=== PATIENT | female | born 1955 | race African-American/Black ===

== ENCOUNTER 2017-08-04 05:38 | Day surgery (SDC) | payer MEDICARE ==
[~2017-08-04 05:38] MED LIST: LASIX20 MG PO; NORMODYNE / TR300 MG PO; NORVASC5 MG PO; TUMS500 MG PO; ZOCOR20 MG PO
[2017-08-04 06:09] LABS: HEMATOCRIT 38.7 % (36.0-48.0); HEMOGLOBIN 12.7 g/dL (12-16); MCH 28.9 pg (26.0-34.0); MCHC 32.8 g/dL (31.0-37.0); MEAN PLATELET VOLUME 11.5 fL (7.4-10.4); RBC 4.4 10x6/uL (4.00-5.40); WBC 7.5 10x3/uL (4.8-10.8)
[2017-08-04] MEDS ORDERED: HYZAAR 100-25 T1 TAB PO (06:31)
[2017-08-04] MEDS ORDERED: FUROSEMIDE20 MG PO (06:32)
[2017-08-04] MEDS ORDERED: PRAVACHOL40 MG PO (06:32)
[2017-08-04] MEDS ORDERED: MACROBID100 MG PO (06:33)
[2017-08-04] MEDS ORDERED: K-TAB10 MEQ PO (06:34)
[2017-08-04] MEDS ORDERED: ACETIC ACID15 ML EACH EAR (06:35)
[2017-08-04 06:36] VITALS: BMI 61.5
[2017-08-04 06:47] LABS: ANION GAP 13.2 mmol/L (8-16); CALCIUM 9.2 mg/dL (8.5-10.1); CARBON DIOXIDE 27.6 mmol/L (21.0-32.0); CREATININE - SERUM 1.9 mg/dL (0.6-1.3); POTASSIUM - SERUM 3.8 mmol/L (3.5-5.1)
--- NOTE | 2017-08-04 09:06 | NUR ---
3CC RAMIN INK INJECTED TO COLON POLYP.
--- NOTE | 2017-08-04 09:30 | NUR ---
CALLED DR. SEGURA TO COME AND LOOK AT PATIENT WHEN AVAILABLE POLYPS NOTIFIED Xenia Ventura R.N. TO REPORT MESSAGE.
--- NOTE | 2017-08-04 10:20 | NUR ---
ENEMA NUMBER 1 GIVEN WITH SOME LEAKAGE NOTED
--- NOTE | 2017-08-04 10:25 | NUR ---
ENEMA NUMBER 2 GIVEN AND HELD. PT AARON WELL
--- NOTE | 2017-08-04 10:35 | NUR ---
ASSISTED PT UP TO BEDSIDE TOILET.
--- NOTE | 2017-08-04 11:00 | NUR ---
ASSISTED PT BACK TO BED AND TRAY PROVIDED.
--- NOTE | 2017-08-04 11:20 | NUR ---
DC TEACHING COMPLETE APPT MADE W/BREVING PER DR HARRIS'S REQUEST. PT ZENOBIA.
--- NOTE | 2017-08-04 11:30 | NUR ---
PT DC HOME WITH AUNT DRIVING VIA WC BY VOLUNTEER.
--- NOTE | 2017-08-10 10:26 | OP ---
PATIENT NAME: CATHERINE BANKS MEDICAL RECORD: [id number] :59 LOCATION:D.[facility]ER[facility] ADMISSION DATE: SURGEON: BIRDIE HARRIS MD DATE OF OPERATION: 08/04/2017 REFERRED BY: Dr. Justin Alvarado of [place]. PREOPERATIVE DIAGNOSIS: Screening colonoscopy. POSTOPERATIVE DIAGNOSIS: Large sessile polyp 4-5 cm in diameter of the right colon. OPERATION PERFORMED: Colonoscopy with electrocautery and snare, right colonic polypectomy. SURGEON: Birdie Harris MD ANESTHESIA: TIVA per SUPPORT SERVICES SPECIALIST. PREOPERATIVE NOTE: Ms. Banks is a 62-year-old morbidly obese -Ugand[place] female who has never had endoscopy and was referred to me by Dr. Alvarado for screening examination. She is a low risk individual other than being morbidly obese. She has no family history of colorectal cancer or other risk factors. She has completed a standard MiraLax prep. Under TIVA, with the patient in lateral decubitus position, a digital rectal exam was done. There was a large scar in the left buttock adjacent to the anus from what probably was incision and drainage of perirectal or ischiorectal abscess. I found no evidence of active sepsis or inflammation. The anal sphincter was somewhat lax and there were no lesions palpable within the anus or rectum. The patient did have a moderately large amount of brown thin liquid stool. The patient was, as I have said, morbidly obese and under TIVA, there was continued intermittent problems with airway maintenance and apparent sleep apnea type problems. She required very close monitoring and large doses of propofol. In future she will need general anesthesia with endotracheal intubation. The Olympus colonoscope was introduced and advanced through the rectum and sigmoid colon. The liquid stool was fairly easily suctioned away and the examination, I thought, was adequate although small lesions could have been missed. The scope was advanced to the cecum. The ileocecal valve was identified and photographed and the scope slowly withdrawn. The patient had a 4-5 cm polypoid sessile mass in the right colon on the medial wall. I injected saline submucosally to prepare for submucosal resection and then removed the polyp with snare and electrocautery in a piecemeal fashion and one large specimen was retrieved for histopathology and other portions of the resected polyp I could not retrieve. There was no bleeding from the polypectomy site. I did inject Yesenia ink into the submucosal tissues adjacent to the lesion to identify it during future examinations and surgery. The scope was slowly withdrawn. No other lesions were seen. I will plan for this patient to have a followup repeat colonoscopy with argon beam electrocautery and we will refer her to Dr. Augusto Segura for that procedure, which needs to be done in the operating room under general OPERATIVE REPORT [id number] CATHERINE BANKS JACE anesthesia. If the polypoid specimens contain malignancy obviously or dysplastic tissue, I would recommend that she have a right colon resection. At any rate, she will with after all that need a repeat colonoscopy in 1 year. TRANSINT:[id number] Voice Confirmation ID: [id number] DOCUMENT ID: [id number] BIRDIE HARRIS MD at 1026 CC: AUGUSTO SEGURA MD and JUSTIN ALVARADO MD [id number] DICTATION DATE: 08/04/17 0950 SALES AND CATERING COORDINATOR: 08/04/17 1252 [facility] 08/04/17 [facility] [address] [place] [address]
== END 2017-08-04 11:30 | disposition home or self-care (01) ==
LOC: D.OPS 05:38
PROVIDERS: Anesthesiology
DX: Z12.11 Encounter for screening for malignant neoplasm of colon (principal); D12.2 Benign neoplasm of ascending colon; I10 Essential (primary) hypertension; G47.30 Sleep apnea, unspecified; E66.01 Morbid (severe) obesity due to excess calories; Z68.44 Body mass index [BMI] 60.0-69.9, adult; Z01.812 Encounter for preprocedural laboratory examination

== ENCOUNTER → 2017-08-07 16:25 | Outpatient (CLI) | payer MEDICARE ==
[2017-08-04 06:36] VITALS: BMI 61.5
[~2017-08-07 16:25] MED LIST changes: +ACETAMINOPHEN325 MG PO; +ACETIC ACID15 ML EACH EAR; +BENADRYL INJ50 MG/ML IV; +CALMOSEPTINE OI71 GM TOPICAL; +FLAGYL500 MG PO; +FUROSEMIDE20 MG PO; +HYDROCODON-ACE1 EAC7 PO; +HYZAAR 100-25 T1 TAB PO; +K-TAB10 MEQ PO; +KEFLEX500 MG PO; +LOVENOX30 MG/0.3 SC; +MACROBID100 MG PO; +MERREM 500 MG/500 MG IV; +MUCINEX DM ER1 EAC1 PO; +NALOXONE HC0.4 MG/M2 IV; +ONDANSETRON4 MG/2 M3 IV; +PEPCID20 MG PO; +PHENERGAN25 MG/ML IM; +PHOSLO667 MG PO; +PRAVACHOL40 MG PO; +PROCRIT/EP10000 UNIT SC; +VENTOLIN HFA18 GM INH; +ZYLOPRIM100 MG PO
== END | disposition home or self-care (01) ==
LOC: D.US 16:00
DX: R60.0 Localized edema (principal); M79.602 Pain in left arm

== ENCOUNTER 2017-09-13 05:26 | Day surgery (SDC) | payer MEDICARE ==
[~2017-09-13 05:26] MED LIST changes: -ACETAMINOPHEN325 MG PO; -BENADRYL INJ50 MG/ML IV; -CALMOSEPTINE OI71 GM TOPICAL; -FLAGYL500 MG PO; -HYDROCODON-ACE1 EAC7 PO; -KEFLEX500 MG PO; -LOVENOX30 MG/0.3 SC; -MERREM 500 MG/500 MG IV; -MUCINEX DM ER1 EAC1 PO; -NALOXONE HC0.4 MG/M2 IV; -ONDANSETRON4 MG/2 M3 IV; -PEPCID20 MG PO; -PHENERGAN25 MG/ML IM; -PHOSLO667 MG PO; -PROCRIT/EP10000 UNIT SC; -VENTOLIN HFA18 GM INH; -ZYLOPRIM100 MG PO
[2017-09-13] MEDS ORDERED: ZYLOPRIM100 MG PO (06:46)
[2017-09-13] MEDS ORDERED: VENTOLIN HFA18 GM INH (06:48)
[2017-09-13 06:51] VITALS: BP 140/88; BMI 61.5
[2017-09-13 07:21] LABS: HEMOGLOBIN 10.9 g/dL (12-16); MCH 28.3 pg (26.0-34.0); MCHC 32.1 g/dL (31.0-37.0); MCV 88.3 fL (80.0-100.0); MEAN PLATELET VOLUME 11.1 fL (7.4-10.4); RBC 3.85 10x6/uL (4.00-5.40); RDW 14.8 % (11.5-14.5); WBC 8.9 10x3/uL (4.8-10.8)
[2017-09-13 07:42] LABS: ANION GAP 12.1 mmol/L (8-16); CALCIUM 9.6 mg/dL (8.5-10.1); CARBON DIOXIDE 27.3 mmol/L (21.0-32.0); CREATININE - SERUM 2.1 mg/dL (0.6-1.3); POTASSIUM - SERUM 3.4 mmol/L (3.5-5.1)
--- NOTE | 2017-09-19 09:40 | HP ---
PATIENT: CATHERINE MILLIGAN MEDICAL RECORD: [id number] ACCOUNT: [id number] LOCATION:D.OPS : 59 ADMISSION DATE: 09/13/17 HISTORY AND PHYSICAL EXAMINATION This is a history and physical addendum. CHIEF COMPLAINT: Colon polyp. I reviewed my office notes. Her history and physical examination is unchanged since I last saw the patient. We will plan for colonoscopy with polypectomy utilizing the argon plasma flow machine operator. The risks, possible complications, and alternatives to the procedure were explained to the patient. She elects to proceed. TRANSINT:[id number] Voice Confirmation ID: [id number] DOCUMENT ID: [id number] AUGUSTO SEGURA MD at 0940 CC: [id number] DICTATION DATE: 09/13/17 1033 BUSINESS LAWYER: 09/13/17 1052 [facility] 09/13/17 [id number] [place] [address]
--- NOTE | 2017-09-19 09:40 | OP ---
PATIENT NAME: CATHERINE MILLIGAN MEDICAL RECORD: [id number] :59 LOCATION:D.[facility] ADMISSION DATE: SURGEON: AUGUSTO SEGURA MD DATE OF OPERATION: 09/13/2017 PREOPERATIVE DIAGNOSIS: Right colon polypoid mass. POSTOPERATIVE DIAGNOSES: Right colon polypoid mass with probable underlying malignancy. PROCEDURES: 1. Total colonoscopy to cecum. 2. Endoscopic epinephrine injection with a sclerotherapy needle. 3. Snare piecemeal polypectomy. 4. Treatment of the polypoid base with the argon plasma biomass plant manager. 5. Deployment of endoscopic clips times 2 for additional hemostasis. SURGEON: Augusto Segura MD GAS ENGINEER: None. BLOOD LOSS: Minimal. ANESTHESIA: General. COMPLICATIONS: None. OPERATIVE FINDINGS: The base of the polyp contained an ulcerated area that was firm when I biopsied it and I am fearful that this likely represents invasive malignancy. OPERATIVE COURSE: The patient was conveyed to the operating room electively on 09/13/2017. General anesthesia was induced by anesthesia staff. The patient was placed in the Aparicio position. A digital rectal examination was performed. A colonoscope was inserted through the anus. It was easily advanced to the cecum. The prep was adequate. Upon withdrawal, I irrigated and aspirated extensively. I dragged the folds. The pullback was greater than a 25-minute pullback. In the ascending colon, at about the hepatic flexure, there was a tattooed area with a mass which was on a fold. This was a 4 cm mass. It was a bilobed mass and it appeared to have central ulceration. Cold endoscopic biopsies were obtained. As I did this, there was a little bit of bleeding and I wanted to control the bleeding with submucosal injection of epinephrine. I advanced the endoscopic sclerotherapy needle. I then injected epinephrine at 4 areas at the base of the polyp. The sclerotherapy needle was then withdrawn. I advanced an endoscopic snare. I performed a piecemeal snare polypectomy, removing about 90% of the polyp with the snare. I then obtained some more cold endoscopic biopsies. I then ablated the polypoid base with the argon plasma biomass plant manager. I had to go deep on this fold and there was some bleeding and I wanted to reinforce the area as well as control the bleeding and I did this with the deployment of 2 endoscopic clips. I then advanced an endoscopic retrieval net and was able to retrieve the portions of the polyp that I had removed with the snare. The endoscope was then withdrawn under direct vision. The patient was then extubated and conveyed to the post-anesthesia care unit where she was in stable condition. A chest x-ray was obtained. The radiologist OPERATIVE REPORT [id number] SRINICATHERINE JACE called me with the results revealing some interstitial edema, but no evidence of free air. I will see the patient in my office in a week or two. It is very likely that I will recommend a laparoscopic segmental colectomy of the right colon as I am fearful that this polypoid mass harbors an underlying malignancy. TRANSINT:[id number] Voice Confirmation ID: [id number] DOCUMENT ID: [id number] AUGUSTO SEGURA MD at 0940 CC: BIRDIE HARRIS MD [id number] DICTATION DATE: 09/13/17 1037 CORPORATE DIRECTOR OF PHARMACY: 09/13/17 1156 [facility] 09/13/[address] [facility] [address] [place] [address]
== END 2017-09-13 12:21 | disposition home or self-care (01) ==
LOC: D.OPS 05:26 → D.PAN 07:30 → D.OPS 10:30
PROVIDERS: Anesthesiology
DX: D12.2 Benign neoplasm of ascending colon (principal); Z01.812 Encounter for preprocedural laboratory examination

== ENCOUNTER 2017-10-02 13:00 | Inpatient (IN) | payer MEDICARE ==
[~2017-10-02] VITALS: Ht 170.2 cm; Wt 177.8 kg
[~2017-10-02 13:00] MED LIST changes: +VENTOLIN HFA18 GM INH; +ZYLOPRIM100 MG PO
[2017-10-03] MEDS ORDERED: FLAGYL500 MG PO (14:58)
[2017-10-03] MEDS ORDERED: KEFLEX500 MG PO (14:59)
[2017-10-04 08:11] VITALS: BP 172/100; BMI 63.3
[2017-10-04 08:44] LABS: HEMATOCRIT 32.9 % (36.0-48.0); HEMOGLOBIN 10.5 g/dL (12-16); MCH 28.4 pg (26.0-34.0); MCHC 31.9 g/dL (31.0-37.0); MCV 88.9 fL (80.0-100.0); MEAN PLATELET VOLUME 11.7 fL (7.4-10.4); RBC 3.7 10x6/uL (4.00-5.40); RDW 15.7 % (11.5-14.5); WBC 8.1 10x3/uL (4.8-10.8)
[2017-10-04 09:06] LABS: ANION GAP 13.3 mmol/L (8-16); CARBON DIOXIDE 25.2 mmol/L (21.0-32.0); CREATININE - SERUM 1.9 mg/dL (0.6-1.3); POTASSIUM - SERUM 3.5 mmol/L (3.5-5.1)
[2017-10-04 13:19] VITALS: BP 139/79
[2017-10-04 13:26] VITALS: BP 139/79; BMI 61.5
--- NOTE | 2017-10-04 14:10 | NUR ---
PT HAS SCD'S IN PLACE BILATERALLY
[2017-10-04 20:00] VITALS: BP 157/96
--- NOTE | 2017-10-04 23:57 | NUR ---
2000)REC'D REQUESTING PAIN MEDS STATES HAS BEEN TRYING TO GET SOMETHING FOR PAIN FOR TWO HOURS.RATING PAIN 6 ON 1-10 PAIN SCALE. DIRECTOR OF BANDS DILAUDUD 0.2MG EVERY 10 MIN. NO LOCKOUT CONNECTED AND EXPLAINED.WITH PHYSICAL DEMONSTRATION VOICES UNDERSTANDING USAGE.02 3L OH. MASON PATENT DRAINING DK. YELLOW COLORED URINE. WILL CONTINUE TO MONITOR FOR ANY CHGES. AND FOLLOW CURRENT PLAN OF CARE
[2017-10-05] VITALS: BP 143/82
--- NOTE | 2017-10-05 01:54 | NUR ---
PT RESTING WITH EYES CLOSED AT THIS TIME. RESPIRATIONS EQUAL, NO SIGNS OF DISTRESS NOTED. PARTS ROOM ASSOCIATE IN USE FOR PAIN CONTROL. CALL LIGHT IN REACH, SRX2. WILL CONTINUE WITH PLAN OF CARE.
[2017-10-05 04:00] VITALS: BP 136/78
--- NOTE | 2017-10-05 07:05 | NUR ---
REPORT RECEIVED, ASSUMED CARE OF PT. RESTING WITH EYES SHUT, EASILY AROUSED, NO NEEDS VOICED AT THIS TIME.
[2017-10-05 08:16] VITALS: BP 157/110
[2017-10-05 10:03] VITALS: Ht 170.2 cm; Wt 177.8 kg
[2017-10-05 12:14] VITALS: BP 149/73
[2017-10-05 15:38] VITALS: BP 178/98
[2017-10-05 20:00] VITALS: BP 143/73
[2017-10-06] VITALS (7 sets, daily range): BP systolic 126–163; BP diastolic 68–98
--- NOTE | 2017-10-06 07:19 | NUR ---
REPORT RECEIVED FROM VIOLIN TEACHER NURSE. CALL LIGHT IN REACH.
--- NOTE | 2017-10-06 08:30 | NUR ---
ASSESSMENT COMPLETED. NO NEEDS VOICED AT THIS TIME. REFUSES SCDs. CALL LIGHT IN REACH. WILL CONTINUE WITH PLAN OF CARE.
--- NOTE | 2017-10-06 10:15 | NUR ---
NO NEEDS VOICED AT THIS TIME. CALL LIGHT IN REACH.
--- NOTE | 2017-10-06 10:48 | NUR ---
Patient Name: CATHERINE MILLIGAN Admission Status: Elective Accout number: [id number] Admission Date: 10-04-2017 : 1955 Admission Diagnosis:POLYP OF COLON Attending: AUGUSTO SEGURA Current LOS: 2 Anticipated DC Date: Planned Disposition: Home Primary Insurance: MEDICARE A & B Discharge Planning Comments: CM met with patient to assess discharge planning needs. Patient lives independently at home with her 2 sons (Mel and Ata) who help her when needed. She stated that sometimes her sons have to help her with bathing. Patient has a cane at home and uses an inhaler. Patient denies any HH at this time, but not sure she will need any when she goes home. There are not any stairs at home. CM will continue to follow and assist with discharge planning needs. PCP: Laury Allen in [facility] Mel and Ata (son) Practice Support Specialist: Sharon Youssef * Is the patient Alert and Oriented? Yes 0 * How many steps to enter\exit or inside your home? 0 0 * PCP LAURY 0 * Pharmacy [facility] [address] * Preadmission Environment Home with Family 0 * ADLs Partial Dependent 0 * Partial ADLs (Assistance needed) Bathing 0 * Equipment Cane 0 * List name and contact numbers for known caregivers / representatives who currently or will assist patient after discharge: MEL (SON) ATA (SON) 0 * Community resources currently utilized None 0 * Additional services required to return to the preadmission environment? Yes 0 * Can the patient safely return to the preadmission environment? Yes 0 * Has this patient been hospitalized within the prior 30 days at any hospital? No 0 Grand Total: 0
--- NOTE | 2017-10-06 12:10 | NUR ---
DR. SEGURA IN ROOM TO SEE PATIENT.
--- NOTE | 2017-10-06 14:02 | NUR ---
PEPCID 40 MG SIVP PER ORDER. AMBULATED IN HALLWAY WITH PT ABOUT AN HOUR AGO. CALL LIGHT IN REACH.
--- NOTE | 2017-10-06 16:20 | NUR ---
DENIES NEEDS AT THIS TIME. CALL LIGHT IN REACH.
--- NOTE | 2017-10-06 18:53 | NUR ---
LOVENOX SUBQ TO RLQ. NO OTHER CHANGES IN INITIAL ASSESSMENT. STILL REFUSES SCDs. CALL LIGHT IN REACH. WILL CONTINUE WITH PLAN OF CARE.
--- NOTE | 2017-10-06 19:15 | NUR ---
RECEIVED CARE FROM DAY NURSE. PT LYING IN BED WATCHING TV. REPORTS HEADACHE. ORDER RECEIVED FOR TYLENOL PO. NO OTHER NEEDS VOICED AT THIS TIME. MASON TO GRAVITY. IV TO LEFT HAND PATENT AND INFUSING PER ORDER.
--- NOTE | 2017-10-06 23:30 | NUR ---
ANSWERED PATIENT'S CALL LIGHT. SHE REQUESTED FRESH ICE WATER. REMOVED PATIENT'S CUP OF WATER. BROUGHT HER BACK A LARGE CUP OF ICE WATER. NO SIGNS OF DISTRESS NOTED. RESPIRATIONS ARE EVEN AND UNLABORED ON ROOM AIR. BED IN LOWEST POSITION, CALL LIGHT IN REACH. BED RAILS UP X'S 2.
[2017-10-07] VITALS: BP 130/82
[2017-10-07 04:00] VITALS: BP 177/95
--- NOTE | 2017-10-07 07:16 | NUR ---
REPORT RECEIVED FROM FIELD ARTILLERY BASIC NURSE. CALL LIGHT IN REACH.
--- NOTE | 2017-10-07 08:48 | NUR ---
BP 217/102. TAKEN AGAIN AND IT WAS 203/110. SPOKE WITH DR. SEGURA. STATES IT IS OK TO RESTART HOME BP MEDS.
--- NOTE | 2017-10-07 09:00 | NUR ---
ASSESSMENT COMPLETED. AM MEDS ADMINISTERED. REFUSES SCDs. CALL LIGHT IN REACH. WILL CONTINUE WITH PLAN OF CARE.
[2017-10-07 09:13] VITALS: BP 203/110
--- NOTE | 2017-10-07 11:14 | NUR ---
SITTING UP IN CHAIR AT BEDSIDE. REPORTS SOME PAIN WITH BEING UP BUT FEELS BETTER OUT OF BED. MASON PATENT WITH CLEAR YELLOW URINE. DENIES NEEDS AT THIS TIME.
--- NOTE | 2017-10-07 11:44 | NUR ---
OTHER AM MEDS ADMINISTERED. CALL LIGHT IN REACH.
[2017-10-07 13:16] VITALS: BP 207/117
--- NOTE | 2017-10-07 13:47 | NUR ---
BACK IN BED. STATES A PAIN OF 7. STILL USING COMPRESSOR REPAIRER. WILL CONTINUE TO MONITOR.
--- NOTE | 2017-10-07 14:34 | NUR ---
SBP IS STILL OVER 200. SPOKE WITH DR. SEGURA. NEW ORDER FOR LOPRESSOR 5 MG IVP X1. ALSO CORRECTED DOSES OF HER HOME MEDS. LABETALOL SHOULD BE TID NOT BID AND LASIX SHOULD BE 40 MG NOT 20. WILL GO AHEAD AND GIVEN 2ND DOSE OF LABETALO AND 2ND DOSE OF LASIX 20 MG TO EQUAL HER TOTAL DAILY DOSE OF 40. WILL HAVE RN TO PUSH LOPRESSOR.
--- NOTE | 2017-10-07 15:25 | NUR ---
AFTERNOON MEDS ADMINISTERED. FAMILY IN ROOM. CALL LIGHT IN REACH.
[2017-10-07 15:53] VITALS: BP 157/88
--- NOTE | 2017-10-07 16:17 | NUR ---
BP NOW 157/88. WILL CONTINUE TO MONITOR.
--- NOTE | 2017-10-07 18:00 | NUR ---
MASON CATH DC'D WITH IP INTACT. FLUOROSCOPE OPERATOR DC'D PER ORDER. NORCO PO. NS DECREASED TO 50 CC/HR. NO OTHER CHANGES IN INITIAL ASSESSMENT. STILL REFUSES SCDs. CALL LIGHT IN REACH. WILL CONTINUE WITH PLAN OF CARE.
[2017-10-07 20:56] VITALS: BP 151/65
[2017-10-08 01:42] VITALS: BP 177/90
--- NOTE | 2017-10-08 04:53 | NUR ---
ASSESSED, PT IS ASLEEP WITH O2 AT 2 LITERS AND EASY RESPIRATIONS. THE BED IS LOW, RAILS UP X'S 2 WITH THE CALL LIGHT AT HAND.
--- NOTE | 2017-10-08 07:26 | NUR ---
REPORT RECEIVED FROM CNS NURSE. CALL LIGHT IN REACH.
[2017-10-08 09:03] VITALS: BP 178/102
--- NOTE | 2017-10-08 09:10 | NUR ---
ASSESSMENT COMPLETED. AM MEDS ADMINISTERED. REFUSES SCDs. CALL LIGHT IN REACH. WILL CONTINUE WITH PLAN OF CARE.
--- NOTE | 2017-10-08 11:20 | NUR ---
SITTING IN CHAIR PER PT. TOLERATING AT THIS TIME. CALL LIGHT IN REACH.
[2017-10-08 12:05] VITALS: BP 145/87
--- NOTE | 2017-10-08 13:50 | NUR ---
NO NEEDS VOICED AT THIS TIME. CALL LIGHT IN REACH.
--- NOTE | 2017-10-08 15:01 | NUR ---
LABETALOL AND NORCO PO. CALL LIGHT IN REACH.
[2017-10-08 16:15] VITALS: BP 163/79
--- NOTE | 2017-10-08 17:00 | NUR ---
DENIES NEEDS AT THIS TIME. VISITORS IN ROOM. CALL LIGHT IN REACH.
--- NOTE | 2017-10-08 18:32 | NUR ---
NO CHANGES IN INITIAL ASSESSMENT. STILL REFUSING SCDs. FAMILY IN ROOM. CALL LIGHT IN REACH. WILL CONTINUE WITH PLAN OF CARE.
--- NOTE | 2017-10-08 19:20 | NUR ---
PT IN BED WITH EYES OPEN. NO COMPLAINTS OR NEEDS MADE KNOWN. IV TO LEFT HAND WITH NS AT 50ML/HR. NO S/S OF DISTRESS. CALL LIGHT IN REACH. WILL CONTINUE TO OBSERVE.
[2017-10-08 21:07] VITALS: BP 142/72
--- NOTE | 2017-10-08 22:03 | NUR ---
PT IN BED WITH EYES CLOSED AND CHEST RISING. EASILY AROUSED UPON ENTRY TO ROOM. NO CONCERNS NOTED. CALL LIGHT IN REACH.
[2017-10-08 23:49] VITALS: BP 170/88
--- NOTE | 2017-10-09 00:31 | NUR ---
PT IN BED WITH EYES OPEN. REPORTED TO HAVE HAD BOWEL MOVEMENT BY STAFF. NO CONCERNS NOTED OR COMPLAINTS. CALL LIGHT IN REACH. WILL CONTINUE TO OBSERVE.
--- NOTE | 2017-10-09 02:49 | NUR ---
PT IN BED WITH EYES CLOSED AND CHEST RISING. NO S/S OF DISTRESS NOTED. CALL LIGHT IN REACH. WILL CONTINUE TO OBSERVE.
[2017-10-09 03:59] VITALS: BP 172/86
--- NOTE | 2017-10-09 07:19 | NUR ---
REPORT RECEIVED FROM HOSIERY LOOPER NURSE. CALL LIGHT IN REACH.
--- NOTE | 2017-10-09 07:21 | NUR ---
REPORT RECEIVED FROM NATURAL RESOURCE ECONOMIST NURSE. CALL LIGHT IN REACH.
[2017-10-09 08:52] VITALS: BP 178/91
--- NOTE | 2017-10-09 08:56 | NUR ---
ASSESSMENT COMPLETES. NORCO PO WITH AM MEDS ADMINISTERED. EXPLAINED TO PATIENT THAT SHE HAS TO GET UP AND WALK IF SHE WANTS TO GO HOME. STILL REFUSING SCDs. BED ALARM ON. CALL LIGHT IN REACH.
--- NOTE | 2017-10-09 10:49 | NUR ---
STATES PAIN IS STILL AT A 7. OVERNIGHT STOCKER IN ROOM TO ASSIST PATIENT WITH BATH. I EXPLAINED TO PATIENT THAT SHE HAS TO GET UP AND WALK IF SHE WANTS TO GO HOME. PATIENT STARTS SAYING THAT SHE "SEES " IN HER ROOM SOMETIMES AND A WOMAN IN A PEACH ROBE IN THE ROOM WITH HER. REORIENTED PER VERBAL STIMULI. OVERNIGHT STOCKER IN ROOM WITH PATIENT.
--- NOTE | 2017-10-09 12:23 | NUR ---
PEPCID 40 MG SIVP. NORCO PO PER C/O PAIN OF 7. CALL LIGHT IN REACH.
[2017-10-09 12:44] VITALS: BP 161/84
--- NOTE | 2017-10-09 13:00 | NUR ---
NUTRITION F/U CHART REVIEWED, PT VISIT. UP IN CHAIR EATING LUNCH. STATES SHE IS "EATING A LITTLE AT A TIME". WILL CONTINUE TO PROVIDE DIET, MONITOR PT PROGRESS. RD FOLLOWING
--- NOTE | 2017-10-09 14:00 | NUR ---
DENIES NEEDS AT THIS TIME. FAMILY IN ROOM. CALL LIGHT IN REACH.
--- NOTE | 2017-10-09 15:10 | NUR ---
LABETALOL PO. FAMILY IN ROOM. CALL LIGHT IN REACH.
[2017-10-09 16:20] VITALS: BP 139/82
[2017-10-09] MEDS ORDERED: HYDROCODON-ACE1 EAC7 PO (16:58)
--- NOTE | 2017-10-09 17:19 | NUR ---
IV DC'D WITH TIP INTACT.
--- NOTE | 2017-10-09 17:40 | NUR ---
DC INSTRUCTIONS EXPLAINED TO PATIENT AND SON. VERBALIZED UNDERSTANDING. RX FOR NORCO HANDED TO PATIENT.
--- NOTE | 2017-10-09 18:09 | NUR ---
PT TO DC HOME. SITTING UP AT BEDSIDE,WITHOUT DISTRESS.
--- NOTE | 2017-10-09 18:15 | NUR ---
DC'D TO VEHICLE VIA WC WITH SON.
--- NOTE | 2017-11-02 13:26 | OP ---
PATIENT NAME: CATHERINE MILLIGAN MEDICAL RECORD: [id number] :59 LOCATION:D.MS [facility]2212 ADMISSION DATE:10/04/17 SURGEON: AUGUSTO SEGURA MD DATE OF OPERATION: 10/04/2017 PREOPERATIVE DIAGNOSIS: Endoscopically unresectable right-sided polypoid mass. POSTOPERATIVE DIAGNOSIS: Endoscopically unresectable right-sided polypoid mass. PROCEDURE: Hand-assisted laparoscopic surgery - right hemicolectomy. SURGEON: Augusto Segura MD LAYAWAY CLERK: None. BLOOD LOSS: Less than 50 cc. ANESTHESIA: General. COMPLICATIONS: None. The risks, possible complications, and alternatives to the procedure were explained to the patient. She elects to proceed. OPERATIVE COURSE: The patient was conveyed to operating room electively on 10/04/2017. General anesthesia was induced by anesthesia staff. The abdomen was sterilely prepped and draped. A skin ramy was accomplished in the left upper quadrant. A Veress needle was inserted through the skin ramy into the peritoneal cavity. CO2 insufflation was begun. Once a sufficient pneumoperitoneum had been achieved, a 5-mm trocar was inserted through an incision in the epigastrium. Under direct internal vision utilizing television camera, another 5-mm trocar was inserted just above the umbilicus. There was a non-incarcerated umbilical hernia, which I did not attempt to fix during this operation as it would have required a mesh repair and due to the fact that performing a colectomy, there is too greater chance that this would have lead to a mesh infection. There were some adhesions in the lower abdomen in the midline. These were taken down with the EnSeal device. In the suprapubic area, another 5-mm trocar was inserted. The right colon was rolled medially. I incised along the right white line of Toldt with the EnSeal device. I then incised the retroperitoneal attachments at the hepatic flexure. I rolled the right colon medially. I chose an area for the insertion of the GelPort device in the right lower quadrant. A transverse incision was accomplished here. I dissected down to the external oblique aponeurosis, which was incised along the direction of its fibers. I then divided through the internal oblique and transversus abdominis muscle layers. The peritoneal cavity was entered sharply. I placed the Gelport device. I was able to exteriorize the right colon. I stapled across the ileum with a ELEAZAR-75 stapler. I then stapled across the proximal transverse colon with a ELEAZAR-75 stapler. The interposed mesentery was divided with the EnSeal device. I opened up the specimen on the back table and it did reveal an ulcerated mass with a tattoo. OPERATIVE REPORT [id number] CATHERINE MILLIGAN I elected to excise a little bit more of the ileum as well as the transverse colon in order to get some tissue that was going to be acceptable for anastomosis as the ileum and colon were largely fatty encased. I stapled across the transverse colon with a TA-60 stapler and then divided the mesentery through this small portion of the colon with the EnSeal device. I then stapled across the ileum little bit more proximally and then divided the mesentery with the EnSeal device. I placed the ileum and the colon into apposition side by side. They were kept in place with multiple interrupted 3-0 Vicryl sutures. A small enterotomy and small colotomy were accomplished. I advanced anvils of the ELEAZAR-75 stapler. I then fired. The resulting intracolonic defect was closed with a single firing of the TA-60 stapler. I then reinforced the TA-60 staple line with multiple interrupted horizontal mattress 3-0 Vicryl sutures. I irrigated and aspirated. There was no bleeding. I then returned the anastomosis to the abdominal cavity. The GelPort device was then removed. I removed the trocars. I approximated the internal oblique and transverse abdominis muscle layers with a running #1 Vicryl. I then closed the external oblique aponeurosis with a running #1 Vicryl. The subdermis was approximated with interrupted 3-0 Vicryl. The skin was approximated with a running intracuticular 3-0 Vicryl. The trocar sites were closed with interrupted intracuticular 3-0 Vicryls. Benzoin and Steri-Strips were applied. The patient was then extubated and conveyed to post-anesthesia care unit, where she was in stable condition. TRANSINT:[id number] Voice Confirmation ID: [id number] DOCUMENT ID: [id number] AUGUSTO SEGURA MD at 1326 CC: KINGSTON SALMON MD, SLIME VO MD and YULISSA TAVARES [id number] DICTATION DATE: 10/04/17 1242 ORDNANCE MECHANIC: 10/04/17 1430 DIS IN 10/09/17 [place] [id number] [place] [address]
--- NOTE | 2017-11-02 13:26 | HP ---
PATIENT: CATHERINE MILLIGAN MEDICAL RECORD: [id number] ACCOUNT: [id number] LOCATION:D.MS [facility] : 59 ADMISSION DATE: 10/04/17 HISTORY AND PHYSICAL EXAMINATION CHIEF COMPLAINT: Colon polyp. HISTORY OF PRESENT ILLNESS: The patient has a right-sided colon polyp. She underwent an attempted polypectomy utilizing the argon plasma supervisor mold shop. The polyp was felt to be unresectable endoscopically. The site was tattooed. The patient is now here for a hand-assisted right hemicolectomy, possible open procedure. The patient has been to the Emergency Room twice recently for bleeding. She is having no abdominal pain. HOME MEDICINES: Flagyl, losartan/hydrochlorothiazide, Keflex, Lasix, labetalol, Zyloprim, albuterol. ALLERGIES: LISINOPRIL. SOCIAL HISTORY: Nonsmoker. PAST MEDICAL AND SURGICAL HISTORY: Sleep apnea, not on CPAP, hypertension, thyroidectomy without replacement, morbid obesity with BMI of 63, arthritis. REVIEW OF SYSTEMS: Negative for CVA or seizures. Negative for diabetes or hepatitis. PHYSICAL EXAMINATION: GENERAL: The patient does not appear acutely ill. She does not appear chronically ill. VITAL SIGNS: Reviewed. The entire physical examination was performed in the presence of a female nurse. HEAD: External ears appear normal. EYES: Extraocular movements are intact. NECK: Trachea is midline. CHEST: No intercostal retractions. PULMONARY: Nonlabored, no stridor. ABDOMEN: There is a prominent panniculus with lower midline incision. IMPRESSION: Endoscopically unresectable right colon polypoid mass. PLAN: Hand-assisted right hemicolectomy. The risks, possible complications, and alternatives to the procedure were explained to the patient. This included the risk of bleeding requiring emergency reoperation, infection and open procedure, as well as the possible need for colostomy. TRANSINT:[id number] Voice Confirmation ID: [id number] DOCUMENT ID: [id number] HISTORY AND PHYSICAL [id number] SRINICATHERINE AUGUSTO MILLIGAN MD at 1326 CC: KINGSTON SALMON MD, SLIME VO MD and YULISSA TAVARES [id number] DICTATION DATE: 10/04/17 1234 SCALE TECHNICIAN: 10/04/17 1313 DIS IN 10/09/17 [facility] [address] [place] [address]
--- NOTE | 2017-11-02 13:26 | DS ---
PATIENT:CATHERINE MILLIGAN :59 MEDICAL RECORD: [id number] DISCHARGE SUMMARY ADMISSION DATE: 10/04/17 DISCHARGE DATE: 10/09/17 PRINCIPAL DIAGNOSIS: Endoscopically unresectable ascending colon polyp. This was a tubulovillous adenoma with high-grade dysplasia. PRINCIPAL PROCEDURE: Hand-assisted laparoscopic right hemicolectomy. OTHER DIAGNOSES: Include sleep apnea, hypertension, morbid obesity, arthritis. HOSPITAL COURSE: The patient underwent the above operative procedure. Postoperatively, her pain was controlled. Her diet was advanced. She is being dismissed home on hydrocodone for pain. She is tolerating a diet. Her incisions look good. I will see her in the office in 2-3 weeks. TRANSINT:[id number] Voice Confirmation ID: [id number] DOCUMENT ID: [id number] AUGUSTO SEGURA MD at 1326 CC: BIRDIE HARRIS MD [id number] DICTATION DATE: 10/09/17 1630 CORPORATE ANALYST: 10/10/17 1019 DIS IN 10/09/17 [place] [id number] [place] [address]
== END 2017-10-09 18:15 | disposition home or self-care (01) | DRG 330 ==
LOC: D.MS 10-04 07:32 → D.SDCHOLD 10-04 07:32 → D.MS 10-04 12:50
PROVIDERS: Anesthesiology; ADMIT Surgery
PROC: 0DTF0ZZ Resection of Right Large Intestine, Open Approach (ICD-10-PCS; principal; 2017-10-04 10:00)
DX: K63.5 Polyp of colon (principal); Z68.44 Body mass index [BMI] 60.0-69.9, adult; K42.9 Umbilical hernia without obstruction or gangrene; E66.01 Morbid (severe) obesity due to excess calories; I10 Essential (primary) hypertension; G47.30 Sleep apnea, unspecified

== ENCOUNTER 2017-10-15 14:21 | Inpatient (IN) | payer MEDICARE ==
[~2017-10-15] VITALS: Ht 170.2 cm; Wt 147.8 kg
--- NOTE | ~2017-10-15 | EC ---
PATIENT:CATHERINE MILLIGAN DATE OF SERVICE: 10/15/17 SEX: F MEDICAL RECORD: [id number] DATE OF : [birth year] LOCATION:D.M2 D.213 AGE OF PATIENT: 62 ADMISSION DATE: 10/15/17 REFERRING PHYSICIAN: INTERPRETING PHYSICIAN: VENECIA LAMB MD ECHOCARDIOGRAM REPORT ECHO CHARGES 4 ECHO COMPLETE CLINICAL DIAGNOSIS: HYPOTENSION, RENAL FAILURE/SOB ECHOCARDIOGRAPHIC MEASUREMENTS (adult normal given) AC root (d.<3.7cm) 3.4 cm LV Septum d (<1.2 cm> 1.5 cm Valve Excursion 1.9 cm LV Septum (systole) 1.8 cm Left Atria (s.<4.0cm> 3.7 cm LVPW d(<1.2cm) 1.7 cm RV (d.<2.3cm) 3.9 cm LVPW (sytole) 2.0 cm LV diastole(<5.6CM) 4.9 cm MV E-F(>70mm/sec) cm LV systole 3.0 cm LVOT Diameter 1.9 cm MV exc.(>10mm) cm Est.ejection fraction (50-75%) % Pericardial Effusion N DOPPLER: LVIT cm/sec A 101 cm/sec E 79.0 cm/sec LA cm/sec RVSP 37 mmHg LVOT 92 cm/sec AOP1/2T m/s Asc. Ao 168 cm/sec RVOT 112 cm/sec RA cm/sec PA 125 cm/sec AV Gradient Peak 11.30mmHg AV Mean 5.81 mmHg AV Area 1.7 cm MV Gradient Peak 7.13 mmHg MV Mean 2.72 mmHg MV Area cm COMMENTS: Printing Film Stripper: Carolina BAHENA Talent Acquisition Manager: 4 Dr. Lamb TAPE# PACS DATE OF SERVICE: 10/17/2017 PROCEDURE: Transthoracic echocardiogram. FINDINGS: The quality of the echo is qualitative rather than quantitative. It is difficult to scan the patient in the ICU. Unable to manipulate her well for better visualizations. With that being said; 1. The left ventricle has evidence of left ventricular hypertrophy and hyperdynamic function at 65%. No obvious regional wall motion abnormalities. 2. The right ventricle appears to be mildly dilated with normal function. ECHOCARDIOGRAM REPORT [id number] CATHERINE MILLIGAN Right ventricular systolic pressure is 40 mmHg. 3. The mitral valve is not well visualized but grossly normal. There is no obvious mitral regurgitation or mitral stenosis. 4. The aortic valve appears to be normal. 5. The pulmonic valve is grossly normal. 6. The right atrium is dilated. 7. The right ventricle is dilated. CONCLUSION: The patient's overall function is normal to hyperdynamic with no obvious valvular abnormalities. TRANSINT:[id number] Voice Confirmation ID: [id number] DOCUMENT ID: [id number] 10/24/2017 Edited to correct date of service, dm. VENECIA LAMB MD at 1553 CC: [id number] DICTATION DATE: 10/18/17 0827 RAILROAD ENGINEER: 10/18/17 1228 [facility] [address] [place] [address]
--- NOTE | ~2017-10-15 | CN ---
PATIENT NAME:CATHERINE BANKS MEDICAL RECORD: [id number] : 59 LOCATION:. D.2137 ADMIT DATE: 10/15/17 ACCOUNT: [id number] CONSULTING PHYSICIAN: JOSÉ LOPEZ MD REFERRING PHYSICIAN: AUGUSTO SEGURA MD DATE OF CONSULTATION: 10/17/2017 HISTORY OF PRESENT ILLNESS: Ms. Banks is a 62-year-old -[place]er female who has a history of obstructive sleep apnea. The patient is noncompliant. She was admitted on 10/15/2017 with fever, leukocytosis and acute renal failure and cellulitis of the wound. She underwent a partial right hemicolectomy about 2 weeks ago. This morning, the patient was a bit short of breath, checking her lab, her hematocrit was 21. She was on antibiotics. REVIEW OF SYSTEMS: Mainly in the history of present illness. PAST MEDICAL HISTORY: 1. Hypertension. 2. Obstructive sleep apnea. 3. Peripheral vascular disease. 4. Morbid obesity. 5. Neuropathy. PAST SURGICAL HISTORY: 1. . 2. She is status post partial colectomy 2 weeks ago. 3. Kidney stone. 4. Ankle ORIF. 5. Thyroidectomy. 6. Tubal ligation. ALLERGIES: SHE IS ALLERGIC TO LISINOPRIL, WHICH IS CAUSING HER COUGH. MEDICATIONS: Her present medications on the [employer] was reviewed. She is started on linezolid. PERSONAL AND SOCIAL HISTORY: The patient is an ex-smoker. She is a nondrinker. FAMILY HISTORY: Noncontributory. PHYSICAL EXAMINATION: GENERAL: Now, the patient is lying comfortably in bed. She is not in acute distress. VITAL SIGNS: The blood pressure is 100/52, pulse is 79, respirations 20, temperature 98.4, SpO2 is 97% on 2 liters nasal cannula. HEENT: Conjunctiva is pale. The sclera is not icteric. NECK: Neck is supple. No JVD. CHEST: There is a basal crackle. No wheezing. HEART: Rhythm regular, normal sound, no murmur. ABDOMEN: Abdomen is soft. Bowel sounds present. RECTAL: Deferred. EXTREMITIES: No cyanosis, no clubbing. There are 2+ pedal edema. SKIN: The skin is warm, normal turgor. CENTRAL NERVOUS SYSTEM: The patient is awake and alert. She is a bit confused. There is no obvious cranial nerve abnormality. CONSULT REPORT [id number] CATHERINE BANKS LABORATORY DATA: CBC: WBC 18.6, hemoglobin 7.1, hematocrit 21.8, platelet count 310. Chemistry: Sodium 138, potassium is 4, BUN is 49 and creatinine 5.1. CHEST RADIOGRAPH: There is no acute infiltrate. IMPRESSION: 1. Dyspnea, most likely multifactorial. A. Fluid overload. B. Severe anemia secondary to blood loss. 2. Possible underlying tracheobronchitis, suspect pulmonary hypertension with obstructive sleep apnea. 3. Acute hypoxic respiratory failure. 4. Anemia, most likely secondary to blood loss. 5. Leukocytosis, secondary to cellulitis. 6. Tracheobronchitis. 7. Obstructive sleep apnea, the patient is noncompliant. 8. Acute renal failure. 9. Status post partial colectomy. RECOMMENDATION: 1. Continue linezolid. 2. Check ultrasound of the lower extremity to rule out any DVT. 3. Supplemental oxygen. 4. Albuterol ipratropium nebulizer. 5. Agree with transfusion. Follow up labs and chest radiograph. Dr. Trejo, thank you for involving me in the care of Ms. Banks. TRANSINT:[id number] Voice Confirmation ID: [id number] DOCUMENT ID: [id number] JOSÉ LOPEZ MD at 1406 CC: BIRDIE TREJO MD [id number] DICTATION DATE: 10/17/17 1444 WELLNESS SPECIALIST: 10/17/17 1650 ADM IN [id number] [place] [address]
--- NOTE | ~2017-10-15 | OP ---
PATIENT NAME: CATHERINE MILLIGAN MEDICAL RECORD: [id number] :59 LOCATION:[facility] D.2302 ADMISSION DATE:10/15/17 SURGEON: BIRDIE TREJO MD DATE OF OPERATION: 10/20/2017 SURGEON: Birdie Trejo MD PREOPERATIVE DIAGNOSES: 1. Acute renal failure requiring hemodialysis. 2. Surgical wound infection with cellulitis and abscess. POSTOPERATIVE DIAGNOSES: 1. Acute renal failure requiring hemodialysis. 2. Surgical wound infection with cellulitis and abscess. PROCEDURE PERFORMED: 1. Left subclavian HemoSplit. 2. Interpretation of fluoroscopy. 3. Balloon incisional wound debridement and VAC placement greater than 50 square cm. ANESTHESIA: TIVA. COMPLICATIONS: None. SPECIMENS: None. First case was clean. Second case was grossly contaminated. ESTIMATED BLOOD LOSS: 20 cc. OPERATIVE COURSE: After consent was obtained, the patient was taken to the operating room and placed in supine position on the operating table. Next, total intravenous anesthesia was given. A timeout was taken to confirm the correct patient and procedure, left chest and neck were prepped and draped in typical sterile fashion. The right lower quadrant was prepped and draped in typical sterile fashion. Both rojas were prepped and draped separately. The right lower quadrant field was covered with sterile towels. Left subclavian vein was cannulated in the first pass. Under direct fluoroscopy, the guidewire was passed the atriocaval junction. The needle was removed. The dilator was then passed over the wire in a standard Seldinger fashion dilating the tract. The dilator and breakaway sheath were then advanced over the wire under fluoroscopy at the atriocaval junction. The wire and dilator were removed. A skin incision was made for administration of local anesthetic. A 27 cm catheter was then tunneled through the left chest wall into the needle stick site. Under fluoroscopy, it was advanced to the breakaway sheath to the atriocaval junction. The breakaway sheath was removed. Skin was closed with a 3-0 Vicryl suture. The catheter was secured to the skin using 2-0 nylon suture, sterile Tegaderm dressing, and a Biopatch. Both ports were aspirated. They was then flushed with 5000 heparin and 30 cc of injectable saline. At this time, the right chest was covered with sterile towels. The right lower quadrant field was opened. The wound VAC had been removed prior to the operation and bathed in Betadine. The incision was copiously irrigated and suctioned. The white foam was placed into the base of the incision at the fascial dehiscence. Black foam was then placed. The wound measured a total of 15 cm in depth x 8 cm in width x 10 cm in OPERATIVE REPORT [id number] CATHERINE MILLIGAN. The VAC was covered in place to 125 mm of suction. At then end of the case, all needle and instrument counts were correct. No complications occurred. The patient was transferred to the recovery room in satisfactory condition. TRANSINT:[id number] Voice Confirmation ID: [id number] DOCUMENT ID: [id number] BIRDIE TREJO MD at 1620 CC: [id number] DICTATION DATE: 10/20/17 1141 SOCIAL SECURITY SPECIALIST: 10/20/17 1315 ADM IN [facility] [address] [place] [address]
--- NOTE | ~2017-10-15 | DS ---
PATIENT:CATHERINE MILLIGAN :59 MEDICAL RECORD: [id number] DISCHARGE SUMMARY ADMISSION DATE: 10/15/17 DISCHARGE DATE: 11/03/17 PRINCIPAL DIAGNOSES: 1. Postoperative wound infection. 2. History of recent right hemicolectomy utilizing hand-assisted laparoscopic approach. 3. Neuropathy of the right foot. 4. Cataracts. 5. History of otitis media. 6. Hypertension. 7. History of peripheral vascular disease. 8. Morbid obesity. 9. History of . 10. History of kidney stones. 11. History of left ankle surgery, ORIF. 12. History of tubal ligation. 13. History of thyroidectomy. 14. History of hypertension. 15. History of reactive airway disease. 16. Tracheobronchitis. 17. Acute hypoxic respiratory failure. 18. Anemia likely secondary to blood loss, requiring transfusion. 19. Leukocytosis. 20. Acute kidney injury. 21. Acute renal failure requiring hemodialysis. HOSPITAL COURSE: The patient presented to an outside hospital Emergency Room with a wound infection. She was transferred here. She was febrile. She was started on intravenous antibiotics. PROCEDURE: 1. Left subclavian HemoSplit catheter, which is a tunneled cuffed dual-lumen hemodialysis catheter. 2. Wound VAC change. This was performed by Dr. Majano. TRANSINT:[id number] Voice Confirmation ID: [id number] DOCUMENT ID: [id number] AUGUSTO SEGURA MD at 1131 CC: [id number] DICTATION DATE: 11/23/17 1450 HOT HEADER OPERATOR: 11/24/17 1004 DIS IN 11/03/17 [place] [id number]
[~2017-10-15 14:21] MED LIST changes: +FLAGYL500 MG PO; +HYDROCODON-ACE1 EAC7 PO; +KEFLEX500 MG PO
[2017-10-15 15:58] LABS: HEMATOCRIT 26.7 % (36.0-48.0); HEMOGLOBIN 8.7 g/dL (12-16); MCH 28.2 pg (26.0-34.0); MCHC 32.6 g/dL (31.0-37.0); MCV 86.4 fL (80.0-100.0); MEAN PLATELET VOLUME 11.1 fL (7.4-10.4); PLATELET COUNT 283 10x3/uL (130-400); RBC 3.09 10x6/uL (4.00-5.40); RDW 15.5 % (11.5-14.5); WBC 21.4 10x3/uL (4.8-10.8)
[2017-10-15 16:00] LABS: ANION GAP 16.7 mmol/L (8-16); CARBON DIOXIDE 27.1 mmol/L (21.0-32.0); CREATININE - SERUM 4.1 mg/dL (0.6-1.3); MAGNESIUM - SERUM 1.4 mg/dL (1.8-2.4); POTASSIUM - SERUM 3.8 mmol/L (3.5-5.1)
[2017-10-15 16:19] VITALS: BP 117/72
[2017-10-15 16:24] LABS: BASOPHILS 1 % (0-2); LYMPHOCYTES 18 % (15-50); MONOCYTES 4 % (2-11); NEUTROPHILS 67 % (40-80); PLATELET ESTIMATE NORMAL; PLATELET MORPHOLOGY GIANT PLTS PRESENT
[2017-10-15 16:55] VITALS: BMI 61.5
[2017-10-15 20:00] VITALS: BP 146/65
[2017-10-16 04:00] VITALS: BP 139/69
[2017-10-16 06:37] LABS: BASOPHILS 0.1 % (0-2); EOSINOPHILS 0.7 % (0-7); HEMATOCRIT 23.5 % (36.0-48.0); HEMOGLOBIN 7.6 g/dL (12-16); IMMATURE GRANULOCYTES 1.4 % (0-5); LYMPHOCYTES 10.4 % (15-50); MCH 27.9 pg (26.0-34.0); MCHC 32.3 g/dL (31.0-37.0); MCV 86.4 fL (80.0-100.0); MEAN PLATELET VOLUME 10.7 fL (7.4-10.4); MONOCYTES 14.7 % (2-11); NEUTROPHILS 72.7 % (40-80); PLATELET COUNT 297 10x3/uL (130-400); RBC 2.72 10x6/uL (4.00-5.40); RDW 15.7 % (11.5-14.5); WBC 19.9 10x3/uL (4.8-10.8)
[2017-10-16 06:52] LABS: APTT 32.9 SECONDS (22.8-39.4); INR 1.4 (0.85-1.17); PROTIME 16.7 SECONDS (11.6-15.0)
[2017-10-16 06:59] LABS: ANION GAP 15.1 mmol/L (8-16); CALCIUM 7.7 mg/dL (8.5-10.1); CARBON DIOXIDE 25.8 mmol/L (21.0-32.0); CREATININE - SERUM 4.2 mg/dL (0.6-1.3); MAGNESIUM - SERUM 1.5 mg/dL (1.8-2.4); POTASSIUM - SERUM 3.9 mmol/L (3.5-5.1)
[2017-10-16 09:57] VITALS: BP 89/56
[2017-10-16 12:57] VITALS: BP 79/39
[2017-10-16 14:33] VITALS: BMI 61.4
[2017-10-16 16:04] LABS: ERYTHROCYTE SEDIMENTATION RATE 96 mm/hr (0-30)
[2017-10-16 16:31] VITALS: BP 117/57
[2017-10-16 18:36] LABS: PROTEIN - URINE 79.5 mg/dL (0.0-11.9)
[2017-10-16 18:41] LABS: CREATININE - URINE 318.9 mg/dL (30-125); PRO/CRE RATIO URINE 0.2 mg/g
[2017-10-16 18:54] LABS: APPEARANCE CLEAR (CLEAR); BILIRUBIN NEGATIVE (NEGATIVE); COLOR YELLOW (YELLOW); GLUCOSE NEGATIVE (NEGATIVE); KETONE NEGATIVE (NEGATIVE); NITRITE NEGATIVE (NEGATIVE); PROTEIN TRACE mg/dL (NEGATIVE); UROBILINOGEN NORMAL (NORMAL)
[2017-10-16 18:55] LABS: BACTERIA MODERATE /hpf (NONE SEEN); EPITHELIAL CELLS 0-5 /hpf (0-5); RED CELLS - URINE 0-5 /hpf (0-5); WHITE CELLS - URINE >50 /hpf (0-5)
[2017-10-16 20:00] VITALS: BP 152/77
[2017-10-17] VITALS (11 sets, daily range): BP systolic 88–162; BP diastolic 49–82
[2017-10-17 06:41] LABS: BASOPHILS 0.1 % (0-2); EOSINOPHILS 1.3 % (0-7); HEMATOCRIT 21.8 % (36.0-48.0); IMMATURE GRANULOCYTES 1.1 % (0-5); LYMPHOCYTES 8.4 % (15-50); MCH 28.3 pg (26.0-34.0); MCHC 32.6 g/dL (31.0-37.0); MCV 86.9 fL (80.0-100.0); MEAN PLATELET VOLUME 10.6 fL (7.4-10.4); MONOCYTES 12.2 % (2-11); NEUTROPHILS 76.9 % (40-80); PLATELET COUNT 310 10x3/uL (130-400); RBC 2.51 10x6/uL (4.00-5.40); RDW 16.1 % (11.5-14.5); WBC 18.6 10x3/uL (4.8-10.8)
[2017-10-17 06:44] LABS: CALCIUM 7.3 mg/dL (8.5-10.1); CREATININE - SERUM 5.1 mg/dL (0.6-1.3); MAGNESIUM - SERUM 1.4 mg/dL (1.8-2.4)
[2017-10-17 06:51] LABS: HEMOGLOBIN 7.1 g/dL (12-16)
[2017-10-18] VITALS: BP 142/69
[2017-10-18 06:19] LABS: BASOPHILS 0.1 % (0-2); EOSINOPHILS 1.4 % (0-7); HEMATOCRIT 25.3 % (36.0-48.0); HEMOGLOBIN 8.3 g/dL (12-16); IMMATURE GRANULOCYTES 1.4 % (0-5); MCH 28.3 pg (26.0-34.0); MCHC 32.8 g/dL (31.0-37.0); MCV 86.3 fL (80.0-100.0); MEAN PLATELET VOLUME 10.9 fL (7.4-10.4); MONOCYTES 9.7 % (2-11); NEUTROPHILS 77.4 % (40-80); RBC 2.93 10x6/uL (4.00-5.40); RDW 15.9 % (11.5-14.5); WBC 18.2 10x3/uL (4.8-10.8)
[2017-10-18 06:30] LABS: PLATELET COUNT 373 10x3/uL (130-400)
[2017-10-18 06:47] LABS: ANION GAP 17.7 mmol/L (8-16); CALCIUM 7.6 mg/dL (8.5-10.1); CARBON DIOXIDE 21.3 mmol/L (21.0-32.0); CREATININE - SERUM 5.9 mg/dL (0.6-1.3); MAGNESIUM - SERUM 1.6 mg/dL (1.8-2.4)
[2017-10-18 08:10] VITALS: BP 124/76
[2017-10-18 11:15] LABS: SPE - A/G RATIO 1.3 (0.7-1.7); SPE - ALBUMIN 3.5 g/dL (2.9-4.4); SPE - ALPHA-1 GLOBULIN 0.2 g/dL (0.0-0.4); SPE - ALPHA-2 GLOBULIN 0.5 g/dL (0.4-1.0); SPE - BETA GLOBULIN 0.7 g/dL (0.7-1.3); SPE - GAMMA GLOBULIN 1.3 g/dL (0.4-1.8); SPE - M-SPIKE Not Observed g/dL (Not Observed); SPE - TOTAL PROTEIN 6.3 g/dL (6.0-8.5)
[2017-10-18 13:18] VITALS: BP 149/93
[2017-10-18 17:05] VITALS: BP 160/88
[2017-10-18 20:00] VITALS: BP 137/65
[2017-10-19] VITALS: BP 129/80
[2017-10-19 04:00] VITALS: BP 126/75
[2017-10-19 06:23] LABS: BASOPHILS 0.1 % (0-2); EOSINOPHILS 1.2 % (0-7); HEMATOCRIT 25.9 % (36.0-48.0); HEMOGLOBIN 8.5 g/dL (12-16); LYMPHOCYTES 11.1 % (15-50); MCH 28.1 pg (26.0-34.0); MCHC 32.8 g/dL (31.0-37.0); MCV 85.8 fL (80.0-100.0); MEAN PLATELET VOLUME 10.5 fL (7.4-10.4); MONOCYTES 8.8 % (2-11); NEUTROPHILS 76.8 % (40-80); PLATELET COUNT 394 10x3/uL (130-400); RBC 3.02 10x6/uL (4.00-5.40); RDW 16.2 % (11.5-14.5)
[2017-10-19 06:44] LABS: ANION GAP 17.3 mmol/L (8-16); CALCIUM 7.8 mg/dL (8.5-10.1); CARBON DIOXIDE 19.9 mmol/L (21.0-32.0); CREATININE - SERUM 6.2 mg/dL (0.6-1.3); MAGNESIUM - SERUM 1.6 mg/dL (1.8-2.4); POTASSIUM - SERUM 4.2 mmol/L (3.5-5.1)
[2017-10-19 08:48] VITALS: BP 142/83
[2017-10-19 12:33] VITALS: BP 132/88
[2017-10-19 15:32] LABS: UPE RAND - ALBUMIN 33.1 % (()); UPE RAND - ALPHA 1 GLOBULIN 2.9 % (()); UPE RAND - ALPHA 2 GLOBULIN 14.3 % (()); UPE RAND - BETA GLOBULIN 41.9 % (()); UPE RAND - GAMMA GLOBULIN 7.8 % (())
[2017-10-19 15:55] VITALS: BP 123/79
[2017-10-19 18:13] LABS: CKMB 2.2 U/L (0.0-3.6); CREATINE KINASE 139 UL (21-215)
[2017-10-19 18:18] LABS: TROPONIN-I < 0.017 ng/mL (0.000-0.060)
[2017-10-19 20:00] VITALS: BP 101/64
[2017-10-19 22:12] LABS: CKMB 2.3 U/L (0.0-3.6); CREATINE KINASE 124 UL (21-215)
[2017-10-19 22:13] LABS: TROPONIN-I < 0.017 ng/mL (0.000-0.060)
[2017-10-20] VITALS (16 sets, daily range): BP systolic 105–136; BP diastolic 61–95; Ht 170.2 cm; Wt 147.8 kg
[2017-10-20 04:57] LABS: BASOPHILS 0.1 % (0-2); EOSINOPHILS 1.6 % (0-7); HEMATOCRIT 24.7 % (36.0-48.0); IMMATURE GRANULOCYTES 1.5 % (0-5); LYMPHOCYTES 9.5 % (15-50); MCH 28.4 pg (26.0-34.0); MCHC 32.4 g/dL (31.0-37.0); MCV 87.6 fL (80.0-100.0); MEAN PLATELET VOLUME 10.5 fL (7.4-10.4); MONOCYTES 8.2 % (2-11); NEUTROPHILS 79.1 % (40-80); PLATELET COUNT 401 10x3/uL (130-400); RBC 2.82 10x6/uL (4.00-5.40); RDW 16.7 % (11.5-14.5); WBC 19.2 10x3/uL (4.8-10.8)
[2017-10-20 05:33] LABS: CALC OSMOLALITY 295 mosm/kg (275-300); CALCIUM 8.2 mg/dL (8.5-10.1); CARBON DIOXIDE 20.8 mmol/L (21.0-32.0); CHLORIDE - SERUM 101 mmol/L (98-107); CKMB 3.9 U/L (0.0-3.6); CREATINE KINASE 143 UL (21-215); CREATININE - SERUM 6.5 mg/dL (0.6-1.3); GLUCOSE 98 mg/dL (74-106); MAGNESIUM - SERUM 1.6 mg/dL (1.8-2.4); PHOSPHOROUS 6.8 mg/dL (2.5-4.9); POTASSIUM - SERUM 4.5 mmol/L (3.5-5.1); SODIUM 137 mmol/L (136-145); TROPONIN-I < 0.017 ng/mL (0.000-0.060); UREA NITROGEN 73 mg/dL (7-18); eGFR NON AFRICAN AMERICAN 7 mL/min (90-120)
[2017-10-21] VITALS (24 sets, daily range): BP systolic 96–216; BP diastolic 37–98
[2017-10-21 04:23] LABS: BASOPHILS 0.1 % (0-2); EOSINOPHILS 2.2 % (0-7); HEMATOCRIT 23.7 % (36.0-48.0); HEMOGLOBIN 7.6 g/dL (12-16); IMMATURE GRANULOCYTES 1.1 % (0-5); LYMPHOCYTES 7.5 % (15-50); MCH 27.9 pg (26.0-34.0); MCHC 32.1 g/dL (31.0-37.0); MCV 87.1 fL (80.0-100.0); MONOCYTES 6.4 % (2-11); NEUTROPHILS 82.7 % (40-80); PLATELET COUNT 342 10x3/uL (130-400); RBC 2.72 10x6/uL (4.00-5.40); RDW 16.8 % (11.5-14.5); WBC 15.6 10x3/uL (4.8-10.8)
[2017-10-21 04:43] LABS: % SATURATION 17 % (15-55); IRON 22 ug/dl (35-150); TOTAL IRON BIND CAPACITY 128 ug/dl (260-445); UNSAT IRON BIND CAPACITY 106 ug/dl (150-375)
[2017-10-21 04:51] LABS: ALBUMIN 1.5 g/dL (3.4-5.0); ANION GAP 15.6 mmol/L (8-16); BILIRUBIN - TOTAL 0.47 mg/dL (0.2-1.3); CALCIUM 8.3 mg/dL (8.5-10.1); CARBON DIOXIDE 24.1 mmol/L (21.0-32.0); CREATININE - SERUM 6.3 mg/dL (0.6-1.3); MAGNESIUM - SERUM 1.8 mg/dL (1.8-2.4); PHOSPHOROUS 7.1 mg/dL (2.5-4.9); POTASSIUM - SERUM 4.7 mmol/L (3.5-5.1); PROTEIN - SERUM 5.9 g/dL (6.4-8.2)
[2017-10-21 15:19] LABS: CALCIUM 8.2 mg/dL (8.5-10.1); CARBON DIOXIDE 25.5 mmol/L (21.0-32.0); CREATININE - SERUM 5.9 mg/dL (0.6-1.3); POTASSIUM - SERUM 4.5 mmol/L (3.5-5.1)
[2017-10-22] VITALS (18 sets, daily range): BP systolic 103–143; BP diastolic 55–86
[2017-10-22 05:03] LABS: BASOPHILS 0.1 % (0-2); EOSINOPHILS 2.5 % (0-7); HEMOGLOBIN 8.6 g/dL (12-16); IMMATURE GRANULOCYTES 2.1 % (0-5); LYMPHOCYTES 6.8 % (15-50); MCH 28.3 pg (26.0-34.0); MCHC 33.1 g/dL (31.0-37.0); MCV 85.5 fL (80.0-100.0); MEAN PLATELET VOLUME 10.1 fL (7.4-10.4); MONOCYTES 9.7 % (2-11); NEUTROPHILS 78.8 % (40-80); PLATELET COUNT 308 10x3/uL (130-400); RBC 3.04 10x6/uL (4.00-5.40); WBC 14.9 10x3/uL (4.8-10.8)
[2017-10-22 05:26] LABS: ALBUMIN 1.4 g/dL (3.4-5.0); ANION GAP 16.5 mmol/L (8-16); BILIRUBIN - TOTAL 0.5 mg/dL (0.2-1.3); CALCIUM 8.2 mg/dL (8.5-10.1); CARBON DIOXIDE 21.9 mmol/L (21.0-32.0); CREATININE - SERUM 5.8 mg/dL (0.6-1.3); MAGNESIUM - SERUM 1.5 mg/dL (1.8-2.4); PHOSPHOROUS 6.5 mg/dL (2.5-4.9); POTASSIUM - SERUM 4.4 mmol/L (3.5-5.1)
[2017-10-23 03:00] VITALS: BP 107/81
[2017-10-23 05:21] LABS: BASOPHILS 0.1 % (0-2); EOSINOPHILS 2.3 % (0-7); HEMATOCRIT 26.9 % (36.0-48.0); HEMOGLOBIN 8.6 g/dL (12-16); IMMATURE GRANULOCYTES 1.6 % (0-5); LYMPHOCYTES 9.7 % (15-50); MCH 27.5 pg (26.0-34.0); MCV 85.9 fL (80.0-100.0); MEAN PLATELET VOLUME 10.1 fL (7.4-10.4); MONOCYTES 12.2 % (2-11); NEUTROPHILS 74.1 % (40-80); PLATELET COUNT 319 10x3/uL (130-400); RBC 3.13 10x6/uL (4.00-5.40); RDW 17.1 % (11.5-14.5); WBC 16.4 10x3/uL (4.8-10.8)
[2017-10-23 05:53] LABS: ALBUMIN 1.5 g/dL (3.4-5.0); ANION GAP 17.6 mmol/L (8-16); BILIRUBIN - TOTAL 0.5 mg/dL (0.2-1.3); CALCIUM 8.2 mg/dL (8.5-10.1); CARBON DIOXIDE 21.5 mmol/L (21.0-32.0); MAGNESIUM - SERUM 1.6 mg/dL (1.8-2.4); PHOSPHOROUS 6.2 mg/dL (2.5-4.9); POTASSIUM - SERUM 4.1 mmol/L (3.5-5.1); PROTEIN - SERUM 6.3 g/dL (6.4-8.2)
[2017-10-23 07:00] VITALS: BP 147/106
[2017-10-23 11:00] VITALS: BP 142/98
[2017-10-23 15:00] VITALS: BP 140/95
[2017-10-23 16:11] LABS: FOLATE (FOLIC ACID) - SERUM 3.2 ng/mL (>3.0)
[2017-10-23 19:30] VITALS: BP 141/86
[2017-10-23 23:30] VITALS: BP 108/75
[2017-10-24 04:00] VITALS: BP 102/63
[2017-10-24 06:42] LABS: ALBUMIN 1.6 g/dL (3.4-5.0); ANION GAP 13.1 mmol/L (8-16); BILIRUBIN - TOTAL 0.5 mg/dL (0.2-1.3); CALCIUM 8.4 mg/dL (8.5-10.1); CREATININE - SERUM 4.7 mg/dL (0.6-1.3); PHOSPHOROUS 5.4 mg/dL (2.5-4.9); POTASSIUM - SERUM 4.4 mmol/L (3.5-5.1); PROTEIN - SERUM 6.4 g/dL (6.4-8.2)
[2017-10-24 06:43] LABS: CARBON DIOXIDE 27.3 mmol/L (21.0-32.0)
[2017-10-24 08:52] VITALS: BP 131/74
[2017-10-24 12:12] VITALS: BP 127/71
[2017-10-24 16:11] VITALS: BP 130/74
[2017-10-24 20:23] VITALS: BP 116/71
[2017-10-25] VITALS: BP 115/72
[2017-10-25 04:00] VITALS: BP 135/83
[2017-10-25 05:23] LABS: BASOPHILS 0.2 % (0-2); HEMATOCRIT 26.8 % (36.0-48.0); HEMOGLOBIN 8.7 g/dL (12-16); IMMATURE GRANULOCYTES 1.2 % (0-5); MCH 28.1 pg (26.0-34.0); MCHC 32.5 g/dL (31.0-37.0); MCV 86.5 fL (80.0-100.0); MEAN PLATELET VOLUME 9.8 fL (7.4-10.4); MONOCYTES 16.8 % (2-11); NEUTROPHILS 69.8 % (40-80); WBC 12.9 10x3/uL (4.8-10.8)
[2017-10-25 05:26] LABS: PLATELET COUNT 229 10x3/uL (130-400)
[2017-10-25 05:47] LABS: ALBUMIN 1.6 g/dL (3.4-5.0); ANION GAP 12.6 mmol/L (8-16); BILIRUBIN - TOTAL 0.48 mg/dL (0.2-1.3); CALCIUM 8.6 mg/dL (8.5-10.1); CARBON DIOXIDE 27.3 mmol/L (21.0-32.0); CREATININE - SERUM 5.3 mg/dL (0.6-1.3); PHOSPHOROUS 6.7 mg/dL (2.5-4.9); POTASSIUM - SERUM 3.9 mmol/L (3.5-5.1); PROTEIN - SERUM 6.3 g/dL (6.4-8.2)
[2017-10-25 08:00] VITALS: BP 122/74
[2017-10-25 13:16] VITALS: BP 128/71
[2017-10-25 17:32] VITALS: BP 146/75
[2017-10-26 06:44] LABS: ALBUMIN 1.7 g/dL (3.4-5.0); ANION GAP 13.5 mmol/L (8-16); BILIRUBIN - TOTAL 0.42 mg/dL (0.2-1.3); CALCIUM 8.6 mg/dL (8.5-10.1); CARBON DIOXIDE 27.2 mmol/L (21.0-32.0); CREATININE - SERUM 4.3 mg/dL (0.6-1.3); PHOSPHOROUS 5.3 mg/dL (2.5-4.9); POTASSIUM - SERUM 3.7 mmol/L (3.5-5.1); PROTEIN - SERUM 6.5 g/dL (6.4-8.2)
[2017-10-26 08:51] VITALS: BP 113/64
[2017-10-26 12:30] VITALS: BP 108/55
[2017-10-26 20:00] VITALS: BP 120/60
[2017-10-27] VITALS: BP 132/62
[2017-10-27 04:00] VITALS: BP 113/62
[2017-10-27 05:51] LABS: ALBUMIN 1.6 g/dL (3.4-5.0); ANION GAP 11.7 mmol/L (8-16); BILIRUBIN - TOTAL 0.4 mg/dL (0.2-1.3); CALCIUM 8.5 mg/dL (8.5-10.1); CARBON DIOXIDE 27.9 mmol/L (21.0-32.0); CREATININE - SERUM 5.2 mg/dL (0.6-1.3); POTASSIUM - SERUM 3.6 mmol/L (3.5-5.1); PROTEIN - SERUM 6.3 g/dL (6.4-8.2)
[2017-10-27 08:32] VITALS: BP 118/66
[2017-10-27 12:05] VITALS: BP 128/72
[2017-10-27 20:00] VITALS: BP 118/61
[2017-10-28] VITALS: BP 114/66
[2017-10-28 04:00] VITALS: BP 136/76
[2017-10-28 04:53] LABS: BASOPHILS 0.1 % (0-2); EOSINOPHILS 1.1 % (0-7); HEMATOCRIT 28.5 % (36.0-48.0); IMMATURE GRANULOCYTES 1.7 % (0-5); LYMPHOCYTES 10.1 % (15-50); MCH 27.7 pg (26.0-34.0); MCHC 31.6 g/dL (31.0-37.0); MCV 87.7 fL (80.0-100.0); MEAN PLATELET VOLUME 10.3 fL (7.4-10.4); MONOCYTES 17.1 % (2-11); NEUTROPHILS 69.9 % (40-80); PLATELET COUNT 231 10x3/uL (130-400); RBC 3.25 10x6/uL (4.00-5.40); RDW 16.9 % (11.5-14.5); WBC 15.1 10x3/uL (4.8-10.8)
[2017-10-28 05:23] LABS: ALBUMIN 1.7 g/dL (3.4-5.0); BILIRUBIN - TOTAL 0.46 mg/dL (0.2-1.3); CALCIUM 8.6 mg/dL (8.5-10.1); CARBON DIOXIDE 29.5 mmol/L (21.0-32.0); CREATININE - SERUM 4.3 mg/dL (0.6-1.3); PHOSPHOROUS 4.7 mg/dL (2.5-4.9); POTASSIUM - SERUM 3.5 mmol/L (3.5-5.1); PROTEIN - SERUM 6.6 g/dL (6.4-8.2)
[2017-10-28 07:51] VITALS: BP 127/67
[2017-10-28 11:12] VITALS: BP 127/76
[2017-10-28 15:28] VITALS: BP 122/68
[2017-10-28 19:00] VITALS: BP 130/79
[2017-10-29] VITALS: BP 116/66
[2017-10-29 04:00] VITALS: BP 138/59
[2017-10-29 06:03] LABS: BASOPHILS 0.2 % (0-2); EOSINOPHILS 1.7 % (0-7); HEMOGLOBIN 8.6 g/dL (12-16); IMMATURE GRANULOCYTES 0.9 % (0-5); MCH 28.2 pg (26.0-34.0); MCHC 31.9 g/dL (31.0-37.0); MCV 88.5 fL (80.0-100.0); MEAN PLATELET VOLUME 9.5 fL (7.4-10.4); MONOCYTES 17.2 % (2-11); PLATELET COUNT 197 10x3/uL (130-400); RBC 3.05 10x6/uL (4.00-5.40); RDW 17.3 % (11.5-14.5); WBC 13.3 10x3/uL (4.8-10.8)
[2017-10-29 06:38] LABS: ALBUMIN 1.7 g/dL (3.4-5.0); ANION GAP 11.8 mmol/L (8-16); BILIRUBIN - TOTAL 0.41 mg/dL (0.2-1.3); CREATININE - SERUM 5.5 mg/dL (0.6-1.3); PHOSPHOROUS 5.6 mg/dL (2.5-4.9); POTASSIUM - SERUM 3.8 mmol/L (3.5-5.1); PROTEIN - SERUM 6.3 g/dL (6.4-8.2)
[2017-10-29 07:35] VITALS: BP 137/89
[2017-10-29 11:55] VITALS: BP 129/70
[2017-10-29 15:09] VITALS: BP 132/74
[2017-10-29 20:36] VITALS: BP 112/60
[2017-10-30 01:20] VITALS: BP 124/62
[2017-10-30 05:31] VITALS: BP 117/57
[2017-10-30 06:47] LABS: BASOPHILS 0.2 % (0-2); EOSINOPHILS 1.9 % (0-7); HEMOGLOBIN 8.2 g/dL (12-16); IMMATURE GRANULOCYTES 0.5 % (0-5); LYMPHOCYTES 13.7 % (15-50); MCH 27.9 pg (26.0-34.0); MCHC 31.5 g/dL (31.0-37.0); MCV 88.4 fL (80.0-100.0); MEAN PLATELET VOLUME 10.1 fL (7.4-10.4); MONOCYTES 17.2 % (2-11); NEUTROPHILS 66.5 % (40-80); PLATELET COUNT 216 10x3/uL (130-400); RBC 2.94 10x6/uL (4.00-5.40); RDW 17.2 % (11.5-14.5); WBC 11.6 10x3/uL (4.8-10.8)
[2017-10-30 07:01] LABS: ALBUMIN 1.7 g/dL (3.4-5.0); ANION GAP 12.1 mmol/L (8-16); BILIRUBIN - TOTAL 0.47 mg/dL (0.2-1.3); CALCIUM 8.6 mg/dL (8.5-10.1); CARBON DIOXIDE 28.5 mmol/L (21.0-32.0); CREATININE - SERUM 6.2 mg/dL (0.6-1.3); PHOSPHOROUS 5.9 mg/dL (2.5-4.9); POTASSIUM - SERUM 3.6 mmol/L (3.5-5.1); PROTEIN - SERUM 6.2 g/dL (6.4-8.2)
[2017-10-30 08:04] VITALS: BP 143/72
[2017-10-30 13:22] VITALS: BP 118/65
[2017-10-30 19:00] VITALS: BP 118/69
[2017-10-31 04:00] VITALS: BP 126/69
[2017-10-31 05:13] LABS: BASOPHILS 0.2 % (0-2); HEMATOCRIT 26.6 % (36.0-48.0); HEMOGLOBIN 8.5 g/dL (12-16); IMMATURE GRANULOCYTES 0.4 % (0-5); LYMPHOCYTES 10.9 % (15-50); MCH 28.2 pg (26.0-34.0); MCV 88.4 fL (80.0-100.0); MEAN PLATELET VOLUME 10.4 fL (7.4-10.4); MONOCYTES 19.9 % (2-11); NEUTROPHILS 66.6 % (40-80); PLATELET COUNT 217 10x3/uL (130-400); RBC 3.01 10x6/uL (4.00-5.40); RDW 17.2 % (11.5-14.5)
[2017-10-31 05:30] LABS: ALBUMIN 1.7 g/dL (3.4-5.0); ANION GAP 9.8 mmol/L (8-16); BILIRUBIN - TOTAL 0.4 mg/dL (0.2-1.3); CALCIUM 8.6 mg/dL (8.5-10.1); CARBON DIOXIDE 29.9 mmol/L (21.0-32.0); PHOSPHOROUS 4.8 mg/dL (2.5-4.9); POTASSIUM - SERUM 3.7 mmol/L (3.5-5.1); PROTEIN - SERUM 6.4 g/dL (6.4-8.2)
[2017-10-31 08:31] VITALS: BP 120/69
[2017-10-31 12:00] VITALS: BP 104/52
[2017-10-31 19:00] VITALS: BP 120/68
[2017-11-01 04:00] VITALS: BP 120/65
[2017-11-01 06:04] LABS: BASOPHILS 0.2 % (0-2); EOSINOPHILS 2.4 % (0-7); HEMATOCRIT 25.8 % (36.0-48.0); HEMOGLOBIN 8.2 g/dL (12-16); IMMATURE GRANULOCYTES 0.3 % (0-5); LYMPHOCYTES 13.8 % (15-50); MCH 28.4 pg (26.0-34.0); MCHC 31.8 g/dL (31.0-37.0); MCV 89.3 fL (80.0-100.0); MEAN PLATELET VOLUME 10.1 fL (7.4-10.4); MONOCYTES 20.6 % (2-11); NEUTROPHILS 62.7 % (40-80); PLATELET COUNT 216 10x3/uL (130-400); RBC 2.89 10x6/uL (4.00-5.40); RDW 17.3 % (11.5-14.5); WBC 8.6 10x3/uL (4.8-10.8)
[2017-11-01 08:11] VITALS: BP 118/70
[2017-11-01 12:29] VITALS: BP 141/58
[2017-11-01 16:11] VITALS: BP 103/57
[2017-11-02 04:29] VITALS: BP 142/71
[2017-11-02 07:56] VITALS: BP 108/56
[2017-11-02 12:02] VITALS: BP 122/54
[2017-11-02 13:13] LABS: HEP B CORE AB TOTAL Negative (Negative); HEPATITIS C ANTIBODY 0.2 (0.0-0.9)
[2017-11-02 16:04] VITALS: BP 145/66
[2017-11-02 20:51] VITALS: BP 123/72
[2017-11-03 04:17] VITALS: BP 103/64
[2017-11-03 08:00] VITALS: BP 96/44
[2017-11-03 12:00] VITALS: BP 96/56
[2017-11-03] MEDS ORDERED: LOVENOX30 MG/0.3 SC (14:10)
[2017-11-03] MEDS ORDERED: PROCRIT/EP10000 UNIT SC (14:11)
[2017-11-03] MEDS ORDERED: NORMODYNE / TR300 MG PO (14:11)
[2017-11-03] MEDS ORDERED: ACETAMINOPHEN325 MG PO (14:12)
== END 2017-11-03 16:09 | DRG 862 ==
LOC: D.ICU 14:21 → D.M2 14:21 → D.MS 14:21 → D.ICU 10-20 12:51 → D.M2 10-24 00:47
PROVIDERS: Internal Medicine Nephrology; Internal Medicine Pulmonary Disease; Student in an Organized Health Care Education/Training Program; Surgery
PROC: 0T9B70Z Drainage of Bladder with Drainage Device, Via Natural or Artificial Opening (ICD-10-PCS; principal; 2017-10-15)
PROC: 05HB33Z Insertion of Infusion Device into Right Basilic Vein, Percutaneous Approach (ICD-10-PCS; 2017-10-17)
PROC: B54MZZA Ultrasonography of Right Upper Extremity Veins, Guidance (ICD-10-PCS; 2017-10-17)
PROC: 02HV33Z Insertion of Infusion Device into Superior Vena Cava, Percutaneous Approach (ICD-10-PCS; 2017-10-20)
PROC: B5181ZA Fluoroscopy of Superior Vena Cava using Low Osmolar Contrast, Guidance (ICD-10-PCS; 2017-10-20)
PROC: 5A1D70Z Performance of Urinary Filtration, Intermittent, Less than 6 Hours Per Day (ICD-10-PCS; 2017-10-23)
DX: T81.4XXA Infection following a procedure, initial encounter (principal); A41.9 Sepsis, unspecified organism; N17.0 Acute kidney failure with tubular necrosis; J96.01 Acute respiratory failure with hypoxia; Z68.44 Body mass index [BMI] 60.0-69.9, adult; N18.4 Chronic kidney disease, stage 4 (severe); L03.311 Cellulitis of abdominal wall; B37.49 Other urogenital candidiasis; E66.01 Morbid (severe) obesity due to excess calories; D50.0 Iron deficiency anemia secondary to blood loss (chronic); G47.33 Obstructive sleep apnea (adult) (pediatric); I12.9 Hypertensive chronic kidney disease with stage 1 through stage 4 chronic kidney disease, or unspecified chronic kidney disease; L40.9 Psoriasis, unspecified; I73.9 Peripheral vascular disease, unspecified; M19.90 Unspecified osteoarthritis, unspecified site; E87.70 Fluid overload, unspecified; Z91.19 Patient's noncompliance with other medical treatment and regimen; K63.5 Polyp of colon; R41.0 Disorientation, unspecified; B95.62 Methicillin resistant Staphylococcus aureus infection as the cause of diseases classified elsewhere

== ENCOUNTER 2017-11-08 17:28 | Inpatient (IN) | payer MEDICARE ==
[~2017-11-08] VITALS: Ht 165.1 cm; Wt 171.0 kg
--- NOTE | ~2017-11-08 | HP ---
PATIENT: CATHERINE BANKS MEDICAL RECORD: [id number] ACCOUNT: [id number] LOCATION:[address] : 59 ADMISSION DATE: 11/08/17 HISTORY AND PHYSICAL EXAMINATION CHIEF COMPLAINT: Drainage. HISTORY: We were contacted by [facility]. We were told that the patient had food material coming out through her wound. I asked that the patient be transferred back over here. Evidently, there was some delay in transfer and that [facility] was told or thought that we did not have beds and could not accommodate Mrs. Banks. Anyhow, we were able to get her over here. I am going to start her on IV antibiotics. I am going to look at her wound. They have been doing the same with wet-to-dry dressing changes across town and they have discontinued the wound VAC. This is a history and physical addendum. For the typed portion of the history and physical, please see the chart. This would include the past medical and surgical history, allergies, social history, family history, and current medications. REVIEW OF SYSTEMS: As described above, she has mild nausea. No vomiting, no fever, no chills. Right upper quadrant tenderness with drainage. Review of systems is negative other than as is described above. PHYSICAL EXAMINATION: GENERAL: The patient appears acutely ill. Also appears chronically ill. VITAL SIGNS: Reviewed. The entire physical examination was performed with the presence of a female nurse. EARS: External ears appear normal. EYES: Extraocular movements are intact. NECK: Trachea is midline. CHEST: No intercostal retractions. PULMONARY: Decreased breath sounds in the bases. ABDOMEN: Right upper quadrant dressing is in place. The abdomen is nontender other than around the wound. NEUROLOGIC: Generalized weakness. PSYCHIATRIC: Normal affect. 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 PLAN: IV antibiotics. Wound dressing changes. Dialysis. TRANSINT:[id number] Voice Confirmation ID: [id number] DOCUMENT ID: [id number] HISTORY AND PHYSICAL [id number] CATHERINE BANKS AUGUSTO SEGURA MD at 0938 CC: [id number] DICTATION DATE: 11/11/171626 HYDRAULIC CONTROLS TECHNICIAN: 11/11/171916 DIS IN 11/16/17 [facility] [address] [place] [address]
[~2017-11-08 17:28] MED LIST changes: +ACETAMINOPHEN325 MG PO; +LOVENOX30 MG/0.3 SC; +PROCRIT/EP10000 UNIT SC
[2017-11-08 19:00] VITALS: BP 128/64
[2017-11-08] MEDS ORDERED: PEPCID20 MG PO (22:12)
[2017-11-08] MEDS ORDERED: MUCINEX DM ER1 EAC1 PO (22:14)
[2017-11-08] MEDS ORDERED: CALMOSEPTINE OI71 GM TOPICAL (22:14)
[2017-11-08] MEDS ORDERED: PHOSLO667 MG PO (22:15)
[2017-11-08] MEDS ORDERED: BENADRYL INJ50 MG/ML IV (22:16)
[2017-11-08] MEDS ORDERED: NALOXONE HC0.4 MG/M2 IV (22:16)
[2017-11-08] MEDS ORDERED: ONDANSETRON4 MG/2 M3 IV (22:17)
[2017-11-08] MEDS ORDERED: PHENERGAN25 MG/ML IM (22:17)
[2017-11-08 22:53] VITALS: BP 128/64; BMI 62.2
[2017-11-09 04:00] VITALS: BP 140/82
[2017-11-09 06:56] LABS: HEMATOCRIT 28.4 % (36.0-48.0); HEMOGLOBIN 8.9 g/dL (12-16); MCH 28.2 pg (26.0-34.0); MCHC 31.3 g/dL (31.0-37.0); MCV 89.9 fL (80.0-100.0); MEAN PLATELET VOLUME 9.5 fL (7.4-10.4); PLATELET COUNT 210 10x3/uL (130-400); RBC 3.16 10x6/uL (4.00-5.40); RDW 17.2 % (11.5-14.5); WBC 7.1 10x3/uL (4.8-10.8)
[2017-11-09 07:12] LABS: ALBUMIN 1.6 g/dL (3.4-5.0); ANION GAP 13.6 mmol/L (8-16); BILIRUBIN - TOTAL 0.5 mg/dL (0.2-1.3); CALCIUM 8.4 mg/dL (8.5-10.1); CARBON DIOXIDE 27.7 mmol/L (21.0-32.0); CREATININE - SERUM 6.8 mg/dL (0.6-1.3); POTASSIUM - SERUM 3.3 mmol/L (3.5-5.1); PROTEIN - SERUM 6.8 g/dL (6.4-8.2)
[2017-11-09 07:38] LABS: EOSINOPHILS 10 % (0-7); LYMPHOCYTES 22 % (15-50); MONOCYTES 27 % (2-11); NEUTROPHILS 40 % (40-80); PLATELET ESTIMATE NORMAL
[2017-11-09 08:33] VITALS: BP 146/82
[2017-11-09 12:03] VITALS: BP 146/69
[2017-11-09 14:21] VITALS: Ht 165.1 cm; Wt 171.0 kg
[2017-11-09 16:02] VITALS: BP 152/73
[2017-11-09 22:00] VITALS: BP 135/68
[2017-11-10 05:48] LABS: BASOPHILS 0.3 % (0-2); EOSINOPHILS 5.6 % (0-7); HEMATOCRIT 29.2 % (36.0-48.0); IMMATURE GRANULOCYTES 0.9 % (0-5); LYMPHOCYTES 20.2 % (15-50); MCH 28.1 pg (26.0-34.0); MCHC 30.8 g/dL (31.0-37.0); MCV 91.3 fL (80.0-100.0); MONOCYTES 29.1 % (2-11); NEUTROPHILS 43.9 % (40-80); PLATELET COUNT 251 10x3/uL (130-400); RDW 16.9 % (11.5-14.5); WBC 6.4 10x3/uL (4.8-10.8)
[2017-11-10 06:21] LABS: ALBUMIN 1.6 g/dL (3.4-5.0); ANION GAP 8.9 mmol/L (8-16); BILIRUBIN - TOTAL 0.5 mg/dL (0.2-1.3); CALCIUM 8.6 mg/dL (8.5-10.1); CARBON DIOXIDE 30.6 mmol/L (21.0-32.0); CREATININE - SERUM 7.8 mg/dL (0.6-1.3); MAGNESIUM - SERUM 1.8 mg/dL (1.8-2.4); PHOSPHOROUS 4.8 mg/dL (2.5-4.9); POTASSIUM - SERUM 3.5 mmol/L (3.5-5.1); PROTEIN - SERUM 6.7 g/dL (6.4-8.2)
[2017-11-10 06:45] VITALS: BP 146/75
[2017-11-10 08:28] VITALS: BP 139/65
[2017-11-10 12:48] VITALS: BP 134/78
[2017-11-10 16:09] VITALS: BP 122/70
[2017-11-10 23:00] VITALS: BP 127/49
[2017-11-11 06:23] VITALS: BP 117/56
[2017-11-11 08:00] VITALS: BP 119/67
[2017-11-11 12:00] VITALS: BP 122/63
[2017-11-11 16:00] VITALS: BP 123/64
[2017-11-11 21:36] VITALS: BP 103/49
[2017-11-12 01:29] VITALS: BP 101/56
[2017-11-12 10:22] VITALS: BP 132/63
[2017-11-12 13:42] VITALS: BP 129/100
[2017-11-12 16:35] VITALS: BP 134/62
[2017-11-12 20:00] VITALS: BP 97/54
[2017-11-13] VITALS: BP 102/63
[2017-11-13 04:00] VITALS: BP 126/69
[2017-11-13 06:22] LABS: BASOPHILS 0.3 % (0-2); EOSINOPHILS 3.4 % (0-7); HEMATOCRIT 30.2 % (36.0-48.0); LYMPHOCYTES 19.6 % (15-50); MCH 28.3 pg (26.0-34.0); MCHC 29.8 g/dL (31.0-37.0); MEAN PLATELET VOLUME 9.7 fL (7.4-10.4); MONOCYTES 21.1 % (2-11); NEUTROPHILS 52.6 % (40-80); PLATELET COUNT 284 10x3/uL (130-400); RBC 3.18 10x6/uL (4.00-5.40); RDW 17.4 % (11.5-14.5); WBC 7.7 10x3/uL (4.8-10.8)
[2017-11-13 06:39] LABS: ALBUMIN 1.7 g/dL (3.4-5.0); ANION GAP 12.6 mmol/L (8-16); BILIRUBIN - TOTAL 0.6 mg/dL (0.2-1.3); CARBON DIOXIDE 26.7 mmol/L (21.0-32.0); CREATININE - SERUM 7.7 mg/dL (0.6-1.3); MAGNESIUM - SERUM 1.9 mg/dL (1.8-2.4); PHOSPHOROUS 3.8 mg/dL (2.5-4.9); POTASSIUM - SERUM 3.3 mmol/L (3.5-5.1); PROTEIN - SERUM 6.7 g/dL (6.4-8.2)
[2017-11-13 08:04] VITALS: BP 135/73
[2017-11-13 12:09] VITALS: BP 174/94
[2017-11-13 16:28] VITALS: BP 121/64
[2017-11-13 20:00] VITALS: BP 90/55
[2017-11-14 04:00] VITALS: BP 126/72
[2017-11-14 08:03] LABS: BASOPHILS 0.3 % (0-2); EOSINOPHILS 3.1 % (0-7); HEMOGLOBIN 9.2 g/dL (12-16); IMMATURE GRANULOCYTES 2.3 % (0-5); LYMPHOCYTES 20.4 % (15-50); MCH 28.3 pg (26.0-34.0); MCHC 29.7 g/dL (31.0-37.0); MCV 95.4 fL (80.0-100.0); MEAN PLATELET VOLUME 9.1 fL (7.4-10.4); MONOCYTES 15.7 % (2-11); NEUTROPHILS 58.2 % (40-80); RBC 3.25 10x6/uL (4.00-5.40); RDW 17.6 % (11.5-14.5); WBC 8.8 10x3/uL (4.8-10.8)
[2017-11-14 08:09] LABS: PLATELET COUNT 209 10x3/uL (130-400)
[2017-11-14 08:14] VITALS: BP 117/66
[2017-11-14 08:20] LABS: ALBUMIN 1.8 g/dL (3.4-5.0); ANION GAP 7.9 mmol/L (8-16); BILIRUBIN - TOTAL 0.57 mg/dL (0.2-1.3); CALCIUM 8.8 mg/dL (8.5-10.1); CARBON DIOXIDE 31.6 mmol/L (21.0-32.0); MAGNESIUM - SERUM 1.9 mg/dL (1.8-2.4); POTASSIUM - SERUM 3.5 mmol/L (3.5-5.1); PROTEIN - SERUM 6.7 g/dL (6.4-8.2)
[2017-11-14 08:22] LABS: CREATININE - SERUM 5.6 mg/dL (0.6-1.3); PHOSPHOROUS 2.6 mg/dL (2.5-4.9)
[2017-11-14 12:42] VITALS: BP 114/63
[2017-11-14 16:37] VITALS: BP 113/53
[2017-11-14 20:00] VITALS: BP 113/68
[2017-11-15 04:00] VITALS: BP 128/77
[2017-11-15 08:54] VITALS: BP 135/75
[2017-11-15 12:28] VITALS: BP 145/72
[2017-11-15 16:31] VITALS: BP 75/47
[2017-11-15 21:00] VITALS: BP 103/61
[2017-11-16 06:04] VITALS: BP 98/63
[2017-11-16 08:37] VITALS: BP 125/77
[2017-11-16] MEDS ORDERED: MERREM 500 MG/500 MG IV (09:18)
[2017-11-16 12:43] VITALS: BP 125/61
== END 2017-11-16 14:44 | disposition short-term general hospital (02) | DRG 602 ==
LOC: D.M2 17:28
PROVIDERS: Internal Medicine; Internal Medicine Pulmonary Disease; Surgery
DX: L03.311 Cellulitis of abdominal wall (principal); N17.0 Acute kidney failure with tubular necrosis; I13.0 Hypertensive heart and chronic kidney disease with heart failure and stage 1 through stage 4 chronic kidney disease, or unspecified chronic kidney disease; I50.30 Unspecified diastolic (congestive) heart failure; Z68.44 Body mass index [BMI] 60.0-69.9, adult; N18.9 Chronic kidney disease, unspecified; E66.01 Morbid (severe) obesity due to excess calories; Z74.01 Bed confinement status; D64.9 Anemia, unspecified; E88.09 Other disorders of plasma-protein metabolism, not elsewhere classified; E87.6 Hypokalemia; G47.33 Obstructive sleep apnea (adult) (pediatric)

== ENCOUNTER → 2018-01-08 16:27 | Outpatient (CLI) | payer MEDICARE ==
[2017-11-09 14:21] VITALS: BMI 62.0
[~2018-01-08 16:27] MED LIST changes: +BENADRYL INJ50 MG/ML IV; +CALMOSEPTINE OI71 GM TOPICAL; +ELIQUIS2.5 MG PO; +FERRIC CITRATE210 MG PO; +FOSRENOL500 MG PO; +LIDODERM 5 %1 PATCH TRANSDERM; +MERREM 500 MG/500 MG IV; +MIDODRINE HCL5 MG PO; +MUCINEX DM ER1 EAC1 PO; +MUCINEX600 MG PO; +NALOXONE HC0.4 MG/M2 IV; +NEPHRO-VITE RX1 TAB PO; +ONDANSETRON4 MG/2 M3 IM; +ONDANSETRON4 MG/2 M3 IV; +PEPCID20 MG PO; +PHENERGAN25 MG/ML IM; +PHOSLO667 MG PO; +POTASSIUM IODIDE PO; +REGLAN5 MG PO; +ROBAXIN500 MG PO; +ULTRAM50 MG PO; +ZYLOPRIM300 MG PO
== END | disposition home or self-care (01) ==
LOC: D.LABREF 16:27
DX: T81.89XA Other complications of procedures, not elsewhere classified, initial encounter (principal)

== ENCOUNTER 2018-02-22 15:24 | Inpatient (IN) | payer MEDICARE ==
[~2018-02-22] VITALS: Ht 170.2 cm; Wt 148.1 kg
--- NOTE | ~2018-02-22 | OP ---
PATIENT NAME: KAVITHA BANKS MEDICAL RECORD: [id number] :59 LOCATION:D.MS [facility]2234 ADMISSION DATE:02/22/18 SURGEON: BIRDIE HARRIS MD DATE OF OPERATION: 02/23/2018 REFERRING PHYSICIAN: Nitish Fernandez MD PREOPERATIVE DIAGNOSES: End-stage renal disease with dependence on hemodialysis and nonfunctional right internal jugular tunneled dialysis catheter. POSTOPERATIVE DIAGNOSES: End-stage renal disease with dependence on hemodialysis and nonfunctional right internal jugular tunneled dialysis catheter. OPERATION PERFORMED: Tunneled dialysis catheter exchange under fluoroscopy. SURGEON: Birdie Harris MD CLERK STENOGRAPHER: ANESTHESIA: General with LMA per LEASE PURCHASE DRIVER. PREOPERATIVE NOTE: Ms. Kavitha Banks is a 62-year-old super morbidly obese black female patient who had a complicated right colectomy late last year, of course on top of her existing diabetes and other medical problems. She developed acute renal failure and now has end-stage renal disease and is on chronic hemodialysis. She has not yet had a long-term access created as there has been delay due to her problems with a colocutaneous fistula. She has been dialyzing with a right internal jugular catheter that has stopped working completely and is to be exchanged today. I hope to get her back soon for an AV graft. DESCRIPTION OF PROCEDURE: With the patient under anesthesia in supine position, she was prepped and draped in a sterile manner. The existing catheter was examined under fluoroscopy and noted to be rather short for her body habitus with the catheter not going deeply into her right atrium at all despite the fact that it was pushed up to the hilt at the entry site. I removed the catheter over a Roadrunner wire and injected contrast to perform an SVCogram and rule out the presence of fibrin sheathing which there was none. I inserted a new 23 cm long HemoSplit catheter over the guidewire under fluoroscopy. I positioned the Dacron cuff about 3 cm up in the subcutaneous tunnel and the tip of the catheter reached down easily and deeply into the right atrium. Both lumens were accessed and aspirated. Free return of blood from each was confirmed. They were then flushed with saline and then dilute heparin solution, clamped and capped. The catheter was sutured to the skin with a 2-0 Prolene and sterile dressings applied. The patient was awakened and in stable condition taken to the recovery room. Blood loss during the operation was about 5 cc, none replaced. All sponges, instruments, and needles were accounted for. No drain was used and no surgical specimen was submitted for histopathology, although the tip of the catheter about 3 inches in length was sent for culture. TRANSINT:[id number] Voice Confirmation ID: [id number] DOCUMENT ID: [id number] OPERATIVE REPORT [id number] KAVITHA BANKS JAMES MD at 1751 CC: NITISH FERNANDEZ [id number] DICTATION DATE: 02/23/182154 STRUCTURAL ENGINEERING DRAFTING OFFICER: 02/24/18 0219 DIS IN 02/26/18 [facility] [address] [place] [address]
[~2018-02-22 15:24] MED LIST changes: -ELIQUIS2.5 MG PO; -FERRIC CITRATE210 MG PO; -FOSRENOL500 MG PO; -LIDODERM 5 %1 PATCH TRANSDERM; -MIDODRINE HCL5 MG PO; -MUCINEX600 MG PO; -NEPHRO-VITE RX1 TAB PO; -ONDANSETRON4 MG/2 M3 IM; -POTASSIUM IODIDE PO; -REGLAN5 MG PO; -ROBAXIN500 MG PO; -ULTRAM50 MG PO; -ZYLOPRIM300 MG PO
[2018-02-22] MEDS ORDERED: NEPHRO-VITE RX1 TAB PO ×2 (16:00→16:23)
[2018-02-22] MEDS ORDERED: FERRIC CITRATE210 MG PO (16:02)
[2018-02-22] MEDS ORDERED: ULTRAM50 MG PO (16:05)
[2018-02-22] MEDS ORDERED: MUCINEX600 MG PO (16:26)
[2018-02-22] MEDS ORDERED: LIDODERM 5 %1 PATCH TRANSDERM (16:26)
[2018-02-22] MEDS ORDERED: ROBAXIN500 MG PO (16:27)
[2018-02-22] MEDS ORDERED: ONDANSETRON4 MG/2 M3 IM (16:28)
[2018-02-22] MEDS ORDERED: MIDODRINE HCL5 MG PO (16:29)
[2018-02-22] MEDS ORDERED: POTASSIUM IODIDE PO (16:32)
[2018-02-22 16:37] VITALS: BP 128/84; BMI 51.2
[2018-02-22 16:46] LABS: BASOPHILS 0.1 % (0-2); EOSINOPHILS 0.7 % (0-7); HEMATOCRIT 32.4 % (36.0-48.0); HEMOGLOBIN 10.2 g/dL (12-16); IMMATURE GRANULOCYTES 0.6 % (0-5); LYMPHOCYTES 9.4 % (15-50); MCH 31.8 pg (26.0-34.0); MCHC 31.5 g/dL (31.0-37.0); MCV 100.9 fL (80.0-100.0); MEAN PLATELET VOLUME 10.9 fL (7.4-10.4); MONOCYTES 8.5 % (2-11); NEUTROPHILS 80.7 % (40-80); PLATELET COUNT 192 10x3/uL (130-400); RBC 3.21 10x6/uL (4.00-5.40); RDW 16.4 % (11.5-14.5); WBC 19.3 10x3/uL (4.8-10.8)
[2018-02-22 16:50] LABS: INR 1.11 (0.85-1.17); PROTIME 13.9 SECONDS (11.6-15.0)
[2018-02-22 16:51] LABS: APTT 30.4 SECONDS (22.8-39.4)
[2018-02-22 17:00] LABS: ALBUMIN 2.6 g/dL (3.4-5.0); ANION GAP 19.5 mmol/L (8-16); BILIRUBIN - TOTAL 1.94 mg/dL (0.2-1.3); CALCIUM 9.6 mg/dL (8.5-10.1); CARBON DIOXIDE 24.1 mmol/L (21.0-32.0); CREATININE - SERUM 10.2 mg/dL (0.6-1.3); POTASSIUM - SERUM 4.6 mmol/L (3.5-5.1); PROTEIN - SERUM 6.5 g/dL (6.4-8.2)
[2018-02-22 19:53] VITALS: BP 116/90
[2018-02-23] VITALS (7 sets, daily range): BP systolic 122–151; BP diastolic 78–105; Ht 170.2 cm; Wt 148.1 kg
[2018-02-23 06:04] LABS: BASOPHILS 0.1 % (0-2); EOSINOPHILS 1.7 % (0-7); HEMATOCRIT 30.9 % (36.0-48.0); HEMOGLOBIN 9.7 g/dL (12-16); IMMATURE GRANULOCYTES 0.5 % (0-5); LYMPHOCYTES 17.1 % (15-50); MCHC 31.4 g/dL (31.0-37.0); MEAN PLATELET VOLUME 11.7 fL (7.4-10.4); MONOCYTES 11.5 % (2-11); NEUTROPHILS 69.1 % (40-80); PLATELET COUNT 212 10x3/uL (130-400); RBC 3.13 10x6/uL (4.00-5.40); RDW 16.4 % (11.5-14.5)
[2018-02-23 06:05] LABS: MCV 98.7 fL (80.0-100.0); WBC 10.7 10x3/uL (4.8-10.8)
[2018-02-23 06:15] LABS: ANION GAP 17.4 mmol/L (8-16); CALCIUM 9.2 mg/dL (8.5-10.1); CARBON DIOXIDE 24.7 mmol/L (21.0-32.0); CREATININE - SERUM 11.1 mg/dL (0.6-1.3); POTASSIUM - SERUM 4.1 mmol/L (3.5-5.1)
[2018-02-24 04:36] VITALS: BP 119/82
[2018-02-24 07:13] LABS: BASOPHILS 0.1 % (0-2); EOSINOPHILS 1.3 % (0-7); HEMATOCRIT 30.7 % (36.0-48.0); HEMOGLOBIN 9.7 g/dL (12-16); IMMATURE GRANULOCYTES 0.3 % (0-5); MCH 31.6 pg (26.0-34.0); MCHC 31.6 g/dL (31.0-37.0); MEAN PLATELET VOLUME 11.1 fL (7.4-10.4); MONOCYTES 12.9 % (2-11); NEUTROPHILS 68.4 % (40-80); PLATELET COUNT 212 10x3/uL (130-400); RBC 3.07 10x6/uL (4.00-5.40); RDW 16.8 % (11.5-14.5); WBC 10.7 10x3/uL (4.8-10.8)
[2018-02-24 07:51] LABS: ANION GAP 21.6 mmol/L (8-16); CALCIUM 8.9 mg/dL (8.5-10.1); CARBON DIOXIDE 23.9 mmol/L (21.0-32.0); CREATININE - SERUM 12.6 mg/dL (0.6-1.3)
[2018-02-24 07:52] LABS: POTASSIUM - SERUM 5.5 mmol/L (3.5-5.1)
[2018-02-24 09:09] VITALS: BP 147/100
[2018-02-24 12:30] VITALS: BP 109/75
[2018-02-24 15:58] VITALS: BP 113/75
[2018-02-24 20:00] VITALS: BP 103/59
[2018-02-25] VITALS: BP 104/69
[2018-02-25 04:00] VITALS: BP 108/63
[2018-02-25 05:43] LABS: BASOPHILS 0.1 % (0-2); EOSINOPHILS 1.2 % (0-7); HEMOGLOBIN 9.4 g/dL (12-16); IMMATURE GRANULOCYTES 0.3 % (0-5); MCHC 31.3 g/dL (31.0-37.0); MEAN PLATELET VOLUME 12.2 fL (7.4-10.4); MONOCYTES 15.2 % (2-11); NEUTROPHILS 67.2 % (40-80); PLATELET COUNT 186 10x3/uL (130-400); RBC 3.03 10x6/uL (4.00-5.40); RDW 16.6 % (11.5-14.5); WBC 9.2 10x3/uL (4.8-10.8)
[2018-02-25 06:01] LABS: ANION GAP 19.7 mmol/L (8-16); CALCIUM 8.8 mg/dL (8.5-10.1); CARBON DIOXIDE 22.5 mmol/L (21.0-32.0)
[2018-02-25 06:02] LABS: POTASSIUM - SERUM 4.2 mmol/L (3.5-5.1)
[2018-02-25 08:57] VITALS: BP 116/69
[2018-02-25 12:22] VITALS: BP 125/66
[2018-02-25 16:39] VITALS: BP 138/67
[2018-02-25 20:00] VITALS: BP 114/73
[2018-02-26] VITALS: BP 100/72
[2018-02-26 02:18] VITALS: BP 106/88
[2018-02-26 04:00] VITALS: BP 119/80
[2018-02-26 06:42] LABS: BASOPHILS 0.2 % (0-2); EOSINOPHILS 1.7 % (0-7); HEMATOCRIT 30.6 % (36.0-48.0); HEMOGLOBIN 9.7 g/dL (12-16); IMMATURE GRANULOCYTES 0.2 % (0-5); LYMPHOCYTES 14.8 % (15-50); MCH 31.4 pg (26.0-34.0); MCHC 31.7 g/dL (31.0-37.0); MEAN PLATELET VOLUME 11.7 fL (7.4-10.4); MONOCYTES 13.6 % (2-11); NEUTROPHILS 69.5 % (40-80); PLATELET COUNT 187 10x3/uL (130-400); RBC 3.09 10x6/uL (4.00-5.40); RDW 16.7 % (11.5-14.5); WBC 9.4 10x3/uL (4.8-10.8)
[2018-02-26 07:26] LABS: ANION GAP 22.6 mmol/L (8-16); CALCIUM 9.1 mg/dL (8.5-10.1); CARBON DIOXIDE 20.8 mmol/L (21.0-32.0); CREATININE - SERUM 11.5 mg/dL (0.6-1.3); POTASSIUM - SERUM 4.4 mmol/L (3.5-5.1)
[2018-02-26 08:27] VITALS: BP 121/86
[2018-02-26 12:29] VITALS: BP 91/62
== END 2018-02-26 15:52 | DRG 314 ==
LOC: D.MS 15:24
PROVIDERS: Internal Medicine Nephrology; Surgery
PROC: 0J2SXYZ Change Other Device in Head and Neck Subcutaneous Tissue and Fascia, External Approach (ICD-10-PCS; 2018-02-23)
PROC: 5A1D70Z Performance of Urinary Filtration, Intermittent, Less than 6 Hours Per Day (ICD-10-PCS; principal; 2018-02-23 18:45)
DX: T82.898A Other specified complication of vascular prosthetic devices, implants and grafts, initial encounter (principal); N18.6 End stage renal disease; I12.0 Hypertensive chronic kidney disease with stage 5 chronic kidney disease or end stage renal disease; N17.9 Acute kidney failure, unspecified; Z68.43 Body mass index [BMI] 50.0-59.9, adult; I10 Essential (primary) hypertension; Z99.2 Dependence on renal dialysis; E66.01 Morbid (severe) obesity due to excess calories; G47.33 Obstructive sleep apnea (adult) (pediatric); D63.1 Anemia in chronic kidney disease

== ENCOUNTER 2018-04-02 13:33 | Inpatient (IN) | payer MEDICARE ==
[~2018-04-02] VITALS: Ht 170.2 cm; Wt 144.7 kg
--- NOTE | ~2018-04-02 | OP ---
PATIENT NAME: CATHERINE BANKS MEDICAL RECORD: [id number] :59 LOCATION:D.M2 D.2111 ADMISSION DATE:04/03/18 SURGEON: BIRDIE HARRIS MD DATE OF OPERATION: 04/03/2018 She is an inpatient and she is operated and dictated today on 04/03/2018. REFERRING PHYSICIAN: Glenn Ruiz MD DIAGNOSES: End-stage renal disease and dependence on hemodialysis and displacement of vascular dialysis catheter. SURGEON: Birdie Harris MD ANESTHESIA: Local 1% lidocaine without epinephrine and monitoring only per BAKERY MACHINE MECHANIC SUPERVISOR. OPERATION PERFORMED: Attempted ultrasound-guided access of right internal jugular vein with contrast injection, which demonstrated complete occlusion and then ultrasound-guided access of the left internal jugular vein with performance of a superior vena cavogram and then insertion of a 23 cm left-sided internal jugular tunneled dialysis catheter. PREOPERATIVE NOTE: Ms. Banks is a super morbidly obese -Irish female with end-stage renal disease, who has been dialyzing with a catheter for some time. A tunneled catheter in the right internal jugular vein, implantation of a vascular graft or other long-term vascular access procedure has been delayed due to persistent infection and the complication of colocutaneous fistula, which followed a recent right colon resection that apparently has been resolved and she is now suitable to be scheduled for an AV graft implantation, but there is no time today. Her dialysis catheter came out yesterday, so she is brought to the operating room at this time to implant a new one and we will then schedule her as soon as possible for an elective graft implantation. DESCRIPTION OF PROCEDURE: Under monitoring by BAKERY MACHINE MECHANIC SUPERVISOR, she was placed in supine position, prepped and draped in a sterile manner. I used ultrasound first to locate the right internal jugular vein and noted that it appeared to have a lumen in which some blood was swirling surrounded by thrombus. I made an incision at the base of the neck under local and inserted a micro needle and then attempted to insert a guidewire and catheter, but was unsuccessful. I did inject contrast, which showed no communication with the central vasculature and I subsequently abandoned attempts on that side and closed the wound with Vicryl. I then went to the left side and did ultrasound-guided access of the left internal jugular vein and performed a superior vena cavogram, which revealed no evidence of stenosis of the superior vena cava, left brachiocephalic vein or left internal jugular vein. I inserted a 7-Lao introducer and then used a Glidewire glide catheter exchange to place an Amplatz wire in the inferior vena cava over that, then I passed serial dilators and lastly, a dilator peel away sheath, the dilator portion was removed. A new left subcutaneous tunnel was created from a new entry site below the clavicle. A 23 cm dialysis catheter was pulled through that tunnel and inserted then over the guidewire through the peel-away sheath, this proved difficult and the catheter probably is a little too short and I will likely need to replace it the next opportunity with a longer catheter; however, both ends of the catheter were in the right atrium and both aspirated freely and flushed easily. The catheter was hep locked and OPERATIVE REPORT [id number] CATHERINE BANKS clamped and capped. The catheter was sutured to the skin near the entry site with 2-0 Prolene and the wound was closed with Vicryl and Dermabond glue. Sterile dressings were applied and the patient then taken back to the floor in stable condition. We will obtain a chest x-ray there. She can likely be discharged from the hospital and we will schedule her for an elective AV graft implantation. TRANSINT:[id number] Voice Confirmation ID: [id number] DOCUMENT ID: [id number] BIRDIE HARRIS MD at 1158 CC: FREDDIE FERNANDEZ [id number] DICTATION DATE: 04/03/18 1509 SUCTION DREDGE DUMPING SUPERVISOR: 04/03/18 1612 ADM IN [facility] [address] [place] [id number]
--- NOTE | ~2018-04-02 | OP ---
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 POSTOPERATIVE DIAGNOSES: End-stage renal disease and dependence on hemodialysis with displacement of tunneled central venous dialysis catheter, also thrombosis of right internal jugular vein, compression of vein with central venous stenoses, super morbid obesity due to excess calories, complications of dialysis catheter mechanical, and obstructive sleep apnea. OPERATION PERFORMED: Insertion of a left internal jugular tunneled dialysis catheter utilizing ultrasound guidance with performance of a superior vena cavogram with eventual insertion of a 31 cm Arrow VectorFlow left internal jugular tunneled dialysis catheter. SURGEON: Birdie Harris MD ANESTHESIA: Local and monitoring per LADLE MECHANIC. PREOPERATIVE NOTE: Ms. Banks is a super morbidly obese young -[place] female with end-stage renal disease, who unfortunately is at this time catheter dependent for dialysis access. She has been dialyzing with a right internal jugular dialysis catheter. Unfortunately, that "came out" and she is at present without dialysis access. She is brought to the operating room to try reinserted another catheter. DESCRIPTION OF PROCEDURE: With the patient under monitoring per LADLE MECHANIC, she was placed in supine position and the neck and upper chest prepped and draped in a sterile manner. I examined the right side with ultrasound and found the right internal jugular vein to be occluded and there was no apparent collateral vein access to be able to reach the right atrium from the right side. I then used ultrasound to locate the left internal jugular vein. It was patent and fully compressible and I then injected local anesthesia as needed, made a small incision at the base of the neck and inserted a needle and guidewire under ultrasound guidance into the internal jugular vein. Under fluoroscopy, I was able, with some difficulty, to advance the guidewire through the superior vena cava and into the right atrium. Contrast injection was performed, which revealed some acute angulation around the brachiocephalic vein and superior vena cava confluence. I did not see a definite stenosis or partial occlusion of the superior vena cava. I was unable to insert a split cath and eventually with considerable difficulty was successful in placing a 31 cm Arrow VectorFlow catheter with its tip extended down into the inferior vena cava. Both lumens functioned well and the catheter of course was pulled through a separate subcutaneous tunnel and the modular pieces connected. The catheter was aspirated, free return of blood confirmed. It was then flushed with saline and then heparin locked. The cervical incision was irrigated with antibiotic OPERATIVE REPORT [id number] CATHERINE BANKS solution and closed with interrupted inverted 3-0 Vicryl and Dermabond glue and the new central catheter was sutured to the skin of the upper left chest with 2-0 Prolene. Dermabond glue was used and the wounds were then dressed as usual. The patient was returned to her room in stable condition. A chest x-ray is requested. Blood loss was about 150 cc during this procedure, none was replaced. PLAN: Delayed return to the operating room electively for AV graft implantation. TRANSINT:[id number] Voice Confirmation ID: [id number] DOCUMENT ID: [id number] BIRDIE HARRIS MD at 0847 CC: NITISH FERNANDEZ [id number] DICTATION DATE: 04/26/18 1036 FOUR H AGENT: 04/26/18 1054 DIS IN 04/06/18 [address] [place] [address]
[~2018-04-02 13:33] MED LIST changes: +FERRIC CITRATE210 MG PO; +LIDODERM 5 %1 PATCH TRANSDERM; +MIDODRINE HCL5 MG PO; +MUCINEX600 MG PO; +NEPHRO-VITE RX1 TAB PO; +ONDANSETRON4 MG/2 M3 IM; +POTASSIUM IODIDE PO; +ROBAXIN500 MG PO; +ULTRAM50 MG PO
[2018-04-02 18:45] LABS: BASOPHILS 0.3 % (0-2); EOSINOPHILS 2.3 % (0-7); HEMATOCRIT 39.2 % (36.0-48.0); HEMOGLOBIN 12.3 g/dL (12-16); IMMATURE GRANULOCYTES 0.3 % (0-5); MCH 31.5 pg (26.0-34.0); MCHC 31.4 g/dL (31.0-37.0); MCV 100.3 fL (80.0-100.0); MEAN PLATELET VOLUME 11.2 fL (7.4-10.4); MONOCYTES 14.1 % (2-11); PLATELET COUNT 150 10x3/uL (130-400); RBC 3.91 10x6/uL (4.00-5.40); RDW 16.3 % (11.5-14.5); WBC 7.9 10x3/uL (4.8-10.8)
[2018-04-02 19:06] LABS: ALBUMIN 3.1 g/dL (3.4-5.0); ANION GAP 20.5 mmol/L (8-16); BILIRUBIN - TOTAL 0.31 mg/dL (0.2-1.3); CALCIUM 9.3 mg/dL (8.5-10.1); CARBON DIOXIDE 22.6 mmol/L (21.0-32.0); CREATININE - SERUM 10.9 mg/dL (0.6-1.3); POTASSIUM - SERUM 4.1 mmol/L (3.5-5.1); PROTEIN - SERUM 6.9 g/dL (6.4-8.2)
[2018-04-02 22:50] VITALS: BP 84/54; BMI 50.2
[2018-04-03 06:12] LABS: BASOPHILS 0.2 % (0-2); EOSINOPHILS 2.2 % (0-7); HEMATOCRIT 35.8 % (36.0-48.0); HEMOGLOBIN 11.2 g/dL (12-16); IMMATURE GRANULOCYTES 0.2 % (0-5); LYMPHOCYTES 17.4 % (15-50); MCH 30.9 pg (26.0-34.0); MCHC 31.3 g/dL (31.0-37.0); MCV 98.9 fL (80.0-100.0); MEAN PLATELET VOLUME 11.8 fL (7.4-10.4); MONOCYTES 17.2 % (2-11); NEUTROPHILS 62.8 % (40-80); PLATELET COUNT 134 10x3/uL (130-400); RBC 3.62 10x6/uL (4.00-5.40); RDW 16.5 % (11.5-14.5); WBC 8.6 10x3/uL (4.8-10.8)
[2018-04-03 06:22] VITALS: BP 120/57
[2018-04-03 06:26] LABS: ANION GAP 22.1 mmol/L (8-16); CALCIUM 9.1 mg/dL (8.5-10.1); CARBON DIOXIDE 23.9 mmol/L (21.0-32.0); CREATININE - SERUM 11.8 mg/dL (0.6-1.3)
[2018-04-03 06:28] LABS: INR 1.02 (0.85-1.17)
[2018-04-03 08:24] VITALS: BP 98/57
[2018-04-03 10:33] VITALS: Ht 170.2 cm; Wt 144.7 kg
[2018-04-03] MEDS ORDERED: ZYLOPRIM300 MG PO (10:44)
[2018-04-03] MEDS ORDERED: PEPCID20 MG PO (10:44)
[2018-04-03] MEDS ORDERED: MUCINEX600 MG PO (10:45)
[2018-04-03] MEDS ORDERED: FOSRENOL500 MG PO (10:45)
[2018-04-03] MEDS ORDERED: ROBAXIN500 MG PO (11:01)
[2018-04-03] MEDS ORDERED: MIDODRINE HCL5 MG PO (11:08)
[2018-04-03] MEDS ORDERED: NEPHRO-VITE RX1 TAB PO (11:08)
[2018-04-03] MEDS ORDERED: REGLAN5 MG PO (11:10)
[2018-04-03] MEDS ORDERED: ULTRAM50 MG PO (11:11)
[2018-04-03] MEDS ORDERED: ONDANSETRON4 MG/2 M3 IM (11:12)
[2018-04-03] MEDS ORDERED: ACETAMINOPHEN325 MG PO (11:12)
[2018-04-03 12:35] VITALS: BP 94/55
[2018-04-03 15:45] VITALS: BP 116/63
[2018-04-03 20:00] VITALS: BP 94/61
[2018-04-04] VITALS: BP 123/80
[2018-04-04 04:00] VITALS: BP 113/79
[2018-04-04 12:48] VITALS: BP 100/65
[2018-04-04 14:54] LABS: BASOPHILS 0.2 % (0-2); EOSINOPHILS 1.7 % (0-7); HEMATOCRIT 34.8 % (36.0-48.0); IMMATURE GRANULOCYTES 0.2 % (0-5); LYMPHOCYTES 11.2 % (15-50); MCH 31.2 pg (26.0-34.0); MCHC 31.6 g/dL (31.0-37.0); MCV 98.6 fL (80.0-100.0); MEAN PLATELET VOLUME 12.6 fL (7.4-10.4); MONOCYTES 13.5 % (2-11); NEUTROPHILS 73.2 % (40-80); PLATELET COUNT 127 10x3/uL (130-400); RBC 3.53 10x6/uL (4.00-5.40); RDW 16.1 % (11.5-14.5); WBC 10.2 10x3/uL (4.8-10.8)
[2018-04-04 15:14] LABS: ANION GAP 23.4 mmol/L (8-16); CALCIUM 8.7 mg/dL (8.5-10.1); CREATININE - SERUM 12.7 mg/dL (0.6-1.3); POTASSIUM - SERUM 4.4 mmol/L (3.5-5.1)
[2018-04-04 15:25] LABS: APTT 27.2 SECONDS (22.8-39.4); INR 1.05 (0.85-1.17); PROTIME 13.3 SECONDS (11.6-15.0)
[2018-04-04 16:15] VITALS: BP 93/58
[2018-04-04 20:04] VITALS: BP 103/66
[2018-04-05 00:37] VITALS: BP 89/60
[2018-04-05 06:21] VITALS: BP 104/70
[2018-04-05 08:50] VITALS: BP 88/54
[2018-04-05 12:47] VITALS: BP 120/80
[2018-04-05 15:28] VITALS: BP 85/43
[2018-04-05 20:38] VITALS: BP 97/59
[2018-04-06 00:05] VITALS: BP 95/61
[2018-04-06 04:39] VITALS: BP 91/61
[2018-04-06 08:02] VITALS: BP 102/69
[2018-04-06 11:11] VITALS: BP 118/82
== END 2018-04-06 12:44 | disposition home health service (06) | DRG 314 ==
LOC: OBSVTIME → D.OPS 13:33 → D.ER 13:33 → D.M2 20:21 → D.EDHOLD 20:21 → D.ER 20:21 → OBSVTIME 20:22 → D.M2 20:43 → D.EDHOLD 20:43 → EDSTATUS 04-03 13:00 → D.M2 04-03 14:02
PROVIDERS: Family Medicine; Physician Assistant; Surgery
PROC: 02HV33Z Insertion of Infusion Device into Superior Vena Cava, Percutaneous Approach (ICD-10-PCS; 2018-04-03)
PROC: B5181ZZ Fluoroscopy of Superior Vena Cava using Low Osmolar Contrast (ICD-10-PCS; principal; 2018-04-03 13:00)
PROC: 5A1D70Z Performance of Urinary Filtration, Intermittent, Less than 6 Hours Per Day (ICD-10-PCS; 2018-04-04)
PROC: 02PYX3Z Removal of Infusion Device from Great Vessel, External Approach (ICD-10-PCS; 2018-04-05)
PROC: 06H033Z Insertion of Infusion Device into Inferior Vena Cava, Percutaneous Approach (ICD-10-PCS; 2018-04-05)
PROC: B5191ZA Fluoroscopy of Inferior Vena Cava using Low Osmolar Contrast, Guidance (ICD-10-PCS; 2018-04-05)
DX: T82.42XA Displacement of vascular dialysis catheter, initial encounter (principal); N18.6 End stage renal disease; I13.2 Hypertensive heart and chronic kidney disease with heart failure and with stage 5 chronic kidney disease, or end stage renal disease; Z68.43 Body mass index [BMI] 50.0-59.9, adult; Y83.8 Other surgical procedures as the cause of abnormal reaction of the patient, or of later complication, without mention of misadventure at the time of the procedure; I50.9 Heart failure, unspecified; Z99.2 Dependence on renal dialysis; G62.9 Polyneuropathy, unspecified; G47.33 Obstructive sleep apnea (adult) (pediatric); D63.1 Anemia in chronic kidney disease; E66.01 Morbid (severe) obesity due to excess calories

== ENCOUNTER 2018-04-10 15:20 | Inpatient (IN) | payer MEDICARE ==
[~2018-04-10] VITALS: Ht 170.2 cm; Wt 142.3 kg
--- NOTE | ~2018-04-10 | HEMODYNAMI ---
PATIENT:CATHERINE MILLIGAN MEDICAL RECORD: [id number] : 59 LOCATION:[place] [address] ADMISSION DATE: 04/10/18 Generatedon:04/13/201815:53 Patient name: CATHERINE MILLIGNA Patient #: [id number] SSN: : Date of study: 04/13/2018 Page: Of Hemodynamic Procedure Report Patient Data Patient Demographics Procedure consent was obtained First Name: CATHERINE Gender: Female Last Name: SRINI : 1955 Middle Initial: JACE Age: 62 year(s) Patient #: [id number] Race: Black Additional ID: [id number] Contact details Address: [address] State: [place] City: [place] Zip code: [address] Admission Admission Data Admission Date: 04/10/2018 Admission Time: 15:26 Room #: [facility] Height (in.): 67 BSA: 2.44 (m2) Height (cm.): 170.18 BMI: 48.55 (kg/m2) Weight (lbs.): 310 Weight (kg.): 140.61 Procedure Procedure Types Cath Procedure Peripheral Cath Diagnostic Procedure Cath Peripheral Venography Extremity Left Upper Ext. Venagram Procedure Description Procedure Date Procedure Date: 04/13/2018 Procedure Start Time: 15:13 Procedure Staff Name Function Chilo Donis MD Performing Physician Kelly Bailon RT Square Shear Operator Kelly Bailon RT Monitor Huyen Cummins RN Nurse Hans Slaughter RT Scrub Rea Terrell MD Performing Physician Procedure Data Cath Procedure Fluoroscopy Diagnostic fluoroscopy Total fluoroscopy Time: 6.6 time: 6.6 min min Diagnostic fluoroscopy Total fluoroscopy dose: 523 dose: 523 mGy mGy Contrast Material Contrast Material Type Amount (ml) Isovue 300 46 Procedure Medications Medication Administration Route Dosage Oxygen etCO2 Nasal cannula 4 l/min Heparin Flush Bag added to field 2 bags (1000units/500ml NS) Lidocaine 1% added to field 20 Versed I.V. 1 mg Fentanyl I.V. 50 mcg Hemodynamics Rest BSA: 2.44 (m2) O2 Consumption: Estimated: 257.75 (ml/min) O2 Consumption indexed : Estimated:105.64 (ml/min/m) Heart Rate: 99 (bpm) Snapshots Pre Cath Intra NCS Post Cath Vital Signs Time Heart Resp SPO2 etCO2 NIBP Rhythm Pain Sedation Rate (ipm) (%) (mmHg) (mmHg) Status Level (bpm) 15:00:30 88 32.3 117/75(87) NSR 0 (11) 9(A) , No pain 15:04:42 99 20 98 31.5 123/71(90) NSR 0 (11) 9(A) , No pain 15:08:56 99 19 95 33 114/71(89) NSR 0 (11) 9(A) , No pain 15:13:06 97 15 98 27.8 113/69(91) NSR 0 (11) 9(A) , No pain 15:17:16 98 19 98 34.5 110/69(83) NSR 0 (11) 8(A) , No pain 15:21:22 99 19 98 23.3 113/76(87) NSR 0 (11) 8(A) , No pain 15:25:32 100 25 98 30 116/71(88) ST 0 (11) 8(A) , No pain 15:29:40 100 19 69 32.3 109/67(87) ST 0 (11) 8(A) , No pain 15:33:45 102 20 98 31.5 121/76(93) ST 0 (11) 8(A) , No pain 15:37:57 103 17 95 29.3 113/67(82) ST 0 (11) 8(A) , No pain 15:42:05 100 13 98 37.6 111/71(85) ST 0 (11) 8(A) , No pain 15:46:13 99 27 75 34.5 127/76(94) ST 0 (11) 8(A) , No pain 15:50:25 103 15 23.3 116/81(93) ST 0 (11) 8(A) , No pain Medications Time Medication Route Dose Verified Delivered Reason Notes Effec tiveness by by 15:15:31 Oxygen etCO2 4 M Isael Matson Per Nasal l/min MD Cummins RN protocol cannula 15:15:45 Heparin Flush added 2 M Isael Woo Per Bag to bags MD Jewels MD protocol (1000units/500ml field NS) 15:15:57 Lidocaine 1% added 20ml Rea Woo Per to vial MD Jewels MD protocol field 15:16:14 Versed I.V. 1 mg M Isael Mastine for Mostl y MD Cummins RN sedation sleeping @ 15:25:08 15:16:28 Fentanyl I.V. 50 M Isael Mastine for Mostl y mcg MD Cummins RN sedation sleeping @ 15:25:12 Procedure Log Time Note 13:43:49 Patient Height : 67 inches 13:43:49 Patient Weight : 310 lbs 14:37:35 Use device set IR Diagnostic 14:37:37 Tegaderm 4 x 4 (1626W) opened to sterile field. 14:37:37 Sterile Angiographic Pack opened to sterile field. 14:37:38 Bag Decanter (2002S) opened to sterile field. 14:46:07 Time tracking: Regular hours (M-F 7:00 - 5:00) 14:46:36 Plan of Care:Hemodynamics will remain stable., Cardiac rhythm will remain stable., Comfort level will be maintained., Respiratory function will remain adequate., Patient/ family verbilizes understanding of procedure., Procedure tolerated without complication., Recovers from procedure without complications.. 14:46:44 Patient received from CVICU to IR Alert and oriented. Tansferred to table in Supine position. 14:46:58 Correct patient and procedure confirmed by team. 14:47:01 Signed procedure consent form obtained from patient. 14:47:07 H&P Date Dictated: 04/13/2018 Within 30 days and on chart.. 14:47:10 Pre-procedure instructions explained to patient. 14:47:10 Pre-op teaching completed and patient verbalized understanding. 14:47:12 Family unavailable. 14:47:15 Patient NPO since Midnight. 14:47:22 Is the patient allergic to Iodine/contrast media? No. 14:47:36 Is patient on blood thinner?Yes 14:47:39 Patient diabetic? No. 14:47:41 - 14:48:00 IV patent on arrival in right hand with D5/.45%NaCl at KVO. 14:48:19 Left Arm area was prepped with betadine and draped in sterile fashion 14:48:23 - 14:59:26 ECG and BP/O2 sat monitors applied to patient. 14:59:27 Vital chart was started 14:59:33 Baseline sample Acquired. 14:59:34 Full Disclosure recording started 14:59:36 - 14:59:49 - 15:12:30 Physician arrived 15:12:39 --------ALL STOP TIME OUT------ 15:12:40 Final Timeout: patient, procedure, and site verified with staff and physician. All members of the team are in agreement. 15:13:02 Procedure started. 15:13:55 Local anesthetic to left arm with Lidocaine 1% by Rea TERRELL MD.INITIA L ACCESS ONLY 15:14:45 Baseline sample Acquired. 15:15:31 Oxygen 4 l/min etCO2 Nasal cannula was administered by Huyen Cummins RN; Per protocol; 15:15:45 Heparin Flush Bag (1000units/500ml NS) 2 bags added to field was administered by Chilo Donis MD; Per protocol; 15:15:57 Lidocaine 1% 20ml vial added to field was administered by Chilo Donis MD; Per protocol; 15:16:14 Versed 1 mg I.V. was administered by Huyen Cummins RN; for sedation; 15:16:28 Fentanyl 50 mcg I.V. was administered by Huyen Cummins RN; for sedation; 15:25:08 Effectiveness of Versed delivered @ 15:16:14 is: Mostly sleeping 15:25:12 Effectiveness of Fentanyl delivered @ 15:16:28 is: Mostly sleeping 15:27:26 GALLAGHER 260 wire ([id number]) opened to sterile field. 15:27:53 Inflate balloon Inflation number: 1 A Evercross 5 x 100 x 135 Balloon ([id number]) was prepped and advanced across the Undefined1, then inflated to 0 TAYLOR for 0:00 (min:sec). 15:42:35 Procedure ended.(Physican Out) 15:44:01 Fluoroscopy time 06.60 minutes. 15:44:32 Fluoroscopy dose: 523 mGy 15:44:32 Flurop Dose total: 523 15:44:46 Contrast amount:Isovue 300 46ml. 15:44:49 Procedure and supply charges have been captured, reviewed, submitted an d are correct. 15:53:07 Vital chart was stopped Intervention Summary Intervention Notes Time ActionType Lesion and Equipment Used Action# Pressure Duration Attributes 15:27:53 Inflate Undefined1 Evercross 5 x 1 0 00:00 balloon 100 x 135 Balloon ([id number]) Device Usage Item Name Manufacture Quantity Catalog Number Hospital Part Current M inimal Lot# / Charge Number Stock Stock Serial# Code Tegaderm 4 x 4 3M 1 [id number] [id number] 5 (1626W) Sterile Cardinal 1 [id number] [id number] 5 Angiographic Health Pack Bag Decanter Microtek 1 [id number] 06777 345645 5 () Medical Inc. GALLAGHER 260 wire Cook [employer] 1 [id number] 01891 568022 5 [id number] ([id number]) Evercross 5 x Medtronic 1 [id number] 068369 279667 855513 5 [id number] 100 x 135 Balloon ([id number]) Signature Audit [place] Stage Time Signature Unsigned Intra-Procedure 04/13/2018 Kelly Bailon 3:53:03 PM RT(R) Signatures Monitor : Kelly Bailon RT Signature : Date : Time : [place] [address] [place] [address]
--- NOTE | ~2018-04-10 | HEMODYNAMI ---
PATIENT:CATHERINE MILLIGAN MEDICAL RECORD: [id number] : 59 [address] [id number] ADMISSION DATE: 04/10/18 Generatedon:04/12/201810:42 Patient name: CATHERINE MILLIGAN Patient #: [id number] SSN: : Date of study: 04/12/2018 Page: Of Hemodynamic Procedure Report Patient Data Patient Demographics Procedure consent was obtained First Name: CATHERINE Gender: Female Last Name: SRINI : 1955 Middle Initial: JACE Age: 62 year(s) Patient #: [id number] Race: Black Additional ID: [id number] Contact details Address: [address] [place] [address] State: [place] City: [place] Zip code: [address] Admission Admission Data Admission Date: 04/10/2018 Admission Time: 15:26 Room #: [facility] Height (in.): 67 BSA: 2.44 (m2) Height (cm.): 170.18 BMI: 48.55 (kg/m2) Weight (lbs.): 310 Weight (kg.): 140.61 Procedure Procedure Types Cath Procedure Peripheral Cath Diagnostic Procedure Cath Peripheral Venography Extremity Left Upper Ext. Venagram Procedure Description Procedure Date Procedure Date: 04/12/2018 Procedure Start Time: 9:39 Procedure Staff Name Function Rea Case MD Performing Physician Kelly Bailon RT Box Folding Machine Operator Kelly Bailon RT Monitor Hans Slaughter RT Scrub Nora Tavares RN Nurse Procedure Data Cath Procedure Fluoroscopy Diagnostic fluoroscopy Total fluoroscopy Time: 0 time: 0 min min Diagnostic fluoroscopy Total fluoroscopy dose: 668 dose: 668 mGy mGy Contrast Material Contrast Material Type Amount (ml) Isovue 300 45 Procedure Medications Medication Administration Route Dosage Heparin Flush Bag added to field 2 bags (1000units/500ml NS) Lidocaine 1% added to field 20 Versed I.V. 1 mg Fentanyl I.V. 50 mcg Versed I.V. 1 mg Fentanyl I.V. 50 mcg TPA 2 TPA 1 Heparin Drip I.V. drip 500 units/hr (26618rpgxg/250 D5W) Heparin Flush Bag 1 bags (1000units/500ml NS) Hemodynamics Rest BSA: 2.44 (m2) O2 Consumption: Estimated: 247.28 (ml/min) O2 Consumption indexed : Estimated:101.34 (ml/min/m) Heart Rate: 87 (bpm) Snapshots Pre Cath Intra NCS Post Cath Vital Signs Time Heart Resp SPO2 etCO2 NIBP (mmHg) Rhythm Pain Sedation Rate (ipm) (%) (mmHg) Status Level (bpm) 9:19:12 96 29 99 12.7 117/68(78) NSR 0 (11) 10(A) , No pain 9:23:32 101 21 87 10.5 117/62(90) NSR 0 (11) 10(A) , No pain 9:27:50 99 26 100 24 115/67(89) NSR 0 (11) 10(A) , No pain 9:32:10 97 22 27 126/60(84) NSR 0 (11) 10(A) , No pain 9:36:27 100 20 98 28.5 113/74(97) NSR 0 (11) 10(A) , No pain 9:40:46 99 26 28.5 97/58(80) NSR 0 (11) 10(A) , No pain 9:45:07 98 29 81 27 102/65(86) NSR 0 (11) 10(A) , No pain 9:49:21 96 27 98 26.3 100/66(87) NSR 0 (11) 10(A) , No pain 9:53:35 97 26 99 21.7 95/59(83) NSR 0 (11) 10(A) , No pain 9:57:47 97 24 99 19.5 101/59(80) NSR 0 (11) 10(A) , No pain 10:02:00 96 23 98 15 110/59(77) NSR 0 (11) 10(A) , No pain 10:06:17 97 24 97 20.2 123/66(91) NSR 0 (11) 10(A) , No pain 10:10:37 97 30 97 19.5 111/74(89) NSR 0 (11) 10(A) , No pain 10:14:51 98 24 21.7 117/78(88) NSR 0 (11) 10(A) , No pain 10:19:11 96 30 23.2 109/67(85) NSR 0 (11) 10(A) , No pain 10:23:27 97 19 100 29.2 120/70(92) NSR 0 (11) 10(A) , No pain 10:27:45 101 22 83 28.6 135/76(103) NSR 0 (11) 10(A) , No pain 10:32:07 99 26 27.7 136/80(94) NSR 0 (11) 10(A) , No pain 10:36:07 18.7 No Cuff NSR 0 (11) 10(A) , No pain 10:40:06 0 No Cuff NSR 0 (11) 10(A) , No pain Medications Time Medication Route Dose Verified Delivered Reason Notes Ef fectiveness by by 9:47:19 Heparin Flush added 2 bags M J Long M J Long used for Bag to MD ROBIN procedure (1000units/500ml field NS) 9:47:32 Lidocaine 1% added 20ml M J Long M J Long used for to vial MD ROBIN procedure field 9:47:44 Versed I.V. 1 mg M J Long Nora for MD Tavares RN sedation 9:47:54 Fentanyl I.V. 50 mcg M J Long Nora for MD Chaitanya FRANCISCO sedation 10:07:54 Versed I.V. 1 mg M J Long Nora for MD Chaitanya FRANCISCO sedation 10:08:01 Fentanyl I.V. 50 mcg M J Long Nora for MD Chaitanya FRANCISCO sedation 10:36:25 TPA IV 2 MG M J Long Nora used for BOLUS MD Chaitanya FRANCISCO procedure LEFT ARM 10:36:49 TPA I.V. 1MG/HR M J Long Nora drip MD Chaitanya FRANCISCO LEFT ARM 10:37:14 Heparin Drip I.V. 500 M J Long Nora (87827xwthu/250 drip units/hr MD Chaitanya FRANCISCO D5W) 10:38:47 Heparin Flush IV 1 bags M J Long Nora Bag LEFT MD Chaitanya FRANCISCO (1000units/500ml ARM NS) KVO Procedure Log Time Note 9:16:16 Patient Height : 67 inches 9:16:20 Patient Weight : 310 lbs 9:17:19 Time tracking: Regular hours (M-F 7:00 - 5:00) 9:17:31 Plan of Care:Hemodynamics will remain stable., Cardiac rhythm will remain stable., Comfort level will be maintained., Respiratory function will remain adequate., Patient/ family verbilizes understanding of procedure., Procedure tolerated without complication., Recovers from procedure without complications.. 9:17:40 Patient received from [employer] to Alert and oriented. Tansferred to table in Supine position. 9:17:43 Signed procedure consent form obtained from patient. 9:17:54 ECG and BP/O2 sat monitors applied to patient. 9:17:55 Vital chart was started 9:17:57 Baseline sample Acquired. 9:18:00 - 9:18:00 Full Disclosure recording started 9:18:09 H&P Date Dictated: 04/12/2018 Within 30 days and on chart.. 9:18:11 Pre-procedure instructions explained to patient. 9:18:12 Pre-op teaching completed and patient verbalized understanding. 9:18:16 Family unavailable. 9:18:19 Patient NPO since Midnight. 9:18:54 ALLERGY TO LISINOPRIL 9:19:05 Is the patient allergic to Iodine/contrast media? No. 9:19:20 Patient diabetic? No. 9:19:23 - 9:19:24 ----Pre-sedation anethsthesia assessment.---- 9:19:28 Previous problem with sedation/anesthesia? No ? 9:19:32 Snore? Yes 9:19:35 Sleep apnea? No 9:19:38 Deviated septum? No 9:19:45 Opens mouth fully? Yes 9:19:48 Sticks out tongue? Yes 9:19:52 Airway obstruction? No ? 9:19:56 Dentures? No ? 9:19:58 - 9:20:15 IV patent on arrival in right hand with D5/.45%NaCl at O. 9:20:23 Left Arm area was prepped with chlora-prep and draped in sterile fashio n 9:21:10 Use device set IR Diagnostic 9:21:16 Sterile Angiographic Pack opened to sterile field. 9:21:17 Bag Decanter () opened to sterile field. 9:21:21 DOC .035 wire ([id number]) opened to sterile field. 9:21:23 Micropuncture VSI 4FR kit opened to sterile field. 9:27:43 SHEATH 5FR [place] (LVV223) opened to sterile field. 9:36:27 Physician arrived 9:38:21 --------ALL STOP TIME OUT------ 9:38:21 Final Timeout: patient, procedure, and site verified with staff and physician. All members of the team are in agreement. 9:39:15 Procedure started. 9:39:51 Local anesthetic to left arm with Lidocaine 1% by Rea Case MD.INITIAL ACCESS ONLY 9:40:02 Venous access obtained using ultrasound guidance. 9:46:11 GLIDE CATHETER 5FR ANGLED 65cm (CG507) opened to sterile field. 9:46:12 ROADRUNNER .035 145 glide wire (L41404) opened to sterile field. 9:47:19 Heparin Flush Bag (1000units/500ml NS) 2 bags added to field was administered by Rea Case MD; used for procedure; 9:47:32 Lidocaine 1% 20ml vial added to field was administered by Rea Case MD; used for procedure; 9:47:44 Versed 1 mg I.V. was administered by Nora Tavares RN; for sedation; 9:47:54 Fentanyl 50 mcg I.V. was administered by Nora Tavares RN; for sedation ; 9:51:22 Venogram performed 9:57:37 INFUSION CATHETER 50cm ParthKatelynn ([id number]) opened to sterile field . 9:57:43 GALLAGHER 260 wire (R62384) opened to sterile field. 10:00:17 SHEATH 6FR [place] (MUN411) opened to sterile field. 10:07:27 Tegaderm 6 x 8 (1628) opened to sterile field. 10:07:27 Tegaderm 6 x 8 (1628) opened to sterile field. 10:07:28 Tegaderm 6 x 8 (1628) opened to sterile field. 10:07:54 Versed 1 mg I.V. was administered by Nora Tavares RN; for sedation; 10:08:01 Fentanyl 50 mcg I.V. was administered by Nora Tavares RN; for sedation ; 10:08:37 INFUSION CATHETER PLACED IN LT CEPHALIC VEIN FOR TPA INFUSION OVERNIGHT 10:10:13 Contrast amount:Isovue 300 45ml. 10:10:18 Fluoroscopy time 00.00 minutes. 10:10:24 Fluoroscopy dose: 668 mGy 10:10:24 Flurop Dose total: 668 10:10:26 Procedure ended.(Physican Out) 10:36:25 TPA 2 MG IV BOLUS LEFT ARM was administered by Nora Tavares RN; used for procedure; 10:36:49 TPA 1MG/HR I.V. drip LEFT ARM was administered by Nora Tavares RN; ; 10:37:14 Heparin Drip (03648fmwyh/250 D5W) 500 units/hr I.V. drip was administered by Nora Tavares RN; ; 10:38:47 Heparin Flush Bag (1000units/500ml NS) 1 bags IV LEFT ARM KVO was administered by Nora Tavares RN; ; 10:39:41 Vital chart was stopped Device Usage Item Name Manufacture Quantity Catalog Hospital Part Current Minim al Lot# / Number Charge Number Stock Stock Serial# Code Sterile Cardinal 1 [id number] 5 Angiographic Health Pack Bag Decanter Microtek 1 536383 71985 113263 5 () [employer] DOC .035 wire [employer] 1 [id number] 119575 334289 5 ([id number]) Micropuncture VSI VASCULAR 1 7266V 603505 336274 5 VSI 4FR kit SOLUTIONS SHEATH 5FR Terumo 1 [id number] 494547 384979 497628 40 [place] ([id number]) GLIDE CATHETER Terumo 1 CG507 407856 345115 5 5FR ANGLED 65cm (CG507) ROADRUNNER Cook [facility] 1 P57553 660055 025816 848170 5 [id number] .035 145 glide wire (D13502) INFUSION Medtronic 1 80020-53 485647 236774 5 CATHETER 50cm Robel (2387022) GALLAGHER 260 wire [employer] 1 [id number] 478048 16560 499397 5 [id number] ([id number]) SHEATH 6FR Terumo 1 CNH080 569089 569425 194718 40 [place] ([id number]) Tegaderm 6 x 8 3M 3 1628 720162 127033 5 (1628) Signature Audit [place] Stage Time Signature Unsigned Intra-Procedure 04/12/2018 Kelly Bailon 10:42:27 AM RT(R) Signatures Monitor : Kelly Bailon RT Signature : Date : Time : [place] [address] [place] [address]
[~2018-04-10 15:20] MED LIST changes: +FOSRENOL500 MG PO; +REGLAN5 MG PO; +ZYLOPRIM300 MG PO
[2018-04-10] MEDS ORDERED: ELIQUIS2.5 MG PO (16:14)
[2018-04-10] MEDS ORDERED: PHOSLO667 MG PO (16:16)
[2018-04-10 16:42] LABS: HEMATOCRIT 33.7 % (36.0-48.0); HEMOGLOBIN 10.6 g/dL (12-16); MCH 30.5 pg (26.0-34.0); MCHC 31.5 g/dL (31.0-37.0); MCV 97.1 fL (80.0-100.0); MEAN PLATELET VOLUME 12.7 fL (7.4-10.4); PLATELET COUNT 157 10x3/uL (130-400); RBC 3.47 10x6/uL (4.00-5.40); RDW 15.4 % (11.5-14.5); WBC 20.2 10x3/uL (4.8-10.8)
[2018-04-10 16:52] LABS: ALBUMIN 2.8 g/dL (3.4-5.0); BILIRUBIN - TOTAL 0.58 mg/dL (0.2-1.3); CALCIUM 8.9 mg/dL (8.5-10.1); CARBON DIOXIDE 26.1 mmol/L (21.0-32.0); CREATININE - SERUM 9.3 mg/dL (0.6-1.3); POTASSIUM - SERUM 4.1 mmol/L (3.5-5.1); PROTEIN - SERUM 7.1 g/dL (6.4-8.2)
[2018-04-10 17:27] LABS: LYMPHOCYTES 11 % (15-50); MONOCYTES 3 % (2-11); NEUTROPHILS 86 % (40-80); PLATELET ESTIMATE NORMAL
[2018-04-10 18:18] VITALS: BP 88/52; BMI 50.2
[2018-04-10 20:20] VITALS: BP 91/64
[2018-04-10 23:48] VITALS: BP 95/66
[2018-04-11 04:19] VITALS: BP 91/60
[2018-04-11 04:52] LABS: BASOPHILS 0.3 % (0-2); EOSINOPHILS 0.6 % (0-7); HEMATOCRIT 31.5 % (36.0-48.0); HEMOGLOBIN 9.8 g/dL (12-16); IMMATURE GRANULOCYTES 0.3 % (0-5); LYMPHOCYTES 10.7 % (15-50); MCH 30.6 pg (26.0-34.0); MCHC 31.1 g/dL (31.0-37.0); MCV 98.4 fL (80.0-100.0); MEAN PLATELET VOLUME 12.2 fL (7.4-10.4); MONOCYTES 14.7 % (2-11); NEUTROPHILS 73.4 % (40-80); PLATELET COUNT 163 10x3/uL (130-400); RDW 15.4 % (11.5-14.5)
[2018-04-11 05:12] LABS: ANION GAP 16.4 mmol/L (8-16); CALCIUM 8.4 mg/dL (8.5-10.1); CARBON DIOXIDE 25.8 mmol/L (21.0-32.0); GENTAMICIN - TROUGH 1.8 ug/mL (0.5-2.0); PHOSPHOROUS 6.9 mg/dL (2.5-4.9); POTASSIUM - SERUM 4.2 mmol/L (3.5-5.1); VANCOMYCIN - RANDOM 7.5 ug/mL (10.0-20.0)
[2018-04-11 07:03] LABS: INR 1.12 (0.85-1.17)
[2018-04-11 07:04] LABS: APTT 32.3 SECONDS (22.8-39.4)
[2018-04-11 08:04] VITALS: BP 98/59
[2018-04-11 11:43] VITALS: BP 83/57
[2018-04-11 13:25] VITALS: BMI 50.1
[2018-04-11 16:32] VITALS: BP 101/60
[2018-04-11 20:00] VITALS: BP 104/61
[2018-04-12] VITALS (18 sets, daily range): BP systolic 94–136; BP diastolic 40–82; Ht 170.2 cm; Wt 142.3 kg
[2018-04-12 01:15] LABS: HEMATOCRIT 30.9 % (36.0-48.0); HEMOGLOBIN 9.7 g/dL (12-16); MCH 30.6 pg (26.0-34.0); MCHC 31.4 g/dL (31.0-37.0); MCV 97.5 fL (80.0-100.0); MEAN PLATELET VOLUME 11.8 fL (7.4-10.4); RBC 3.17 10x6/uL (4.00-5.40); RDW 15.3 % (11.5-14.5); WBC 13.6 10x3/uL (4.8-10.8)
[2018-04-12 08:00] LABS: INR 1.11 (0.85-1.17); PROTIME 13.9 SECONDS (11.6-15.0)
[2018-04-12 08:02] LABS: CALCIUM 8.4 mg/dL (8.5-10.1); CREATININE - SERUM 10.8 mg/dL (0.6-1.3)
[2018-04-12 08:03] LABS: ANION GAP 25.3 mmol/L (8-16); CARBON DIOXIDE 16.6 mmol/L (21.0-32.0); POTASSIUM - SERUM 4.9 mmol/L (3.5-5.1)
[2018-04-12 12:17] LABS: HEMOGLOBIN 10.5 g/dL (12-16)
[2018-04-12 12:43] LABS: APTT 28.8 SECONDS (22.8-39.4)
[2018-04-12 16:17] LABS: HEMATOCRIT 32.9 % (36.0-48.0); HEMOGLOBIN 10.4 g/dL (12-16)
[2018-04-12 18:10] LABS: APTT 54.3 SECONDS (22.8-39.4)
[2018-04-12 22:54] LABS: HEMATOCRIT 33.9 % (36.0-48.0); HEMOGLOBIN 10.8 g/dL (12-16)
[2018-04-12 23:06] LABS: APTT 76.7 SECONDS (22.8-39.4)
[2018-04-13] VITALS (22 sets, daily range): BP systolic 97–144; BP diastolic 44–93
[2018-04-13 02:15] LABS: HEMATOCRIT 33.9 % (36.0-48.0); HEMOGLOBIN 10.6 g/dL (12-16); MCH 30.6 pg (26.0-34.0); MCHC 31.3 g/dL (31.0-37.0); MEAN PLATELET VOLUME 11.2 fL (7.4-10.4); RBC 3.46 10x6/uL (4.00-5.40); RDW 15.4 % (11.5-14.5); WBC 16.8 10x3/uL (4.8-10.8)
[2018-04-13 02:41] LABS: APTT 57.7 SECONDS (22.8-39.4); INR 1.41 (0.85-1.17); PROTIME 16.8 SECONDS (11.6-15.0)
[2018-04-13 06:09] LABS: ANION GAP 18.6 mmol/L (8-16); CALCIUM 8.8 mg/dL (8.5-10.1); POTASSIUM - SERUM 4.6 mmol/L (3.5-5.1)
[2018-04-13 06:25] LABS: CREATININE - SERUM 7.8 mg/dL (0.6-1.3)
[2018-04-13 10:32] LABS: APTT 58.5 SECONDS (22.8-39.4)
[2018-04-13 10:35] LABS: HEMATOCRIT 32.6 % (36.0-48.0); HEMOGLOBIN 10.2 g/dL (12-16)
[2018-04-13 17:06] LABS: HEMATOCRIT 32.5 % (36.0-48.0)
[2018-04-13 17:24] LABS: APTT 56.9 SECONDS (22.8-39.4)
[2018-04-13 23:49] LABS: HEMATOCRIT 30.2 % (36.0-48.0); HEMOGLOBIN 9.4 g/dL (12-16)
[2018-04-14 00:20] LABS: HEMATOCRIT 30.4 % (36.0-48.0); HEMOGLOBIN 9.4 g/dL (12-16); MCH 30.2 pg (26.0-34.0); MCHC 30.9 g/dL (31.0-37.0); MCV 97.7 fL (80.0-100.0); MEAN PLATELET VOLUME 12.1 fL (7.4-10.4); RBC 3.11 10x6/uL (4.00-5.40); RDW 15.3 % (11.5-14.5)
[2018-04-14 00:23] LABS: WBC 12.5 10x3/uL (4.8-10.8)
[2018-04-14 00:24] LABS: INR 1.22 (0.85-1.17)
[2018-04-14 00:31] LABS: APTT 45.4 SECONDS (22.8-39.4)
[2018-04-14 01:02] VITALS: BP 98/52
[2018-04-14 05:24] LABS: HEMATOCRIT 30.1 % (36.0-48.0); HEMOGLOBIN 9.2 g/dL (12-16)
[2018-04-14 05:27] LABS: INR 1.18 (0.85-1.17); PROTIME 14.6 SECONDS (11.6-15.0)
[2018-04-14 05:29] LABS: APTT 57.8 SECONDS (22.8-39.4)
[2018-04-14 05:39] VITALS: BP 87/49
[2018-04-14 08:13] VITALS: BP 111/56
[2018-04-14 13:50] LABS: HEMATOCRIT 31.3 % (36.0-48.0); HEMOGLOBIN 9.9 g/dL (12-16)
[2018-04-14 16:12] VITALS: BP 86/41
[2018-04-14 20:28] LABS: HEMATOCRIT 29.9 % (36.0-48.0); HEMOGLOBIN 9.4 g/dL (12-16)
[2018-04-14 21:25] VITALS: BP 88/58
[2018-04-15 01:16] LABS: HEMOGLOBIN 9.3 g/dL (12-16)
[2018-04-15 01:43] VITALS: BP 100/58
[2018-04-15 05:38] VITALS: BP 92/55
[2018-04-15 07:45] LABS: BASOPHILS 0.3 % (0-2); IMMATURE GRANULOCYTES 1.1 % (0-5); LYMPHOCYTES 17.7 % (15-50); MCH 30.4 pg (26.0-34.0); MEAN PLATELET VOLUME 11.9 fL (7.4-10.4); MONOCYTES 17.2 % (2-11); NEUTROPHILS 61.7 % (40-80); PLATELET COUNT 129 10x3/uL (130-400); RBC 2.96 10x6/uL (4.00-5.40); RDW 15.3 % (11.5-14.5); WBC 11.5 10x3/uL (4.8-10.8)
[2018-04-15 07:54] LABS: INR 1.09 (0.85-1.17); PROTIME 13.7 SECONDS (11.6-15.0)
[2018-04-15 08:02] LABS: ANION GAP 16.8 mmol/L (8-16); CALCIUM 8.2 mg/dL (8.5-10.1); CARBON DIOXIDE 27.8 mmol/L (21.0-32.0); CREATININE - SERUM 7.9 mg/dL (0.6-1.3); POTASSIUM - SERUM 3.6 mmol/L (3.5-5.1); VANCOMYCIN - RANDOM 15.9 ug/mL (10.0-20.0)
[2018-04-15 08:09] LABS: APTT 58.6 SECONDS (22.8-39.4)
[2018-04-15 08:45] VITALS: BP 99/54
[2018-04-15 12:41] VITALS: BP 121/51
[2018-04-15 13:22] LABS: HEMATOCRIT 28.2 % (36.0-48.0); HEMOGLOBIN 8.8 g/dL (12-16)
[2018-04-15 16:00] VITALS: BP 100/66
[2018-04-15 19:20] LABS: HEMATOCRIT 28.9 % (36.0-48.0); HEMOGLOBIN 9.1 g/dL (12-16)
[2018-04-15 20:30] VITALS: BP 104/58
[2018-04-16 00:30] VITALS: BP 90/50
[2018-04-16 04:30] VITALS: BP 92/53
[2018-04-16 07:25] LABS: BASOPHILS 0.2 % (0-2); EOSINOPHILS 1.9 % (0-7); HEMATOCRIT 28.3 % (36.0-48.0); HEMOGLOBIN 8.9 g/dL (12-16); IMMATURE GRANULOCYTES 1.6 % (0-5); LYMPHOCYTES 19.2 % (15-50); MCH 30.3 pg (26.0-34.0); MCHC 31.4 g/dL (31.0-37.0); MCV 96.3 fL (80.0-100.0); MONOCYTES 16.9 % (2-11); NEUTROPHILS 60.2 % (40-80); PLATELET COUNT 143 10x3/uL (130-400); RBC 2.94 10x6/uL (4.00-5.40); RDW 15.2 % (11.5-14.5); WBC 12.1 10x3/uL (4.8-10.8)
[2018-04-16 07:38] LABS: INR 1.05 (0.85-1.17); PROTIME 13.3 SECONDS (11.6-15.0)
[2018-04-16 07:39] LABS: APTT 75.3 SECONDS (22.8-39.4)
[2018-04-16 08:12] LABS: ANION GAP 18.9 mmol/L (8-16); CALCIUM 7.9 mg/dL (8.5-10.1); CARBON DIOXIDE 24.8 mmol/L (21.0-32.0); POTASSIUM - SERUM 3.7 mmol/L (3.5-5.1); VANCOMYCIN - RANDOM 25.9 ug/mL (10.0-20.0)
[2018-04-16 11:22] VITALS: BP 109/54
[2018-04-16 15:35] VITALS: BP 106/61
[2018-04-16 20:00] VITALS: BP 106/57
[2018-04-17] VITALS: BP 114/59
[2018-04-17 04:00] VITALS: BP 118/54
[2018-04-17 04:25] LABS: BASOPHILS 0.2 % (0-2); HEMATOCRIT 29.6 % (36.0-48.0); HEMOGLOBIN 9.2 g/dL (12-16); LYMPHOCYTES 15.4 % (15-50); MCH 29.9 pg (26.0-34.0); MCHC 31.1 g/dL (31.0-37.0); MCV 96.1 fL (80.0-100.0); MEAN PLATELET VOLUME 11.5 fL (7.4-10.4); MONOCYTES 17.1 % (2-11); NEUTROPHILS 63.3 % (40-80); PLATELET COUNT 163 10x3/uL (130-400); RBC 3.08 10x6/uL (4.00-5.40); RDW 15.3 % (11.5-14.5); WBC 10.3 10x3/uL (4.8-10.8)
[2018-04-17 04:33] LABS: INR 1.14 (0.85-1.17); PROTIME 14.1 SECONDS (11.6-15.0)
[2018-04-17 04:35] LABS: APTT 112.1 SECONDS (22.8-39.4)
[2018-04-17 04:47] LABS: ANION GAP 22.4 mmol/L (8-16); CALCIUM 8.3 mg/dL (8.5-10.1); CARBON DIOXIDE 24.6 mmol/L (21.0-32.0); VANCOMYCIN - RANDOM 24.6 ug/mL (10.0-20.0)
[2018-04-17 05:11] LABS: CREATININE - SERUM 11.3 mg/dL (0.6-1.3)
[2018-04-17 08:49] VITALS: BP 90/64
[2018-04-17 21:05] VITALS: BP 126/99
[2018-04-18] VITALS: BP 91/64
[2018-04-18 04:00] VITALS: BP 104/39
[2018-04-18 05:09] LABS: BASOPHILS 0.1 % (0-2); EOSINOPHILS 3.1 % (0-7); HEMOGLOBIN 8.7 g/dL (12-16); IMMATURE GRANULOCYTES 0.6 % (0-5); LYMPHOCYTES 14.8 % (15-50); MCH 29.8 pg (26.0-34.0); MCHC 31.1 g/dL (31.0-37.0); MCV 95.9 fL (80.0-100.0); MEAN PLATELET VOLUME 11.9 fL (7.4-10.4); MONOCYTES 20.9 % (2-11); NEUTROPHILS 60.5 % (40-80); RBC 2.92 10x6/uL (4.00-5.40); RDW 15.1 % (11.5-14.5); WBC 9.3 10x3/uL (4.8-10.8)
[2018-04-18 05:16] LABS: PLATELET COUNT 130 10x3/uL (130-400)
[2018-04-18 05:21] LABS: INR 1.32 (0.85-1.17)
[2018-04-18 05:41] LABS: ANION GAP 18.8 mmol/L (8-16); CALCIUM 8.4 mg/dL (8.5-10.1); CREATININE - SERUM 9.1 mg/dL (0.6-1.3); POTASSIUM - SERUM 3.8 mmol/L (3.5-5.1); VANCOMYCIN - RANDOM 21.4 ug/mL (10.0-20.0)
[2018-04-18] MEDS ORDERED: ELIQUIS5 MG PO (06:48)
[2018-04-18 07:53] VITALS: BP 109/61
[2018-04-18 11:26] VITALS: BP 87/59
== END 2018-04-18 12:20 | DRG 252 ==
LOC: D.M2 15:20 → D.CVICU 15:26 → D.M2 15:26 → D.CVICU 04-12 11:06 → D.M2 04-13 20:20
PROVIDERS: Internal Medicine; Internal Medicine Nephrology; Radiology Vascular & Interventional Radiology
PROC: 3E03317 Introduction of Other Thrombolytic into Peripheral Vein, Percutaneous Approach (ICD-10-PCS; principal; 2018-04-12 09:00)
PROC: 027V3ZZ Dilation of Superior Vena Cava, Percutaneous Approach (ICD-10-PCS; 2018-04-13)
PROC: 037Y3ZZ Dilation of Upper Artery, Percutaneous Approach (ICD-10-PCS; 2018-04-13)
PROC: B5181ZZ Fluoroscopy of Superior Vena Cava using Low Osmolar Contrast (ICD-10-PCS; 2018-04-13)
PROC: B51N1ZZ Fluoroscopy of Left Upper Extremity Veins using Low Osmolar Contrast (ICD-10-PCS; 2018-04-13)
DX: I82.622 Acute embolism and thrombosis of deep veins of left upper extremity (principal); N18.6 End stage renal disease; I13.2 Hypertensive heart and chronic kidney disease with heart failure and with stage 5 chronic kidney disease, or end stage renal disease; Z68.43 Body mass index [BMI] 50.0-59.9, adult; Z99.2 Dependence on renal dialysis; D63.1 Anemia in chronic kidney disease; G47.33 Obstructive sleep apnea (adult) (pediatric); I50.9 Heart failure, unspecified; E66.01 Morbid (severe) obesity due to excess calories; I82.C11 Acute embolism and thrombosis of right internal jugular vein

== ENCOUNTER 2018-06-12 09:41 | Day surgery (SDC) | payer MEDICARE ==
[~2018-06-12] VITALS: Ht 170.2 cm; Wt 136.1 kg
[~2018-06-12 09:41] MED LIST changes: +ELIQUIS2.5 MG PO; +ELIQUIS5 MG PO
[2018-06-12 10:17] LABS: BASOPHILS 0.3 % (0-2); EOSINOPHILS 2.6 % (0-7); HEMATOCRIT 38.1 % (36.0-48.0); HEMOGLOBIN 12.2 g/dL (12-16); IMMATURE GRANULOCYTES 0.2 % (0-5); LYMPHOCYTES 20.8 % (15-50); MCV 93.8 fL (80.0-100.0); MEAN PLATELET VOLUME 10.9 fL (7.4-10.4); MONOCYTES 13.3 % (2-11); NEUTROPHILS 62.8 % (40-80); PLATELET COUNT 122 10x3/uL (130-400); RBC 4.06 10x6/uL (4.00-5.40); RDW 15.5 % (11.5-14.5); WBC 6.6 10x3/uL (4.8-10.8)
[2018-06-12 10:23] LABS: APTT 26.9 SECONDS (22.8-39.4); PROTIME 12.8 SECONDS (11.6-15.0)
[2018-06-12 10:26] LABS: ANION GAP 16.4 mmol/L (8-16); CALCIUM 8.5 mg/dL (8.5-10.1); CARBON DIOXIDE 27.3 mmol/L (21.0-32.0); CREATININE - SERUM 12.4 mg/dL (0.6-1.3); POTASSIUM - SERUM 4.7 mmol/L (3.5-5.1)
[2018-06-12 11:25] VITALS: Ht 170.2 cm; Wt 136.1 kg
== END 2018-06-12 15:50 | disposition home or self-care (01) ==
LOC: D.OPS 09:41
PROVIDERS: Surgery
DX: N18.6 End stage renal disease (principal); Z53.09 Procedure and treatment not carried out because of other contraindication; Z01.812 Encounter for preprocedural laboratory examination

== ENCOUNTER 2018-07-06 05:22 | Day surgery (SDC) | payer MEDICARE ==
[~2018-07-06] VITALS: Ht 170.2 cm; Wt 145.5 kg
--- NOTE | ~2018-07-06 | OP ---
PATIENT NAME: CATHERINE BANKS MEDICAL RECORD: [id number] :59 LOCATION:[facility] ADMISSION DATE: SURGEON: BIRDIE HARRIS MD DATE OF OPERATION: 07/06/2018 PREOPERATIVE DIAGNOSES: End-stage renal disease, on chronic hemodialysis, and super morbid obesity. POSTOPERATIVE DIAGNOSES: End-stage renal disease, on chronic hemodialysis, and super morbid obesity. OPERATION PERFORMED: Creation of a left arm brachiocephalic Lei type arteriovenous fistula. SURGEON: Birdie Harris MD ANESTHESIA: Regional nerve block plus general per COST CONTROL SUPERVISOR. PREOPERATIVE NOTE: Ms. Banks is a 63-year-old morbidly obese -[place] Islander female patient, who was actually originally referred to me now a couple of years ago by Dr. Chilo Alvarado in [place]. She originally was referred to me for colonoscopy. I actually found a large polyp and I had referred her to Dr. Camara for possibly colonoscopic removal of large polyp versus laparoscopic colectomy. The patient is not having surgery and unfortunately had severe complications including renal failure and she has become an ESRD patient on chronic hemodialysis via a catheter. She has had numerous infectious complications, which had prevented placement of long-term dialysis access until now. She is brought to the operating room with plans to create a fistula or implant a graft in her left arm. DESCRIPTION OF PROCEDURE: Under regional block and general anesthesia in supine position, the patient is prepped and draped in sterile manner. I applied nitroglycerin paste to the intact skin of the arm and used a proximal venous tourniquet and then examined her with ultrasound and found that the cephalic vein in the antecubital space and in the arm was of good size and should make a good dialysis conduit. At least in the lower half of the arm, it is not excessively deep, but in the upper half of the arm, it will likely require superficialization to be used. I made a transverse antecubital incision and exposed the vein and artery. The vein was dissected for several centimeters up and down and ligated distally a branch point. It was transected and bevelled and flushed with heparinized saline and treated with topical papaverine. The brachial artery was exposed and controlled with Silastic loops, treated with topical papaverine. It was occluded. An arteriotomy made and the artery flushed with heparinized saline proximally and distally. After that, an end-to-side, end-of-vein to edxj-jw-exmhjn anastomosis was carried out with running 7-0 Prolene. When completed, there was good flow within the fistula and in the brachial artery proximal and distal to the anastomosis. The wound was then closed with interrupted inverted 3-0 Vicryl and running intracuticular 4-0 Monocryl and Dermabond glue. It was dressed with Maxorb Ag, Tegaderm, and Cavilon skin prep, and the patient awakened and taken to the recovery room. There was no blood loss during the procedure and all sponges, instruments, and needles were accounted for. No specimen was submitted for histopathology. No OPERATIVE REPORT [id number] CATHERINE BANKS drain was used. PLAN: Plan is for her to be discharged home today and return to see me in my office in about 2 weeks. She can leave the original waterproof plastic operative dressing intact until that time. She is given a prescription for 15 tablets of [place] 5/325, she can take 1 or 2 p.o. every 4 hours p.r.n. pain or as needed for pain. I will plan to examine her in the office with ultrasound. When I see her next and see how deep her vein is in the upper arm and then if she needs it, schedule her for a revisionary procedure to superficialize the vein to help speed up her having a mature fistula for dialysis so we could get her off the catheter. TRANSINT:[id number] Voice Confirmation ID: [id number] DOCUMENT ID: [id number] BIRDIE HARRIS MD at 1054 CC: FREDDIE FERNANDEZ [id number] DICTATION DATE: 07/06/18 0954 STRIP DEBURRER: 07/06/18 1042 [facility] 07/06/18 [facility] [address] [id number]
[2018-07-06 06:07] LABS: ANION GAP 14.6 mmol/L (8-16); CALCIUM 8.4 mg/dL (8.5-10.1); CARBON DIOXIDE 28.3 mmol/L (21.0-32.0); CREATININE - SERUM 7.8 mg/dL (0.6-1.3); POTASSIUM - SERUM 3.9 mmol/L (3.5-5.1)
[2018-07-06 06:44] VITALS: BMI 50.2
[2018-07-06 06:49] VITALS: Ht 170.2 cm; Wt 145.5 kg
[2018-07-06 07:02] LABS: BASOPHILS 0.3 % (0-2); EOSINOPHILS 3.6 % (0-7); HEMATOCRIT 37.3 % (36.0-48.0); HEMOGLOBIN 11.8 g/dL (12-16); IMMATURE GRANULOCYTES 0.3 % (0-5); LYMPHOCYTES 19.2 % (15-50); MCH 29.3 pg (26.0-34.0); MCHC 31.6 g/dL (31.0-37.0); MCV 92.6 fL (80.0-100.0); MEAN PLATELET VOLUME 11.8 fL (7.4-10.4); MONOCYTES 15.6 % (2-11); RBC 4.03 10x6/uL (4.00-5.40); RDW 14.7 % (11.5-14.5); WBC 5.9 10x3/uL (4.8-10.8)
[2018-07-06 07:04] LABS: PLATELET COUNT 162 10x3/uL (130-400)
[2018-07-06 07:20] LABS: APTT 32.3 SECONDS (22.8-39.4); PROTIME 12.8 SECONDS (11.6-15.0)
== END 2018-07-06 12:15 | disposition home or self-care (01) ==
LOC: D.OPS 05:22
PROVIDERS: Surgery
DX: N18.6 End stage renal disease (principal); Z99.2 Dependence on renal dialysis; E66.01 Morbid (severe) obesity due to excess calories; Z01.812 Encounter for preprocedural laboratory examination; Z68.43 Body mass index [BMI] 50.0-59.9, adult

== ENCOUNTER 2018-08-03 05:21 | Day surgery (SDC) | payer MEDICARE ==
[~2018-08-03] VITALS: Ht 170.2 cm; Wt 163.3 kg
--- NOTE | ~2018-08-03 | OP ---
PATIENT NAME: CATHERINE BANKS MEDICAL RECORD: [id number] :59 LOCATION:D.OPS ADMISSION DATE: SURGEON: BIRDIE HARRIS MD DATE OF OPERATION: 08/03/2018 REFERRING PHYSICIAN: Dr. Ruiz, original referral to me from Dr. Alvarado PREOPERATIVE DIAGNOSIS: Failure to mature left brachiocephalic arteriovenous fistula. POSTOPERATIVE DIAGNOSES: 1. Failure to a mature left brachiocephalic arteriovenous fistula. 3. Left brachiocephalic and subclavian vein obstruction with proximal cephalic vein runoff via arborization and collaterals. ADDITIONAL DIAGNOSES: End-stage renal disease, catheter dependent on hemodialysis and morbid obesity. ADDITIONAL OPERATIVE FINDINGS: The patient's left internal jugular tunneled dialysis catheter passes through the right atrium and well down deep into the inferior vena cava deeper than I usually see. SURGEON: Birdie Harris MD ANESTHESIA: General endotracheal per TELEPHONE STATION INSTALLER. PREOPERATIVE NOTE: Ms. Banks is unfortunately super morbidly obese -[place] female who has end-stage renal disease and at present is catheter dependent with a left IJ TDC. She has a left brachiocephalic AV fistula, which was recently constructed. It is quite deep and difficult to palpate and needs to be superficialized and additional collateral veins or tributaries ligated. Under general anesthesia in supine position, the patient's arm was prepped and draped in a sterile manner. The fistula was examined with ultrasound and several large tributary veins were noted and the arterial anastomosis was seen to be wide open. I accessed the fistula near the antecubital space with ultrasound guidance using micropuncture technique. Contrast injection with digital subtraction angiography demonstrated several large draining veins and unfortunately proximally there is just arborization of the cephalic vein into numerous parallel collateral and tributary veins without a single patent trunk or cephalic arch. Also, the subclavian vein and brachiocephalic vein appeared to be occluded. I decided to go ahead and try revising her fistula as there may possibly be adequate runoff to allow dialysis via this fistula. I made an incision on the arm using ultrasound guidance and exposed the underlying vein and mobilized a length of about 15 cm in length. Multiple branches or tributaries were divided between clips and ties of 3-0 Vicryl and the vein mobilized. Hemostasis was obtained additionally with electrocautery. The wound was irrigated with Ancef/gentamicin solution and infiltrated with 0.25% Marcaine and the wound closed, approximating the subcutaneous tissues deep to the cephalic vein and then approximating the skin over the vein using a running 4-0 Stratafix suture. The incision was then additionally sealed with Dermabond glue and dressed with Maxorb AG and Tegaderm with Cavilon skin prep. The patient's fistula continued OPERATIVE REPORT [id number] CATHERINE BANKS to function with good continuous Doppler flow signals. The patient was then awakened and extubated and taken to the recovery room. PLAN: The patient will go home today and continue her routine dialysis schedule and meds and diet, come back to see me in about a week. In the meantime, I will consider where we go from here probably I review her chart and previous imaging studies and consider either possibly creating a dialysis access at an entirely different location or converting her present one to a HeRO if and when it proves that the venous outflow is inadequate to support dialysis. TRANSINT:[id number] Voice Confirmation ID: [id number] DOCUMENT ID: [id number] BIRDIE HARRIS MD at 1606 CC: AUGUSTO RUIZ MD [id number] DICTATION DATE: 08/03/18 1143 AUTOMOTIVE DESIGNER: 08/03/18 1158 [facility] 08/03/[address] [facility] [address] [place] [address]
[2018-08-03 06:37] LABS: ANION GAP 15.1 mmol/L (8-16); CALCIUM 8.8 mg/dL (8.5-10.1); CARBON DIOXIDE 24.7 mmol/L (21.0-32.0); CREATININE - SERUM 8.8 mg/dL (0.6-1.3); POTASSIUM - SERUM 3.8 mmol/L (3.5-5.1)
[2018-08-03 06:50] LABS: BASOPHILS 0.4 % (0-2); EOSINOPHILS 2.5 % (0-7); HEMATOCRIT 39.4 % (36.0-48.0); HEMOGLOBIN 12.6 g/dL (12-16); IMMATURE GRANULOCYTES 0.1 % (0-5); LYMPHOCYTES 24.9 % (15-50); MCH 29.9 pg (26.0-34.0); MCV 93.4 fL (80.0-100.0); MEAN PLATELET VOLUME 11.5 fL (7.4-10.4); MONOCYTES 12.4 % (2-11); NEUTROPHILS 59.7 % (40-80); PLATELET COUNT 134 10x3/uL (130-400); RBC 4.22 10x6/uL (4.00-5.40); RDW 16.1 % (11.5-14.5); WBC 6.7 10x3/uL (4.8-10.8)
[2018-08-03 06:58] LABS: APTT 28.8 SECONDS (22.8-39.4); INR 1.02 (0.85-1.17)
[2018-08-03 06:59] VITALS: Ht 170.2 cm; Wt 163.3 kg
== END 2018-08-03 12:30 | disposition home or self-care (01) ==
LOC: D.OPS 05:21
PROVIDERS: Surgery
DX: T82.590A Other mechanical complication of surgically created arteriovenous fistula, initial encounter (principal); N18.6 End stage renal disease; I87.1 Compression of vein; Z99.2 Dependence on renal dialysis; E66.01 Morbid (severe) obesity due to excess calories; Z01.812 Encounter for preprocedural laboratory examination

== ENCOUNTER 2018-09-08 16:00 | Inpatient (IN) | payer MEDICARE ==
[~2018-09-08] VITALS: Ht 170.2 cm; Wt 126.8 kg
--- NOTE | ~2018-09-08 | EC ---
PATIENT:CATHERINE MILLIGAN DATE OF SERVICE: 09/08/18 SEX: F MEDICAL RECORD: [id number] DATE OF : 59 LOCATION:D. D.120 AGE OF PATIENT: 63 ADMISSION DATE: 09/08/18 REFERRING PHYSICIAN: INTERPRETING PHYSICIAN: FABY JAMES MD ECHOCARDIOGRAM REPORT ECHO CHARGES 4 ECHO COMPLETE Date: 09/09/18 CLINICAL DIAGNOSIS: SEPSIS - R/O ENDOCARDITIS ECHOCARDIOGRAPHIC MEASUREMENTS (adult normal given) AC root (d.<3.7cm) 3.1 cm LV Septum d (<1.2 cm> 1.6 cm Valve Excursion 1.1 cm LV Septum (systole) 2.0 cm Left Atria (s.<4.0cm> 3.4 cm LVPW d(<1.2cm) 1.5 cm RV (d.<2.3cm) 4.0 cm LVPW (sytole) 2.1 cm LV diastole(<5.6CM) 4.0 cm MV E-F(>70mm/sec) cm LV systole 1.5 cm LVOT Diameter 1.9 cm MV exc.(>10mm) cm Est.ejection fraction (50-75%) % DOPPLER: LVIT cm/sec A 97.0 cm/sec E 62.0 cm/sec LA cm/sec RVSP 51.3 mmHg LVOT 80.0 cm/sec AOP1/2T m/s Asc. Ao 280 cm/sec RVOT 95.0 cm/sec RA cm/sec PA 92.0 cm/sec AV Gradient Peak 31.4 mmHg AV Mean 20.0 mmHg AV Area 0.7 cm MV Gradient Peak 4.8 mmHg MV Mean 1.8 mmHg MV Area cm COMMENTS: Biomass Production Manager: 1 ALESSANDRA BURNSOE Filament Tester: 1 Dr. James TAPE# PACS Pericardial Effusion N DATE OF SERVICE: PROCEDURE: Echocardiogram. FINDINGS: 1. Left ventricular chamber size is within normal limits. Left ventricular systolic function is normal. Overall ejection fraction estimated at 55%. 2. Left atrium, right atrium, and right ventricle chamber sizes are within normal limits. 3. Valvular structures: Aortic valve demonstrates moderate calcific aortic ECHOCARDIOGRAM REPORT [id number] CATHERINE MILLIGAN stenosis, valve area calculates to 0.7 cm-squared and there is a gradient of 31 mm across the valve. 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 The tricuspid valve as well has a lesion compatible with vegetative endocarditis, mitral valve is overall normal. 4. Doppler interrogation reveals no significant valvular insufficiency or stenosis elsewise and pulmonary systolic pressure is elevated estimated at 51 mmHg. 5. No evidence of pericardial effusion or left ventricular thrombus. TRANSINT:[id number] Voice Confirmation ID: [id number] DOCUMENT ID: [id number] FABY JAMES MD at 1059 CC: [id number] DICTATION DATE: 09/10/18 1252 DEVELOPER PROGRAMMER: 09/10/18 1328 ADM IN [facility] [address] [id number]
--- NOTE | ~2018-09-08 | OP ---
PATIENT NAME: CATHERINE MILLIGAN MEDICAL RECORD: [id number] :59 LOCATION:D.M3 D.1208 ADMISSION DATE:09/08/18 SURGEON: BIRDIE HARRIS MD DATE OF OPERATION: 09/21/2018 PREOPERATIVE DIAGNOSIS: Thrombosis of left arm AV fistula. 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 OPERATION PERFORMED: Ultrasound-guided access of left arm AV fistula with fistulogram and AngioJet thrombolysis and balloon angioplasty of the cephalic arch, subclavian vein, and the cephalic vein from the shoulder to the antecubital space, arterial anastomosis. Attempts to cross the chronic occlusion of the subclavian vein with guidewires were unsuccessful. Flow was restored, but it is not expected to be a long-term success with this fistula. DESCRIPTION OF PROCEDURE: With the patient in supine position under general anesthesia with an LMA, the left arm was prepped and draped in sterile manner. I noted that there was a small suture abscess in the scar of her previous left arm cephalic vein super fistulization incision. This was less than a centimeter in diameter. I was able to express a few drops of creamy, nonfoul-smelling pus, which were swabbed, which was then sent for culture and sensitivity and a stat Gram stain. The Gram stain result is pending as I dictate. The wound was then again cleansed with chlorhexidine and covered during the rest of the procedure and the fistula was accessed well away from it down near the antecubital space with care not to cross contaminate. I used ultrasound and micropuncture technique and this led to placement of a 6-Welsh introducer directed proximally. I was able to advance a Glidewire and later a Roadrunner wire proximally through the cephalic arch and into the cephalic vein. I was unable to pass the wire centrally beyond the proximal subclavian. A glide catheter was used to do contrast studies of the subclavian and cephalic arch and there are just small in addition to being obstructed. I used a 6-mm angioplasty balloon to angioplasty the subclavian, the cephalic arch, and the entire length of the cephalic vein fistula and repeated contrast injections demonstrated slow flow in the fistula, but great deal of wall irregularity and probably persistent thrombus. I did not think that this fistula was going to be useful for dialysis access and I did not try to do anything further with it today. I removed the 6-Welsh sheath and the site was closed with a fyezcl-mp-maxse 4-0 Prolene suture and after a period of light pressure, a dressing was applied and the patient awakened and taken to the recovery room in stable condition. There was no blood loss during the procedure. All sponges, instruments, and needles were accounted for. No drain was used and no surgical specimen was submitted for histopathology, although as I said I did send samples for Gram stain culture and sensitivity. TRANSINT:[id number] Voice Confirmation ID: [id number] DOCUMENT ID: [id number] OPERATIVE REPORT [id number] CATHERINE MILLIGAN JAMES MD at 1657 CC: FREDDIE FERNANDEZ and JOSEPHINE BALL MD [id number] DICTATION DATE: 09/21/18 1316 ASSISTANT SITE MANAGER: 09/21/18 1442 [facility] 10/04/18 [facility] [address] [place] [address]
--- NOTE | ~2018-09-08 | OP ---
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 SURGEON: Birdie Harris MD ANESTHESIA: Dr. King with a general with an LMA. OPERATION PERFORMED: Removal of Trialysis and insertion of a HemoSplit 23 cm long tunneled dialysis catheter via the left internal jugular vein under fluoroscopy. PREOPERATIVE NOTE: Ms. Banks is a very unfortunate 63-year-old -[place] female with numerous medical problems, most recently, she has been admitted and diagnosed and now treated for bacteremia resulting in endocarditis from an infected tunneled dialysis catheter. That catheter had been removed and replaced with the Trialysis and now she needs a long-term catheter so that she can be discharged to home or to fpc and continue antibiotic therapy for her endocarditis and continue hemodialysis. DESCRIPTION OF PROCEDURE: Under anesthesia in supine position, the patient was prepped and draped in sterile manner. The Trialysis catheter was then removed over a Roadrunner guidewire under fluoroscopy. I chose a 23-cm HemoSplit and made an incision beneath the clavicle and pulled the HemoSplit catheter through that opening in a subcutaneous tunnel up to the cervical wound, which I had extended medially for a distance of about 2 cm. The Trialysis catheter was then inserted through a peel-away sheath over a guidewire. Even with the guidewire in place with its tip in the inferior vena cava, it was difficult to pass the catheter across the cavoatrial junction where I believe there is likely a stenosis present. I did inject contrast, but I was unable to visualize that area with certainty and did not see a stenosis, but it was very difficult and finally I was able only to pass this catheter over the guidewire on into the right atrium with a circular or rotating or screwing motion. Eventually, though the catheter came to rest in very acceptable position, the guidewire was removed and both the venous and arterial limbs were accessed and aspirated, very free return of blood per each was confirmed. They were then flushed with saline and then dilute heparin-locked solution, clamped and capped. One last contrast injection had been performed, which demonstrated the catheter to be in proper position before it was hep-locked. The cervical wound was closed with interrupted inverted 3-0 Vicryl and the insertion site was snugged up with another interrupted simple inverted 3-0 Vicryl. The catheter was sutured to the skin near the entry site with 2-0 Prolene and a standard dressing was applied and the patient awakened and taken to the recovery room in stable condition. Blood loss was 10-20 cc. None replaced of course. All sponges, instruments and needles were accounted for. No drain was used and no surgical specimen was submitted for histopathology. OPERATIVE REPORT [id number] CATHERINE BANKS TRANSINT:[id number] Voice Confirmation ID: [id number] DOCUMENT ID: [id number] BIRDIE HARRIS MD at 1657 CC: FREDDIE FERNANDEZ [id number] DICTATION DATE: 10/02/18 1431 OPERATIONS BUSINESS PARTNER: 10/02/18 1641 [facility] 10/04/18 [facility] [address] [place] [address]
--- NOTE | ~2018-09-08 | MORECARE ---
CASE MANAGEMENT DISCHARGE SUMMARY PATIENT: CATHERINE MILLIGAN UNIT: [id number] ADM DATE: 09/08/18 AGE: 63 : 59 SEX: F ROOM/BED: D.1208 AUTHOR: YANETHDOC PHYSICIAN: REFERRING PHYSICIAN: JOSEPHINE BALL MD DATE OF SERVICE: 09/14/18 Discharge Plan Patient Name: CATHERINE MILLIGAN Facility: [facility]:[place] : 1955 Planned Disposition: Home Anticipated Discharge Date: Discharge Date: Expected LOS: Initial Reviewer: [email or web address] Initial Review Date: 09/08/2018 Generated: 09/14/18 7:54 pm Comments DCP- Discharge Planning Updated by [email or web address]: Gissell Abbott on 09/14/18 5:[address] Patient Name: CATHERINE MILLIGAN Admission Status: ER Accout number: [id number] Admission Date: 09-08-2018 : 1955 Admission Diagnosis:FEVER, UNSPECIFIED Attending: JOSEPHINE BALL Current LOS: 6 Anticipated DC Date: Planned Disposition: Home Primary Insurance: MEDICARE A & B Discharge Planning Comments: CM met with patient at bedside. She plans to go to her home in [place] at discharge. She lives with her sons. She stated that if she has to go into Rehab that she prefers to go to [place]. She denies any discharge needs at this time. CM will continue to follow and assist as needed with discharge planning / needs. Meat Department Manager: Gissell Abbott DCPIA - Discharge Planning Initial Assessment Updated by [email or web address]: Gissell Abbott on 09/14/18 6:47 pm * Is the patient Alert and Oriented? Yes * How many steps to enter\exit or inside your home? * PCP Irina Reddy in [place] * Pharmacy [facility] * Preadmission Environment Home with Family * ADLs Independent * Equipment Hospital Bed * Other Equipment walker, wheelchair * List name and contact numbers for known caregivers / representatives who currently or will assist patient after discharge: Barb Fritz [phone] * Verbal permission to speak to the caregivers and representatives has been obtained from the patient. Yes * Community resources currently utilized None * Please name any agencies selected above. HD in [place] TTHS @1000 * Additional services required to return to the preadmission environment? No * Can the patient safely return to the preadmission environment? Yes * Has this patient been hospitalized within the prior 30 days at any hospital? No Last DP export: 09/14/18 5:47 p Patient Name: CATHERINE MILLIGAN Page [phone] at 1854 All edits/amendments must be made on the electronic document DICTATION DATE: 09/14/181853 REGASIFICATION PLANT OPERATOR: MCKAYLA 09/14/181853 RPT#: [id number] DC DATE: STATUS: ADM IN [facility] [address] [place] [address] END OF REPORT
--- NOTE | ~2018-09-08 | MORECARE ---
CASE MANAGEMENT DISCHARGE SUMMARY PATIENT: CATHERINE MILLIGAN UNIT: [id number] ADM DATE: 09/08/18 AGE: 63 : 59 SEX: F ROOM/BED: D.1208 AUTHOR: YANETHDOC PHYSICIAN: REFERRING PHYSICIAN: JOSEPHINE BALL MD DATE OF SERVICE: 10/02/18 Discharge Plan Patient Name: CATHERINE MILLIGAN Facility: [facility]:[place] : 1955 Planned Disposition: Home Anticipated Discharge Date: Discharge Date: Expected LOS: Initial Reviewer: [email or web address] Initial Review Date: 09/08/2018 Generated: 10/02/18 5:43 pm Comments DCP- Discharge Planning Updated by [email or web address]: Gissell Abbott on 09/14/18 5:[address] Patient Name: CATHERINE MILLIGAN Admission Status: ER Accout number: [id number] Admission Date: 09-08-2018 : 1955 Admission Diagnosis:FEVER, UNSPECIFIED Attending: JOSEPHINE BALL Current LOS: 6 Anticipated DC Date: Planned Disposition: Home Primary Insurance: MEDICARE A & B Discharge Planning Comments: CM met with patient at bedside. She plans to go to her home in [place] at discharge. She lives with her sons. She stated that if she has to go into Rehab that she prefers to go to [place]. She denies any discharge needs at this time. CM will continue to follow and assist as needed with discharge planning / needs. Sql Developer Dba: Gissell Abbott DCPIA - Discharge Planning Initial Assessment Updated by [email or web address]: Gissell Abbott on 09/14/18 6:47 pm * Is the patient Alert and Oriented? Yes * How many steps to enter\exit or inside your home? * PCP Irina Reddy in [place] * Pharmacy [facility] * Preadmission Environment Home with Family * ADLs Independent * Equipment Hospital Bed * Other Equipment walker, wheelchair * List name and contact numbers for known caregivers / representatives who currently or will assist patient after discharge: Barb Fritz [phone] * Verbal permission to speak to the caregivers and representatives has been obtained from the patient. Yes * Community resources currently utilized None * Please name any agencies selected above. HD in [place] TTHS @1000 * Additional services required to return to the preadmission environment? No * Can the patient safely return to the preadmission environment? Yes * Has this patient been hospitalized within the prior 30 days at any hospital? No External Providers External Provider: [facility] Next Contact Date: Service Request Date: Service Type: Resolution: Reviewer: Comments: Last DP export: 09/14/18 5:54 p Patient Name: CATHERINE MILLIGAN Page [phone] at 1643 All edits/amendments must be made on the electronic document DICTATION DATE: 10/02/181642 WHARF TALLY CLERK: MCKAYLA 10/02/181642 RPT#: [id number] DC DATE: STATUS: ADM IN [facility] [address] [place] [address] END OF REPORT
--- NOTE | ~2018-09-08 | MORECARE ---
CASE MANAGEMENT DISCHARGE SUMMARY PATIENT: CATHERINE MILLIGAN UNIT: [id number] ADM DATE: 09/08/18 AGE: 63 : 59 SEX: F ROOM/BED: D.1208 AUTHOR: YANETHDOC PHYSICIAN: REFERRING PHYSICIAN: JOSEPHINE BALL MD DATE OF SERVICE: 10/03/18 Discharge Plan Patient Name: CATHERINE MILLIGAN Facility: [facility]:[place] : 1955 Planned Disposition: Home Anticipated Discharge Date: Discharge Date: Expected LOS: Initial Reviewer: [email or web address] Initial Review Date: 09/08/2018 Generated: 10/03/18 11:07 pm Comments DCP- Discharge Planning Updated by [email or web address]: Gissell Abbott on 10/03/18 9:[address] CM called and spoke with Ana @ [facility]. Ana stated she was waiting to hear back from financial office and then they would review to see if they could accept patient. Ana stated that she would have a decision by 10/04/18. CM will continue to follow and assist with discharge planning/ needs. DCP- Discharge Planning Updated by [id number]: Gissell Abbott on 10/02/18 4:[address] CM spoke with patient regarding discharge planning. She stated that she would like to go to [facility] to finish out her antibiotic therapy and rehab. CM called and spoke with Ana at [facility] [phone] fax [phone]. CM faxed paperwork to [facility] awaiting approval. CM will continue to follow and assist with discharge planning / needs. DCP- Discharge Planning Updated by [email or web address]: Gissell Abbott on 09/14/18 5:[address] Patient Name: CATHERINE MILLIGAN Admission Status: ER Accout number: [id number] Admission Date: 09-08-2018 : 1955 Admission Diagnosis:FEVER, UNSPECIFIED Attending: JOSEPHINE BALL Current LOS: 6 Anticipated DC Date: Planned Disposition: Home Primary Insurance: MEDICARE A & B Discharge Planning Comments: CM met with patient at bedside. She plans to go to her home in [place] at discharge. She lives with her sons. She stated that if she has to go into Rehab that she prefers to go to [facility]. She denies any discharge needs at this time. CM will continue to follow and assist as needed with discharge planning / needs. Wares Sorter: Gissell Abbott DCPIA - Discharge Planning Initial Assessment Updated by [id number]: Gissell Abbott on 09/14/18 6:47 pm * Is the patient Alert and Oriented? Yes * How many steps to enter\exit or inside your home? * PCP Irina Reddy in [place] * Pharmacy [facility] [place] * Preadmission Environment Home with Family * ADLs Independent * Equipment Hospital Bed * Other Equipment walker, wheelchair * List name and contact numbers for known caregivers / representatives who currently or will assist patient after discharge: Barb Fritz [phone] * Verbal permission to speak to the caregivers and representatives has been obtained from the patient. Yes * Community resources currently utilized None * Please name any agencies selected above. HD in [place] TTHS @1000 * Additional services required to return to the preadmission environment? No * Can the patient safely return to the preadmission environment? Yes * Has this patient been hospitalized within the prior 30 days at any hospital? No Last DP export: 10/02/18 4:05 Patient Name: CATHERINE MILLIGAN Page 94573 at 2207 All edits/amendments must be made on the electronic document DICTATION DATE: 10/03/182206 MOTOR SCOOTER MECHANIC: MCKAYLA 10/03/182206 RPT#: [id number] PR DATE: STATUS: ADM IN [address] [place] [address] END OF REPORT
--- NOTE | ~2018-09-08 | MORECARE ---
CASE MANAGEMENT DISCHARGE SUMMARY PATIENT: CATHERINE MILLIGAN UNIT: [id number] ADM DATE: 09/08/18 AGE: 63 : 59 SEX: F ROOM/BED: D.1208 AUTHOR: YANETH,DOC PHYSICIAN: REFERRING PHYSICIAN: JOSEPHINE BALL MD DATE OF SERVICE: 10/04/18 Discharge Plan Patient Name: CATHERINE MILLIGAN Facility: [facility]:[place] : 1955 Planned Disposition: Home Anticipated Discharge Date: Discharge Date: 10/04/2018 Expected LOS: Initial Reviewer: [email or web address] Initial Review Date: 09/08/2018 Generated: 10/04/18 10:24 pm Comments DCP- Discharge Planning Updated by [id number]: Gissell Abbott on 10/04/18 8:[address] LATE ENTRY 10/04/18 @ 1420 CM received notice this am that patient had been accepted into [facility]. Ana stated she would get with ground instructor advanced to find out when she can arrange transportation. Nursing to call report. IMM explained and served @ 1420. CM will continue to follow and assist with discharge planning/ needs. DCP- Discharge Planning Updated by [id number]: Gissell Abbott on 10/03/18 9:[address] CM called and spoke with Ana @ [facility]. Ana stated she was waiting to hear back from financial office and then they would review to see if they could accept patient. Ana stated that she would have a decision by 10/04/18. CM will continue to follow and assist with discharge planning/ needs. DCP- Discharge Planning Updated by [email or web address]: Gissell Abbott on 10/02/18 4:[address] CM spoke with patient regarding discharge planning. She stated that she would like to go to [facility] to finish out her antibiotic therapy and rehab. CM called and spoke with Ana at [facility] [phone] fax [phone]. CM faxed paperwork to Ana awaiting approval. CM will continue to follow and assist with discharge planning / needs. DCP- Discharge Planning Updated by [email or web address]: Gissell Abbott on 09/14/18 5:[address] Patient Name: CATHERINE MILLIGAN Admission Status: ER Accout number: [id number] Admission Date: 09-08-2018 : 1955 Admission Diagnosis:FEVER, UNSPECIFIED Attending: JOSEPHINE BALL Current LOS: 6 Anticipated DC Date: Planned Disposition: Home Primary Insurance: MEDICARE A & B Discharge Planning Comments: CM met with patient at bedside. She plans to go to her home in [place] at discharge. She lives with her sons. She stated that if she has to go into Rehab that she prefers to go to [facility]. She denies any discharge needs at this time. CM will continue to follow and assist as needed with discharge planning / needs. Parts Technician: Gissell ROBLEDO - Discharge Planning Initial Assessment Updated by [email or web address]: Gissell Abbott on 09/14/18 6:47 pm * Is the patient Alert and Oriented? Yes * How many steps to enter\exit or inside your home? * PCP Irina Reddy in [place] * Pharmacy [facility] * Preadmission Environment Home with Family * ADLs Independent * Equipment Hospital Bed * Other Equipment walker, wheelchair * List name and contact numbers for known caregivers / representatives who currently or will assist patient after discharge: Barb Fritz [phone] * Verbal permission to speak to the caregivers and representatives has been obtained from the patient. Yes * Community resources currently utilized None * Please name any agencies selected above. in [place] TTHS @1000 * Additional services required to return to the preadmission environment? No * Can the patient safely return to the preadmission environment? Yes * Has this patient been hospitalized within the prior 30 days at any hospital? No Coverage Notice Reviewer: [id number] - Gissell Abbott Notice Issued Date-Time: 10/04/2018 14:20 Notice Type: IM Discharge Notice Notice Delivered To: Patient Relationship to Patient: Self Material Expediter Name: Delivery Method: HAND - Hand Delivered Gema Days: Prior Verbal Notification: Recipient Understood Notice: Yes Recipient Signature: Yes Med Rec Note Co-signed by Attending: Coverage Notice Comment: Last DP export: 10/03/18 9:07 Patient Name: CATHERINE MILLIGAN Page 01394 at 2124 All edits/amendments must be made on the electronic document DICTATION DATE: 10/04/182122 CARE CONSULTANT: MCKAYLA 10/04/182122 RPT#: [id number] DC DATE:10/04/18 STATUS: DIS IN [facility] [address] [place] [address] END OF REPORT
--- NOTE | ~2018-09-08 | MORECARE ---
CASE MANAGEMENT DISCHARGE SUMMARY PATIENT: CATHERINE MILLIGAN UNIT: [id number] ADM DATE: 09/08/18 AGE: 63 : 59 SEX: F ROOM/BED: D.1208 AUTHOR: YANETHDOC PHYSICIAN: REFERRING PHYSICIAN: JOSEPHINE BALL MD DATE OF SERVICE: 10/02/18 Discharge Plan Patient Name: CATHERINE MILLIGAN Facility: [facility]:[place] : 1955 Planned Disposition: Home Anticipated Discharge Date: Discharge Date: Expected LOS: Initial Reviewer: [email or web address] Initial Review Date: 09/08/2018 Generated: 10/02/18 6:05 pm Comments DCP- Discharge Planning Updated by [email or web address]: Gissell Abbott on 10/02/18 4:[address] CM spoke with patient regarding discharge planning. She stated that she would like to go to [facility] to finish out her antibiotic therapy and rehab. CM called and spoke with Ana at [facility] [phone] fax [phone]. CM faxed paperwork to [facility] awaiting approval. CM will continue to follow and assist with discharge planning / needs. DCP- Discharge Planning Updated by [email or web address]: Gissell Abbott on 09/14/18 5:[address] Patient Name: CATHERINE MILLIGAN Admission Status: ER Accout number: [id number] Admission Date: 09-08-2018 : 1955 Admission Diagnosis:FEVER, UNSPECIFIED Attending: JOSEPHINE BALL Current LOS: 6 Anticipated DC Date: Planned Disposition: Home Primary Insurance: MEDICARE A & B Discharge Planning Comments: CM met with patient at bedside. She plans to go to her home in [place] at discharge. She lives with her sons. She stated that if she has to go into Rehab that she prefers to go to [facility]. She denies any discharge needs at this time. CM will continue to follow and assist as needed with discharge planning / needs. Acid Splicer: Gissell Abbott DCPIA - Discharge Planning Initial Assessment Updated by [email or web address]: Gissell Abbott on 09/14/18 6:47 pm * Is the patient Alert and Oriented? Yes * How many steps to enter\exit or inside your home? * PCP Irina Reddy in [place] * Pharmacy [facility] * Preadmission Environment Home with Family * ADLs Independent * Equipment Hospital Bed * Other Equipment walker, wheelchair * List name and contact numbers for known caregivers / representatives who currently or will assist patient after discharge: Barb Fritz [phone] * Verbal permission to speak to the caregivers and representatives has been obtained from the patient. Yes * Community resources currently utilized None * Please name any agencies selected above. HD in [place] TTHS @1000 * Additional services required to return to the preadmission environment? No * Can the patient safely return to the preadmission environment? Yes * Has this patient been hospitalized within the prior 30 days at any hospital? No Last DP export: 10/02/18 3:43 Patient Name: CATHERINE MILLIGAN Page 98634 at 1705 All edits/amendments must be made on the electronic document DICTATION DATE: 10/02/181704 CHILDCARE WORKER: MCKAYLA 10/02/181704 RPT#: [id number] DC DATE: STATUS: ADM IN [facility] [address] [place] [address] END OF REPORT
--- NOTE | ~2018-09-08 | OP ---
PATIENT NAME: CATHERINE BANKS MEDICAL RECORD: [id number] :[birth year] LOCATION:D.M3 D.1208 ADMISSION DATE:09/08/18 SURGEON: BIRDIE HARRIS MD DATE OF OPERATION: 09/10/2018 REFERRED BY: Dr. Fernandez and Dr. Ball. PREOPERATIVE DIAGNOSES: Bacteremia, Gram-positive cocci in chains on blood culture associated with presence of a tunneled dialysis catheter, and patient with discitis and lumbar vertebral osteomyelitis. POSTOPERATIVE DIAGNOSES: Bacteremia, Gram-positive cocci in chains on blood culture associated with presence of a tunneled dialysis catheter, and patient with discitis and lumbar vertebral osteomyelitis. OPERATION PERFORMED: Removal of tunneled dialysis catheter from the left internal jugular vein position, replaced with a 24 cm Trialysis catheter. ANESTHESIA: General anesthesia with LMA per Dr. King. PREOPERATIVE NOTE: Ms. Banks is an unfortunate morbidly obese -Somali female who has end-stage renal disease and has been a difficult access problem. She presently has a functioning brachiocephalic AV fistula in the left arm, which about a month ago, I operated on to elevate it in the subcutaneous tissue, so that it could be accessed. To my knowledge it has not yet been accessed and she is still being dialyzed with a left internal jugular HemoSplit dialysis catheter, which I replaced also at that same operation to elevate her fistula. I did a fistulogram at that time as well and unfortunately found that the proximal cephalic vein and cephalic arch was occluded and that all venous outflow was via numerous collateral vessels from the proximal cephalic vein. Since that time, she has developed a fever and back pain and has been admitted to the hospital with possible discitis and osteomyelitis of the lumbar spine and has positive blood cultures for Gram-positive cocci in chains. I was asked to remove the tunneled catheter. 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 I am hopeful that we can dialyze her with her left arm AV fistula, though it has compromised outflow and perhaps in the near future implant a new graft in her right arm. A conversion to a HeRO graft on the left is possible, though I am concerned about the infection and the risk of contaminating the HeRO outflow component inserted from the left side. PROCEDURE IN DETAIL: With patient in the supine position under general anesthesia, the right neck and upper chest was prepped and draped in sterile manner. The oblique cervical incision at the base of the neck on the left was reopened and with electrocautery deepened to expose the underlying tunneled catheter. The catheter was freed from the surrounding tissues, clamped and divided and the external and subcutaneous segments were then removed and discarded. The Dacron felt cuff was really at the level of the jugular vein. It was freed again with electrocautery and following that, the catheter was OPERATIVE REPORT [id number] CATHERINE BANKS removed over a Glidewire under fluoroscopy. Hemostasis was obtained by simple digital pressure at the venotomy. The catheter was cut in segments, so that a segment containing the cuff could be sent as a separate specimen for culture and the catheter tip itself could be sent for culture separately. I replaced that catheter now with a 24 cm Trialysis catheter, which was inserted over the same wire under fluoroscopy and its tip positioned at about the junction of the right atrium and inferior vena cava. The patient's wound was closed with interrupted 3-0 Vicryl and Dermabond glue. The catheter was sutured to the adjacent skin with 2-0 Prolene and sterile dressings applied. The patient was awakened and taken to the recovery room. Note, there was no gross evidence of infection of the catheter. There was no sign of infection in the tunnel and the Dacron felt cuff was well seated in the surrounding tissues without any evidence of sepsis. The patient will be observed in the recovery room and then returned to her bed on med 1. She was given 500 mg of vancomycin for preoperative antibiotic coverage. I will order a CT of the chest with contrast with request for CT venography to better study the central thoracic venous anatomy. TRANSINT:[id number] Voice Confirmation ID: [id number] DOCUMENT ID: [id number] BIRDIE HARRIS MD at 1132 CC: FREDDIE FERNANDEZ and JOSEPHINE BALL MD [id number] DICTATION DATE: 09/10/18 170 REINFORCER: 09/10/182043 ADM IN [place] [id number] [place] [address]
--- NOTE | ~2018-09-08 | MORECARE ---
CASE MANAGEMENT DISCHARGE SUMMARY PATIENT: CATHERINE MILLIGAN UNIT: [id number] ADM DATE: 09/08/18 AGE: 63 : 59 SEX: F ROOM/BED: D.1208 AUTHOR: TEJA WOLFE PHYSICIAN: REFERRING PHYSICIAN: JOSEPHINE BALL MD DATE OF SERVICE: 09/14/18 Discharge Plan Patient Name: CATHERINE MILLIGAN [facility] : 1955 Planned Disposition: Home Anticipated Discharge Date: Discharge Date: Expected LOS: Initial Reviewer: [email or web address] Initial Review Date: 09/08/2018 Generated: 09/14/18 7:47 pm DCPIA - Discharge Planning Initial Assessment Updated by [email or web address]: Gissell Abbott on 09/14/18 6:47 pm * Is the patient Alert and Oriented? Yes * How many steps to enter\exit or inside your home? * PCP Irina Reddy in [place] * Pharmacy [facility] * Preadmission Environment Home with Family * ADLs Independent * Equipment Hospital Bed * Other Equipment walker, wheelchair * List name and contact numbers for known caregivers / representatives who currently or will assist patient after discharge: Barb Fritz [phone] * Verbal permission to speak to the caregivers and representatives has been obtained from the patient. Yes * Community resources currently utilized None * Please name any agencies selected above. in [place] TTHS @1000 * Additional services required to return to the preadmission environment? No * Can the patient safely return to the preadmission environment? Yes * Has this patient been hospitalized within the prior 30 days at any hospital? No Patient Name: CATHERINE MILLIGAN Page 13879 at 1847 All edits/amendments must be made on the electronic document DICTATION DATE: 09/14/181846 PREFLIGHT MECHANIC: MCKAYLA 09/14/181846 RPT#: [id number] DC DATE: STATUS: ADM IN [facility] [address] [place] [address] END OF REPORT
[2018-09-08 17:33] LABS: APPEARANCE TURBID (CLEAR); BILIRUBIN NEGATIVE (NEGATIVE); COLOR YELLOW (YELLOW); GLUCOSE NEGATIVE (NEGATIVE); KETONE NEGATIVE (NEGATIVE); NITRITE NEGATIVE (NEGATIVE); PROTEIN 2+ mg/dL (NEGATIVE); UROBILINOGEN NORMAL (NORMAL)
[2018-09-08 17:34] LABS: WHITE CELLS - URINE 25-50 /hpf (0-5)
[2018-09-08 17:35] LABS: BACTERIA MODERATE /hpf (NONE SEEN); EPITHELIAL CELLS 0-5 /hpf (0-5); RED CELLS - URINE 0-5 /hpf (0-5); YEAST >1+ /hpf (NONE SEEN)
[2018-09-08 20:00] VITALS: BP 99/48
[2018-09-08] MEDS ORDERED: ZOFRAN ODT4 MG/UDTAB PO (21:49)
[2018-09-08] MEDS ORDERED: NORCO 10-325 TA1 TAB PO (21:51)
[2018-09-08 22:02] VITALS: BP 121/81
[2018-09-09] VITALS (7 sets, daily range): BP systolic 99–127; BP diastolic 68–85; BMI 50.5
[2018-09-09 07:31] LABS: BASOPHILS 0.2 % (0-2); EOSINOPHILS 1.9 % (0-7); HEMATOCRIT 32.9 % (36.0-48.0); HEMOGLOBIN 10.4 g/dL (12-16); IMMATURE GRANULOCYTES 0.3 % (0-5); LYMPHOCYTES 9.2 % (15-50); MCH 29.3 pg (26.0-34.0); MCHC 31.6 g/dL (31.0-37.0); MCV 92.7 fL (80.0-100.0); MEAN PLATELET VOLUME 11.8 fL (7.4-10.4); NEUTROPHILS 74.4 % (40-80); PLATELET COUNT 136 10x3/uL (130-400); RBC 3.55 10x6/uL (4.00-5.40); RDW 14.6 % (11.5-14.5); WBC 11.7 10x3/uL (4.8-10.8)
[2018-09-09 07:54] LABS: ANION GAP 17.6 mmol/L (8-16); CALCIUM 8.7 mg/dL (8.5-10.1); CARBON DIOXIDE 24.1 mmol/L (21.0-32.0); CREATININE - SERUM 10.8 mg/dL (0.6-1.3); POTASSIUM - SERUM 3.7 mmol/L (3.5-5.1); VANCOMYCIN - RANDOM 25.1 ug/mL (10.0-20.0)
[2018-09-10] VITALS: BP 104/72
[2018-09-10 04:00] VITALS: BP 114/78
[2018-09-10 06:48] LABS: BASOPHILS 0.4 % (0-2); EOSINOPHILS 2.9 % (0-7); HEMATOCRIT 31.1 % (36.0-48.0); HEMOGLOBIN 10.1 g/dL (12-16); IMMATURE GRANULOCYTES 0.2 % (0-5); MCH 29.7 pg (26.0-34.0); MCHC 32.5 g/dL (31.0-37.0); MCV 91.5 fL (80.0-100.0); MEAN PLATELET VOLUME 11.5 fL (7.4-10.4); MONOCYTES 13.6 % (2-11); NEUTROPHILS 68.9 % (40-80); PLATELET COUNT 159 10x3/uL (130-400); RDW 14.6 % (11.5-14.5)
[2018-09-10 06:49] LABS: WBC 8.5 10x3/uL (4.8-10.8)
[2018-09-10 07:16] LABS: ALBUMIN 2.4 g/dL (3.4-5.0); ANION GAP 19.1 mmol/L (8-16); BILIRUBIN - DIRECT 0.15 mg/dL (0.00-0.30); BILIRUBIN - INDIRECT 0.34 mg/dL (0.00-1.00); BILIRUBIN - TOTAL 0.49 mg/dL (0.2-1.3); CALCIUM 8.7 mg/dL (8.5-10.1); CARBON DIOXIDE 23.1 mmol/L (21.0-32.0); CREATININE - SERUM 12.1 mg/dL (0.6-1.3); POTASSIUM - SERUM 4.2 mmol/L (3.5-5.1); PROTEIN - SERUM 6.8 g/dL (6.4-8.2); VANCOMYCIN - RANDOM 27.2 ug/mL (10.0-20.0)
[2018-09-10 07:49] VITALS: BP 134/85
[2018-09-10 11:00] VITALS: BP 137/85
[2018-09-10 15:00] VITALS: BP 154/94
[2018-09-10 21:52] VITALS: BP 128/78
[2018-09-11 00:24] VITALS: BP 126/83
[2018-09-11 04:15] VITALS: BP 135/78
[2018-09-11 07:04] LABS: BASOPHILS 0.1 % (0-2); EOSINOPHILS 2.6 % (0-7); HEMATOCRIT 29.4 % (36.0-48.0); HEMOGLOBIN 9.6 g/dL (12-16); IMMATURE GRANULOCYTES 0.5 % (0-5); MCH 29.4 pg (26.0-34.0); MCHC 32.7 g/dL (31.0-37.0); MCV 89.9 fL (80.0-100.0); MEAN PLATELET VOLUME 11.2 fL (7.4-10.4); MONOCYTES 15.4 % (2-11); NEUTROPHILS 69.4 % (40-80); PLATELET COUNT 191 10x3/uL (130-400); RBC 3.27 10x6/uL (4.00-5.40); RDW 14.6 % (11.5-14.5); WBC 8.5 10x3/uL (4.8-10.8)
[2018-09-11 07:29] LABS: ANION GAP 21.4 mmol/L (8-16); CALCIUM 8.4 mg/dL (8.5-10.1); CARBON DIOXIDE 20.6 mmol/L (21.0-32.0); CREATININE - SERUM 13.6 mg/dL (0.6-1.3); VANCOMYCIN - RANDOM 23.4 ug/mL (10.0-20.0)
[2018-09-11 07:39] VITALS: BP 110/69
[2018-09-11 10:04] VITALS: BMI 50.4
[2018-09-11 16:05] VITALS: BP 94/46
[2018-09-12 00:25] VITALS: BP 108/69
[2018-09-12 04:31] VITALS: BP 105/68
[2018-09-12 06:13] LABS: HEMATOCRIT 28.2 % (36.0-48.0); MCH 29.2 pg (26.0-34.0); MCHC 31.9 g/dL (31.0-37.0); MCV 91.6 fL (80.0-100.0); MEAN PLATELET VOLUME 11.3 fL (7.4-10.4); PLATELET COUNT 173 10x3/uL (130-400); RBC 3.08 10x6/uL (4.00-5.40); RDW 14.9 % (11.5-14.5); WBC 7.4 10x3/uL (4.8-10.8)
[2018-09-12 06:34] LABS: ANION GAP 18.2 mmol/L (8-16); CALCIUM 8.3 mg/dL (8.5-10.1); CARBON DIOXIDE 22.9 mmol/L (21.0-32.0); CREATININE - SERUM 12.6 mg/dL (0.6-1.3); VANCOMYCIN - RANDOM 21.9 ug/mL (10.0-20.0)
[2018-09-12 06:35] LABS: POTASSIUM - SERUM 4.1 mmol/L (3.5-5.1)
[2018-09-12 07:24] LABS: BASOPHILS 1 % (0-2); EOSINOPHILS 4 % (0-7); LYMPHOCYTES 8 % (15-50); MONOCYTES 19 % (2-11); NEUTROPHILS 67 % (40-80); PLATELET ESTIMATE NORMAL
[2018-09-12 07:26] VITALS: BP 120/69
[2018-09-12 15:14] VITALS: BP 120/78
[2018-09-12 21:18] VITALS: BP 110/59
[2018-09-13 05:18] VITALS: BP 127/70
[2018-09-13 05:26] LABS: BASOPHILS 0.1 % (0-2); EOSINOPHILS 2.8 % (0-7); HEMATOCRIT 26.5 % (36.0-48.0); HEMOGLOBIN 8.7 g/dL (12-16); IMMATURE GRANULOCYTES 0.5 % (0-5); LYMPHOCYTES 13.9 % (15-50); MCH 29.5 pg (26.0-34.0); MCHC 32.8 g/dL (31.0-37.0); MCV 89.8 fL (80.0-100.0); MEAN PLATELET VOLUME 10.7 fL (7.4-10.4); MONOCYTES 15.2 % (2-11); NEUTROPHILS 67.5 % (40-80); PLATELET COUNT 186 10x3/uL (130-400); RBC 2.95 10x6/uL (4.00-5.40); RDW 14.8 % (11.5-14.5); WBC 7.4 10x3/uL (4.8-10.8)
[2018-09-13 05:38] LABS: ANION GAP 19.1 mmol/L (8-16); CALCIUM 8.2 mg/dL (8.5-10.1); CARBON DIOXIDE 21.8 mmol/L (21.0-32.0); CREATININE - SERUM 13.9 mg/dL (0.6-1.3); POTASSIUM - SERUM 3.9 mmol/L (3.5-5.1); VANCOMYCIN - RANDOM 20.6 ug/mL (10.0-20.0)
[2018-09-13 05:49] LABS: INR 1.07 (0.85-1.17); PROTIME 13.5 SECONDS (11.6-15.0)
[2018-09-13 07:45] VITALS: BP 88/47
[2018-09-13 16:29] VITALS: BP 76/43
[2018-09-13 23:47] VITALS: BP 87/53
[2018-09-14 00:24] VITALS: BP 87/53
[2018-09-14 04:15] VITALS: BP 93/49
[2018-09-14 05:49] LABS: BASOPHILS 0.1 % (0-2); HEMATOCRIT 24.1 % (36.0-48.0); HEMOGLOBIN 7.7 g/dL (12-16); IMMATURE GRANULOCYTES 0.4 % (0-5); LYMPHOCYTES 12.6 % (15-50); MCH 29.1 pg (26.0-34.0); MCV 90.9 fL (80.0-100.0); MEAN PLATELET VOLUME 10.8 fL (7.4-10.4); MONOCYTES 21.6 % (2-11); NEUTROPHILS 64.3 % (40-80); PLATELET COUNT 196 10x3/uL (130-400); RBC 2.65 10x6/uL (4.00-5.40); WBC 7.3 10x3/uL (4.8-10.8)
[2018-09-14 06:07] LABS: ANION GAP 15.3 mmol/L (8-16); CARBON DIOXIDE 26.4 mmol/L (21.0-32.0); CREATININE - SERUM 11.4 mg/dL (0.6-1.3); POTASSIUM - SERUM 3.7 mmol/L (3.5-5.1); VANCOMYCIN - RANDOM 16.8 ug/mL (10.0-20.0)
[2018-09-14 07:37] VITALS: BP 105/57
[2018-09-14 10:36] VITALS: BP 89/47
[2018-09-14 11:18] LABS: ANA REFLEX - DIRECT Negative (Negative)
[2018-09-14 16:17] VITALS: BP 101/60
[2018-09-14 20:08] VITALS: BP 94/51
[2018-09-15 00:07] VITALS: BP 99/66
[2018-09-15 05:29] VITALS: BP 97/59
[2018-09-15 06:43] LABS: BASOPHILS 0.1 % (0-2); EOSINOPHILS 2.4 % (0-7); HEMATOCRIT 24.4 % (36.0-48.0); HEMOGLOBIN 7.7 g/dL (12-16); IMMATURE GRANULOCYTES 0.3 % (0-5); LYMPHOCYTES 12.4 % (15-50); MCH 28.8 pg (26.0-34.0); MCHC 31.6 g/dL (31.0-37.0); MCV 91.4 fL (80.0-100.0); MEAN PLATELET VOLUME 10.2 fL (7.4-10.4); MONOCYTES 15.5 % (2-11); NEUTROPHILS 69.3 % (40-80); PLATELET COUNT 217 10x3/uL (130-400); RBC 2.67 10x6/uL (4.00-5.40); RDW 15.2 % (11.5-14.5); WBC 7.6 10x3/uL (4.8-10.8)
[2018-09-15 07:06] LABS: ANION GAP 18.9 mmol/L (8-16); CARBON DIOXIDE 22.9 mmol/L (21.0-32.0); CREATININE - SERUM 12.9 mg/dL (0.6-1.3); POTASSIUM - SERUM 3.8 mmol/L (3.5-5.1)
[2018-09-15 07:18] VITALS: BP 96/61
[2018-09-15 12:39] LABS: % SATURATION 23 % (15-55); IRON 61 ug/dl (35-150); TOTAL IRON BIND CAPACITY 260 ug/dl (260-445); UNSAT IRON BIND CAPACITY 199 ug/dl (150-375)
[2018-09-15 12:52] LABS: GENTAMICIN - RANDOM 0.1 ug/mL (0.5-2.0)
[2018-09-15 20:09] VITALS: BP 93/56
[2018-09-16 00:03] VITALS: BP 91/61
[2018-09-16 04:45] VITALS: BP 114/71
[2018-09-16 05:09] LABS: BASOPHILS 0.1 % (0-2); EOSINOPHILS 1.9 % (0-7); IMMATURE GRANULOCYTES 0.4 % (0-5); MCH 29.2 pg (26.0-34.0); MCHC 32.3 g/dL (31.0-37.0); MCV 90.5 fL (80.0-100.0); MEAN PLATELET VOLUME 10.8 fL (7.4-10.4); MONOCYTES 14.2 % (2-11); NEUTROPHILS 71.4 % (40-80); PLATELET COUNT 206 10x3/uL (130-400); RBC 2.43 10x6/uL (4.00-5.40); RDW 15.2 % (11.5-14.5); WBC 8.2 10x3/uL (4.8-10.8)
[2018-09-16 05:13] LABS: HEMOGLOBIN 7.1 g/dL (12-16)
[2018-09-16 05:45] LABS: ANION GAP 16.5 mmol/L (8-16); CALCIUM 7.9 mg/dL (8.5-10.1); CREATININE - SERUM 11.3 mg/dL (0.6-1.3); POTASSIUM - SERUM 3.5 mmol/L (3.5-5.1)
[2018-09-16 07:05] VITALS: BP 112/68
[2018-09-16 11:11] VITALS: BP 112/66
[2018-09-16 15:31] VITALS: BP 112/81
[2018-09-16 17:07] LABS: MITOCHONDRIAL ANTIBODY 30.5 Units (0.0-20.0); SMOOTH MUSCLE ABS (ACTIN) 15 Units (0-19)
[2018-09-16 20:00] VITALS: BP 112/67
[2018-09-17 00:16] VITALS: BP 102/64
[2018-09-17 04:30] VITALS: BP 121/71
[2018-09-17 05:27] LABS: BASOPHILS 0.1 % (0-2); EOSINOPHILS 1.3 % (0-7); HEMATOCRIT 23.9 % (36.0-48.0); HEMOGLOBIN 7.8 g/dL (12-16); IMMATURE GRANULOCYTES 0.4 % (0-5); LYMPHOCYTES 10.8 % (15-50); MCH 29.4 pg (26.0-34.0); MCHC 32.6 g/dL (31.0-37.0); MCV 90.2 fL (80.0-100.0); MEAN PLATELET VOLUME 10.5 fL (7.4-10.4); NEUTROPHILS 74.4 % (40-80); PLATELET COUNT 219 10x3/uL (130-400); RBC 2.65 10x6/uL (4.00-5.40); RDW 15.1 % (11.5-14.5); WBC 9.9 10x3/uL (4.8-10.8)
[2018-09-17 05:52] LABS: ANION GAP 18.5 mmol/L (8-16); CALCIUM 7.7 mg/dL (8.5-10.1); CARBON DIOXIDE 24.2 mmol/L (21.0-32.0); CREATININE - SERUM 12.3 mg/dL (0.6-1.3); POTASSIUM - SERUM 3.7 mmol/L (3.5-5.1)
[2018-09-17 07:45] VITALS: BP 110/61
[2018-09-17 11:12] VITALS: BP 118/77
[2018-09-17 17:59] VITALS: BP 124/62
[2018-09-17 19:40] VITALS: BP 117/70
[2018-09-18 00:54] VITALS: BP 98/67
[2018-09-18 04:55] VITALS: BP 115/65
[2018-09-18 06:05] LABS: BASOPHILS 0.1 % (0-2); EOSINOPHILS 2.1 % (0-7); HEMATOCRIT 27.3 % (36.0-48.0); HEMOGLOBIN 8.9 g/dL (12-16); IMMATURE GRANULOCYTES 0.4 % (0-5); LYMPHOCYTES 16.6 % (15-50); MCH 29.7 pg (26.0-34.0); MCHC 32.6 g/dL (31.0-37.0); MONOCYTES 12.7 % (2-11); NEUTROPHILS 68.1 % (40-80); RDW 14.9 % (11.5-14.5)
[2018-09-18 06:22] LABS: ANION GAP 21.7 mmol/L (8-16); CALCIUM 8.3 mg/dL (8.5-10.1); CARBON DIOXIDE 22.3 mmol/L (21.0-32.0); CREATININE - SERUM 14.2 mg/dL (0.6-1.3); GENTAMICIN - RANDOM 2.5 ug/mL (0.5-2.0)
[2018-09-18 06:25] LABS: PLATELET COUNT 290 10x3/uL (130-400); WBC 14.1 10x3/uL (4.8-10.8)
[2018-09-18 07:40] VITALS: BP 103/60
[2018-09-18 15:24] VITALS: BP 95/63
[2018-09-18 19:15] VITALS: BP 90/59
[2018-09-19] VITALS: BP 107/56
[2018-09-19 04:10] VITALS: BP 108/58
[2018-09-19 06:24] LABS: ANION GAP 16.9 mmol/L (8-16); CALCIUM 8.2 mg/dL (8.5-10.1); CARBON DIOXIDE 25.6 mmol/L (21.0-32.0); CREATININE - SERUM 11.1 mg/dL (0.6-1.3); POTASSIUM - SERUM 3.5 mmol/L (3.5-5.1)
[2018-09-19 08:18] VITALS: BP 102/57
[2018-09-19 11:39] VITALS: BP 98/59
[2018-09-19 17:06] VITALS: BP 151/63
[2018-09-19 19:59] VITALS: BP 99/59
[2018-09-20 00:26] VITALS: BP 109/65
[2018-09-20 04:25] VITALS: BP 99/66
[2018-09-20 05:37] LABS: ANION GAP 19.8 mmol/L (8-16); CALCIUM 7.6 mg/dL (8.5-10.1); CARBON DIOXIDE 24.2 mmol/L (21.0-32.0); CREATININE - SERUM 12.5 mg/dL (0.6-1.3); GENTAMICIN - RANDOM 1.1 ug/mL (0.5-2.0)
[2018-09-20 07:30] VITALS: BP 121/51
[2018-09-20 15:39] VITALS: BP 100/63
[2018-09-20 21:27] VITALS: BP 100/64
[2018-09-21] VITALS (11 sets, daily range): BP systolic 96–119; BP diastolic 60–80
[2018-09-21 05:25] LABS: BASOPHILS 0.2 % (0-2); EOSINOPHILS 2.3 % (0-7); HEMATOCRIT 24.2 % (36.0-48.0); HEMOGLOBIN 7.6 g/dL (12-16); IMMATURE GRANULOCYTES 0.3 % (0-5); LYMPHOCYTES 14.3 % (15-50); MCH 29.1 pg (26.0-34.0); MCHC 31.4 g/dL (31.0-37.0); MCV 92.7 fL (80.0-100.0); MEAN PLATELET VOLUME 10.1 fL (7.4-10.4); MONOCYTES 18.4 % (2-11); NEUTROPHILS 64.5 % (40-80); PLATELET COUNT 283 10x3/uL (130-400); RBC 2.61 10x6/uL (4.00-5.40)
[2018-09-21 05:44] LABS: ANION GAP 17.6 mmol/L (8-16); CALCIUM 8.2 mg/dL (8.5-10.1); CREATININE - SERUM 10.4 mg/dL (0.6-1.3); GENTAMICIN - RANDOM 0.7 ug/mL (0.5-2.0); POTASSIUM - SERUM 3.6 mmol/L (3.5-5.1)
[2018-09-22 06:26] VITALS: BP 115/75
[2018-09-22 06:45] LABS: BASOPHILS 0.1 % (0-2); EOSINOPHILS 0 % (0-7); HEMATOCRIT 24.6 % (36.0-48.0); HEMOGLOBIN 7.7 g/dL (12-16); IMMATURE GRANULOCYTES 0.3 % (0-5); LYMPHOCYTES 9.8 % (15-50); MCH 28.8 pg (26.0-34.0); MCHC 31.3 g/dL (31.0-37.0); MCV 92.1 fL (80.0-100.0); MEAN PLATELET VOLUME 10.3 fL (7.4-10.4); MONOCYTES 14.7 % (2-11); NEUTROPHILS 75.1 % (40-80); PLATELET COUNT 313 10x3/uL (130-400); RBC 2.67 10x6/uL (4.00-5.40); RDW 14.7 % (11.5-14.5)
[2018-09-22 06:47] LABS: WBC 6.9 10x3/uL (4.8-10.8)
[2018-09-22 07:07] LABS: ANION GAP 16.8 mmol/L (8-16); CALCIUM 8.8 mg/dL (8.5-10.1); CARBON DIOXIDE 26.6 mmol/L (21.0-32.0); CREATININE - SERUM 11.7 mg/dL (0.6-1.3)
[2018-09-22 07:11] LABS: POTASSIUM - SERUM 4.4 mmol/L (3.5-5.1)
[2018-09-22 09:24] VITALS: BP 114/77
[2018-09-22 12:08] VITALS: BP 136/74
[2018-09-22 16:26] VITALS: BP 105/69
[2018-09-22 21:18] VITALS: BP 112/74
[2018-09-23 04:34] VITALS: BP 122/77
[2018-09-23 06:40] LABS: BASOPHILS 0 % (0-2); EOSINOPHILS 0 % (0-7); HEMATOCRIT 26.9 % (36.0-48.0); HEMOGLOBIN 8.5 g/dL (12-16); IMMATURE GRANULOCYTES 0.5 % (0-5); LYMPHOCYTES 9.2 % (15-50); MCH 29.2 pg (26.0-34.0); MCHC 31.6 g/dL (31.0-37.0); MCV 92.4 fL (80.0-100.0); MEAN PLATELET VOLUME 10.3 fL (7.4-10.4); MONOCYTES 15.8 % (2-11); NEUTROPHILS 74.5 % (40-80); PLATELET COUNT 290 10x3/uL (130-400); RBC 2.91 10x6/uL (4.00-5.40); RDW 15.1 % (11.5-14.5)
[2018-09-23 06:42] LABS: WBC 10.5 10x3/uL (4.8-10.8)
[2018-09-23 06:54] LABS: ANION GAP 14.9 mmol/L (8-16); CALCIUM 8.5 mg/dL (8.5-10.1); CREATININE - SERUM 10.6 mg/dL (0.6-1.3)
[2018-09-23 06:55] LABS: CARBON DIOXIDE 29.1 mmol/L (21.0-32.0)
[2018-09-23 09:23] VITALS: BP 108/72
[2018-09-23 13:24] VITALS: BP 116/78
[2018-09-23 16:25] VITALS: BP 108/68
[2018-09-23 19:50] VITALS: BP 111/72
[2018-09-23 23:30] VITALS: BP 145/75
[2018-09-24 03:55] VITALS: BP 135/85
[2018-09-24 05:15] LABS: BASOPHILS 0.1 % (0-2); EOSINOPHILS 0.6 % (0-7); HEMATOCRIT 26.8 % (36.0-48.0); HEMOGLOBIN 8.4 g/dL (12-16); IMMATURE GRANULOCYTES 0.3 % (0-5); LYMPHOCYTES 15.2 % (15-50); MCH 29.3 pg (26.0-34.0); MCHC 31.3 g/dL (31.0-37.0); MCV 93.4 fL (80.0-100.0); MEAN PLATELET VOLUME 10.5 fL (7.4-10.4); MONOCYTES 15.2 % (2-11); NEUTROPHILS 68.6 % (40-80); PLATELET COUNT 292 10x3/uL (130-400); RBC 2.87 10x6/uL (4.00-5.40); RDW 15.4 % (11.5-14.5); WBC 12.1 10x3/uL (4.8-10.8)
[2018-09-24 05:28] LABS: ANION GAP 16.8 mmol/L (8-16); CALCIUM 7.8 mg/dL (8.5-10.1); CREATININE - SERUM 11.7 mg/dL (0.6-1.3); POTASSIUM - SERUM 3.8 mmol/L (3.5-5.1)
[2018-09-24 19:00] VITALS: BP 123/81
[2018-09-25 00:45] VITALS: BP 110/62
[2018-09-25 05:31] LABS: BASOPHILS 0.2 % (0-2); EOSINOPHILS 1.8 % (0-7); HEMATOCRIT 27.3 % (36.0-48.0); HEMOGLOBIN 8.6 g/dL (12-16); IMMATURE GRANULOCYTES 0.4 % (0-5); LYMPHOCYTES 15.5 % (15-50); MCH 29.5 pg (26.0-34.0); MCHC 31.5 g/dL (31.0-37.0); MCV 93.5 fL (80.0-100.0); MEAN PLATELET VOLUME 10.4 fL (7.4-10.4); MONOCYTES 14.4 % (2-11); NEUTROPHILS 67.7 % (40-80); PLATELET COUNT 293 10x3/uL (130-400); RBC 2.92 10x6/uL (4.00-5.40); RDW 15.4 % (11.5-14.5); WBC 11.9 10x3/uL (4.8-10.8)
[2018-09-25 05:53] LABS: ANION GAP 22.4 mmol/L (8-16); CALCIUM 7.8 mg/dL (8.5-10.1); CARBON DIOXIDE 22.9 mmol/L (21.0-32.0); CREATININE - SERUM 13.2 mg/dL (0.6-1.3); POTASSIUM - SERUM 4.3 mmol/L (3.5-5.1)
[2018-09-25 06:14] VITALS: BP 125/84
[2018-09-25 07:01] VITALS: BP 131/78
[2018-09-25 11:00] VITALS: BP 109/71
[2018-09-25 15:13] VITALS: BP 132/82
[2018-09-25 20:06] VITALS: BP 111/76
[2018-09-26] VITALS: BP 121/71
[2018-09-26 04:00] VITALS: BP 118/69
[2018-09-26 05:37] LABS: BASOPHILS 0.2 % (0-2); EOSINOPHILS 2.8 % (0-7); IMMATURE GRANULOCYTES 0.5 % (0-5); LYMPHOCYTES 11.4 % (15-50); MCV 93.6 fL (80.0-100.0); MEAN PLATELET VOLUME 10.4 fL (7.4-10.4); MONOCYTES 15.8 % (2-11); NEUTROPHILS 69.3 % (40-80); PLATELET COUNT 237 10x3/uL (130-400); RBC 2.67 10x6/uL (4.00-5.40); WBC 11.4 10x3/uL (4.8-10.8)
[2018-09-26 06:57] LABS: CALCIUM 7.6 mg/dL (8.5-10.1); CARBON DIOXIDE 23.3 mmol/L (21.0-32.0); GENTAMICIN - RANDOM 2.1 ug/mL (0.5-2.0); POTASSIUM - SERUM 4.3 mmol/L (3.5-5.1)
[2018-09-26 07:42] VITALS: BP 125/81
[2018-09-26 11:37] VITALS: BP 115/70
[2018-09-26 20:00] VITALS: BP 100/62
[2018-09-26 23:25] VITALS: BP 120/61
[2018-09-27 04:00] VITALS: BP 108/69
[2018-09-27 06:58] LABS: BASOPHILS 0.2 % (0-2); EOSINOPHILS 3.2 % (0-7); HEMATOCRIT 25.9 % (36.0-48.0); HEMOGLOBIN 8.2 g/dL (12-16); IMMATURE GRANULOCYTES 0.2 % (0-5); LYMPHOCYTES 13.6 % (15-50); MCH 29.9 pg (26.0-34.0); MCHC 31.7 g/dL (31.0-37.0); MCV 94.5 fL (80.0-100.0); MEAN PLATELET VOLUME 10.1 fL (7.4-10.4); MONOCYTES 17.8 % (2-11); RBC 2.74 10x6/uL (4.00-5.40); RDW 16.2 % (11.5-14.5)
[2018-09-27 06:59] LABS: PLATELET COUNT 174 10x3/uL (130-400); WBC 8.3 10x3/uL (4.8-10.8)
[2018-09-27 07:15] VITALS: BP 97/59
[2018-09-27 07:16] LABS: ANION GAP 15.4 mmol/L (8-16); CALCIUM 8.4 mg/dL (8.5-10.1); CARBON DIOXIDE 28.7 mmol/L (21.0-32.0); POTASSIUM - SERUM 4.1 mmol/L (3.5-5.1)
[2018-09-27 07:18] LABS: CREATININE - SERUM 8.8 mg/dL (0.6-1.3)
[2018-09-27 11:15] VITALS: BP 97/53
[2018-09-27 15:37] VITALS: BP 102/59
[2018-09-27 19:38] VITALS: BP 103/57
[2018-09-28] VITALS: BP 105/57
[2018-09-28 04:00] VITALS: BP 103/68
[2018-09-28 05:23] LABS: BASOPHILS 0.2 % (0-2); EOSINOPHILS 3.3 % (0-7); HEMATOCRIT 25.2 % (36.0-48.0); HEMOGLOBIN 8.1 g/dL (12-16); IMMATURE GRANULOCYTES 0.2 % (0-5); LYMPHOCYTES 12.2 % (15-50); MCH 30.2 pg (26.0-34.0); MCHC 32.1 g/dL (31.0-37.0); MEAN PLATELET VOLUME 10.2 fL (7.4-10.4); MONOCYTES 18.5 % (2-11); NEUTROPHILS 65.6 % (40-80); PLATELET COUNT 177 10x3/uL (130-400); RBC 2.68 10x6/uL (4.00-5.40); WBC 8.5 10x3/uL (4.8-10.8)
[2018-09-28 05:48] LABS: ANION GAP 15.5 mmol/L (8-16); CALCIUM 8.3 mg/dL (8.5-10.1); CARBON DIOXIDE 26.5 mmol/L (21.0-32.0); CREATININE - SERUM 10.2 mg/dL (0.6-1.3)
[2018-09-28 08:50] VITALS: BP 103/71
[2018-09-28 15:19] VITALS: BP 94/49
[2018-09-28 19:40] VITALS: BP 97/61
[2018-09-29] VITALS: BP 121/70
[2018-09-29 04:00] VITALS: BP 131/76
[2018-09-29 05:38] LABS: BASOPHILS 0.2 % (0-2); EOSINOPHILS 3.1 % (0-7); HEMATOCRIT 26.9 % (36.0-48.0); HEMOGLOBIN 8.4 g/dL (12-16); IMMATURE GRANULOCYTES 0.2 % (0-5); LYMPHOCYTES 11.5 % (15-50); MCH 29.6 pg (26.0-34.0); MCHC 31.2 g/dL (31.0-37.0); MCV 94.7 fL (80.0-100.0); MEAN PLATELET VOLUME 10.7 fL (7.4-10.4); MONOCYTES 19.6 % (2-11); NEUTROPHILS 65.4 % (40-80); PLATELET COUNT 166 10x3/uL (130-400); RBC 2.84 10x6/uL (4.00-5.40); WBC 8.7 10x3/uL (4.8-10.8)
[2018-09-29 05:57] LABS: ANION GAP 14.8 mmol/L (8-16); CALCIUM 8.6 mg/dL (8.5-10.1); CREATININE - SERUM 7.9 mg/dL (0.6-1.3); POTASSIUM - SERUM 3.8 mmol/L (3.5-5.1)
[2018-09-29 07:16] VITALS: BP 118/74
[2018-09-29 14:53] VITALS: BP 84/51
[2018-09-29 19:47] VITALS: BP 102/58
[2018-09-30] VITALS: BP 106/56
[2018-09-30 04:00] VITALS: BP 108/64
[2018-09-30 07:09] VITALS: BP 102/64
[2018-09-30 07:16] LABS: ANION GAP 15.5 mmol/L (8-16); BASOPHILS 0.3 % (0-2); CALCIUM 8.6 mg/dL (8.5-10.1); CARBON DIOXIDE 29.2 mmol/L (21.0-32.0); CREATININE - SERUM 8.5 mg/dL (0.6-1.3); EOSINOPHILS 2.6 % (0-7); HEMATOCRIT 26.9 % (36.0-48.0); HEMOGLOBIN 8.4 g/dL (12-16); IMMATURE GRANULOCYTES 0.1 % (0-5); LYMPHOCYTES 11.1 % (15-50); MCH 29.6 pg (26.0-34.0); MCHC 31.2 g/dL (31.0-37.0); MCV 94.7 fL (80.0-100.0); MEAN PLATELET VOLUME 11.2 fL (7.4-10.4); MONOCYTES 17.3 % (2-11); NEUTROPHILS 68.6 % (40-80); PLATELET COUNT 152 10x3/uL (130-400); POTASSIUM - SERUM 3.7 mmol/L (3.5-5.1); RBC 2.84 10x6/uL (4.00-5.40); RDW 15.9 % (11.5-14.5)
[2018-09-30 09:41] VITALS: Ht 170.2 cm; Wt 126.8 kg
[2018-09-30 10:52] VITALS: BP 105/66
[2018-09-30 14:53] VITALS: BP 100/64
[2018-09-30 18:58] VITALS: BP 101/71
[2018-10-01] VITALS (7 sets, daily range): BP systolic 111–126; BP diastolic 71–92
[2018-10-01 03:07] LABS: ANION GAP 16.3 mmol/L (8-16); CALCIUM 8.8 mg/dL (8.5-10.1); CARBON DIOXIDE 27.8 mmol/L (21.0-32.0); CREATININE - SERUM 9.9 mg/dL (0.6-1.3); POTASSIUM - SERUM 4.1 mmol/L (3.5-5.1)
[2018-10-02 00:30] VITALS: BP 128/76
[2018-10-02 07:23] LABS: CALCIUM 9.2 mg/dL (8.5-10.1); CARBON DIOXIDE 25.4 mmol/L (21.0-32.0); CREATININE - SERUM 11.8 mg/dL (0.6-1.3); GENTAMICIN - TROUGH 2.5 ug/mL (0.5-2.0); POTASSIUM - SERUM 4.4 mmol/L (3.5-5.1)
[2018-10-02 08:47] VITALS: BP 151/98
[2018-10-02 16:44] VITALS: BP 118/75
[2018-10-02 20:00] VITALS: BP 115/75
[2018-10-03] VITALS (7 sets, daily range): BP systolic 98–124; BP diastolic 59–78
[2018-10-03 08:01] LABS: ANION GAP 14.7 mmol/L (8-16); CALCIUM 8.8 mg/dL (8.5-10.1); CARBON DIOXIDE 28.1 mmol/L (21.0-32.0); CREATININE - SERUM 9.3 mg/dL (0.6-1.3); GENTAMICIN - TROUGH 2.3 ug/mL (0.5-2.0); POTASSIUM - SERUM 3.8 mmol/L (3.5-5.1)
[2018-10-04 04:13] VITALS: BP 105/65
[2018-10-04 07:03] LABS: ANION GAP 19.9 mmol/L (8-16); CALCIUM 8.6 mg/dL (8.5-10.1); CARBON DIOXIDE 27.2 mmol/L (21.0-32.0); CREATININE - SERUM 10.9 mg/dL (0.6-1.3); POTASSIUM - SERUM 4.1 mmol/L (3.5-5.1)
[2018-10-04 07:34] VITALS: BP 105/72
[2018-10-04] MEDS ORDERED: AMPICILLIN 2 GM/2 G1 IV (13:13)
[2018-10-04] MEDS ORDERED: ULTRAM50 MG PO (13:14)
[2018-10-04 15:57] VITALS: BP 104/65
== END 2018-10-04 15:45 | DRG 252 ==
LOC: D.ER 16:00 → D.EDHOLD 20:17 → D.M3 20:17 → D.SDCHOLD 09-21 07:22 → D.M3 09-21 07:24
PROVIDERS: Emergency Medicine; Internal Medicine Gastroenterology; Internal Medicine Nephrology; Surgery
PROC: 05PY33Z Removal of Infusion Device from Upper Vein, Percutaneous Approach (ICD-10-PCS; 2018-09-10)
PROC: 06H033Z Insertion of Infusion Device into Inferior Vena Cava, Percutaneous Approach (ICD-10-PCS; 2018-09-10)
PROC: B5191ZA Fluoroscopy of Inferior Vena Cava using Low Osmolar Contrast, Guidance (ICD-10-PCS; 2018-09-10)
PROC: 0JPT3XZ Removal of Tunneled Vascular Access Device from Trunk Subcutaneous Tissue and Fascia, Percutaneous Approach (ICD-10-PCS; principal; 2018-09-10 12:00)
PROC: 05CY3ZZ Extirpation of Matter from Upper Vein, Percutaneous Approach (ICD-10-PCS; 2018-09-21)
PROC: 037Y3ZZ Dilation of Upper Artery, Percutaneous Approach (ICD-10-PCS; 2018-09-21)
PROC: B51W1ZZ Fluoroscopy of Dialysis Shunt/Fistula using Low Osmolar Contrast (ICD-10-PCS; 2018-09-21)
PROC: 0J2SXYZ Change Other Device in Head and Neck Subcutaneous Tissue and Fascia, External Approach (ICD-10-PCS; 2018-10-01)
DX: T82.7XXA Infection and inflammatory reaction due to other cardiac and vascular devices, implants and grafts, initial encounter (principal); A41.9 Sepsis, unspecified organism; N18.6 End stage renal disease; I33.0 Acute and subacute infective endocarditis; Z68.43 Body mass index [BMI] 50.0-59.9, adult; M46.26 Osteomyelitis of vertebra, lumbar region; I13.2 Hypertensive heart and chronic kidney disease with heart failure and with stage 5 chronic kidney disease, or end stage renal disease; E66.01 Morbid (severe) obesity due to excess calories; I50.9 Heart failure, unspecified; Z99.2 Dependence on renal dialysis; D63.1 Anemia in chronic kidney disease; M47.816 Spondylosis without myelopathy or radiculopathy, lumbar region; N95.0 Postmenopausal bleeding

== ENCOUNTER 2018-12-08 03:47 | Inpatient (IN) | payer MEDICARE ==
[~2018-12-08] VITALS: Ht 170.2 cm; Wt 133.2 kg
[2018-12-08] VITALS (18 sets, daily range): BP systolic 100–152; BP diastolic 45–93
--- NOTE | ~2018-12-08 | HEMODYNAMI ---
PATIENT:CATHERINE MILLIGAN MEDICAL RECORD: [id number] : 59 [facility] D.2308 ADMISSION DATE: 12/08/18 Generatedon:12/10/20189:59 Patient name: CATHERINE MILLIGAN Patient #: [id number] SSN: : Date of study: 12/10/2018 Page: Of Hemodynamic Procedure Report Patient Data Patient Demographics Procedure consent was obtained First Name: CATHERINE Gender: Female Last Name: SRINI : 1955 Middle Initial: JACE Age: 63 year(s) Patient #: [id number] Race: Black Additional ID: [id number] Contact details Address: [address] State: [place] City: [place] Zip code: [address] Past Medical History Allergies Allergen Reaction Date Comments Reported Other allergy 12/10/2018 lisinopril Admission Admission Data Admission Date: 12/08/2018 Admission Time: 4:44 Admit Source: Other Room #: D.2308 Lab Results Lab Result Date: 12/10/2018 Lab Result Time: 3:29 Biochemistry Name Units Result Min Max BUN mg/dl 36 --(----)-* 7 18 Creatinine mg/dl 9.2 --(----)-* 0.6 1.3 CBC Name Units Result Min Max Hematocrit % 29.5 *-(----)-- 42 54 Hemoglobin g/dl 9.5 *-(----)-- 13.5 17.5 Procedure Procedure Types Cath Procedure Diagnostic Procedure LHC LHC w/Coronaries Aortic Root Angiography Procedure Description Procedure Date Procedure Date: 12/10/2018 Procedure Start Time: 9:48 Procedure End Time: 9:58 Procedure Staff Name Function Chucky Resendiz MD Performing Physician Sanchez Ratliff RT Monitor Desean Guevara RN Nurse Ariane Cheatham RT Scrub Procedure Data Cath Procedure Fluoroscopy Diagnostic fluoroscopy Total fluoroscopy Time: 1 time: 1 min min Diagnostic fluoroscopy Total fluoroscopy dose: 511 dose: 511 mGy mGy Contrast Material Contrast Material Type Amount (ml) Isovue 300 61 Entry Location Entry Primary Successful Side Size Upsize Upsize Entry Closure Succes sful Closure Location (Fr) 1 (Fr) 2 (Fr) Remarks Device Remarks Femoral Right 5 Fr Exoseal artery Estimated blood loss: 5 ml Diagnostic catheters Device Type Used For End Catheter Placement MULTIPACK JL 4.0 5Fr Procedure catheter MULTIPACK 3DRC 5Fr Procedure catheter MULTIPACK Pigtail 5 Fr Procedure catheter Procedure Complications No complications Procedure Medications Medication Administration Route Dosage Oxygen NC 3 l/min Heparin Flush Bag added to field 2 bags (1000units/500ml NS) 0.9% NaCl I.V. 100 ml/hr Lidocaine 2% added to field 20 Fentanyl I.V. 50 mcg Versed I.V. 1 mg Fentanyl I.V. 50 mcg Versed I.V. 1 mg Hemodynamics Rest HGB: 9.5 (g/dl) Heart Rate: 101 (bpm) Pressure Samples Time Site Value (mmHg) Purpose Heart Use Rate(bpm) 9:53 LV 78/5,6 Snapshot 90 Gradients Valve Time Site Site Mean SEP/DFP Peak To Heart Use 1 2 (mmHg) (sec/min) Peak Rate (mmHg) (bpm) Aortic 9:54 LV AO 94 Snapshots Pre Cath Intra NCS Post Cath Vital Signs Time Heart Resp SPO2 etCO2 NIBP Rhythm Pain Sedation Rate (ipm) (%) (mmHg) (mmHg) Status Level (bpm) 9:26:45 99 24 93 0 93/68(87) NSR 0 (11) 10(A) , No pain 9:31:40 98 28 99 0 141/72(88) NSR 0 (11) 10(A) , No pain 9:35:47 100 26 97 0 108/74(85) NSR 0 (11) 10(A) , No pain 9:39:57 97 28 95 0 108/65(88) NSR 0 (11) 10(A) , No pain 9:44:09 99 26 96 0 125/58(84) NSR 0 (11) 10(A) , No pain 9:49:25 99 32 98 0 101/55(81) NSR 0 (11) 9(A) , No pain 9:53:30 99 24 96 0 89/69(84) NSR 0 (11) 9(A) , No pain 9:57:32 104 17 88 0 99/55(86) NSR 0 (11) 9(A) , No pain Medications Time Medication Route Dose Verified Delivered Reason Notes Effec tiveness by by 9:29:46 Oxygen NC 3 Chucky Desean Per l/min St Chilo Guevara RN physician 9:29:52 Heparin Flush added 2 Chucky Desean used for Bag to bags [facility] Chilo Guevara RN procedure (1000units/500ml field ROBIN NS) 9:30:02 0.9% NaCl I.V. 100 Chucky Desean Per ml/hr St Chilo Guevara RN physician 9:30:13 Lidocaine 2% added 20ml Chucky Desean for local to vial [facility] Chilo Guevara RN anesthetic field 9:46:13 Fentanyl I.V. 50 Chucky Desean for [facility] [place] [facility] Guevara RN sedation 9:46:19 Versed I.V. 1 mg Chucky Desean for [facility] Chilo Guevara RN sedation 9:49:05 Fentanyl I.V. 50 Chucky Desean for [facility] [facility] Guevara RN sedation 9:49:11 Versed I.V. 1 mg Chucky Desean for [facility] Chilo Guevara RN sedation Procedure Log Time Note 8:37:48 Informed consent obtained and on chart 8:37:51 Admit Source: Other 8:38:22 Diagnostic Cath status Elective 8:38:24 Time tracking: Regular hours (M-F 7:00 - 5:00) 8:38:27 Plan of Care:Hemodynamics will remain stable., Cardiac rhythm will remain stable., Comfort level will be maintained., Respiratory function will remain adequate., Patient/ family verbilizes understanding of procedure., Procedure tolerated without complication., Recovers from procedure without complications.. 8:40:59 H&P Date Dictated: 12/08/2018 Within 30 days and on chart.. 8:42:13 Lab Result : BUN 36 mg/dl 8:42:13 Lab Result : Hemoglobin 9.5 g/dl 8:42:13 Lab Result : Creatinine 9.2 mg/dl 8:42:13 Lab Result : Hematocrit 29.5 % 8:42:51 Lab results completed and on chart. 8:50:15 Sanchez DAVID(R) sent for patient. Start room use. 9:03:25 H&P Date Dictated: 12/08/2018 Within 30 days and on chart.. 9:25:18 Vital chart was started 9:29:46 Oxygen 3 l/min NC was administered by Desean Guevara RN; Per physician; 9:29:52 Heparin Flush Bag (1000units/500ml NS) 2 bags added to field was administered by Desean Guevara RN; used for procedure; 9:30:02 0.9% NaCl 100 ml/hr I.V. was administered by Desean Guevara RN; Per physician; 9:30:13 Lidocaine 2% 20ml vial added to field was administered by Desean Guevara RN; for local anesthetic; 9:31:43 Patient received from ICU to CCL 2 Alert and oriented. Tansferred to table in Supine position. 9:31:44 Warm blankets applied, and macie hugger turned on for patient comfort. 9:31:45 Correct patient and procedure confirmed by team. 9:31:45 ECG and BP/O2 sat monitors applied to patient. 9:31:46 Baseline sample Acquired. 9:32:00 Rhythm: sinus rhythm 9:32:02 Full Disclosure recording started 9:32:03 Pre-procedure instructions explained to patient. 9:32:03 Pre-op teaching completed and patient verbalized understanding. 9:32:05 Family unavailable. 9:32:06 Patient NPO since Midnight. 9:32:16 Patient allergic to Other allergylisinopril 9:32:18 Is the patient allergic to Iodine/contrast media? No. 9:32:19 Is patient on blood thinner?No 9:32:20 Patient diabetic? No. 9:32:22 Previous problem with sedation/anesthesia? No ? 9:32:23 Snore? Yes 9:32:24 Sleep apnea? Yes 9:32:25 Deviated septum? No 9:32:25 Opens mouth fully? Yes 9:32:31 Sticks out tongue? Yes 9:32:36 Airway obstruction? Yes pneumonia 9:32:45 Dentures? No ? 9:32:47 Pre procedure: right dorsailis pedis pulse 1+ Palpable, but thready & weak; easily obliterated 9:32:51 IV patent on arrival in right antecubital with 0.9% NaCl at O. 9:33:17 Right groin area was prepped with chlora-prep and draped in sterile fashion 9:33:18 Alarms reviewed by R. N. 9:33:18 Sharps counted by scrub and verified by R.N. 9:33:20 Use device set Femoral Dx 9:33:21 ACIST Syringe (21433) opened to sterile field. 9:33:22 Bag Decanter (2002S) opened to sterile field. 9:33:22 Medline Cath Pack ([id number]) opened to sterile field. 9:33:23 ACIST Hand Control (60180) opened to sterile field. 9:33:23 ACIST Manifold (77618) opened to sterile field. 9:33:24 Tegaderm 4 x 4 (1626W) opened to sterile field. 9:33:26 SHEATH 5FR [place] ([id number]) opened to sterile field. 9:33:27 DIAGNOSTIC WIRE .035 260cm J wire (510239) opened to sterile field. 9:33:27 DIAGNOSTIC Multipack 5Fr catheter set ([id number]) opened to sterile field. 9:45:41 Physician arrived 9:45:42 --------ALL STOP TIME OUT------ 9:45:42 Final Timeout: patient, procedure, and site verified with staff and physician. All members of the team are in agreement. 9:45:43 Right groin site verified by team. 9:45:47 Fire Safety Assessment: A--An alcohol-based skin anteseptic being used preoperatively., C--Open oxygen or nitrous oxide is being used., D--An ESU, laser, or fiber-optic light is being used. 9:45:51 Physical assessment completed. ASA score P 3 - A patient with severe systemic disease as per Chucky Resendiz MD. 9:45:54 Sedation plan: IV Moderate Sedation Medication:Versed, Fentanyl 9:46:13 Fentanyl 50 mcg I.V. was administered by Desean Guevara RN; for sedation; 9:46:19 Versed 1 mg I.V. was administered by Desean Guevara RN; for sedation; 9:47:51 Zero performed for pressure channel P1 9:47:54 Zero performed for pressure channel P1 9:48:27 Procedure started. 9:48:29 Local anesthetic to right femoral artery with Lidocaine 2% by Chucky Resendiz MD.INITIAL ACCESS ONLY 9:48:36 A 5 Fr sheath was inserted into the Right Femoral artery 9:49:05 Fentanyl 50 mcg I.V. was administered by Desean Guevara RN; for sedation; 9:49:11 Versed 1 mg I.V. was administered by Desean Guevara RN; for sedation; 9:50:28 A MULTIPACK JL 4.0 5Fr catheter was advanced over the wire and used for Procedure. 9:51:00 LCA angiography performed. 9:51:59 A MULTIPACK 3DRC 5Fr catheter was advanced over the wire and used for Procedure. 9:52:14 RCA angiography performed. 9:52:21 Catheter exchanged over wire. 9:52:26 A MULTIPACK Pigtail 5 Fr catheter was advanced over the wire and used for Procedure. 9:52:33 EXOSEAL 5Fr (EX500) opened to sterile field. 9:53:41 LV gram done using GODFREY 9:53:43 Injector settings: Ml/sec: 10, Volume: 20, 9:53:48 EF : 55 % 9:54:01 Catheter removed. 9:55:32 Sheath removed intact; hemostasis achieved with Exoseal to the Right Femoral artery. 9:55:33 Procedure ended.(Physican Out) 9:55:58 Fluoroscopy time 01.00 minutes. 9:56:01 Fluoroscopy dose: 511 mGy 9:56:01 Flurop Dose total: 511 9:56:04 Contrast amount:Isovue 300 61ml. 9:56:06 Sharps counted by scrub and verified by R.N. 9:56:07 Insertion/operative site no bleeding no hematoma. 9:56:12 Post-op/insertion site Right Femoral artery dressed using a 4 x 4 and Tegaderm. 9:56:15 Post right femoral artery:stable, soft, clean and dry 9:56:17 Post Procedure Pulses reassessed and unchanged 9:56:20 Post-procedure physical assessment completed. ASA score P 3 - A patient with severe systemic disease as per Chucky Resendiz MD. 9:56:23 Post procedure rhythm: unchanged. 9:58:08 Estimated blood loss: 5 ml 9:58:09 Post procedure instruction explained to patient.Patient verbalizes understanding. 9:58:09 Patient needs reinforcement of post procedure teaching. 9:58:20 Procedure type changed to Cath procedure, Diagnostic procedure, LHC, LHC w/Coronaries, Aortic Root Angiography 9:58:33 Procedure and supply charges have been captured, reviewed, submitted and are correct. 9:58:36 Procedure Complication : No complications 9:58:37 Vital chart was stopped 9:58:38 See physician's report for complete and final results. 9:58:40 Report given to ICU. 9:58:42 Patient transfered to ICU with Stretcher. 9:58:44 Procedure ended. 9:58:44 Full Disclosure recording stopped 9:58:49 End room use (Document Last) Device Usage Item Name Manufacture Quantity Catalog Hospital Part Current Minimal L ot# / Number Charge Number Stock Stock Serial# Code ACIST Acist 1 13722 169968 697162 386049 20 Syringe Medical (13713) Systems Inc Bag Microtek 1 2001S 188260 65463 527585 5 Decanter Medical Inc. () Medline Medline 1 [id number] 301316 22585 906891 5 Cath Pack ([id number]) ACIST Hand Acist 1 95658 754182 515290 567738 5 Control Medical (30038) Systems Inc ACIST Acist 1 35065 888143 041629 552051 5 Manifold Medical (88334) Systems Inc Tegaderm 4 3M 1 1626W 398700 660881 421967 5 x 4 (1626W) SHEATH 5FR Terumo 1 IGG819 777179 887635 439808 5 [place] (TCG534) DIAGNOSTIC St Zach 1 490823 179295 300692 208428 30 WIRE .035 260cm J wire (913796) DIAGNOSTIC Cardinal 1 [id number] 090212 79148 027080 30 Multipack Health 5Fr catheter set (UI0530) MULTIPACK Cardinal 1 [id number] 5 JL 4.0 5Fr Health catheter MULTIPACK Cardinal 1 [id number] 5 3DRC 5Fr Health catheter MULTIPACK Cardinal 1 218053 5 Pigtail 5 Health Fr catheter EXOSEAL 5Fr Cardinal 1 EX500 175566 250978 958131 10 (EX500) Health Signature Audit Eugene Stage Time Signature Unsigned Intra-Procedure 12/10/2018 Sanchez Ratliff 9:59:12 AM RT(R) Signatures Monitor : Sanchez Ratliff RT Signature : Date : Time : [address] [place] [address]
[~2018-12-08 03:47] MED LIST changes: +AMPICILLIN 2 GM/2 G1 IV; +NORCO 10-325 TA1 TAB PO; +ZOFRAN ODT4 MG/UDTAB PO
[2018-12-08] MEDS ORDERED: MIDODRINE HCL10 MG PO (04:21)
[2018-12-08] MEDS ORDERED: RENVELA800 MG PO (04:21)
[2018-12-08 05:13] LABS: CREATINE KINASE 81 UL (21-215); MAGNESIUM - SERUM 1.6 mg/dL (1.8-2.4); PHOSPHOROUS 5.2 mg/dL (2.5-4.9)
[2018-12-08 05:38] LABS: TROPONIN-I 2.644 ng/mL (0.000-0.060)
--- NOTE | 2018-12-08 05:44 | NUR ---
RECEIVED PT TO ROOM 2308 VIA STRETCHER ACCOMPANIED BY ER STAFF. ICU MONITORS ESTABLISHED, PT HISTORY COMPLETED, PT DENIES ANY NEEDS AT THIS TIME, CALL LIGHT IN REACH.
--- NOTE | 2018-12-08 06:30 | NUR ---
DR CHAVEZ NOTIFIED OF TROPONIN RESULT ON LAB, ORDERS RECEIVED.
--- NOTE | 2018-12-08 07:00 | NUR ---
INITIAL ASSESSMENT COMPLETE. PT RESTING QUIETLY WITH EYES CLOSED AROUSES EASILY ORIENTED TIMES 4. SKIN WARM AND DRY. PPP. PT HAS GENERALIZED EDEMA STATES TODAY IS REGULAR DIALYSIS DAY. LEFT ARM RESERVE SECONDARY TO DIALYSIS FISTULA. RIGHT UPPER ARM 20 GUAGE PIV. PT DENIES CP OR SOB. PAPER CUP MACHINE OPERATOR INTACT AND ALARMS AUDIBLE. PT HAS CALL LIGHT AND DEMONSTRATES CALLING NURSE FOR NEEDS. PER ORDERS RN TO CALL CARDIOLOGY LUNCH COOK([facility]) AFTER 0830 THIS AM DUE TO ELEVATED TROPONIN.
--- NOTE | 2018-12-08 10:15 | NUR ---
DR MARRUFO ANSWERED PAGE INFORMED OF CONSULT NO NEW ORDERS
--- NOTE | 2018-12-08 11:00 | NUR ---
REASSESSMENT COMPLETED. PT DENIES CP OR SOB. VSS AT THIS TIME WILL CONTINUE TO MONITOR
--- NOTE | 2018-12-08 12:30 | NUR ---
DR MARRUFO HERE FOR CONSULT
[2018-12-08 13:33] LABS: HEMATOCRIT 30.6 % (36.0-48.0); HEMOGLOBIN 9.9 g/dL (12-16); MCH 29.6 pg (26.0-34.0); MCHC 32.4 g/dL (31.0-37.0); MCV 91.6 fL (80.0-100.0); MEAN PLATELET VOLUME 11.8 fL (7.4-10.4); RBC 3.34 10x6/uL (4.00-5.40); RDW 14.7 % (11.5-14.5); WBC 14.2 10x3/uL (4.8-10.8)
[2018-12-08 13:40] LABS: PLATELET COUNT 200 10x3/uL (130-400)
[2018-12-08 13:49] LABS: LYMPHOCYTES 14 % (15-50); MONOCYTES 5 % (2-11); NEUTROPHILS 80 % (40-80); PLATELET ESTIMATE NORMAL; PLATELET MORPHOLOGY NORMAL PLT MORPH
[2018-12-08 14:04] LABS: ALBUMIN 2.2 g/dL (3.4-5.0); ANION GAP 16.1 mmol/L (8-16); BILIRUBIN - TOTAL 0.36 mg/dL (0.2-1.3); CALCIUM 8.5 mg/dL (8.5-10.1); CARBON DIOXIDE 28.2 mmol/L (21.0-32.0); CREATININE - SERUM 8.9 mg/dL (0.6-1.3); POTASSIUM - SERUM 3.3 mmol/L (3.5-5.1); PROTEIN - SERUM 6.1 g/dL (6.4-8.2)
[2018-12-08 14:05] LABS: TROPONIN-I 0.929 ng/mL (0.000-0.060)
--- NOTE | 2018-12-08 15:00 | NUR ---
REASSESSMWENT MADE NO CHANGES PT TRIP PAIN CP OR SOB
--- NOTE | 2018-12-08 15:30 | NUR ---
DR CHAVEZ HERE FOR ROUNDS PT TO HAVE DIALYSIS TODAY
--- NOTE | 2018-12-08 19:26 | NUR ---
Received report. Pt currently in bed receiving HD. Pt denies needs at this time.
--- NOTE | 2018-12-08 21:00 | NUR ---
PT IN BED. FAMILY IN ROOM VISITING. PT DENIES NEEDS AT THIS TIME.
--- NOTE | 2018-12-08 23:00 | NUR ---
PT IN BED RESTING. EVEN AND UNLABORED RESIRATIONS NOTED AT THIS TIME.
[2018-12-09] VITALS (24 sets, daily range): BP systolic 75–138; BP diastolic 3–91
--- NOTE | 2018-12-09 01:00 | NUR ---
PT IN BED. EVEN AND UNALBORED RESPIRATIONS NOTED AT THIS TIME.
--- NOTE | 2018-12-09 03:00 | NUR ---
PT IN BED RESTING. EVEN AND UNLABORED RESPIRATIONS NOTED AT THIS TIME
--- NOTE | 2018-12-09 05:00 | NUR ---
PT IN BED RESTING QUIETLY. EVEN AND UNLABORED RESPIRATIONS NOTED AT THIS TIME.
--- NOTE | 2018-12-09 07:00 | NUR ---
REPORT RECEIVED INITIAL SHIFT ASSESSMENT COMPLETE, PT ALERT AND ORIENTED FOLLOWS COMMANDS EQUAL STRENGTH IN ALL EXTREMITIES SOME WEAKNESS GENEALIZED SITTING UP IN BED O2 PER NC AT 2 LPM O2 SAT ON LOWER SIDE OF NORMAL RANGE. LEADS CONNECTED TO [facility] WITH ALARMS ON AND AUDIBLE. NSR AT THIS TIME. PT HAS LEFT ARM DIALYSIS FISTULA AND A PIV TO RIGHT UPPER ARM WITH KVO RATE ON FLUID. SKIN WARM DRY AND INTACT NO BREAKDOWN NOTED ENCOURAGED PT TO REPOSITION OFTEN TO KEEP PRESSURE OFF SHE VERBALIZES GOOD UNDERSTANDING. PT IS MORBIDLY OBESE BUT ABLE TO REPOSITION SELF. PT DENIES CP OR SOB AT THIS TIME. CALL LIGHT IN REACH SHE DEMONSTRATES HOW TO CALL NURSE FOR ASSIST. BED IN LOWEST POSITION AND SR UP TIMES 3 FOR SAFETY AND BED MOBILITY
--- NOTE | 2018-12-09 09:00 | NUR ---
PTS O2 SAT STAYING ON LOW SIDE 90-93. DENIES SOB INCREASED O2 PER NC TO 3LPM
[2018-12-09 09:44] LABS: BASOPHILS 0.1 % (0-2); EOSINOPHILS 0.3 % (0-7); HEMATOCRIT 30.3 % (36.0-48.0); HEMOGLOBIN 9.8 g/dL (12-16); IMMATURE GRANULOCYTES 0.4 % (0-5); MCH 29.4 pg (26.0-34.0); MCHC 32.3 g/dL (31.0-37.0); MEAN PLATELET VOLUME 11.3 fL (7.4-10.4); MONOCYTES 13.3 % (2-11); NEUTROPHILS 77.9 % (40-80); PLATELET COUNT 206 10x3/uL (130-400); RBC 3.33 10x6/uL (4.00-5.40); RDW 14.5 % (11.5-14.5); WBC 15.3 10x3/uL (4.8-10.8)
--- NOTE | 2018-12-09 10:00 | NUR ---
PT RESTING QUIETLY WITH EYES CLOSED NO DISTRESS NOTED
[2018-12-09 10:01] LABS: ANION GAP 14.7 mmol/L (8-16); CALCIUM 8.6 mg/dL (8.5-10.1); CARBON DIOXIDE 27.8 mmol/L (21.0-32.0); POTASSIUM - SERUM 3.5 mmol/L (3.5-5.1)
--- NOTE | 2018-12-09 12:00 | NUR ---
PT INFORMED NURSE SHE WAS SUPPOSED TO SEE "FEMALE DR PAYAN" TOMORROW FOR PREOP LAB AND WORKUP FOR A SCHEDULED PROCEDURE ON 12/14/18
--- NOTE | 2018-12-09 14:00 | NUR ---
DR CHAVEZ HERE ROUNDING
--- NOTE | 2018-12-09 16:00 | NUR ---
ANSWERED PTS CALL LIGHT PT REQUESTING BEDPAN. MODERATE SOFT BROWN BM. PARTIAL LINEN CHANGE AND PERINEAL CARE
--- NOTE | 2018-12-09 19:02 | NUR ---
UNABLE TO FIND NOTES FROM PREVIOUS ADMISSION CONCERNING THE "FEMALE BLEEDING/DISCHARGE" AUGUSTINE PT STATES SHE HAS PREOP APPOINTMENT TOMORROW. CONSENT FOR CATH PROCEDURE PT HAS QUESTIONS AND HAS NOT SEEN SILVERWARE BUFFING MACHINE OPERATOR QUESTIONING PROCEDURE TIME AND DETAILS. WILL REPORT THE FOLLOWING WITH REPORT TO DEPOSIT CLERK
[2018-12-10] VITALS (20 sets, daily range): BP systolic 94–135; BP diastolic 41–78; BMI 44.0
[2018-12-10 04:14] LABS: BASOPHILS 0.1 % (0-2); EOSINOPHILS 0.5 % (0-7); HEMATOCRIT 29.5 % (36.0-48.0); HEMOGLOBIN 9.5 g/dL (12-16); IMMATURE GRANULOCYTES 0.4 % (0-5); LYMPHOCYTES 11.8 % (15-50); MCH 29.4 pg (26.0-34.0); MCHC 32.2 g/dL (31.0-37.0); MCV 91.3 fL (80.0-100.0); MEAN PLATELET VOLUME 11.2 fL (7.4-10.4); MONOCYTES 14.4 % (2-11); NEUTROPHILS 72.8 % (40-80); PLATELET COUNT 225 10x3/uL (130-400); RBC 3.23 10x6/uL (4.00-5.40); RDW 14.6 % (11.5-14.5); WBC 13.8 10x3/uL (4.8-10.8)
[2018-12-10 04:27] LABS: CALCIUM 8.5 mg/dL (8.5-10.1); CARBON DIOXIDE 27.1 mmol/L (21.0-32.0); CREATININE - SERUM 9.2 mg/dL (0.6-1.3); POTASSIUM - SERUM 3.1 mmol/L (3.5-5.1)
--- NOTE | 2018-12-10 07:00 | NUR ---
REPORT RECEIVED INITIAL ASSESSMENT COMPLETE. PT ALERT AND ORIENTED TIMES 4 APPREHENSIVE ABOUT CATH PROCEDURE WANTS TO SPEAK WITH THE TRUCK UNLOADER. CM READING SR ALARMS ON AND AUDIBLE. RESP EVEN AND NONLABORED O2 PER NC AT 3LPM. VSS NO DISTRESS NOTED AND PT DENIES CP OR SOB AT THIS TIME.
--- NOTE | 2018-12-10 07:40 | NUR ---
LOGGING WORKER CALLED TO PREOP, INFORMED ETELVINA IN LOGGING WORKER THAT PT STATES SHE HAS NOT SEEN OR TALKED TO THIS DR WHO "HAS MY LIFE IN HIS HANDS" AND WANTS TO TALK TO HIM BEFORE TAKING PREOP MEDICATIONS FOR PROCEDURE. DR MARRUFO NOT IN LOGGING WORKER AT THIS TIME WILL PAGE HIM AND THEN LET ETELVINA IN LOGGING WORKER KNOW WHEN ST ANDERSON HAS SPOKEN WITH PT.
--- NOTE | 2018-12-10 07:45 | NUR ---
DR MARRUFO PAGED AND INFORMED VIA PHONE THAT PT DOES NOT WANT PREOP MEDICATIONS OR TO GO TO WIDTH STRIPPER UNTIL SHE TALKS TO HIM, INFORMED HIM SHE STATES SHE HAS NOT LAID EYES ON THE DR "WHO HAS MY LIFE IN HIS HANDS". DR MARRUFO STATED HE DID TALK TO HER ON MONDAY BUT STATED HE WOULD COME TALK TO HER AGAIN. NO PREOP MEDS GIVEN UNTIL ST ANDERSON SPEAKS TO PT
--- NOTE | 2018-12-10 08:00 | NUR ---
WATER SYSTEM OPERATOR PREOP CHLORHEXIDINE BATH GIVEN BY ARUNA LUMBER CARRIER NURSE
--- NOTE | 2018-12-10 08:10 | NUR ---
DR BRISENO AT BEDSIDE SPEAKING TO PT ABOUT PROCEDURE
--- NOTE | 2018-12-10 08:20 | NUR ---
PREOP COMPLETE FOR POWER TOOL REPAIRER
--- NOTE | 2018-12-10 09:14 | NUR ---
PT TO GOOD HUMOR VENDOR WITH GOOD HUMOR VENDOR TEAM
--- NOTE | 2018-12-10 10:15 | NUR ---
PT BACK FROM [employer] POLICE OFFICER. PLACED BACK ON LIVING SKILLS ADVISOR READING SR WITH ALARMS ON AND AUDIBLE. PT VERY DROWSY FROM MEDICATIONS. ORIENTED TIMES 4 AND FOLLOWS COMMANDS EQUAL STRENGTH. RESP EVEN AND NONLABORED O2 SAT READING LOW 90'S INCREASED O2 TO 4LPM SINCE PT SO DROWSY. RIGHT GROIN WITH DRESSING NOTED NO DRAINAGE OR SWELLING NOTED. SOFT AROUND SITE WITH PPP WEAK BY PALPATION. BED IN LOWEST POSITION SIDE RAILS UP TIMES 3 FOR SAFETY AND FOR BED MOBILITY CALL LIGHT IN REACH. PT DENIES ANY PAIN OR SOB AT THIS TIME
--- NOTE | 2018-12-10 10:30 | NUR ---
DR SCOTT SIU, SAID TO D/C THE IVF ORDERED AT RATE OF 200 CC/HOUR. PT TO HAVE DIALYSIS TOMORROW. PT ASKED FOR SOMETHING FOR PAIN STATES THE BED IS HURTING HER BACK AND SIDE. HE TOLD HER HE WOULD ORDER HER SOMETHING. MEDICATED IN SUSPENDER CUTTER AND DENIES PAIN BUT STATED SHE DID HURT FROM BED LAST NIGHT. DR CHAVEZ STATED PT COULD BE TRANSFERRED TO FLOOR ONCE STABLE POST CATH AND IF BLOOD PRESSURE STABLE.
--- NOTE | 2018-12-10 10:45 | NUR ---
PTS FAMILY AT BEDSIDE FOR VISITATION
--- NOTE | 2018-12-10 11:00 | NUR ---
REPORT CALLED TO RSOE MARIE NURSE ON FLOOR THAT WILL BE RECEIVING PT TO 2133.
--- NOTE | 2018-12-10 11:40 | NUR ---
CALLED MOHSEN MEDICATION MANAGER INFORMED PT HAD SAID THAT SHE HAD AN APPOINTMENT TODAY WITH A PHYSICIAN FOR FEMALE ISSUES FOR PREOP TESTS FOR BIOPSY 12/14/18.
--- NOTE | 2018-12-10 11:45 | NUR ---
WHEN DR CHAVEZ WAS AT BEDSIDE AND ORDERED TRANSFER HE SAID AFFTER MONITORING FROM CATH PROCEDURE AND IF BP STAYS GOOD OK TO TRANSFER. ROOM HAS BEEN ASSIGNED AND REPORT CALLED. PAGED DR CHAVEZ TO SEE IF OK TO TRANSFER OF PTS BLOOD PRESSURE BEING 90-LOW 100'S. HE WAS INFORMED THAT MAP HAS BEEN GREAT 70-80'S. INFORMED O2 INCREASED TO 5LPM DUE TO PT BEING REALLY SLEEPY. HE SAID MONITOR FOR COUPLE HOURS TO MAKE SURE VS DONT CONTINUE TO GO DOWN. .
--- NOTE | 2018-12-10 12:38 | NUR ---
PAGED DR CHAVEZ INFORMED MONITORED FOR HOUR NO FURTHER DROP IN BP AND O2 SATS BETTER. WAS CONCERNED WITH HOW SLEEPY PT WAS TO TRANSFER TO ROOM. SHE IS MORE ALERT AND HER FAMILY IS HERE AND WILL BE WITH HER IN ROOM FOR COUPLE OF HOURS. OK TO TRANSFER
--- NOTE | 2018-12-10 13:13 | NUR ---
TRANSFERRED PT TO ROOM 2134 TRANSFERRED TO BED. ROSE MARIE NURSE AND FAMILY AT BEDSIDE. BED IN LOW POSITION SIDE RAILS UP TIMES 3 AND CALL LIGHT IN REACH
--- NOTE | 2018-12-10 14:27 | NUR ---
DRESSING TO RT GROIN CDI. PROVIDED PT WITH CUP OF ICE. PT DENIES ANY OTHER NEEDS AT THIS TIME. CALL LIGHT IN REACH, NAD NOTED, CALL LIGHT IN REACH, NAD NOTED, WILL CONTINUE TO MONITOR.
--- NOTE | 2018-12-10 16:38 | NUR ---
NO CHANGES FROM PREVIOUS ASSESSMENT. PT DENIE ANY NEEDS AT THIS TIME. CALL LIGHT IN REACH, NAD NOTED.
--- NOTE | 2018-12-10 19:20 | NUR ---
ASSESSMENT COMPLETE, PT A&O. RESPERATIONS EVEN ON O3 AT 3 LITERS VIA NC. IV TO RIGHT AC SL. SITE CLEAN AND DRY. DRSG TO RIGHT GROIN FROM CARDIAC CATH DONE EARLIER TODAY. PEDAL PULSES PRESENT. FRESH ICE WATER GIVEN AT PT REQUEST. PT DENIES PAIN OR NEEDS.
[2018-12-11] VITALS: BP 118/54
[2018-12-11 05:02] LABS: BASOPHILS 0.2 % (0-2); EOSINOPHILS 0.5 % (0-7); HEMATOCRIT 29.8 % (36.0-48.0); HEMOGLOBIN 9.6 g/dL (12-16); IMMATURE GRANULOCYTES 0.4 % (0-5); LYMPHOCYTES 8.5 % (15-50); MCH 29.2 pg (26.0-34.0); MCHC 32.2 g/dL (31.0-37.0); MCV 90.6 fL (80.0-100.0); MONOCYTES 13.7 % (2-11); NEUTROPHILS 76.7 % (40-80); PLATELET COUNT 269 10x3/uL (130-400); RBC 3.29 10x6/uL (4.00-5.40); RDW 14.7 % (11.5-14.5); WBC 16.8 10x3/uL (4.8-10.8)
[2018-12-11 05:12] LABS: ANION GAP 18.2 mmol/L (8-16); CALCIUM 8.7 mg/dL (8.5-10.1); CARBON DIOXIDE 25.4 mmol/L (21.0-32.0); CREATININE - SERUM 10.8 mg/dL (0.6-1.3)
[2018-12-11 05:15] LABS: POTASSIUM - SERUM 3.6 mmol/L (3.5-5.1)
[2018-12-11 05:20] VITALS: BP 118/65
[2018-12-11 09:17] VITALS: BP 104/59
--- NOTE | 2018-12-11 09:55 | NUR ---
PT TRANSFERED TO DIALYSIS VIA BED. NAD NOTED.
--- NOTE | 2018-12-11 14:54 | NUR ---
ADMINISTERD NORCO FOR PAIN LEVEL OF 10/10. PT DENIES ANY OTHER NEED AT THIS TIME. DR. FERNANDEZ AT BEDSIDE TO ASSESS PT. CALL LIGHT IN REACH, NAD NOTED, WILL CONTINUE TO MONITOR.
[2018-12-11 15:46] VITALS: BP 132/108
--- NOTE | 2018-12-11 19:54 | NUR ---
INITIAL ASSESSMENT COMPLETED - A/OX4, PT STATES PAIN IS TOLERABLE AT 4/10 BUT REQUESTS PAIN MEDICATION WITH PM MEDS. NO BATHROOM NEEDS NOTED AT THIS TIME. RR EVEN AND UL, NO S/S OF DISTRESS. R AC PATENT, NO C/O PAIN/DISCOMFORT AT SIDE, SL'D. VSS. PT ON VIA TX. WCTM AND FOLLOW POC. NO FURTHER NEEDS NOTED AT THIS TIME. CL IN REACH, SR UP X2, BED IN LOWEST POSITION.
[2018-12-11 20:00] VITALS: BP 96/58
[2018-12-12] VITALS: BP 109/74
--- NOTE | 2018-12-12 03:35 | NUR ---
RESUMING PT CARE - PT RESTING IN BED WITH EYES CLOSED. RR EVEN AND UL ON 3L OF 02 VIA NC. NO S/S OF DISTRESS. NO C/O PAIN/DISCOMFORT AT THIS TIME. AROUSES EASILY TO NOISE. WILL CONTINUE TO ASSESS NEEDS. CL IN REACH, SR UPX2, BED IN LOWEST POSITION.
[2018-12-12 04:00] VITALS: BP 106/61
[2018-12-12 06:16] LABS: ANION GAP 14.2 mmol/L (8-16); CALCIUM 8.9 mg/dL (8.5-10.1); CARBON DIOXIDE 29.3 mmol/L (21.0-32.0); CREATININE - SERUM 8.8 mg/dL (0.6-1.3); POTASSIUM - SERUM 3.5 mmol/L (3.5-5.1)
[2018-12-12 06:22] LABS: BASOPHILS 0.1 % (0-2); EOSINOPHILS 0.8 % (0-7); HEMATOCRIT 29.4 % (36.0-48.0); HEMOGLOBIN 9.5 g/dL (12-16); IMMATURE GRANULOCYTES 0.4 % (0-5); MCH 29.4 pg (26.0-34.0); MCHC 32.3 g/dL (31.0-37.0); MEAN PLATELET VOLUME 11.3 fL (7.4-10.4); MONOCYTES 14.8 % (2-11); NEUTROPHILS 75.9 % (40-80); PLATELET COUNT 274 10x3/uL (130-400); RBC 3.23 10x6/uL (4.00-5.40); RDW 14.8 % (11.5-14.5); WBC 15.8 10x3/uL (4.8-10.8)
--- NOTE | 2018-12-12 07:10 | NUR ---
REPORT RECIEVED FROM COMMISSARY HELPER. PATIENT LAYING IN BED ON BACK. PATIENT AWAKE, ALERT AND ORIENTED X 4. PATIENT DENIES ANY NEEDS OR PAIN. WILL CONTINUE WITH PLAN OF CARE. SR UP X 2 BED IN LOW POSITION AND CALL LIGHT IN REACH.
[2018-12-12 08:04] VITALS: BP 101/55
[2018-12-12 15:28] VITALS: BP 124/69
--- NOTE | 2018-12-12 18:05 | NUR ---
Dialysis Coordinator: [facility]. TTS @ 10:00. DANUTA IBRAHIM.
[2018-12-12 20:00] VITALS: BP 149/53
--- NOTE | 2018-12-12 20:00 | NUR ---
INITIAL ASSESSMENT COMPLETED - PT A/O X4. SPEECH STILL GARBLED, PT STATES AWARENESS OF NEWLY DISORTED SPEECH. NO PAIN OR DISCMOFORT NOTED AT THIS TIME. VSS. O2 ON AT 3L VIA NC. R AC PATENT, SITE C/D/I. NO FURTHER NEEDS NOTED. CL IN REACH, SR UP X2, BED IN LOWEST POSITION.
[2018-12-13] VITALS: BP 100/40
[2018-12-13 04:00] VITALS: BP 116/35
--- NOTE | 2018-12-13 04:30 | NUR ---
RESUMING PT CARE - PATIENT C/O PAIN. ADMINISTERED NORCO PER MD ORDER. NO FURTHER COMPLAINTS AT THIS TIME. RR EVEN AND UL, NO S/S OF DISTRESS. CL IN REACH, SR UP X2, BED IN LOWEST POSITION.
--- NOTE | 2018-12-13 07:30 | NUR ---
CORPORATE OPERATIONS COMPLIANCE MANAGER NURSE NOTIFIED ME ABOUT PT NEW ONSET OF SLURRED SPEACH. SALON RECEPTIONIST TIN NOTIFIED THIS AM. SALON RECEPTIONIST STATES SHE MIGHT HAVE TO CONSULT SPEACH THERAPIST.
--- NOTE | 2018-12-13 07:48 | NUR ---
RECIEVED BEDSIDE REPORT. AM ROUNDS COMPLETED. VSS. AAOX3. RR UNLABORED, NO S/S OF DISTRESS. PT COMPLAIN THAT HER IV MIGHT BE LEAKING. NO INTERVENTION DONE AT THIS THIS TIME BECAUSE PT IS SCHEDULED CFOR DIALYSIS THIS AM. PT DENIES ANY FURTHER NEEDS AT THIS TIME. BOOK SHELVER WHEELED PT TO DIALYSIS. WILL CPOC.
[2018-12-13 08:19] LABS: BASOPHILS 0.1 % (0-2); HEMATOCRIT 28.2 % (36.0-48.0); HEMOGLOBIN 9.2 g/dL (12-16); IMMATURE GRANULOCYTES 0.3 % (0-5); LYMPHOCYTES 10.2 % (15-50); MCH 29.6 pg (26.0-34.0); MCHC 32.6 g/dL (31.0-37.0); MCV 90.7 fL (80.0-100.0); MEAN PLATELET VOLUME 11.3 fL (7.4-10.4); MONOCYTES 11.9 % (2-11); NEUTROPHILS 76.5 % (40-80); PLATELET COUNT 287 10x3/uL (130-400); RBC 3.11 10x6/uL (4.00-5.40); RDW 15.1 % (11.5-14.5); WBC 14.8 10x3/uL (4.8-10.8)
[2018-12-13 08:23] LABS: ANION GAP 15.4 mmol/L (8-16); CALCIUM 8.8 mg/dL (8.5-10.1); CREATININE - SERUM 10.3 mg/dL (0.6-1.3); POTASSIUM - SERUM 3.4 mmol/L (3.5-5.1)
--- NOTE | 2018-12-13 10:19 | NUR ---
RECIEVED A TELEPHONE ORDER FROM NIKOLAS CASTLE TO ADMINISTER 10MG MIDODRINE TO PT. BECAUSE PT BLOOD PRESSURE IS DROPPING DURING DIALYSIS. PO MIDODRINE GIVEN. WILL CTM.
[2018-12-13 11:00] VITALS: BP 78/49
--- NOTE | 2018-12-13 15:30 | NUR ---
PLATE SENSITIZER STATES PT SPB IS IN 70'S. ADMINISTERED PO MODODRINE. WILL CTM TO MONITOR PT. CL IN REACH. BED IN LOW.
--- NOTE | 2018-12-13 16:06 | NUR ---
REASSED PT BP, PT BP CURRENTLY 148/65. PT STATES SHE IS FEELING A LOT MORE BETTER. PT DENIES ANY FURTHER NEEDS AT THIS TIME. WILL CTM. CL IN REACH, BED IN LOW, SR UP X2.
[2018-12-13 16:44] VITALS: Ht 170.2 cm; Wt 133.2 kg
--- NOTE | 2018-12-13 19:05 | NUR ---
Received patient in bed resting, monitor worker on, rhythm SR, HR in the 90s/min. Alert and oriented x 4, left upper arm fistula has dressing in place C/D/I, PIV in right AC is SL. No voiced concerns at this time. Respirations easy and regular, on room air, no signs of distress.
--- NOTE | 2018-12-13 19:08 | NUR ---
Oxygen placed back on, SOB, currently oxygen @4.5L/mi9n as was set on wall reading. Respirations easy and regular.
[2018-12-13 20:00] VITALS: BP 110/62
--- NOTE | 2018-12-13 23:25 | NUR ---
Resting quietly in bed, no signs of distress.
[2018-12-14] VITALS: BP 107/52
[2018-12-14 04:00] VITALS: BP 100/56
--- NOTE | 2018-12-14 05:30 | NUR ---
PIV leaking from Rt AC, no blood return, does not flush. PIV removed, New PIV re-sited in back of right hand near thumb.
[2018-12-14 08:15] VITALS: BP 150/119; BP 150/19
[2018-12-14 09:05] LABS: BASOPHILS 0.2 % (0-2); EOSINOPHILS 1.2 % (0-7); HEMATOCRIT 27.7 % (36.0-48.0); HEMOGLOBIN 8.8 g/dL (12-16); IMMATURE GRANULOCYTES 0.4 % (0-5); MCH 29.2 pg (26.0-34.0); MCHC 31.8 g/dL (31.0-37.0); MONOCYTES 14.5 % (2-11); NEUTROPHILS 73.7 % (40-80); PLATELET COUNT 321 10x3/uL (130-400); RBC 3.01 10x6/uL (4.00-5.40); RDW 15.2 % (11.5-14.5); WBC 14.6 10x3/uL (4.8-10.8)
[2018-12-14 09:06] LABS: CALCIUM 8.5 mg/dL (8.5-10.1); CARBON DIOXIDE 27.6 mmol/L (21.0-32.0); CREATININE - SERUM 8.5 mg/dL (0.6-1.3); POTASSIUM - SERUM 3.6 mmol/L (3.5-5.1)
--- NOTE | 2018-12-14 09:20 | NUR ---
NURSE AT ASSISITING WITH NEEDS. WILL CONT. PLAN OF CARE.
[2018-12-14 11:41] VITALS: BP 86/60
--- NOTE | 2018-12-14 12:22 | CN ---
PATIENT NAME:CATHERINE MILLIGAN MEDICAL RECORD: [id number] : 59 LOCATION:D. 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 She was admitted with progressive dyspnea as well as subjective fever and chills. Has possible left lower lobe infiltrate. Also noted to have elevated troponin levels. We are asked to see her concerning her cardiovascular status. Currently pain free. Reports her breathing is actually better. Appears comfortable. PAST MEDICAL HISTORY: Includes: 1. History of hypertension. 2. Chronic renal insufficiency, on TTS dialysis. 3. Orthostatic hypotension. MEDICATIONS: Include Renvela 800 mg p.o. t.i.d., ondansetron 4 mg p.o. every 4 hours p.r.n., ProAmatine 10 mg t.i.d. REVIEW OF SYSTEMS: The patient reports easy bruising but reports no swollen glands. The patient reports no fever, no night sweats, no significant weight gain, no significant weight loss. No significant exercise tolerance. The patient reports no dry eyes, no irritation, no vision change. Patient reports no difficulty hearing and no ear pain. Patient reports no frequent nose bleeds or nose and sinus problems. Patient reports on arm pain on exertion. No shortness of breath while lying down. No history of heart murmur. Patient reports no cough, no wheezing or coughing up blood. Patient reports no abdominal pain, no vomiting. Normal appetite. No diarrhea and not vomiting blood. No nausea and no constipation. Patient reports no incontinence. No difficulty urinating. No hematuria. No increased frequency. Patient reports no muscle aches. No weakness, no arthralgias, no back pain. No swelling of the extremities. Patient reports no abnormal mole, no jaundice, no rashes. Reports no loss of consciousness. No weakness and no numbness. No seizures, dizziness, or headaches. The patient reports no depression, no sleep disturbance, feeling safe in a relationship and no alcohol abuse. Patient reports on fatigue. Reports no runny nose or sinus pressure. No itching, no hives, and no frequent sneezing. PHYSICAL EXAMINATION: GENERAL: Pleasant female, in no acute distress, somewhat somnolent currently. VITAL SIGNS: Blood pressure 150/56, pulse 93 and irregular. HEENT: Normocephalic, atraumatic. NECK: No JVD or bruit. HEART: Regular. LUNGS: Lung rojas are clear. ABDOMEN: Soft, nontender. EXTREMITIES: Pulses 2+. There is no edema. IMPRESSION: NSTEMI. Questionable if it is type 2 secondary to pneumonitis, demand ischemia, etc. or true type 1. We will plan for diagnostic angiography. Given widened pulse pressure, we will also check aortic root at the same time CONSULT REPORT [id number] CATHERINE MILLIGAN with her history of aortic valve endocarditis. Further recommendations based on the above. TRANSINT:[id number] Voice Confirmation ID: [id number] DOCUMENT ID: [id number] CHANG MARRUFO MD at 1222 CC: [id number] DICTATION DATE: 12/08/18 1158 DIRECTOR OF SALES: 12/08/18 1442 ADM IN [facility] [address] [id number]
--- NOTE | 2018-12-14 12:22 | OP ---
PATIENT NAME: CATHERINE MILLIGAN MEDICAL RECORD: [id number] :59 LOCATION:D.M2 D.2134 ADMISSION DATE:12/08/18 SURGEON: CHANG MARRUFO MD DATE OF OPERATION: 12/10/2018 PROCEDURE: Left heart catheterization, selective coronary angiography, right femoral artery approach. CATHETERS: A 5-Azeri sheath, 5/4 left and right Gt, 5/4 pig. The procedure was well tolerated. The patient was returned to casillas, sheath removed. ExoSeal device placed. FINDINGS: Selective coronary angiography in 30-degree GODFREY view, normal wall motion, normal systolic function. Aortic root injection was performed secondary to history of aortic endocarditis and AI. This showed a normal appearing aortic root, only mild AI is present. CORONARY ANATOMY: LEFT MAIN: Left main is free of disease. LAD: Free of disease in the diagonal system. CIRCUMFLEX: Free of disease in the marginal system. RIGHT CORONARY ARTERY: Dominant artery, gives rise to PDA, free of disease. IMPRESSION: Normal LV systolic function, mild AI, and surprisingly normal coronary anatomy. TRANSINT:[id number] Voice Confirmation ID: [id number] DOCUMENT ID: [id number] CHANG MARRUFO MD at 1222 CC: [id number] DICTATION DATE: 12/10/18 1002 CARPENTER REFRIGERATOR: 12/10/18 1054 ADM IN [address] [address]
--- NOTE | 2018-12-14 12:38 | NUR ---
Nutrition Follow Up: Chart reviewed Diet: Renal PO Intake: 67% meal avg BM: 12/09/18 - no BM x 5 days Wt stable Meds and labs reviewed Rec continue current diet. RD following.
--- NOTE | 2018-12-14 13:55 | NUR ---
PATIENT HAD BEEN OFF O2 SINCE APPROXIMATELY 1230 PER RAVI ALEXANDER (RENAL). CATHERINE ASKED ME TO RECHECK O2 SAT IN A WHILE. AT RECHECK O2 WAS 81%. PUT NC BACK ON WITH O2 AT 3L. STAYED AT 81-82%. RESPIRATORY SAID IT MAY TAKE HER A WHILE TO RECOVER. SAID SHE WOULD RECHECK PATIENT WELL. BP AT 1315 WAS 108/49 LLE, 62/39 RUE. CATHERINE WAS NOTIFIED WHILE SHE WAS IN PATIENT ROOM. RECHECKED BP AT 1355. IT WAS 92/38 ON LLE. CATHERINE NOTIFIED.
--- NOTE | 2018-12-14 17:37 | MORECARE ---
CASE MANAGEMENT DISCHARGE SUMMARY PATIENT: CATHERINE MILLIGAN UNIT: [id number] ADM DATE: 12/08/18 AGE: 63 : 59 SEX: F ROOM/BED: D.2520 AUTHOR: YANETH,DOC PHYSICIAN: REFERRING PHYSICIAN: YESENIA CHAVEZ MD DATE OF SERVICE: 12/14/18 Discharge Plan Patient Name: CATHERINE MILLIGAN Facility: [facility]:[place] : 1955 Planned Disposition: Home with Home Health Anticipated Discharge Date: 12/15/18 Discharge Date: Expected LOS: 7 Initial Reviewer: [email or web address] Initial Review Date: 12/13/2018 Generated: 12/14/18 6:36 pm Comments DCP- Discharge Planning Updated by [email or web address]: Albino Caicedo on 12/14/18 4:[address] Patient Name: CATHERINE MILLIGAN Admission Status: ER Accout number: [id number] Admission Date: 12-08-2018 : 1955 Admission Diagnosis:LOBAR PNEUMONIA, UNSPECIFIED ORGANISM Attending: YESENIA CHAVEZ Current LOS: 6 Anticipated DC Date: 12-15-2018 Planned Disposition: Home with Home Health Primary Insurance: MEDICARE A & B PLANNED EXTERNAL PROVIDER: [facility] Discharge Planning Comments: CM REVIEWED CHART, PHYSICIAN NOTES INDICATING NEED FOR POSSIBLE REHAB OR DISCHARGE HOME. CM MET WITH PT IN ROOM TO DISCUSS DISCHARGE PLANNING AND NEEDS. PT REPORTS LIVING AT HOME INDEPENDENTLY WITH SONS. PT HAS HOSPITAL BED, ROLLING WALKER AND WHEELCHAIR WITH NO MEDICAL EQUIPMENT PROVIDER PREFERENCE. PT HAS [facility] OUT OF [place] FOR NURSING AND PHYSICAL THERAPY SERVICES THAT PT WANTS RESUMED. PT HAS OUTPATIENT DIALYSIS ON TTS 1000AM SCHEDULE, PT USES [facility] MEDICAID TRANSPORTATION. CM DISCUSSED AVAILABILITY OF HOME HEALTH, REHAB SERVICES AND MEDICAL EQUIPMENT. PT DENIES REHAB NEEDS, REPORTS PLAN TO RETURN TO HOME WITH FAMILY, HER AUNTE' WILL PICK HER UP FOR DISCHARGE HOME. IMPORTANT MESSAGE FROM MEDICARE PROVIDED AND EXPLAINED. CHOICE LETTER SIGNED. CM SPOKE TO RAY OF [employer] AT [employer], VERIFIED PT IS ON HOSPITAL HOLD FOR RESUMPTION OF HOME HEALTH AT DISCHARGE WITH [employer]. FOR DISCHARGE, FAX REFERRAL AND DISCHARGE INFORMATIONTO [employer] AT [phone]; NOTIFY [facility] OF DISCHARGE AT [phone] FOR RESUPMPTION OF CARE. Telephone Repairer: Albino Caicedo DCPIA - Discharge Planning Initial Assessment Updated by [email or web address]: Albino Caicedo on 12/14/18 5:30 pm * Is the patient Alert and Oriented? Yes * How many steps to enter\exit or inside your home? NONE * PCP KRISTOPHER SAEED * Pharmacy [facility] * Preadmission Environment Home with Family * ADLs Independent * Equipment Hospital Bed Walker Wheelchair * Other Equipment NO MEDICAL EQUIPMENT PROVIDER PREFERENCE * List name and contact numbers for known caregivers / representatives who currently or will assist patient after discharge: GABBY MEMBRENO, * Verbal permission to speak to the caregivers and representatives has been obtained from the patient. N/A * Community resources currently utilized Other * Please name any agencies selected above. OUTPATIENT DIALYSIS, [facility], TTS, 1000AM, MEDICAID TRANSORT BUS * Additional services required to return to the preadmission environment? No * Can the patient safely return to the preadmission environment? Yes * Has this patient been hospitalized within the prior 30 days at any hospital? No External Providers External Provider: [facility] Next Contact Date: 12/14/2018 Service Request Date: Service Type: Resolution: Reviewer: Comments: Coverage Notice Reviewer: [id number] Caicedo Notice Issued Date-Time: 12/14/2018 12:40 Notice Type: Patient Choice Letter Notice Delivered To: Patient Relationship to Patient: Loan Documentation Specialist Name: Delivery Method: HAND - Hand Delivered Gema Days: Prior Verbal Notification: Recipient Understood Notice: Yes Recipient Signature: Yes Med Rec Note Co-signed by Attending: Coverage Notice Comment: [facility] Reviewer: [id number] Hansel Caicedo Notice Issued Date-Time: 12/14/2018 12:40 Notice Type: IM Discharge Notice Notice Delivered To: Patient Relationship to Patient: Loan Documentation Specialist Name: Delivery Method: HAND - Hand Delivered Gema Days: Prior Verbal Notification: Recipient Understood Notice: Yes Recipient Signature: Yes Med Rec Note Co-signed by Attending: Coverage Notice Comment: Patient Name: CATHERINE MILLIGAN Page [phone] at 1737 All edits/amendments must be made on the electronic document DICTATION DATE: 12/14/181735 HAND LOOM WEAVER: MCKAYLA 12/14/181735 RPT#: [id number] DC DATE: STATUS: ADM IN [facility] [address] [place] [address] END OF REPORT
--- NOTE | 2018-12-14 19:52 | NUR ---
TO PT ROOM VIA CRIPPLE CUTTER. PT BP 68/38 AFTER BEING RETAKEN SEVERAL TIMES. STILL HAVE NOT RECIEVED REPORT YET FROM [facility]. ADMINISTERED NS TO PT AT 100 ML/HR AND WILL RECHECK BP IN 30 MIN. PT A/O X4, STATES SHE'S BEEN SLEEPY THROUGHOUT THE DAY. SPO2 94%, VSS OTHERWISE. WCTM. CL IN REACH, SR UP X2, BED IN LOWEST POSITION.
[2018-12-14 20:00] VITALS: BP 90/62
[2018-12-15 00:27] VITALS: BP 106/60
[2018-12-15 05:02] VITALS: BP 110/56
--- NOTE | 2018-12-15 06:00 | NUR ---
PT VSS THROUGHOUT THE NIGHT. BP IN UPPER 90'S TO LOWER 100'S FOR MOST OF THE NIGHT. NS GOING IN TO R WRIST AT 100 ML/HR. PT A/O X4, NO C/O PAIN/DISCMFORT. RR EVEN AND UL, NO S/S OF DISTRESS. NO NEEDS NOTED AT THIS TIME. CL IN REACH, SR UP X2, BED IN LOWEST POSITION.
[2018-12-15 07:59] VITALS: BP 131/93
--- NOTE | 2018-12-15 08:24 | NUR ---
SET PT'S BREAKFAST TRAY UP FOR HER BUT PT REFUSED TO EAT BREAKFAST STATING SHE IS "NOT HUNGRY."
--- NOTE | 2018-12-15 08:50 | NUR ---
PT TAKEN TO DIALYSIS VIA BED.
--- NOTE | 2018-12-15 11:00 | NUR ---
REPORT RECEIVED FROM SOILA IN DIALYSIS SHE STATES THEY REMOVED AN 8 INCH CLOT STRING FROM PT'S ACCESS AND PT WILL STAR ON LOVENOX. SHE ALSO STATED THEY REMOVED 800ML.
--- NOTE | 2018-12-15 11:03 | NUR ---
PT RETURNED FROM DIALYSIS VIA BED.
[2018-12-15 11:30] VITALS: BP 129/67
--- NOTE | 2018-12-15 13:38 | NUR ---
RESTING QUIETLY NAD NOTED
--- NOTE | 2018-12-15 14:41 | NUR ---
PER PHYSICAL THERPAIST PT AMBULATED YESTERDAY WITH WALKER 35 FT.
[2018-12-15 20:00] VITALS: BP 100/73
--- NOTE | 2018-12-15 20:00 | NUR ---
INITIAL ROUNDS AND ASSESSMENT COMPLETED. PT RESTING IN BED WITH C/O CONSTIPATION, YET HAD A BM TODAY. MONITOR AND CPOC.
--- NOTE | 2018-12-15 23:00 | NUR ---
BEDTIME MEDS GIVEN. PT RESTING WITH NO DISCOMFORT. MONITOR AND CPOC.
[2018-12-16] VITALS: BP 119/76
--- NOTE | 2018-12-16 02:09 | NUR ---
RESTING IN BED. PT HAS HAD A BM AND CARE PROVIDED.
[2018-12-16 04:00] VITALS: BP 108/67
--- NOTE | 2018-12-16 04:30 | NUR ---
IVF AT [facility] STARTED AND IV ABT UP AND INFUSING. PT HAS COLLECTED UP ENOUGH SPIT/SPUTUM FOR SPECIMEN TO BE SENT IN TO THE LAB.
[2018-12-16 06:19] LABS: INR 1.31 (0.85-1.17); PROTIME 15.8 SECONDS (11.6-15.0)
[2018-12-16 06:22] LABS: BASOPHILS 0.3 % (0-2); EOSINOPHILS 0.8 % (0-7); HEMATOCRIT 26.2 % (36.0-48.0); HEMOGLOBIN 8.4 g/dL (12-16); IMMATURE GRANULOCYTES 0.6 % (0-5); LYMPHOCYTES 11.8 % (15-50); MCH 28.9 pg (26.0-34.0); MCHC 32.1 g/dL (31.0-37.0); MEAN PLATELET VOLUME 10.8 fL (7.4-10.4); MONOCYTES 12.8 % (2-11); NEUTROPHILS 73.7 % (40-80); PLATELET COUNT 339 10x3/uL (130-400); RBC 2.91 10x6/uL (4.00-5.40); RDW 15.3 % (11.5-14.5); WBC 14.7 10x3/uL (4.8-10.8)
[2018-12-16 06:50] LABS: ALBUMIN 1.7 g/dL (3.4-5.0); ANION GAP 17.1 mmol/L (8-16); BILIRUBIN - TOTAL 0.2 mg/dL (0.2-1.3); CALCIUM 8.4 mg/dL (8.5-10.1); CARBON DIOXIDE 26.9 mmol/L (21.0-32.0); CREATININE - SERUM 9.3 mg/dL (0.6-1.3); PHOSPHOROUS 5.1 mg/dL (2.5-4.9); PROTEIN - SERUM 6.6 g/dL (6.4-8.2)
--- NOTE | 2018-12-16 07:34 | NUR ---
AM ROUNDS COMPLETED. VSS, AAOX3, NO S/S OF DISTRESS, RR UNBALORED. SR UP X2, PT UP IN BED WITH BOTH EYES OPEN. PT DENIES ANY NEEDSFOR COMFORT CARE AT THIS TIME. WILL CPOC. CL IN REACH, BED IN LOW.
[2018-12-16 08:12] VITALS: BP 128/72
[2018-12-16 10:50] VITALS: BP 128/72
--- NOTE | 2018-12-16 12:56 | NUR ---
PT C/O NAUSEA. PRN IV ZOFRAN GIVEN. WILL CTM. PT ALSO C/O DISCOMFORT ON HER BUTTOCKS. CHANGED PT POSITION TO HER LEFT SIDE AND APPLIED ALOE VESTA PROTECTIVE OINTMENT ON PT BUTTOCKS.
[2018-12-16 17:41] VITALS: BP 119/53
--- NOTE | 2018-12-16 20:17 | NUR ---
ALERT/AWAKE DENIES PAIN OR ANY NEEDS. STATED "YES, I FEEL FINE". ADMIN SCHED MEDS WITH SIPS OF WATER. FLUSHED IV WITH NS 10ML FLUSH. ORIENTED TO CALL LIGHT FOR ANY NEEDS.
[2018-12-16 20:38] VITALS: BP 121/57
[2018-12-17] VITALS (11 sets, daily range): BP systolic 92–135; BP diastolic 54–80
--- NOTE | 2018-12-17 00:10 | NUR ---
REQUESTED BEDPAN FOR BM. STATED COULD ONLY PASS A SMALL HARD STOOL AND STILL FEELS ALOT OF ABD CRAMPING/PRESSURE. SHE IS PASSING SOME AUDIBLE GAS AND HAS VERY AUDIBLE ACTIVE STOMACH RUMBLING. GAVE HER SOME WARM PRUNE JUICE AND A HYDROCODONE 7.5MG PO FOR C/O ABD PAIN LEVEL 8 ON NUMBER SCALE, DESCRIBED PRESSURE/ACHING.
--- NOTE | 2018-12-17 01:46 | NUR ---
REQUESTED BEDPAN AGAIN. PASSED SOME LT BROWN SOFT STOOL.
--- NOTE | 2018-12-17 05:15 | NUR ---
BOATBUILDER WOOD GAVE BATH USING HIBICLENS SOAP. BEDDING CHANGED.
[2018-12-17 05:25] LABS: BASOPHILS 0.2 % (0-2); HEMATOCRIT 26.4 % (36.0-48.0); HEMOGLOBIN 8.5 g/dL (12-16); IMMATURE GRANULOCYTES 0.5 % (0-5); LYMPHOCYTES 11.2 % (15-50); MCH 28.8 pg (26.0-34.0); MCHC 32.2 g/dL (31.0-37.0); MCV 89.5 fL (80.0-100.0); MEAN PLATELET VOLUME 10.5 fL (7.4-10.4); MONOCYTES 14.7 % (2-11); NEUTROPHILS 72.4 % (40-80); PLATELET COUNT 361 10x3/uL (130-400); RBC 2.95 10x6/uL (4.00-5.40); RDW 15.5 % (11.5-14.5); WBC 14.5 10x3/uL (4.8-10.8)
[2018-12-17 05:56] LABS: ALBUMIN 1.8 g/dL (3.4-5.0); ANION GAP 16.6 mmol/L (8-16); BILIRUBIN - TOTAL 0.18 mg/dL (0.2-1.3); CALCIUM 8.7 mg/dL (8.5-10.1); CARBON DIOXIDE 25.8 mmol/L (21.0-32.0); CREATININE - SERUM 10.4 mg/dL (0.6-1.3); POTASSIUM - SERUM 3.4 mmol/L (3.5-5.1); PROTEIN - SERUM 6.7 g/dL (6.4-8.2)
--- NOTE | 2018-12-17 07:20 | NUR ---
PT IN BED. WATCHING TV. PT HAS NO FURTHER NEEDS AT THIS TIME. ABX DONE INFUSING FLUSHED RIGHT HAND IV WIHT 1OCC NS AND SL IV. PT IS NPO FOR SX AT 1215 TODAY. WILL CONTINUE WITH PLAN OF CARE. BED LOW. CL IN REACH.
--- NOTE | 2018-12-17 07:20 | NUR ---
PT IN BED. WATCHING TV. PT HAS NO FURTHER NEEDS AT THIS TIME. ABX DONE INFUSING FLUSHED RIGHT HAND IV WIHT 1OCC NS AND SL IV. PT IS NPO FOR SX AT 1215 TODAY AND PT TO HAVE HD AFTER SX. WILL CONTINUE WITH PLAN OF CARE. BED LOW. CL IN REACH.
--- NOTE | 2018-12-17 09:53 | NUR ---
RESTS IN BED WITH CALL LIGHT IN REACH. RESP UL ON . FAMILY AT BS. WILL CONT. PLAN OF CARE.
--- NOTE | 2018-12-17 10:31 | NUR ---
PT HAD ORDER FOR HD YESTERDAY BUT FISTULA IS CLOTTED SO PT DID NOT RECEIVED HD. VERIFIED WITH DR. FERNANDEZ THAT PT NEEDS TO GO TO HD AFTER SX. CALLED DIALYSIS AT 1420 AND DID NOT RECEIVE AN ANSWER. WILL KEEP CALLING.
--- NOTE | 2018-12-17 11:11 | NUR ---
SPOKE WITH OR THEY STATED PT IS SCHEDULED FOR "ROUGHLY NOON." BUT TO GO AHEAD AND PREOP.
--- NOTE | 2018-12-17 12:23 | NUR ---
PT TAKEN TO SX VIA BED.
--- NOTE | 2018-12-17 14:57 | NUR ---
SPOKE WITH SOILA FROM DIALYSIS AND STATED TO HER PT SHOULD BE ALMOST DONE WITH HER PROCEDURE AND THEN SHE'LL BE READY FOR DIALYSIS. SHE STATED TO ME PT IS A TUES., THURS., AND SAT. I STATED TO HER I KNOW THAT BUT DR. FERNANDEZ CHANGED IT AND WANTS HER DONE TODAY. SHE THEN STATED TO ME SHE'S "IN ICU RIGHT NOW BUT I'LL LOOK AT IT WHEN I GETS BACK DOWN THERE(DIALYSIS ROOM)." I VERBALIZED UNDERSTANDING TO HER.
--- NOTE | 2018-12-17 15:05 | NUR ---
PT RETURNED FROM OR. ALERT AND ORIENTED. VS STABLE. OR NURSE STATES PT ONLY RECEIVED LOCAL ANESTHESTIC SO THEY BYPASSED PACU. DR. HARRIS COULD NOT GET LT ARM FISTULA TO DECLOT PUT A 19CM RIGHT CHEST HEMOPSLIT WAS PLACED. RIGHT CHEST HEMOSPLIT C/D/I. LT AV FISTULA HAS NO DRESSING. PT EATING LUNCH TRAY. PT HAS NO FURTHER NEEDS AT THIS TIME. WILL CONTINUE TO MONITOR. BED LOW. CL IN REACH. PT TO DIALYIZE TODAY.
--- NOTE | 2018-12-17 17:19 | NUR ---
CAN NOT GET [facility] OF DIALYSIS, [facility], NOR SHOCK ABSORPTION FLOOR LAYER REGARDING PT TO HAVE RECEVIED DIALYSIS BY NOW.
--- NOTE | 2018-12-17 17:23 | NUR ---
LEFT A VOICEMAIL FOR [facility] ABOUT PT NOT RECEIVING HD YET WHEN THEY STATED THEY WERE GOING TO COME AND TO SEE IF SHE COULD GET [facility] OF DIALYSIS. LEFT MED 2 PHONE NUMBER WITH VOICEMIL MESSAGE.
--- NOTE | 2018-12-17 17:35 | NUR ---
SPOKE WITH [facility] AND SHE STATES [facility] DIALYSIS NURSE STATES TO HER SHE IS AWARE PT NEEDING DIALYSIS.
--- NOTE | 2018-12-17 18:00 | NUR ---
PT TAKEN TO DIALYSIS VIA BED.
--- NOTE | 2018-12-17 19:18 | NUR ---
PT CURRENTLY IN DIALYSIS.
--- NOTE | 2018-12-17 21:36 | NUR ---
BACK TO ROOM FROM DILAYSIS.
[2018-12-18 02:25] VITALS: BP 123/79
[2018-12-18 05:33] LABS: BASOPHILS 0.2 % (0-2); EOSINOPHILS 0.7 % (0-7); HEMATOCRIT 26.9 % (36.0-48.0); HEMOGLOBIN 8.8 g/dL (12-16); IMMATURE GRANULOCYTES 0.4 % (0-5); LYMPHOCYTES 9.7 % (15-50); MCH 29.2 pg (26.0-34.0); MCHC 32.7 g/dL (31.0-37.0); MCV 89.4 fL (80.0-100.0); MEAN PLATELET VOLUME 10.5 fL (7.4-10.4); MONOCYTES 14.9 % (2-11); NEUTROPHILS 74.1 % (40-80); PLATELET COUNT 340 10x3/uL (130-400); RBC 3.01 10x6/uL (4.00-5.40); RDW 15.6 % (11.5-14.5); WBC 12.4 10x3/uL (4.8-10.8)
[2018-12-18 05:45] LABS: ALBUMIN 1.9 g/dL (3.4-5.0); ANION GAP 17.5 mmol/L (8-16); BILIRUBIN - TOTAL 0.28 mg/dL (0.2-1.3); CALCIUM 8.9 mg/dL (8.5-10.1); PHOSPHOROUS 4.7 mg/dL (2.5-4.9); POTASSIUM - SERUM 3.5 mmol/L (3.5-5.1); PROTEIN - SERUM 7.1 g/dL (6.4-8.2)
[2018-12-18 05:46] LABS: CREATININE - SERUM 7.5 mg/dL (0.6-1.3)
[2018-12-18 06:24] VITALS: BP 102/59
[2018-12-18 08:14] VITALS: BP 93/60
--- NOTE | 2018-12-18 09:10 | NUR ---
UP IN W/C. CALL LIGHT IN REACH. WILL MONITOR NEEDS.
--- NOTE | 2018-12-18 11:04 | NUR ---
PT UP WALKING WITH PHYSICAL THERAPY WITH WALKER.
--- NOTE | 2018-12-18 11:22 | MORECARE ---
CASE MANAGEMENT DISCHARGE SUMMARY PATIENT: CATHERINE MILLIGAN UNIT: [id number] ADM DATE: 12/08/18 AGE: 63 : 59 SEX: F ROOM/BED: D.6534 AUTHOR: YANETH,DOC PHYSICIAN: REFERRING PHYSICIAN: YESENIA CHAVEZ MD DATE OF SERVICE: 12/18/18 Discharge Plan Patient Name: CATHERINE MILLIGAN Facility: [facility]:[place] : 1955 Planned Disposition: Home with Home Health Anticipated Discharge Date: 12/19/18 Discharge Date: Expected LOS: 11 Initial Reviewer: [id number] Initial Review Date: 12/13/2018 Generated: 12/18/18 12:22 pm Comments DCP- Discharge Planning Updated by [id number]: Albino Caicedo on 12/14/18 4:[address] Patient Name: CATHERINE MILLIGAN Admission Status: ER Accout number: [id number] Admission Date: 12-08-2018 : 1955 Admission Diagnosis:LOBAR PNEUMONIA, UNSPECIFIED ORGANISM Attending: YESENIA CHAVEZ Current LOS: 6 Anticipated DC Date: 12-15-2018 Planned Disposition: Home with Home Health Primary Insurance: MEDICARE A & B PLANNED EXTERNAL PROVIDER: [facility] Discharge Planning Comments: CM REVIEWED CHART, PHYSICIAN NOTES INDICATING NEED FOR POSSIBLE REHAB OR DISCHARGE HOME. CM MET WITH PT IN ROOM TO DISCUSS DISCHARGE PLANNING AND NEEDS. PT REPORTS LIVING AT HOME INDEPENDENTLY WITH SONS. PT HAS HOSPITAL BED, ROLLING WALKER AND WHEELCHAIR WITH NO MEDICAL EQUIPMENT PROVIDER PREFERENCE. PT HAS [employer] [facility] OUT OF [place] FOR NURSING AND PHYSICAL THERAPY SERVICES THAT PT WANTS RESUMED. PT HAS OUTPATIENT DIALYSIS ON TTS 1000AM SCHEDULE, PT USES [facility] TRANSPORTATION. CM DISCUSSED AVAILABILITY OF HOME HEALTH, REHAB SERVICES AND MEDICAL EQUIPMENT. PT DENIES REHAB NEEDS, REPORTS PLAN TO RETURN TO HOME WITH FAMILY, HER AUNTE' WILL PICK HER UP FOR DISCHARGE HOME. IMPORTANT MESSAGE FROM MEDICARE PROVIDED AND EXPLAINED. CHOICE LETTER SIGNED. CM SPOKE TO RAY OF [employer] AT [employer], VERIFIED PT IS ON HOSPITAL HOLD FOR RESUMPTION OF HOME HEALTH AT DISCHARGE WITH [employer]. FOR DISCHARGE, FAX REFERRAL AND DISCHARGE INFORMATIONTO [facility] AT [phone]; NOTIFY [facility] OF DISCHARGE AT [phone] FOR RESUPMPTION OF CARE. Video Control Engineer: Albino Caicedo DCPIA - Discharge Planning Initial Assessment Updated by [id number]: Albino Caicedo on 12/14/18 5:30 pm * Is the patient Alert and Oriented? Yes * How many steps to enter\exit or inside your home? NONE * PCP [facility]EED * Pharmacy [facility] * Preadmission Environment Home with Family * ADLs Independent * Equipment Hospital Bed Walker Wheelchair * Other Equipment NO MEDICAL EQUIPMENT PROVIDER PREFERENCE * List name and contact numbers for known caregivers / representatives who currently or will assist patient after discharge: GABBY MEMBRENO, * Verbal permission to speak to the caregivers and representatives has been obtained from the patient. N/A * Community resources currently utilized Other * Please name any agencies selected above. OUTPATIENT DIALYSIS, [facility], TTS, 1000AM, MEDICAID TRANSORT BUS * Additional services required to return to the preadmission environment? No * Can the patient safely return to the preadmission environment? Yes * Has this patient been hospitalized within the prior 30 days at any hospital? No Coverage Notice Reviewer: [id number] Caicedo Notice Issued Date-Time: 12/14/2018 12:40 Notice Type: Patient Choice Letter Notice Delivered To: Patient Relationship to Patient: Electronic Scale Assembler And Tester Name: Delivery Method: HAND - Hand Delivered Gema Days: Prior Verbal Notification: Recipient Understood Notice: Yes Recipient Signature: Yes Med Rec Note Co-signed by Attending: Coverage Notice Comment: [facility] Reviewer: [id number] Caicedo Notice Issued Date-Time: 12/14/2018 12:40 Notice Type: IM Discharge Notice Notice Delivered To: Patient Relationship to Patient: Electronic Scale Assembler And Tester Name: Delivery Method: HAND - Hand Delivered Gema Days: Prior Verbal Notification: Recipient Understood Notice: Yes Recipient Signature: Yes Med Rec Note Co-signed by Attending: Coverage Notice Comment: Reviewer: [id number] Caicedo Notice Issued Date-Time: 12/18/2018 11:15 Notice Type: IM Discharge Notice Notice Delivered To: Patient Relationship to Patient: Electronic Scale Assembler And Tester Name: Delivery Method: HAND - Hand Delivered Gema Days: Prior Verbal Notification: Recipient Understood Notice: Yes Recipient Signature: Yes Med Rec Note Co-signed by Attending: Coverage Notice Comment: Last DP export: 12/14/18 4:36 pm Patient Name: CATHERINE MILLIGAN Page [phone] at 1122 All edits/amendments must be made on the electronic document DICTATION DATE: 12/18/181121 CAMPAIGN ASSOCIATE: MCKAYLA 12/18/181121 RPT#: [id number] DC DATE: STATUS: ADM IN [facility] [address] [place] [address] END OF REPORT
--- NOTE | 2018-12-18 11:33 | MORECARE ---
CASE MANAGEMENT DISCHARGE SUMMARY PATIENT: CATHERINE MILLIGAN UNIT: [id number] ADM DATE: 12/08/18 AGE: 63 : 59 SEX: F ROOM/BED: D.7194 AUTHOR: YANETH,DOC PHYSICIAN: REFERRING PHYSICIAN: YESENIA CHAVEZ MD DATE OF SERVICE: 12/18/18 Discharge Plan Patient Name: CATHERINE MILLIGAN Facility: [facility]:[place] : 1955 Planned Disposition: Home with Home Health Anticipated Discharge Date: 12/19/18 Discharge Date: Expected LOS: 11 Initial Reviewer: [id number] Initial Review Date: 12/13/2018 Generated: 12/18/18 12:33 pm Comments DCP- Discharge Planning Updated by [id number]: Albino Caicedo on 12/18/18 10:[address] Patient Name: CATHERINE MILLIGAN Encounter No: [id number] : 1955 Primary Insurance: MEDICARE A & B Anticipated DC Date: 12-19-2018 Planned Disposition: Home with Home Health External Planned Provider: [facility] DCP follow-up note: CM RECEIVED OXYGEN TESTING ORDER, SPOKE TO PT IN ROOM REGARDING DISCHARGE PLANNING AND NEEDS. PT REPORTS PLAN TO RETURN HOME WITH [facility]. PT'S AUNT TO HEALTH INFORMATION MANAGERS. IF PT NEEDS OXYGEN SHE HAS NOT CHOICE ON PROVIDER AND HAS USED [facility] IN THE PAST. CHOICE SIGNED FOR ANY OR [facility]. IMPORTANT MESSAGE FROM MEDICARE PROVIDED AND EXPLAINED. CM TO ARRANGE OXYGEN WITH [facility] IF OXYGEN TESTING INDICATES NEED. CM WAITING ON OXYGEN TESTING RESULTS. FOR DISCHARGE, FAX REFERRAL AND DISCHARGE INFORMATIONTO [facility] AT [phone]; NOTIFY [facility] OF DISCHARGE AT [phone] FOR RESUPMPTION OF CARE. Port Traffic Manager: Albino Caicedo DCP- Discharge Planning Updated by [id number]: Albino Caicedo on 12/14/18 4:[address] Patient Name: CATHERINE MILLIGAN Admission Status: ER Accout number: [id number] Admission Date: 12-08-2018 : 1955 Admission Diagnosis:LOBAR PNEUMONIA, UNSPECIFIED ORGANISM Attending: YESENIA CHAVEZ Current LOS: 6 Anticipated DC Date: 12-15-2018 Planned Disposition: Home with Home Health Primary Insurance: MEDICARE A & B PLANNED EXTERNAL PROVIDER: [facility] Discharge Planning Comments: CM REVIEWED CHART, PHYSICIAN NOTES INDICATING NEED FOR POSSIBLE REHAB OR DISCHARGE HOME. CM MET WITH PT IN ROOM TO DISCUSS DISCHARGE PLANNING AND NEEDS. PT REPORTS LIVING AT HOME INDEPENDENTLY WITH SONS. PT HAS HOSPITAL BED, ROLLING WALKER AND WHEELCHAIR WITH NO MEDICAL EQUIPMENT PROVIDER PREFERENCE. PT HAS [facility] OUT OF [place] FOR NURSING AND PHYSICAL THERAPY SERVICES THAT PT WANTS RESUMED. PT HAS OUTPATIENT DIALYSIS ON TTS 1000AM SCHEDULE, PT USES [facility]ICA[facility] TRANSPORTATION. CM DISCUSSED AVAILABILITY OF HOME HEALTH, REHAB SERVICES AND MEDICAL EQUIPMENT. PT DENIES REHAB NEEDS, REPORTS PLAN TO RETURN TO HOME WITH FAMILY, HER AUNTE' WILL PICK HER UP FOR DISCHARGE HOME. IMPORTANT MESSAGE FROM MEDICARE PROVIDED AND EXPLAINED. CHOICE LETTER SIGNED. CM SPOKE TO RAY OF [facility] [employer] STATION, VERIFIED PT IS ON HOSPITAL HOLD FOR RESUMPTION OF HOME HEALTH AT DISCHARGE WITH [facility]. FOR DISCHARGE, FAX REFERRAL AND DISCHARGE INFORMATIONTO [facility] AT [phone]; NOTIFY [facility] OF DISCHARGE AT [phone] FOR RESUPMPTION OF CARE. Port Traffic Manager: Albino Caicedo DCPIA - Discharge Planning Initial Assessment Updated by [id number]: Albino Caicedo on 12/14/18 5:30 pm * Is the patient Alert and Oriented? Yes * How many steps to enter\exit or inside your home? NONE * PCP KRISTOPHER SAEED * [facility] * Preadmission Environment Home with Family * ADLs Independent * Equipment Hospital Bed Walker Wheelchair * Other Equipment NO MEDICAL EQUIPMENT PROVIDER PREFERENCE * List name and contact numbers for known caregivers / representatives who currently or will assist patient after discharge: GABBY MEMBRENO, * Verbal permission to speak to the caregivers and representatives has been obtained from the patient. N/A * Community resources currently utilized Other * Please name any agencies selected above. OUTPATIENT DIALYSIS, [facility], TTS, 1000AM, MEDICAID TRANSORT BUS * Additional services required to return to the preadmission environment? No * Can the patient safely return to the preadmission environment? Yes * Has this patient been hospitalized within the prior 30 days at any hospital? No Coverage Notice Reviewer: [id number] Caicedo Notice Issued Date-Time: 12/18/2018 11:20 Notice Type: Patient Choice Letter Notice Delivered To: Patient Relationship to Patient: Back Sewer Name: Delivery Method: HAND - Hand Delivered Gema Days: Prior Verbal Notification: Recipient Understood Notice: Yes Recipient Signature: Yes Med Rec Note Co-signed by Attending: Coverage Notice Comment: [employer]MENT [employer] Reviewer: ARIAS Caicedo Notice Issued Date-Time: 12/14/2018 12:40 Notice Type: Patient Choice Letter Notice Delivered To: Patient Relationship to Patient: Back Sewer Name: Delivery Method: HAND - Hand Delivered Gema Days: Prior Verbal Notification: Recipient Understood Notice: Yes Recipient Signature: Yes Med Rec Note Co-signed by Attending: Coverage Notice Comment: [facility] Reviewer: ARIAS Caicedo Notice Issued Date-Time: 12/18/2018 11:15 Notice Type: IM Discharge Notice Notice Delivered To: Patient Relationship to Patient: Back Sewer Name: Delivery Method: HAND - Hand Delivered Gema Days: Prior Verbal Notification: Recipient Understood Notice: Yes Recipient Signature: Yes Med Rec Note Co-signed by Attending: Coverage Notice Comment: Reviewer: ARIAS Caicedo Notice Issued Date-Time: 12/14/2018 12:40 Notice Type: IM Discharge Notice Notice Delivered To: Patient Relationship to Patient: Back Sewer Name: Delivery Method: HAND - Hand Delivered Gema Days: Prior Verbal Notification: Recipient Understood Notice: Yes Recipient Signature: Yes Med Rec Note Co-signed by Attending: Coverage Notice Comment: Last DP export: 12/18/18 10:22 a Patient Name: CATHERINE MILLIGAN Page [id number] at 1133 All edits/amendments must be made on the electronic document DICTATION DATE: 12/18/18 1133 STRADDLE TRUCK DRIVER: MCKAYLA 12/18/18 1133 RPT#: [id number] DC DATE: STATUS: ADM IN [facility] [address] [place] [address] END OF REPORT
[2018-12-18 11:57] VITALS: BP 102/61
--- NOTE | 2018-12-18 14:41 | NUR ---
Nutrition follow-up: Diet: Renal; okay for some K foods due to low K PO intake ~60% of meals; pt has been NPO for procedure also Labs reviewed Wt: 290# RDN will offer nutritional supplement. Following.
[2018-12-18 15:52] VITALS: BP 106/64
[2018-12-18 20:00] VITALS: BP 87/42
--- NOTE | 2018-12-18 20:52 | NUR ---
HS MEDS GIVEN WITH FRESH ICE WATER, ULTRAM 1 TAB GIVEN FOR C/O PAIN RIGHT CHEST FROM HEMOSPLIT INSERTION, RATES PAIN AT AN 8 ON PAIN SCALE.
--- NOTE | 2018-12-19 03:26 | NUR ---
PT UP IN W/C WITH ASSIST, PT GOING AROUND NURSES STATION.
[2018-12-19 04:00] VITALS: BP 105/70
[2018-12-19 06:08] LABS: BASOPHILS 0.1 % (0-2); EOSINOPHILS 0.7 % (0-7); HEMATOCRIT 27.4 % (36.0-48.0); HEMOGLOBIN 8.9 g/dL (12-16); IMMATURE GRANULOCYTES 0.6 % (0-5); LYMPHOCYTES 9.1 % (15-50); MCH 29.2 pg (26.0-34.0); MCHC 32.5 g/dL (31.0-37.0); MCV 89.8 fL (80.0-100.0); MEAN PLATELET VOLUME 10.5 fL (7.4-10.4); MONOCYTES 13.8 % (2-11); NEUTROPHILS 75.7 % (40-80); PLATELET COUNT 357 10x3/uL (130-400); RBC 3.05 10x6/uL (4.00-5.40); RDW 15.7 % (11.5-14.5); WBC 13.4 10x3/uL (4.8-10.8)
[2018-12-19 06:24] LABS: ALKALINE PHOSPHATASE 126 U/L (46-116); BILIRUBIN - TOTAL 0.27 mg/dL (0.2-1.3); CALCIUM 9.6 mg/dL (8.5-10.1); CARBON DIOXIDE 26.6 mmol/L (21.0-32.0); CHLORIDE - SERUM 96 mmol/L (98-107); CREATININE - SERUM 8.8 mg/dL (0.6-1.3); GLUCOSE 108 mg/dL (74-106); POTASSIUM - SERUM 3.6 mmol/L (3.5-5.1); PROTEIN - SERUM 7.2 g/dL (6.4-8.2); SODIUM 137 mmol/L (136-145); eGFR NON AFRICAN AMERICAN 5 mL/min (90-120)
[2018-12-19 06:26] LABS: CALC OSMOLALITY 286 mosm/kg (275-300); UREA NITROGEN 47 mg/dL (7-18)
[2018-12-19 06:27] LABS: ALT (SGPT) < 6 U/L (10-68)
[2018-12-19 08:15] VITALS: BP 118/62
[2018-12-19] MEDS ORDERED: ELIQUIS2.5 MG PO (08:19)
--- NOTE | 2018-12-19 09:10 | NUR ---
PT TAKEN TO DILAYSIS VIA BED.
--- NOTE | 2018-12-19 09:25 | NUR ---
SOILA NURSE IN DIALYSIS STATES TO ME LT AV FISTULA IS WORKING AND TO TELL . REPORTED THIS TO CATHERINE RODRIGUES AND SHE STATES SHE WILL GET AHOLD OF DR. HARRIS AND SPEAK WITH HIM.
--- NOTE | 2018-12-19 09:31 | NUR ---
IN DIALYSIS AT THIS TIME. WILL CONT. PLAN OF CARE.
--- NOTE | 2018-12-19 10:11 | NUR ---
HEMOSPLIT DRESSING KIT TAKEN TO DIALYSIS.
--- NOTE | 2018-12-19 12:59 | NUR ---
DIALYSIS STATES BP 146/57 HR 101 TEMP 97.8 3L OFF USING LEFT ARM FISTULA.
--- NOTE | 2018-12-19 13:20 | NUR ---
PT RETURNED FROM DIALYSIS VIA BED. PT STATES SHE IS READY TO GO HOME BUT SHE DOESN'T THINK THEY ARE GOING TO LET HER. I STATED TO PT CATHERINE RODRIGUES IS SUPPOSSED TO SPEAK WITH DR. HARRIS AND THAT DEPENDS ON HER DISCHARGE. I ALSO STATED TO PT WHEN I FIND OUT SOMETHING I WILL LET HER KNOW. PT VERBALIZED UNDERSTANDING.
[2018-12-19 15:26] VITALS: BP 110/66
--- NOTE | 2018-12-19 16:24 | NUR ---
HAVE NOT HEARD FROM CATHERINE RODRIGUES IF PT WILL BE DC'D TODAY. PT AND PT'S FMAILY WANTING TO KNOW. PAGED CATHERINE RODRIGUES.
--- NOTE | 2018-12-19 16:26 | NUR ---
SPOKE WITH CATHERINE RODRIGUES SHE STATES SHE THOUGHT SHE PUT IN A DC ORDER. SHE STATES DIALYSIS IS GOING TO SET UP OUTPATIENT WITH IR AND DR. FERNANDEZ ALREADY DID HOME MEDS.
--- NOTE | 2018-12-19 16:36 | NUR ---
TELEMETRY DC'D. RIGHT HAND 22G IV DC'D WITH CATH INTACT.
--- NOTE | 2018-12-19 18:05 | NUR ---
PT WANTING SOMETHING FOR PAIN BEFORE SHE IS DC AND STATES "I WON'T BE ABLE TO GET ANY REST TONIGHT WITHOUT IT." I ASKED IF SHE WOULD LIKE FOR ME TO CALL THE DOCTOR. SHE STATES "YES CALL THE DOCTOR!!!" PAGED CATHERINE RODRIGUES.
--- NOTE | 2018-12-19 18:40 | NUR ---
DISCHARGE INSTRUCTIONS GIVEN AND EXPLAINED TO PT. PT VERBALZIED UNDERSTANDING. PT STATES SHE HAS NO FURTHER QUESTIONS AT THIS TIME. CHART COPY SIGNED.
--- NOTE | 2018-12-19 18:56 | NUR ---
PT TAKEN DOWN VIA WC BY THIS NURSE ACCOMPANIED BY FAMILY.
--- NOTE | 2018-12-20 09:17 | MORECARE ---
CASE MANAGEMENT DISCHARGE SUMMARY PATIENT: CATHERINE MILLIGAN UNIT: [id number] ADM DATE: 12/08/18 AGE: 63 : 59 SEX: F ROOM/BED: D.2434 AUTHOR: YANETH,DOC PHYSICIAN: REFERRING PHYSICIAN: YESENIA CHAVEZ MD DATE OF SERVICE: 12/20/18 Discharge Plan Patient Name: CATHERINE MILLIGAN Facility: [facility]:[place] : 1955 Planned Disposition: Home with Home Health Anticipated Discharge Date: 12/19/18 Discharge Date: 12/19/2018 Expected LOS: 11 Initial Reviewer: ARIAS Initial Review Date: 12/13/2018 Generated: 12/20/18 10:16 am Comments DCP- Discharge Planning Updated by [email or web address]: Albino Caicedo on 12/18/18 10:[address] Patient Name: CATHERINE MILLIGAN Encounter No: [id number] : 1955 Primary Insurance: MEDICARE A & B Anticipated DC Date: 12-19-2018 Planned Disposition: Home with Home Health External Planned Provider: [facility] DCP follow-up note: CM RECEIVED OXYGEN TESTING ORDER, SPOKE TO PT IN ROOM REGARDING DISCHARGE PLANNING AND NEEDS. PT REPORTS PLAN TO RETURN HOME WITH [facility] FOR HOME HEALTH. PT'S AUNT TO VP PURCHASING. IF PT NEEDS OXYGEN SHE HAS NOT CHOICE ON PROVIDER AND HAS USED [facility] IN THE PAST. CHOICE SIGNED FOR ANY OR [facility]. IMPORTANT MESSAGE FROM MEDICARE PROVIDED AND EXPLAINED. CM TO ARRANGE OXYGEN WITH [facility] IF OXYGEN TESTING INDICATES NEED. CM WAITING ON OXYGEN TESTING RESULTS. FOR DISCHARGE, FAX REFERRAL AND DISCHARGE INFORMATIONTO [facility] AT [phone]; NOTIFY [facility] OF DISCHARGE AT [phone] FOR RESUPMPTION OF CARE. Medical Insurance Claims Processor: Albino Caicedo DCP- Discharge Planning Updated by [id number]: Albino Caicedo on 12/14/18 4:[address] Patient Name: CATHERINE MILLIGAN Admission Status: ER Accout number: [id number] Admission Date: 12-08-2018 : 1955 Admission Diagnosis:LOBAR PNEUMONIA, UNSPECIFIED ORGANISM Attending: YESENIA CHAVEZ Current LOS: 6 Anticipated DC Date: 12-15-2018 Planned Disposition: Home with Home Health Primary Insurance: MEDICARE A & B PLANNED EXTERNAL PROVIDER: [facility] Discharge Planning Comments: CM REVIEWED CHART, PHYSICIAN NOTES INDICATING NEED FOR POSSIBLE REHAB OR DISCHARGE HOME. CM MET WITH PT IN ROOM TO DISCUSS DISCHARGE PLANNING AND NEEDS. PT REPORTS LIVING AT HOME INDEPENDENTLY WITH SONS. PT HAS HOSPITAL BED, ROLLING WALKER AND WHEELCHAIR WITH NO MEDICAL EQUIPMENT PROVIDER PREFERENCE. PT HAS [facility] OUT OF [place] FOR NURSING AND PHYSICAL THERAPY SERVICES THAT PT WANTS RESUMED. PT HAS OUTPATIENT DIALYSIS ON TTS 1000AM SCHEDULE, PT USES [facility] MEDICAID TRANSPORTATION. CM DISCUSSED AVAILABILITY OF HOME HEALTH, REHAB SERVICES AND MEDICAL EQUIPMENT. PT DENIES REHAB NEEDS, REPORTS PLAN TO RETURN TO HOME WITH FAMILY, HER AUNTE' WILL PICK HER UP FOR DISCHARGE HOME. IMPORTANT MESSAGE FROM MEDICARE PROVIDED AND EXPLAINED. CHOICE LETTER SIGNED. CM SPOKE TO RAY OF [facility] AT [facility], VERIFIED PT IS ON HOSPITAL HOLD FOR RESUMPTION OF HOME HEALTH AT DISCHARGE WITH [employer]. FOR DISCHARGE, FAX REFERRAL AND DISCHARGE INFORMATIONTO [facility] AT [phone]; NOTIFY [facility] OF DISCHARGE AT [phone] FOR RESUPMPTION OF CARE. Medical Insurance Claims Processor: Albino Caicedo DCPIA - Discharge Planning Initial Assessment Updated by [email or web address]: Albino Caicedo on 12/14/18 5:30 pm * Is the patient Alert and Oriented? Yes * How many steps to enter\exit or inside your home? NONE * [facility] * [facility] * Preadmission Environment Home with Family * ADLs Independent * Equipment Hospital Bed Walker Wheelchair * Other Equipment NO MEDICAL EQUIPMENT PROVIDER PREFERENCE * List name and contact numbers for known caregivers / representatives who currently or will assist patient after discharge: GABBY MEMBRENO, * Verbal permission to speak to the caregivers and representatives has been obtained from the patient. N/A * Community resources currently utilized Other * Please name any agencies selected above. OUTPATIENT DIALYSIS, [facility], TTS, 1000AM, MEDICAID TRANSORT BUS * Additional services required to return to the preadmission environment? No * Can the patient safely return to the preadmission environment? Yes * Has this patient been hospitalized within the prior 30 days at any hospital? No External Providers External Provider: [facility] Next Contact Date: 12/14/2018 Service Request Date: Service Type: Resolution: Reviewer: Comments: Coverage Notice Reviewer: ARIAS Caicedo Notice Issued Date-Time: 12/14/2018 12:40 Notice Type: Patient Choice Letter Notice Delivered To: Patient Relationship to Patient: Cafeteria Team Leader Name: Delivery Method: HAND - Hand Delivered Gema Days: Prior Verbal Notification: Recipient Understood Notice: Yes Recipient Signature: Yes Med Rec Note Co-signed by Attending: Coverage Notice Comment: [facility] Reviewer: ARIAS Caicedo Notice Issued Date-Time: 12/14/2018 12:40 Notice Type: IM Discharge Notice Notice Delivered To: Patient Relationship to Patient: Cafeteria Team Leader Name: Delivery Method: HAND - Hand Delivered Gema Days: Prior Verbal Notification: Recipient Understood Notice: Yes Recipient Signature: Yes Med Rec Note Co-signed by Attending: Coverage Notice Comment: Reviewer: ARIAS Caicedo Notice Issued Date-Time: 12/18/2018 11:15 Notice Type: IM Discharge Notice Notice Delivered To: Patient Relationship to Patient: Cafeteria Team Leader Name: Delivery Method: HAND - Hand Delivered Gema Days: Prior Verbal Notification: Recipient Understood Notice: Yes Recipient Signature: Yes Med Rec Note Co-signed by Attending: Coverage Notice Comment: Reviewer: ARIAS Caicedo Notice Issued Date-Time: 12/18/2018 11:20 Notice Type: Patient Choice Letter Notice Delivered To: Patient Relationship to Patient: Cafeteria Team Leader Name: Delivery Method: HAND - Hand Delivered Gema Days: Prior Verbal Notification: Recipient Understood Notice: Yes Recipient Signature: Yes Med Rec Note Co-signed by Attending: Coverage Notice Comment: [facility] ANY [employer]QUIPMENT COMPANY Last DP export: 12/18/18 10:33 a Patient Name: CATHERINE MILLIGAN Page [id number] at 0917 All edits/amendments must be made on the electronic document DICTATION DATE: 12/20/18915 GROUND HOST/HOSTESS: MCKAYLA 12/20/18915 RPT#: [id number] DC DATE:12/19/18 STATUS: DIS IN [facility] [address] [place] [address] END OF REPORT
--- NOTE | 2018-12-20 09:24 | MORECARE ---
CASE MANAGEMENT DISCHARGE SUMMARY PATIENT: CATHERINE MILLIGAN UNIT: [id number] ADM DATE: 12/08/18 AGE: 63 : 59 SEX: F ROOM/BED: D.2134 AUTHOR: YANETH,DOC PHYSICIAN: REFERRING PHYSICIAN: YESENIA CHAVEZ MD DATE OF SERVICE: 12/20/18 Discharge Plan Patient Name: CATHERINE MILLIGAN Facility: [facility]:[place] : 1955 Planned Disposition: Home with Home Health Anticipated Discharge Date: 12/19/18 Discharge Date: 12/19/2018 Expected LOS: 11 Initial Reviewer: [email or web address] Initial Review Date: 12/13/2018 Generated: 12/20/18 10:23 am Comments DCP- Discharge Planning Updated by [id number]: Albino Caicedo on 12/20/18 8:[address] Patient Name: CATHERINE MILLIGAN Encounter No: [id number] : 1955 Primary Insurance: MEDICARE A & B Anticipated DC Date: 12-19-2018 Planned Disposition: Home with Home Health External Planned Provider: [facility] DCP follow-up note: CM REVIEWED CHART, PT DISCHARGED LAST NIGHT. CM FAXED DISCHARGE INFORMATIONTO [employer] AT [phone];CM CALLED AND NOTIFED O[facility] BARLOW OF DISCHARGE AT [phone] FOR RESUPMPTION OF CARE. [facility]MAR MORENO PT WAS CONTACTED THIS MORNING AND HAS DIALYSIS TODAY AND REQEUSTED RESUMPTION TOMORROW, 12-21-18. Project Engineering Director: Albino Caicedo DCP- Discharge Planning Updated by [id number]: Albino Caicedo on 12/18/18 10:[address] Patient Name: CATHERINE MILLIGAN Encounter No: [id number] : 1955 Primary Insurance: MEDICARE A & B Anticipated DC Date: 12-19-2018 Planned Disposition: Home with Home Health External Planned Provider: [facility] DCP follow-up note: CM RECEIVED OXYGEN TESTING ORDER, SPOKE TO PT IN ROOM REGARDING DISCHARGE PLANNING AND NEEDS. PT REPORTS PLAN TO RETURN HOME WITH [facility] FOR [facility] HEALTH. PT'S AUNT TO HAM STRIPPER. IF PT NEEDS OXYGEN SHE HAS NOT CHOICE ON PROVIDER AND HAS USED [facility] IN THE PAST. CHOICE SIGNED FOR ANY OR [facility]. IMPORTANT MESSAGE FROM MEDICARE PROVIDED AND EXPLAINED. CM TO ARRANGE OXYGEN WITH [facility] IF OXYGEN TESTING INDICATES NEED. CM WAITING ON OXYGEN TESTING RESULTS. FOR DISCHARGE, FAX REFERRAL AND DISCHARGE INFORMATIONTO [facility] AT [phone]; NOTIFY [facility] OF DISCHARGE AT [phone] FOR RESUPMPTION OF CARE. Project Engineering Director: Albino Caicedo DCP- Discharge Planning Updated by [id number]: Albino Caicedo on 12/14/18 4:[address] Patient Name: CATHERINE MILLIGAN Admission Status: ER Accout number: [id number] Admission Date: 12-08-2018 : 1955 Admission Diagnosis:LOBAR PNEUMONIA, UNSPECIFIED ORGANISM Attending: YESENIA CHAVEZ Current LOS: 6 Anticipated DC Date: 12-15-2018 Planned Disposition: Home with Home Health Primary Insurance: MEDICARE A & B PLANNED EXTERNAL PROVIDER: [facility] Discharge Planning Comments: CM REVIEWED CHART, PHYSICIAN NOTES INDICATING NEED FOR POSSIBLE REHAB OR DISCHARGE HOME. CM MET WITH PT IN ROOM TO DISCUSS DISCHARGE PLANNING AND NEEDS. PT REPORTS LIVING AT HOME INDEPENDENTLY WITH SONS. PT HAS HOSPITAL BED, ROLLING WALKER AND WHEELCHAIR WITH NO MEDICAL EQUIPMENT PROVIDER PREFERENCE. PT HAS [facility] OUT OF [place] FOR NURSING AND PHYSICAL THERAPY SERVICES THAT PT WANTS RESUMED. PT HAS OUTPATIENT DIALYSIS ON TTS 1000AM SCHEDULE, PT USES [facility] TRANSPORTATION. CM DISCUSSED AVAILABILITY OF HOME HEALTH, REHAB SERVICES AND MEDICAL EQUIPMENT. PT DENIES REHAB NEEDS, REPORTS PLAN TO RETURN TO HOME WITH FAMILY, HER AUNTE' WILL PICK HER UP FOR DISCHARGE HOME. IMPORTANT MESSAGE FROM MEDICARE PROVIDED AND EXPLAINED. CHOICE LETTER SIGNED. CM SPOKE TO RAY OF [employer] AT NURSES STATION, VERIFIED PT IS ON HOSPITAL HOLD FOR RESUMPTION OF HOME HEALTH AT DISCHARGE WITH [employer]. FOR DISCHARGE, FAX REFERRAL AND DISCHARGE INFORMATIONTO [facility] AT [phone]; NOTIFY [facility] OF DISCHARGE AT [phone] FOR RESUPMPTION OF CARE. Project Engineering Director: Albino Caicedo DCPIA - Discharge Planning Initial Assessment Updated by [id number]: Albino Caicedo on 12/14/18 5:30 pm * Is the patient Alert and Oriented? Yes * How many steps to enter\exit or inside your home? NONE * PCP [facility] * [facility] * Preadmission Environment Home with Family * ADLs Independent * Equipment Hospital Bed Walker Wheelchair * Other Equipment NO MEDICAL EQUIPMENT PROVIDER PREFERENCE * List name and contact numbers for known caregivers / representatives who currently or will assist patient after discharge: GABBY MEMBRENO, * Verbal permission to speak to the caregivers and representatives has been obtained from the patient. N/A * Community resources currently utilized Other * Please name any agencies selected above. OUTPATIENT DIALYSIS, [facility], TTS, 1000AM, MEDICAID TRANSORT BUS * Additional services required to return to the preadmission environment? No * Can the patient safely return to the preadmission environment? Yes * Has this patient been hospitalized within the prior 30 days at any hospital? No Coverage Notice Reviewer: ARIAS Caicedo Notice Issued Date-Time: 12/18/2018 11:20 Notice Type: Patient Choice Letter Notice Delivered To: Patient Relationship to Patient: Cleaner Greaser Name: Delivery Method: HAND - Hand Delivered Gema Days: Prior Verbal Notification: Recipient Understood Notice: Yes Recipient Signature: Yes Med Rec Note Co-signed by Attending: Coverage Notice Comment: [employer]MENT [employer] Reviewer: [id number] Caicedo Notice Issued Date-Time: 12/14/2018 12:40 Notice Type: Patient Choice Letter Notice Delivered To: Patient Relationship to Patient: Cleaner Greaser Name: Delivery Method: HAND - Hand Delivered Gema Days: Prior Verbal Notification: Recipient Understood Notice: Yes Recipient Signature: Yes Med Rec Note Co-signed by Attending: Coverage Notice Comment: [facility] Reviewer: [id number] Caicedo Notice Issued Date-Time: 12/18/2018 11:15 Notice Type: IM Discharge Notice Notice Delivered To: Patient Relationship to Patient: Cleaner Greaser Name: Delivery Method: HAND - Hand Delivered Gema Days: Prior Verbal Notification: Recipient Understood Notice: Yes Recipient Signature: Yes Med Rec Note Co-signed by Attending: Coverage Notice Comment: Reviewer: ARIAS Caicedo Notice Issued Date-Time: 12/14/2018 12:40 Notice Type: IM Discharge Notice Notice Delivered To: Patient Relationship to Patient: Cleaner Greaser Name: Delivery Method: HAND - Hand Delivered Gema Days: Prior Verbal Notification: Recipient Understood Notice: Yes Recipient Signature: Yes Med Rec Note Co-signed by Attending: Coverage Notice Comment: Last DP export: 12/20/18 8:17 a Patient Name: CATHERINE MILLIGAN Page [phone] at 0924 All edits/amendments must be made on the electronic document DICTATION DATE: 12/20/18922 KEG WASHER: MCKAYLA 12/20/18922 RPT#: [id number] DC DATE:12/19/18 STATUS: DIS IN [facility] [address] [facility] [place] [address] END OF REPORT
== END 2018-12-19 20:16 | disposition home or self-care (01) | DRG 252 ==
LOC: D.ER 03:47 → D.ICU 04:44 → D.M2 04:44
PROVIDERS: Emergency Medicine; Internal Medicine Nephrology; Surgery; ADMIT Internal Medicine
PROC: 5A1D70Z Performance of Urinary Filtration, Intermittent, Less than 6 Hours Per Day (ICD-10-PCS; 2018-12-08)
PROC: B2111ZZ Fluoroscopy of Multiple Coronary Arteries using Low Osmolar Contrast (ICD-10-PCS; 2018-12-10)
PROC: B2151ZZ Fluoroscopy of Left Heart using Low Osmolar Contrast (ICD-10-PCS; 2018-12-10)
PROC: 4A023N7 Measurement of Cardiac Sampling and Pressure, Left Heart, Percutaneous Approach (ICD-10-PCS; 2018-12-10)
PROC: [UNRECOGNIZED PROCEDURE] (2018-12-17)
PROC: B51W1ZZ Fluoroscopy of Dialysis Shunt/Fistula using Low Osmolar Contrast (ICD-10-PCS; 2018-12-17)
PROC: 0JH63XZ Insertion of Tunneled Vascular Access Device into Chest Subcutaneous Tissue and Fascia, Percutaneous Approach (ICD-10-PCS; 2018-12-17)
PROC: 05HP33Z Insertion of Infusion Device into Right External Jugular Vein, Percutaneous Approach (ICD-10-PCS; 2018-12-17)
PROC: B5131ZA Fluoroscopy of Right Jugular Veins using Low Osmolar Contrast, Guidance (ICD-10-PCS; 2018-12-17)
PROC: 03CY3ZZ Extirpation of Matter from Upper Artery, Percutaneous Approach (ICD-10-PCS; principal; 2018-12-17 12:15)
DX: I13.2 Hypertensive heart and chronic kidney disease with heart failure and with stage 5 chronic kidney disease, or end stage renal disease (principal); J18.1 Lobar pneumonia, unspecified organism; I21.4 Non-ST elevation (NSTEMI) myocardial infarction; N18.6 End stage renal disease; I82.B22 Chronic embolism and thrombosis of left subclavian vein; T82.868A Thrombosis due to vascular prosthetic devices, implants and grafts, initial encounter; Z68.41 Body mass index [BMI] 40.0-44.9, adult; D68.9 Coagulation defect, unspecified; I50.9 Heart failure, unspecified; I95.9 Hypotension, unspecified; Z99.2 Dependence on renal dialysis; D63.1 Anemia in chronic kidney disease; G47.33 Obstructive sleep apnea (adult) (pediatric); E87.70 Fluid overload, unspecified; R47.1 Dysarthria and anarthria; R09.02 Hypoxemia; Y83.8 Other surgical procedures as the cause of abnormal reaction of the patient, or of later complication, without mention of misadventure at the time of the procedure; E66.01 Morbid (severe) obesity due to excess calories

== ENCOUNTER 2019-01-07 05:11 | Outpatient (CLI) | payer MEDICARE ==
[~2019-01-07] VITALS: Ht 170.2 cm; Wt 122.7 kg
--- NOTE | ~2019-01-07 | HEMODYNAMI ---
PATIENT:CATHERINE MILLIGAN MEDICAL RECORD: [id number] : 59 LOCATION:[facility] ADMISSION DATE: 01/07/19 Generatedon:01/07/201911:44 Patient name: CATHERINE MILLIGAN Patient #: [id number] SSN: : Date of study: 01/07/2019 Page: Of Hemodynamic Procedure Report Patient Data Patient Demographics Procedure consent was obtained First Name: CATHERINE Gender: Female Last Name: SRINI : 1955 Middle Initial: JACE Age: 63 year(s) Patient #: [id number] Race: Black Additional ID: [id number] Contact details Address: [address] State: [place] City: [place] Zip code: [address] Past Medical History Allergies Allergen Reaction Date Comments Reported Other allergy 12/10/2018 lisinopril Admission Admission Data Admission Date: 01/07/2019 Admission Time: 5:11 Height (in.): 67 BSA: 2.3 (m2) Height (cm.): 170.18 BMI: 42.29 (kg/m2) Weight (lbs.): 270 Weight (kg.): 122.47 Procedure Procedure Types Cath Procedure Peripheral Cath Diagnostic Procedure Log Tumbler Peripheral Procedures Venography Extremity Left Upper Ext. Venagram Procedure Description Procedure Date Procedure Date: 01/07/2019 Procedure Start Time: 9:42 Procedure Staff Name Function Michael Jeronimo MD Performing Physician Kelly Bailon RT Side Seam Machine Operator Nora Tavares RN Nurse Hans Slaughter RT Scrub Procedure Data Cath Procedure Fluoroscopy Diagnostic fluoroscopy Total fluoroscopy Time: time: 52.9 min 52.9 min Diagnostic fluoroscopy Total fluoroscopy dose: 658 dose: 658 mGy mGy Contrast Material Contrast Material Type Amount (ml) Isovue 300 65 Diagnostic catheters Device Type Used For End Catheter Placement DIAGNOSTIC MPA-2 5Fr catheter ([id number]) Procedure Medications Medication Administration Route Dosage Heparin Flush Bag added to field 2 bags (1000units/500ml NS) Lidocaine 1% added to field 20 Versed I.V. 0.5 mg Fentanyl I.V. 25 mcg Fentanyl I.V. 25 mcg Versed I.V. 0.5 mg Versed I.V. 0.5 mg Fentanyl I.V. 25 mcg Versed I.V. 0.5 mg Fentanyl I.V. 25 mcg Hemodynamics Rest BSA: 2.3 (m2) O2 Consumption: Estimated: 239.96 (ml/min) O2 Consumption indexed: Estimated:104.33 (ml/min/m) Heart Rate: 96 (bpm) Snapshots Pre Cath Intra NCS Post Cath Vital Signs Time Heart Resp SPO2 etCO2 NIBP (mmHg) Rhythm Pain Sedation Rate (ipm) (%) (mmHg) Status Level (bpm) 9:20:38 93 23 27.4 126/94(105) NSR 0 (11) 10(A) , No pain 9:25:08 93 13 30.5 128/90(98) NSR 0 (11) 10(A) , No pain 9:30:07 82 15 25.1 Measuring NSR 0 (11) 10(A) , No pain 9:30:49 89 22 33.5 112/84(99) NSR 0 (11) 10(A) , No pain 9:35:11 93 19 32.7 104/81(93) NSR 0 (11) 9(A) , No pain 9:39:29 90 21 93 32.7 124/82(99) NSR 0 (11) 9(A) , No pain 9:43:53 87 20 90 37.3 115/92(105) NSR 0 (11) 8(A) , No pain 9:48:13 92 26 93 33.5 133/91(111) NSR 0 (11) 8(A) , No pain 9:52:39 91 12 90 33.5 124/92(104) NSR 0 (11) 8(A) , No pain 9:57:02 91 22 92 23.6 130/95(105) NSR 0 (11) 8(A) , No pain 10:01:30 95 20 90 31.9 142/89(116) NSR 0 (11) 8(A) , No pain 10:06:02 93 22 90 33.5 122/85(99) NSR 0 (11) 8(A) , No pain 10:10:27 95 21 92 19.7 122/84(99) NSR 0 (11) 8(A) , No pain 10:14:51 96 21 92 21.3 114/89(100) NSR 0 (11) 8(A) , No pain 10:19:11 94 22 93 19.7 130/91(113) NSR 0 (11) 8(A) , No pain 10:23:37 89 23 96 32.7 129/93(114) NSR 0 (11) 8(A) , No pain 10:28:03 95 24 95 27.4 128/96(109) NSR 0 (11) 8(A) , No pain 10:32:28 92 20 99 31.9 126/102(110) NSR 0 (11) 8(A) , No pain 10:36:52 93 16 100 34.2 137/101(121) NSR 0 (11) 8(A) , No pain 10:41:24 91 23 99 31.2 138/98(125) NSR 0 (11) 8(A) , No pain 10:45:55 89 19 98 28.1 132/100(120) NSR 0 (11) 8(A) , No pain 10:50:21 93 21 97 33.4 120/101(113) NSR 0 (11) 8(A) , No pain 10:55:20 95 22 100 31.9 Measuring NSR 0 (11) 8(A) , No pain 10:55:42 93 20 99 33.5 140/103(125) NSR 0 (11) 8(A) , No pain 11:00:13 90 20 98 16.7 135/112(132) NSR 0 (11) 8(A) , No pain 11:04:42 91 18 100 9.1 132/97(129) NSR 0 (11) 8(A) , No pain 11:09:10 94 19 100 32.7 142/113(136) NSR 0 (11) 8(A) , No pain 11:13:42 92 20 100 23.5 144/122(136) NSR 0 (11) 8(A) , No pain 11:18:04 94 14 99 28.9 112/71(107) NSR 0 (11) 8(A) , No pain 11:23:03 95 17 100 35 Measuring NSR 0 (11) 8(A) , No pain 11:24:27 94 20 100 34.2 Time NSR 0 (11) 8(A) Exceeded , No pain 11:27:29 92 21 100 33.5 64/28(45) NSR 0 (11) 8(A) , No pain 11:31:29 80 16 100 33.4 65/51(59) NSR 0 (11) 8(A) , No pain 11:35:35 22 100 39.5 75/26(61) NSR 0 (11) 8(A) , No pain 11:40:18 100 0 113/82(94) NSR 0 (11) 8(A) , No pain 11:44:17 0 No Cuff NSR 0 (11) 8(A) , No pain Medications Time Medication Route Dose Verified Delivered Reason Notes Effe ctiveness by by 9:31:50 Heparin Flush added 2 Michael Rodriguez used for Bag to bags Kandace Jeronimo procedure (1000units/500ml field MD ROBIN NS) 9:32:01 Lidocaine 1% added 20ml Michael Rodriguez for local to vial Kandace Jeronimo anesthetic field MD ROBIN 9:43:35 Versed I.V. 0.5 Michael Melendez for mg Kandace Chaitanya RN sedation 9:43:46 Fentanyl I.V. 25 Michael Melendez for mcg Kandace Chaitanya RN sedation 10:40:35 Fentanyl I.V. 25 Michael Melendez for mcg Kandace Chaitanya RN sedation 10:40:43 Versed I.V. 0.5 Michael Melendez for mg Kandace Chaitanya RN sedation 10:57:11 Versed I.V. 0.5 Michael Nora for mg Kandace Chaitanya RN sedation 10:57:18 Fentanyl I.V. 25 Michael Melendez for mcg Kandace Chaitanya RN sedation 11:19:28 Versed I.V. 0.5 Michael Nora for mg Kandace Chaitanya RN sedation 11:19:35 Fentanyl I.V. 25 Michael Melendez for mcg Kandace Chaitanya RN sedation Procedure Log Time Note 8:47:27 Patient Height : 67 inches 8:47:30 Patient Weight : 270 lbs 8:47:57 Time tracking: Regular hours (M-F 7:00 - 5:00) 8:48:19 Use device set IR Diagnostic 8:48:20 Tegaderm 4 x 4 (1626W) opened to sterile field. 8:48:21 Sterile Angiographic Pack opened to sterile field. 8:48:22 Bag Decanter (2002S) opened to sterile field. 8:49:58 Patient received from Outpatients to IR Alert and oriented. Tansferred to table in Supine position. 8:50:01 Signed procedure consent form obtained from patient. 8:50:08 H&P Date Dictated: 01/07/2019 Within 30 days and on chart.. 8:50:10 Pre-procedure instructions explained to patient. 8:50:10 Pre-op teaching completed and patient verbalized understanding. 8:50:13 Family in waiting room. 8:50:16 Patient NPO since Midnight. 8:50:32 Is the patient allergic to Iodine/contrast media? No. 8:50:35 Is patient on blood thinner?Yes 8:50:44 Patient diabetic? No. 8:50:46 - 8:50:47 ----Pre-sedation anethsthesia assessment.---- 8:50:50 Previous problem with sedation/anesthesia? No ? 8:50:54 Snore? Yes 8:50:56 Sleep apnea? No 8:50:58 Deviated septum? No 8:51:00 Opens mouth fully? Yes 8:51:02 Sticks out tongue? Yes 8:51:06 Airway obstruction? No ? 8:51:12 Dentures? No ? 8:51:12 - 8:51:22 IV patent on arrival in right antecubital with D5/.45%NaCl at KVO. 8:51:30 Right groin area was prepped with chlora-prep and draped in sterile fashion 8:51:32 - 8:51:57 Micropuncture VSI 4FR kit opened to sterile field. 8:52:12 BENTSON 145cm wire (K37255) opened to sterile field. 9:19:04 ECG and BP/O2 sat monitors applied to patient. 9:19:05 Vital chart was started 9:19:14 Baseline sample Acquired. 9:19:24 Full Disclosure recording started 9:19:28 - 9:29:53 ROADRUNNER FIRM 260CM glide wire ([id number]) opened to sterile field. 9:31:50 Heparin Flush Bag (1000units/500ml NS) 2 bags added to field was administered by Michael Jeronimo MD; used for procedure; 9:32:01 Lidocaine 1% 20ml vial added to field was administered by Michael omer MD; for local anesthetic; 9:32:49 Left Arm area was prepped with chlora-prep and draped in sterile fashio n 9:36:10 GLIDE CATHETER 5FR ANGLED 100cm (CG508) opened to sterile field. 9:41:38 SHEATH 5FR [place] (ZMM895) opened to sterile field. 9:41:55 Physician arrived 9:41:56 --------ALL STOP TIME OUT------ 9:41:56 Final Timeout: patient, procedure, and site verified with staff and physician. All members of the team are in agreement. 9:42:53 Procedure started. 9:42:58 Local anesthetic to right femoral vein with Lidocaine 1% by Michael Jeronimo MD.INITIAL ACCESS ONLY 9:43:35 Versed 0.5 mg I.V. was administered by Nora Tavares RN; for sedation; 9:43:46 Fentanyl 25 mcg I.V. was administered by Nora Tavares RN; for sedation ; 9:52:11 COOK SHEATH 6FR RAABE 70CM (P40070) opened to sterile field. 9:53:22 GALLAGHER 260 wire (O62756) opened to sterile field. 9:55:48 Trailblazer 0.035 90cm catheter (ASC-035-090) opened to sterile field. 9:59:25 GLIDE WIRE Super Stiff Angled 260cm (NY5999) opened to sterile field. 10:03:53 A DIAGNOSTIC MPA-2 5Fr catheter ([id number]) was advanced over the wire an d used for . 10:11:04 CXI Catheter 90cm (F71903) opened to sterile field. 10:15:34 Inflate balloon Inflation number: 1 A Evercross 3 x 2 x 135 Balloon ([id number]) was prepped and advanced across the Undefined1, then inflated. 10:15:36 INFLATOR BasixTOUCH (GE4313) opened to sterile field. 10:22:21 TREASURE 12 300cm wire ([id number]) opened to sterile field. 10:22:34 CXI SUPPORT .018 150CM STR catheter (V78581) opened to sterile field. 10:37:54 Micropuncture VSI 4FR kit opened to sterile field. 10:39:15 Local anesthetic to left arm with Lidocaine 1% by Michael Jeronimo MD.ADDITIONAL ACCESS 10:39:22 SHEATH 6FR Destination (RSR01) opened to sterile field. 10:40:35 Fentanyl 25 mcg I.V. was administered by Nora Tavares RN; for sedation ; 10:40:43 Versed 0.5 mg I.V. was administered by Nora Tavares RN; for sedation; 10:49:07 ROADRUNNER FIRM 260CM glide wire (J85946) opened to sterile field. 10:57:11 Versed 0.5 mg I.V. was administered by Nora Tavares RN; for sedation; 10:57:15 Inflate balloon Inflation number: 1 A Evercross 3 x 4 x 135 Balloon ([id number]) was prepped and advanced across the Undefined2, then inflated. 10:57:18 Fentanyl 25 mcg I.V. was administered by Nora Tavares RN; for sedation ; 11:03:42 GLIDE WIRE GT ANGLED 90 DEGREE .018 ([id number]) opened to sterile field. 11:12:58 GLIDE WIRE .035 180CM STRAIGHT (TR3395) opened to sterile field. 11:19:28 Versed 0.5 mg I.V. was administered by Nora Tavares RN; for sedation; 11:19:35 Fentanyl 25 mcg I.V. was administered by Nora Tavares RN; for sedation ; 11:24:12 Procedure ended.(Physican Out) 11:24:57 Fluoroscopy time 52.90 minutes. 11:25:01 Fluoroscopy dose: 658 mGy 11:25:01 Flurop Dose total: 658 11:25:17 Contrast amount:Isovue 300 65ml. 11:25:20 Procedure and supply charges have been captured, reviewed, submitted an d are correct. 11:27:42 Report given to Outpatients. 11:44:43 Vital chart was stopped Intervention Summary Intervention Notes Time ActionType Lesion and Equipment Used Action# Pressure Duration Attributes 10:15:34 Inflate Undefined1 Evercross 3 x 2 1 0 00:00 balloon x 135 Balloon ([id number]) 10:57:15 Inflate Undefined2 Evercross 3 x 4 1 0 00:00 balloon x 135 Balloon ([id number]) Device Usage Item Name Manufacture Quantity Catalog Number [facility] Minimal Lot# / Charge Number Stock Stock Serial# Code Tegaderm 4 x 4 3M 1 1626W [id number] 792563 500917 5 (1626W) Sterile Cardinal 1 [id number] 652068 916005 5 Angiographic Health Pack Bag Decanter Microtek 1 186000 57059 948531 5 () Medical Inc. Micropuncture VSI VASCULAR 2 7266V 738876 732290 5 VSI 4FR kit SOLUTIONS BENTSON 145cm [employer] 1 Z33029 121950 370275 5 wire (R57538) ROADRUNNER FIRM [employer] 2 S68133 140793 860289 5 7545536 260CM glide 2026801 wire (X10300) GLIDE CATHETER Terumo 1 CG508 524659 12647 050854 4 5FR ANGLED 100cm (CG508) SHEATH 5FR Terumo 1 VLO171 432750 755462 932815 5 [place] (WRI826) COOK SHEATH 6FR [employer] 1 K44019 694029 36762 169316 1 2836018 RAABE 70CM (Z88968) GALLAGHER 260 wire [employer] 1 Z66735 684799 52770 697362 5 (Q23659) Trailblazer Medtronic 1 ASC-035-090 859338 8926439 496384 5 0.035 90cm catheter (ASC-035-090) GLIDE WIRE Terumo 1 CZ3086 914076 772381 918464 5 Super Stiff Angled 260cm (ZE6834) DIAGNOSTIC Cardinal 1 [id number] 012876 037148 986768 5 MPA-2 5Fr Health catheter (322544F) CXI Catheter [employer] 1 B25544 832893 220627 715735 5 0155236 90cm (T49956) Evercross 3 x 2 Medtronic 1 [id number] 387816 537177 270845 5 [id number] x 135 Balloon ([id number]) INFLATOR [facility] 1 NT2795 813252 119117 084745 5 BasixTOUCH (VL0160) TREASURE 12 Cardiovascular 1 [id number] 243730 678182 335171 5 300cm wire systems ([id number]) CXI SUPPORT [employer] 1 J21082 924872 612651 926823 5 9346630 .018 150CM STR catheter (L44365) SHEATH 6FR Terumo 1 RSR01 809121 58267 097873 5 Destination (RSR01) Evercross 3 x 4 Medtronic 1 [id number] 596601 826330 079527 5 H702661 x 135 Balloon ([id number]) GLIDE WIRE GT Terumo 1 [id number] 769885 824518 5 724988 ANGLED 90 DEGREE .018 ([id number]) GLIDE WIRE .035 Terumo 1 UN2567 050707 661195 5 180CM STRAIGHT (OH8527) Signature Audit [place] Stage Time Signature Unsigned Intra-Procedure 01/07/2019 Kelly Bailon 11:44:38 AM RT(R) [facility] [address] [place] [address]
[~2019-01-07 05:11] MED LIST changes: +MIDODRINE HCL10 MG PO; +RENVELA800 MG PO
[2019-01-07 05:38] LABS: BASOPHILS 0.2 % (0-2); EOSINOPHILS 1.2 % (0-7); HEMATOCRIT 31.1 % (36.0-48.0); HEMOGLOBIN 9.8 g/dL (12-16); IMMATURE GRANULOCYTES 0.3 % (0-5); LYMPHOCYTES 16.2 % (15-50); MCH 28.8 pg (26.0-34.0); MCHC 31.5 g/dL (31.0-37.0); MCV 91.5 fL (80.0-100.0); MEAN PLATELET VOLUME 10.5 fL (7.4-10.4); MONOCYTES 11.9 % (2-11); NEUTROPHILS 70.2 % (40-80); RDW 15.4 % (11.5-14.5); WBC 8.8 10x3/uL (4.8-10.8)
[2019-01-07 05:43] LABS: PLATELET COUNT 254 10x3/uL (130-400)
[2019-01-07 06:09] LABS: APTT 32.8 SECONDS (22.8-39.4); INR 1.22 (0.85-1.17); PROTIME 14.9 SECONDS (11.6-15.0)
[2019-01-07 06:21] LABS: ANION GAP 16.3 mmol/L (8-16); CALCIUM 9.5 mg/dL (8.5-10.1); CREATININE - SERUM 7.9 mg/dL (0.6-1.3); POTASSIUM - SERUM 3.3 mmol/L (3.5-5.1)
[2019-01-07 06:28] VITALS: Ht 170.2 cm; Wt 122.7 kg
--- NOTE | 2019-01-07 07:40 | NUR ---
CALLED CATHERINE WARREN REGARDING LOW BP, CATHERINE SUPERVISOR AIR CONDITIONING INSTALLER STATES TO GIVE 10MG MIDODRINE PO.
--- NOTE | 2019-01-07 12:00 | NUR ---
1150 SEE POST PROCEDURE CHECKLIST FOR VITAL SIGN TRENDS.
--- NOTE | 2019-01-07 12:15 | NUR ---
1205 NO BLEEDING NO HEMATOMA RENAL DIET ORDERED
--- NOTE | 2019-01-07 14:45 | NUR ---
1330 ROUNDS BY CASSIDY FELDER RN.
== END 2019-01-07 14:15 | disposition home or self-care (01) ==
LOC: D.SP 05:11 → D.RAD 08:00 → D.SP 08:00
PROVIDERS: Radiology Diagnostic Radiology; ATTEND Internal Medicine Nephrology
DX: I82.B22 Chronic embolism and thrombosis of left subclavian vein (principal); N18.6 End stage renal disease; T82.590A Other mechanical complication of surgically created arteriovenous fistula, initial encounter; D63.1 Anemia in chronic kidney disease; Z01.812 Encounter for preprocedural laboratory examination

== ENCOUNTER 2020-05-22 06:10 | Inpatient (IN) | payer MEDICARE ==
[~2020-05-22] VITALS: Ht 170.2 cm; Wt 155.5 kg
[2020-05-22 07:03] LABS: INR 1.08 (0.85-1.17); PROTIME 13.9 SECONDS (11.6-15.0)
[2020-05-22 07:10] LABS: ANION GAP 16.8 mmol/L (8-16); CALCIUM 7.6 mg/dL (8.5-10.1); CARBON DIOXIDE 25.7 mmol/L (21.0-32.0); CREATININE - SERUM 9.6 mg/dL (0.6-1.3); POTASSIUM - SERUM 4.5 mmol/L (3.5-5.1)
[2020-05-22 07:27] VITALS: BP 96/57; BMI 53.5
[2020-05-22 07:55] LABS: HEMATOCRIT 38.1 % (36.0-48.0); HEMOGLOBIN 12.3 g/dL (12-16); LYMPHOCYTES 15.1 % (15-50); MCH 31.5 pg (26.0-34.0); MCHC 32.3 g/dL (31.0-37.0); MCV 97.7 fL (80.0-100.0); MEAN PLATELET VOLUME 10.9 fL (7.4-10.4); NEUTROPHILS 72.6 % (40-80); RDW 14.7 % (11.5-14.5); WBC 13.6 10x3/uL (4.8-10.8)
[2020-05-22 07:56] LABS: PLATELET COUNT 187 10x3/uL (130-400)
--- NOTE | 2020-05-22 09:47 | NUR ---
0900-ELEVATED CBC CALLED TO OR FOR DR HARRIS.
--- NOTE | 2020-05-22 15:53 | NUR ---
1405 TRANSPORTED FROM OR SON REMAINS AT BEDSIDE SREDDING TO RIGHT CHEST WALL AND RIGHT UUPPER ARM CDI
--- NOTE | 2020-05-22 15:55 | NUR ---
1435 ULTRAM 50MGPO GIVEN FOR BACK PAIN ASSISSTED IN REPOSITIONING
--- NOTE | 2020-05-22 15:58 | NUR ---
1508 RAPID RESPONSE CALLED FOR LOW BP AND HEART RATE SEE RR SHEET ABGS DONE PT PLACED ON BPAP AND WILL TRANSFER TO ICU
--- NOTE | 2020-05-22 16:08 | NUR ---
6766 CALLED REPORT TO BRANDON IN ICU PT WILL GO TO ROOM 2307
[2020-05-22 19:00] VITALS: BP 100/45
--- NOTE | 2020-05-22 19:16 | NUR ---
1635 TRANSPORTED TO ICU 2306 WEARING BPAP
[2020-05-22 20:00] VITALS: BP 102/55
[2020-05-22 21:00] VITALS: BP 109/45
[2020-05-22 22:00] VITALS: BP 106/72
[2020-05-22 23:00] VITALS: BP 113/73
[2020-05-23] VITALS (8 sets, daily range): BP systolic 84–135; BP diastolic 33–98
--- NOTE | 2020-05-23 07:43 | NUR ---
LYING IN BED ON BIPAP AT THIS TIME. VSS. NO ACUTE DISTRESS NOTED. CALL LIGHT IN REACH. WILL CONTINUE PLAN OF CARE.
[2020-05-23 09:13] LABS: BASOPHILS 0 % (0-2); EOSINOPHILS 0.2 % (0-7); HEMOGLOBIN 10.9 g/dL (12-16); IMMATURE GRANULOCYTES 0.5 % (0-5); LYMPHOCYTES 8.4 % (15-50); MCH 31.3 pg (26.0-34.0); MCHC 31.1 g/dL (31.0-37.0); MEAN PLATELET VOLUME 11.7 fL (7.4-10.4); NEUTROPHILS 79.9 % (40-80); PLATELET COUNT 159 10x3/uL (130-400); RBC 3.48 10x6/uL (4.00-5.40)
[2020-05-23 09:20] LABS: ALBUMIN 3.1 g/dL (3.4-5.0); ANION GAP 20.7 mmol/L (8-16); BILIRUBIN - TOTAL 0.45 mg/dL (0.2-1.3); CALCIUM 7.7 mg/dL (8.5-10.1); CARBON DIOXIDE 20.1 mmol/L (21.0-32.0); CREATININE - SERUM 11.4 mg/dL (0.6-1.3); MAGNESIUM - SERUM 1.9 mg/dL (1.8-2.4); MCV 100.6 fL (80.0-100.0); PROTEIN - SERUM 6.9 g/dL (6.4-8.2); WBC 17.4 10x3/uL (4.8-10.8)
[2020-05-23 09:26] LABS: PHOSPHOROUS 11.8 mg/dL (2.5-4.9); POTASSIUM - SERUM 5.8 mmol/L (3.5-5.1)
--- NOTE | 2020-05-23 09:57 | NUR ---
TRANSFER ORDERS RECIEVED AT THIS TIME BY RENAL UNATTENDED GROUND SENSOR SPECIALIST.
--- NOTE | 2020-05-23 11:44 | NUR ---
SITTING UP IN BED EATING LUNCH AT THIS TIME. VSS. NO ACUTE DISTRESS NOTED. WILL CONTINUE PLAN OF CARE.
--- NOTE | 2020-05-23 13:47 | NUR ---
VSS. NO ACUTE DISTRESS NOTED. NO CHANGE. WILL CONTINUE PLAN OF CARE.
--- NOTE | 2020-05-23 15:47 | NUR ---
NOTED PT TO TRANSFER TO 2135. WILL TRANSFER PT SHORTLY.
--- NOTE | 2020-05-23 16:18 | NUR ---
PT TRANSFERRED TO ROOM 2136 AT THIS TIME VIA BED ACCOMPANIED BY HOSPITAL STAFF. TRANSFERRED WITH ALL PERSONAL ITEMS INCLUDING WHEELCHAIR AND CELL PHONE. LT HAND IV PULLED OUT DURING REPOSITIONING, CATHETER TIP INTACT. NEW IV PLACED TO LT UPPER ARM, 22G, FLUSHES WELL. VSS. WILL CONTINUE PLAN OF CARE.
--- NOTE | 2020-05-23 16:31 | NUR ---
RECEIVED PT TO ROOM 2136, AND THEN PT WAS TAKEN TO DIALYSIS.
--- NOTE | 2020-05-23 16:37 | NUR ---
I have reviewed this patient and I concur with the Shift Assessment completed by the Licensed Practical Nurse today this shift.
--- NOTE | 2020-05-23 19:23 | NUR ---
PT IS IN DIALYSIS AT THIS TIME.
[2020-05-24 00:45] VITALS: BP 88/49
[2020-05-24 05:24] LABS: BASOPHILS 0.1 % (0-2); EOSINOPHILS 1.7 % (0-7); HEMATOCRIT 29.4 % (36.0-48.0); HEMOGLOBIN 9.3 g/dL (12-16); IMMATURE GRANULOCYTES 0.4 % (0-5); LYMPHOCYTES 15.1 % (15-50); MCH 30.8 pg (26.0-34.0); MCHC 31.6 g/dL (31.0-37.0); MCV 97.4 fL (80.0-100.0); MEAN PLATELET VOLUME 11.9 fL (7.4-10.4); MONOCYTES 17.5 % (2-11); NEUTROPHILS 65.2 % (40-80); PLATELET COUNT 102 10x3/uL (130-400); RBC 3.02 10x6/uL (4.00-5.40)
[2020-05-24 05:52] LABS: ALBUMIN 2.7 g/dL (3.4-5.0); BILIRUBIN - TOTAL 0.39 mg/dL (0.2-1.3); CALCIUM 7.6 mg/dL (8.5-10.1); CARBON DIOXIDE 21.9 mmol/L (21.0-32.0); CREATININE - SERUM 10.6 mg/dL (0.6-1.3); PROTEIN - SERUM 6.2 g/dL (6.4-8.2)
[2020-05-24 05:54] LABS: PHOSPHOROUS 10.3 mg/dL (2.5-4.9); POTASSIUM - SERUM 4.9 mmol/L (3.5-5.1)
--- NOTE | 2020-05-24 19:23 | NUR ---
RECIEVED UP IN BED WITH EYES OPEN AND TV ON. ALERT AND ORIENTED X4. UP WITH ASSIST. RT ARM RESERVED D/T NEW HERO GRAFT PLACEMENT. NO IV AT THIS TIME. ANURIC. DIALYSIS MOWEDFRI. DENIES ANY NEEDS AT THIS TIME.
[2020-05-24 20:31] VITALS: BP 83/31
[2020-05-25 04:41] VITALS: BP 92/62
[2020-05-25 07:17] LABS: ALBUMIN 2.9 g/dL (3.4-5.0); ANION GAP 18.9 mmol/L (8-16); BILIRUBIN - TOTAL 0.29 mg/dL (0.2-1.3); CALCIUM 7.3 mg/dL (8.5-10.1); CARBON DIOXIDE 23.7 mmol/L (21.0-32.0); CREATININE - SERUM 12.7 mg/dL (0.6-1.3); POTASSIUM - SERUM 4.6 mmol/L (3.5-5.1); PROTEIN - SERUM 6.5 g/dL (6.4-8.2)
--- NOTE | 2020-05-25 07:29 | NUR ---
PT TO BE ON HEPARIN DRIP. NO PIV. NURSES HAVE BEEN UNABLE TO START PIV. VASCULAR ACCESS CONSULT PLACED.
[2020-05-25 07:31] LABS: BASOPHILS 0.1 % (0-2); HEMATOCRIT 28.5 % (36.0-48.0); HEMOGLOBIN 9.4 g/dL (12-16); IMMATURE GRANULOCYTES 0.3 % (0-5); MCV 96.9 fL (80.0-100.0); MEAN PLATELET VOLUME 10.3 fL (7.4-10.4); NEUTROPHILS 69.6 % (40-80); RBC 2.94 10x6/uL (4.00-5.40); WBC 11.9 10x3/uL (4.8-10.8)
[2020-05-25 07:34] LABS: PLATELET COUNT 153 10x3/uL (130-400)
--- NOTE | 2020-05-25 08:13 | NUR ---
WAS TOLD IN REPORT WAS HAS NO PIV. WHILE DOING ASSESSMENT PT HAD A 22G LEFT UPPER ARM PIV. FLUSHED IV AND IT HAD GREAT BLOOD DRAW BACK AND FLUSHED WELL. DC'D TEGADERM AND TAPE AND PLACED NEW TEGADERM AND TAPE. WILL CALL RENAL TO SEE IF HEPARIN DRIP NEEDS TO BE RESTARTED.
--- NOTE | 2020-05-25 08:28 | NUR ---
CALLED MICHEL RODRIGUES AND I STATED THE ONLY THING I CAN FIND IN A DOCTORS NOTE FOR WHY THE HEPARIN DRIP WAS STARTED WAS FOR POSSIBLE CLOTTING IN HER RIGHT ARM GRAFT. SHE STATES TO CALL AND ASK DR. HARRIS AND DIALYSIS IF ARM WAS CLOTTING IN THE LAST TIME SHE HAD DIALYSIS. I VERBALIZED UNDERSTANDING. CALLED DIALYSIS AND SPOKE WITH VARUN AND SHE STATES THE ALARM KEPT GOING OFF FOR CLOTTING BUT THAT COULD HAVE BEEN THE MACHINE CLOTTING OR HER ARM. SHE STATES SHE WILL MOVE PT UP TO THE FIRST OF THE LIST SO WE CAN FIND OUT IF IT IS HER ARM OR THE MACHINE. I VERBALIZED UNDERSTANDING. CALLED DR. SMYTH CELL AND DID NOT RECEIVE AN ANSWER. CALLED DR. HARRIS'S OFFICE AND THEY STATED HE IS NOT IN THE OFFICE BUT THEY CAN LEAVE HIM A MESSAGE ABOUT WHAT IS GOING ON AND HAVE HIM GIVE ME A CALL BACK. I VERBALIZED UNDERSTANDING. WILL AWAIT FOR A CALL BACK FROM DR. HILLMAN.
[2020-05-25 09:32] VITALS: BP 114/61
--- NOTE | 2020-05-25 09:43 | NUR ---
SPOKE WITH DR. HARRIS OVER THE PHONE HE ASKED IF PT HAS A BRUIRY AND THRILL. I STATED PT HAS FAINT BRUIRY AND I WAS UNABLE TO FEEL A THRILL AND PT HAS NOT BEEN ON HEPARIN DRIP SINCE YESTERDAY AM. I ALSO READ OFF CHEST XR RESULTS AND THAT PT IS TO DIALYIZE FIRST THING. HE STATES TO KEEP PT NPO BECAUSE IF HE CAN GET PT TO SX TODAY HE WILL IF NOT PT WILL BE ADDED TO THE LIST TOMORROW. HE STATES TO GIVE A 5000 UNIT HEPARIN BOLUS AND TO START HEPARIN DRIP AT 1000 UNITS/HR AND TO DO PER PROTOCOL. HE ALSO STATES TO CALL HIM AFTER PT DIALYIZES SO HE CAN KNOW IF ARM CLOTTED AND IF DIALYSIS WAS ABLE TO DIALYIZE PT AND WHAT HE NEEDS TO DO. I VERBALIZED UNDERSTANDING. CALLED LAB AND STATED I PLACED STAT APTT AND PT INR. THEY STATED THEY ADDED IT TO MORNING LABS AND IT WILL RESULT IN ABOUT TWENTY MINUTES. I VERBALIZED UNDERSTANDING.
--- NOTE | 2020-05-25 10:00 | NUR ---
DR. SMYTH OFFICE CALLED AND STATED PT WILL GO TO SX AROUND 1530 FOR A RIGHT ARM OPEN HERO GRAFT DECLOT AND FEMORAL TRIALYSIS AND FEMORAL TRIALYSIS CATHETER INSERTION. I VERBALIZED UNDERSTANDING. CALLED DIALYSIS AND SPOKE WITH VARUN FRANCISCO AND STATED PT IS GOING TO SX AROUND 1530 FOR RIGHT ARM DECLOT AND TRIALYSIS PLACEMENT BUT DR. HARRIS STILL WANTS PT TO DIALYIZE FIRST AND I AM WAITING ON PT INR AND APTT LAB TO SEULT TO GIVE HEPARIN AND START HEPARIN DRIP BEFORRE I BRING PT DOWN. SHE VERBALIZED UNDERSTANDING.
[2020-05-25 10:13] LABS: APTT 30.5 SECONDS (22.8-39.4); INR 1.03 (0.85-1.17); PROTIME 13.4 SECONDS (11.6-15.0)
--- NOTE | 2020-05-25 10:19 | NUR ---
PT STATES SHE WANTS TO WAIT TO SIGN CONSENTS FOR SX UNTIL AFTER DIALYSIS. I VERBALIZED UNDERSTANDING. I STATED TO BE PT IS SHE IS TO BE NPO AND SHE VERBALIZED UNDERSTANDING.
--- NOTE | 2020-05-25 11:13 | NUR ---
APTT 30.5,PT 13.4, INR 1.03. HEPARIN 5000 UNITS GIVEN THROUGH LEFT UPPER ARM 22G IV AND HEPARIN DRIP STARTED AT 1200 UNITS/HR PER HERPARIN FLOW SHEET. APTT ORDERED FOR IN 6HRS PER PROTOCOL. PT TAKE TO DIALYSIS VIA WC.
--- NOTE | 2020-05-25 11:20 | NUR ---
PT BROUGHT BACK UP FROM DIALYSIS. DIALYSIS HAD AN EMERGENCY PT COME IN AND THEY ARE UNABLE TO TAKE HER RIGHT NOW. THEY DO NOT KNOW WHEN SHE WILL GO. CALLED AND SPOKE WITH DR. HARRIS AND NOTFIED HIM AND HE STATES TO TELL DIALYSIS TO MAKE HER THE NEXT PT AND SHE WILL STILL GO LATER TODAY TO SX. I VERBALIZED UNDERSTANDING. CALLED AND SPOKE WITH VARUN FRANCISCO IN DIALYSIS AND SHE STATES SHE HAS A PT THAT ONLY HAS AN HOUR LEFT AND SHE CAN GET PT DOWN AFTER THAT. I VERBALIZED UNDERSTANDING.
--- NOTE | 2020-05-25 12:58 | NUR ---
PT TAKEN TO DIALYSIS.
[2020-05-25 13:40] VITALS: BP 120/102
--- NOTE | 2020-05-25 13:55 | NUR ---
VARUN FROM DIALYSIS CALLED AND SAID THE GRAFT HAS SOME BLOOD FLOW TO IT BUT NOT ENOUGH FOR ADEQUATE DIALYSIS. I VERBALIZED UNDERSTANDING.
[2020-05-25 14:27] VITALS: Ht 170.2 cm; Wt 155.5 kg
--- NOTE | 2020-05-25 15:15 | NUR ---
PATIENT'S DIALYSIS TREATMENT STOPPED PER REPORT GIVEN TO ME BY DIALYSIS NURSE VARUN BEAL THAT PATIENT WAS TO BE RETURNED TO THE FLOOR BY 1530 TO GO TO SURGERY. SHE ALSO SHOWED ME THAT SHE HAD TAKEN THE HEPARIN GTT AND PLACED ON OUR ARTERIAL CHAMBER DURING PATIENT'S TREATMENT DUE TO PATIENT REPORTING A GOOD DEAL OF PAIN AT THE IV SITE. I TOOK OVER PATIENT'S TREATMENT AT 1400. TREATMENT WAS STOPPED AND CALLED FLOOR THAT PATIENT WAS READY FOR RETURN AT 1515. I DID NOT RETURN THE HEPARIN GTT TO THE PATIENT'S IV SITE DUE TO: I WAS GIVEN REPORT THAT PATIENT WAS GOING TO SURGERY AT 1530; AND ALSO THAT PATIENT WAS COMPLAINING OF PAIN AT HER IV SITE, THEREFORE IT NEEDED TO BE EVALUATED BY THE NURSE BEFORE RESTARTING. WHEN I CALLED THE FLOOR FOR PATIENT RETURN AT 1515, I ALSO ASKED THAT THE NURSE CALL ME FOR REPORT WHEN SHE GOT A CHANCE. =
--- NOTE | 2020-05-25 15:31 | NUR ---
PT RETURNED FROM DIALYSIS AND DIALYSIS STATES THEY ONLY WERE ABLE TO GE TOFF 1L.
--- NOTE | 2020-05-25 16:08 | NUR ---
KIMBERLY, ROUTE JUMPER NURSE STATES THAT SHE "UNHOOKED THE HEPARIN DRIP" FROM THE PATIENT. I ASKED HER WHY. SHE STATES THAT SHE THOUGHT THE PATIENT STATED THAT HER IV SITE WAS HURTING AND THAT SHE WAS TOLD BY THE PATIENT THAT SHE WAS GOING TO SURGERY.
--- NOTE | 2020-05-25 18:07 | NUR ---
CONSENTS FOR SX TOMORROW SIGNED AND IN CHART.
--- NOTE | 2020-05-25 19:00 | NUR ---
EVENING ROUNDS COMPLETE. PT LAYING IN BED. AAOX4. NO SIGNS OF DISTRESS. PT DENIES ANY PAIN OR NEEDS AT THIS TIME. CL IN REACH, BED IN LOWEST POSITION.
[2020-05-25 21:32] VITALS: BP 88/58
[2020-05-26 00:30] VITALS: BP 84/54
[2020-05-26 04:00] VITALS: BP 87/38
[2020-05-26 07:14] LABS: BASOPHILS 0.2 % (0-2); EOSINOPHILS 2.2 % (0-7); HEMATOCRIT 31.1 % (36.0-48.0); HEMOGLOBIN 9.9 g/dL (12-16); IMMATURE GRANULOCYTES 0.2 % (0-5); LYMPHOCYTES 15.9 % (15-50); MCH 30.7 pg (26.0-34.0); MCHC 31.8 g/dL (31.0-37.0); MCV 96.3 fL (80.0-100.0); MEAN PLATELET VOLUME 10.3 fL (7.4-10.4); MONOCYTES 13.1 % (2-11); NEUTROPHILS 68.4 % (40-80); PLATELET COUNT 154 10x3/uL (130-400); RBC 3.23 10x6/uL (4.00-5.40); RDW 14.7 % (11.5-14.5)
--- NOTE | 2020-05-26 07:30 | NUR ---
PT SITTING UP IN WHEELCHAIR. DENIES NEEDS OR PAIN AT THIS TIME. CALL LIGHT WITHIN REACH. DENIES NEEDS OR PAIN AT THIS TIME. WILL CONTINUE TO MONITOR. 0830- CALL RECIEVED FROM DR. HARRIS. WANTED PT TO CONTINUE NPO EXCEPT MEDICATIONS. SPOKE WITH HIM ABOUT BP AND HE STATED TO REFER TO RENAL DR. ABOUT IT. SPOKE WITH JONATHAN ALEXANDER. ORDERS RECIEVED FOR PROAMATINE TID AND TO GIVE DOSE NOW. HERO GRAFT ASSESSED TO RIGHT UPPER FOREARM, BRUIT PRESENT.
[2020-05-26 07:50] LABS: ALBUMIN 3.1 g/dL (3.4-5.0); ANION GAP 19.8 mmol/L (8-16); BILIRUBIN - TOTAL 0.44 mg/dL (0.2-1.3); CREATININE - SERUM 12.4 mg/dL (0.6-1.3); POTASSIUM - SERUM 4.8 mmol/L (3.5-5.1)
[2020-05-26 07:53] LABS: PHOSPHOROUS 10.6 mg/dL (2.5-4.9)
[2020-05-26 09:28] VITALS: BP 80/46
[2020-05-26 12:09] VITALS: BP 111/42
[2020-05-26] MEDS ORDERED: ELIQUIS5 MG PO (12:49)
[2020-05-26] MEDS ORDERED: PLAVIX75 MG PO (12:50)
--- NOTE | 2020-05-26 14:33 | MORECARE ---
CASE MANAGEMENT DISCHARGE SUMMARY PATIENT: CATHERINE MILLIGAN UNIT: [id number] ADM DATE: 05/22/20 AGE: 64 : 59 SEX: F ROOM/BED: D.2136 AUTHOR: TEJA WOLFE PHYSICIAN: REFERRING PHYSICIAN: MIKE ARAIZA MD DATE OF SERVICE: 05/26/20 Discharge Plan Patient Name: [facility]ATH[facility] 1955 Planned Disposition: Home Anticipated Discharge Date: Discharge Date: Expected LOS: Initial Reviewer: [email or web address] Initial Review Date: 05/22/2020 Generated: 05/26/20 3:33 pm Patient Name: CATHERINE MILLIGAN Page [phone] at 1433 All edits/amendments must be made on the electronic document DICTATION DATE: 05/26/20 1433 [employer]PER[employer]OR [employer]: MCKAYLA 05/26/20 1433 RPT#: [id number] DC DATE: STATUS: ADM IN [facility] [address] [place] [address] END OF REPORT
--- NOTE | 2020-05-26 14:55 | MORECARE ---
CASE MANAGEMENT DISCHARGE SUMMARY PATIENT: CATHERINE MILLIGAN UNIT: [id number] ADM DATE: 05/22/20 AGE: 64 : 59 SEX: F ROOM/BED: D.1646 AUTHOR: TEJA WOLFE PHYSICIAN: REFERRING PHYSICIAN: MIKE ARAIZA MD DATE OF SERVICE: 05/26/20 Discharge Plan Patient Name: CATHERINE MILLIGAN Facility: [facility]:[place] : 1955 Planned Disposition: Home Anticipated Discharge Date: Discharge Date: Expected LOS: Initial Reviewer: [email or web address] Initial Review Date: 05/22/2020 Generated: 05/26/20 3:54 pm Comments DCP- Discharge Planning Updated by [email or web address]: Anastacia Vincent on 05/26/20 1:[address] CM met with patient to complete initial dc planning assessment. CM educated patient on the CM role and verbal consent given by patient to complete assessment. CM verified patient's address, phone number, and emergency contact phone numbers. Patient lives at home independently with her sons. At discharge patient plans to return home and feels this is a safe discharge. CM discussed availability of home health, rehab services, and medical equipment. Pt has home o2 that she uses sometimes with Josey. Pt has OP dialysis with [facility] set up by [facility] dialysis coordinator, and patient states she will drive to appointments when feeling well. On the days when she doesn't feel well she states her sons will take her The patient reports that she has used [facility] before and would like to use them again. HUSSEIN signed for [facility], and [facility]. CM spoke with Emile from [facility] at [phone]. Patient denies other known discharge needs at this time. Transportation provider at discharge and faxed referral. Transportation will be her Aunt who is at bedside . CM will continue to follow and will assist as needed with dc plans/needs. External Providers [facility] Next Contact Date: Service Request Date: Service Type: Resolution: Reviewer: Comments: Last DP export: 05/26/20 1:33 p Patient Name: CATHERINE MILLIGAN Page [id number] at 1455 All edits/amendments must be made on the electronic document DICTATION DATE: 05/26/201453 CRYSTAL MACHINING COORDINATOR: MCKAYLA 05/26/201453 RPT#: [id number] DC DATE: STATUS: ADM IN [facility] [address] [place] [address] END OF REPORT
--- NOTE | 2020-05-26 16:47 | NUR ---
I have reviewed this patient and I concur with the Shift Assessment completed by the Licensed Practical Nurse today this shift.
--- NOTE | 2020-05-26 16:56 | NUR ---
D/C INSTRUCTIONS REVIEWED WITH PT AND FAMILY, NO QUESTIONS AT THIS TIME AND VERBALIZED AGREEMENT. EMPHASIZED TO PT THAT SHE IS NOT TO TAKE ELIQUIS AND PLAVIX UNTIL TOMORROW. IV D/C WITH CATHETER TIP INTACT. LEFT VIA WHEELCHAIR WITH ALL BELONGINGS.
== END 2020-05-26 17:21 | disposition home health service (06) | DRG 252 ==
LOC: D.OPS 06:10 → D.M2 09:53 → OBSVTIME 09:53 → D.M2 09:53 → D.OPS 13:32 → D.M2 13:32 → D.ICU 16:28 → D.M2 05-23 16:13
PROVIDERS: Internal Medicine Nephrology; Surgery; ADMIT Internal Medicine Nephrology; ATTEND Internal Medicine Nephrology
PROC: B5181ZZ Fluoroscopy of Superior Vena Cava using Low Osmolar Contrast (ICD-10-PCS; 2020-05-22)
PROC: 05WY3KZ Revision of Nonautologous Tissue Substitute in Upper Vein, Percutaneous Approach (ICD-10-PCS; principal; 2020-05-22 09:45)
PROC: 03170JV Bypass Right Brachial Artery to Superior Vena Cava with Synthetic Substitute, Open Approach (ICD-10-PCS; 2020-05-22 09:45)
PROC: 5A1D70Z Performance of Urinary Filtration, Intermittent, Less than 6 Hours Per Day (ICD-10-PCS; 2020-05-23)
DX: T82.590A Other mechanical complication of surgically created arteriovenous fistula, initial encounter (principal); N18.6 End stage renal disease; I87.1 Compression of vein; I13.2 Hypertensive heart and chronic kidney disease with heart failure and with stage 5 chronic kidney disease, or end stage renal disease; Z68.43 Body mass index [BMI] 50.0-59.9, adult; N25.81 Secondary hyperparathyroidism of renal origin; Y83.9 Surgical procedure, unspecified as the cause of abnormal reaction of the patient, or of later complication, without mention of misadventure at the time of the procedure; I50.9 Heart failure, unspecified; Z99.2 Dependence on renal dialysis; E66.9 Obesity, unspecified; G47.33 Obstructive sleep apnea (adult) (pediatric); D63.1 Anemia in chronic kidney disease; I95.9 Hypotension, unspecified

== ENCOUNTER 2020-06-19 08:27 | Day surgery (SDC) | payer MEDICARE ==
[~2020-06-19] VITALS: Ht 170.2 cm; Wt 156.4 kg
[~2020-06-19 08:27] MED LIST changes: +PLAVIX75 MG PO
[2020-06-19 09:18] LABS: BASOPHILS 0.1 % (0-2); EOSINOPHILS 0.8 % (0-7); HEMATOCRIT 34.3 % (36.0-48.0); HEMOGLOBIN 10.9 g/dL (12-16); IMMATURE GRANULOCYTES 0.5 % (0-5); LYMPHOCYTES 13.8 % (15-50); MCH 31.8 pg (26.0-34.0); MCHC 31.8 g/dL (31.0-37.0); MEAN PLATELET VOLUME 10.6 fL (7.4-10.4); MONOCYTES 12.8 % (2-11); RBC 3.43 10x6/uL (4.00-5.40); RDW 15.3 % (11.5-14.5); WBC 12.8 10x3/uL (4.8-10.8)
[2020-06-19 09:19] LABS: PLATELET COUNT 187 10x3/uL (130-400)
[2020-06-19 09:26] LABS: INR 1.08 (0.85-1.17); PROTIME 13.9 SECONDS (11.6-15.0)
[2020-06-19 09:28] LABS: ANION GAP 15.6 mmol/L (8-16); CALCIUM 7.3 mg/dL (8.5-10.1); CARBON DIOXIDE 21.8 mmol/L (21.0-32.0); CREATININE - SERUM 8.4 mg/dL (0.6-1.3); POTASSIUM - SERUM 4.4 mmol/L (3.5-5.1)
[2020-06-19 10:46] VITALS: BP 96/46; Ht 170.2 cm; Wt 156.4 kg
--- NOTE | 2020-06-19 13:45 | NUR ---
1310 - ACCURATE PULSEOX VERY DIFFICULT VERY DIFFICULT TO ACQUIRE. MULTIPLE TYPES OF SENSORS APPLIED TO MULTIPLE SITES. AFTER TRIAL AND ERROR, SECURED TWO SITES WHICH AGREE AND APPERAR TO ACCURATELY REFLECT PT STATUS.
[2020-06-19] MEDS ORDERED: ULTRAM50 MG PO (13:56)
[2020-06-19] MEDS ORDERED: DOXYCYCLINE HY100 M2 PO (14:37)
--- NOTE | 2020-06-19 15:49 | NUR ---
1450 IV D\C'D WITH MARY INTACT, PRESSURE HELD AND DRSG PLACED. DISCHARGE ORDERS GIVEN AND PT AND SON BHASKAR BALIZED AN UNDERSTANDING. RUE AND DRSG UNCHANGED. DISCHARGED HOME IN STABLE CONDITION AND W/O C/O
--- NOTE | 2020-06-23 10:42 | OP ---
PATIENT NAME: CATHERINE BANKS MEDICAL RECORD: [id number] :59 LOCATION:D.FORMERLY [facility] ADMISSION DATE: SURGEON: BIRDIE HARRIS MD DATE OF OPERATION: 06/19/2020 REFERRING PHYSICIAN: Mike Garcia MD PREOPERATIVE DIAGNOSIS: Surgical wound dehiscence with impending exposure of underlying vascular graft arterial anastomosis. POSTOPERATIVE DIAGNOSIS: Surgical wound dehiscence with impending exposure of underlying vascular graft arterial anastomosis. ADDITIONAL DIAGNOSES: End-stage renal disease and dependence on hemodialysis and morbid obesity. OPERATION PERFORMED: Wound exploration, debridement, irrigation, and primary closure. SURGEON: Birdie Harris MD ANESTHESIA: General with LMA per APPELLATE COURT CLERK. PREOPERATIVE NOTE: Ms. Banks is about 6 weeks status post implantation of a right upper extremity HeRO graft at which time, I removed a right internal jugular tunneled dialysis catheter and inserted the HeRO outflow device in that route. She has done well with this having had no problems since discharge from the hospital. She is on Eliquis and Plavix. I was notified from the dialysis unit in [place] yesterday that she had developed a dehiscence of the distal incision. I had her come to the office yesterday and I saw a wound open at the distal end with a bit of visible granulation tissue and a tract heading in the direction of the arterial anastomosis. There was no drainage. There was no bleeding. She denied having had any discharge from the wound. It is unclear how long this situation has been in existence, maybe no more than a day or two. She is brought back to the operating room in today as soon as I could get her here to explore the wound and treat whatever underlying infection may be present up to and including removal of her HeRO graft. DESCRIPTION OF PROCEDURE: Under general anesthesia in supine position, the patient was prepped and draped in sterile manner. The old incision was explored with a culturette and again there was really no drainage of purulent material or bleeding. I then opened the rest of the incision and dissected carefully down to the arterial anastomosis. There was no visible sign of infection. There was certainly no purulence. The Acuseal graft was not perfectly seated in the first 2 cm from the arterial anastomosis but really did not appear to be infected or have a biofilm. I debrided the wound and irrigated it aggressively with Ancef/gentamicin solution and at that point elected to simply close the wound and continue her on systemic antibiotics. I did not use a drain. The wound was closed with interrupted 3-0 Vicryl. The wound was infiltrated with 0.25% Marcaine without epinephrine and the skin was closed with running intracuticular Stratafix reinforced with additional simple 4-0 Prolene sutures. Bactroban ointment was applied over that and Maxorb AG over that and then Tegaderm with Cavilon skin prep. She was awakened and taken to the recovery room in stable condition. Multiple swabs of the wound were obtained for aerobic and anaerobic organisms, for culture and sensitivity. Additional swabs directly on the OPERATIVE REPORT [id number] CATHERINE BANKS Acuseal graft surface were obtained for aerobic organisms. PLAN: The patient will be discharged to home today. I would like her to continue to receive vancomycin at dialysis. I believe she got vancomycin yesterday and she received vancomycin 1 g again IV today, so she may not need vancomycin for a few days. I will have her also started on doxycycline 100 mg 1 p.o. daily for 14 days. All of this of course pending the results of the cultures obtained today. NTS:[id number] Voice Confirmation ID: [id number] DOCUMENT ID: [id number] cc: BIRDIE Mclain MD at 1042 CC: MIKE GARCIA MD [id number] DICTATION DATE: 06/19/20 1418 BARREL BRIDGE ASSEMBLER: 06/20/208 [facility] 06/19/[address] [address]
== END 2020-06-19 15:10 | disposition home or self-care (01) ==
LOC: D.OPS 08:27
PROVIDERS: ATTEND Surgery
DX: T81.31XA Disruption of external operation (surgical) wound, not elsewhere classified, initial encounter (principal); N18.6 End stage renal disease; Z99.2 Dependence on renal dialysis; E66.01 Morbid (severe) obesity due to excess calories